=== PATIENT | female | born 1945 | race Caucasian/White ===

== ENCOUNTER → 2017-10-25 12:27 | Outpatient (CLI) | payer MEDICARE, OTHER, SELFPAY ==
--- NOTE | 2017-10-26 20:15 | DI.NM.S_ITS ---
DATE OF SERVICE: 10/25/2017 REFERRING PROVIDER: JULIA Roca PROCEDURE: Nuclear cardiac stress study. INDICATIONS: This is a 72-year-old patient with a history of pacemaker placement with evidence of recurrent nonsustained ventricular tachycardia on her pacemaker interrogations. Nuclear cardiac stress study is preformed as part of her evaluation to assess for ischemia. STRESS TEST: This patient was given a pharmacologic stress study using Lexiscan injection. Baseline EKG shows a normal sinus rhythm with a left axis deviation with no ventricular or atrial pacing. She tolerated the pharmacologic stress study without significant problems and received 25.5 mCi of technetium-99 Myoview on the stress portion of the examination. She returned 1 day later for the resting portion of the examination, receiving an additional 20.8 mCi. Prone imaging could not be performed. FINDINGS: Raw Data: Raw data images show overall good image quality. Prominent breast shadows identified. Quantitative Gated SPECT Imaging: Gated studies show a normal-size ventricle with end-diastolic volume estimated at 65 cc. Left ventricular systolic function is normal with an estimated ejection fraction of 85% with no regional wall motion abnormalities noted. Myocardial Perfusion SPECT Imaging: Myocardial perfusion imaging shows a normal distribution of radioisotopes throughout the myocardium. There are no myocardial perfusion abnormalities that would suggest ischemia or a scar. IMPRESSION: Normal nuclear cardiac stress study. Dawn Snyder - RASHAUN/kota/ts doc#: [id number]/job#: [id number] dd: 10/26/2017 16:35:00 dt: 10/26/2017 19:58:00 DICTATING MD/COPIES TO: Tristen Cardenas MD COPIES MNE: LATOYA
== END ==
PROVIDERS: PCP Internal Medicine
DX: I47.2 Ventricular tachycardia (principal); Z95.0 Presence of cardiac pacemaker
CPT/HCPCS: 78452; 93016; 93017; 93018; A9502

== ENCOUNTER → 2017-10-26 12:33 | Outpatient (CLI) | payer MEDICARE, OTHER, SELFPAY ==
--- NOTE | 2017-10-26 | DI.ECHO.S_ITS ---
[facility] +---------+ : : [address] : : : : [id number] : : : : Phone: [phone]+ Echocardiogram Report + + :Name: RENETTA RICK Study Date: 10/26/2017 Height: 64 in : :[facility] Weight: 180 lb : : Gender: Female BSA: 1.9 m2 : :: 1945 Age: 72 yrs BP: 130/84 mmHg: :Reason For Study: TACHYCARDIA : : Performed By: No Gange : + + Interpretation Summary 1. Small left ventricular cavity with upper limits of normal wall thickness and normal systolic function with an estimated EF of 60-65% 2. Upper limits of normal right ventricular size with normal systolic function. The estimated RVSP is 32 mm Hg. The estimated right atrial pressure is low. 3. Aortic valve sclerosis without stenosis or insufficiency Compared to the previous study, the estimated RVSP has increased somewhat Procedure: A two-dimensional transthoracic echocardiogram with color flow and Doppler was performed. Comparison is made with the echocardiogram of 02/04/2015. The study quality was technically good. The heart rate ranged between 83-89 bpm during the study. Left Ventricle: Left ventricular wall thickness is at the upper limits of normal. The left ventricular cavity is small. The ejection fraction is estimated to be 60-65%. No obvious focal wall motion abnormalities. Right Ventricle: There is a pacemaker lead in the right ventricle. The right ventricle is at the upper limits of normal in size. The right ventricular systolic function is normal. Atria: Both atria are normal in size. No color doppler evidence for an ASD. Mitral Valve: The mitral valve leaflets appear thickened, but open well. Sclerotic changes. There is trace mitral regurgitation. Aortic Valve: The aortic valve is trileaflet. The aortic valve opens well. There is no aortic valve stenosis. No aortic regurgitation is present. Tricuspid Valve: The tricuspid valve leaflets are thin and pliable. There is mild tricuspid regurgitation. The right ventricular systolic pressure is estimated at 32 mmHg assuming a right atrial pressure of 3 mm Hg. Pulmonic Valve: The pulmonic valve is normal in structure and function. There is a trace or physiologic amount of pulmonic regurgitation. Great Vessels: The aortic root is normal size. Proximal ascending aorta is mildly enlarged at 3.6 cm. Distal ascending aorta is normal in size at 3.2 cm. The aortic arch is normal in size. The IVC is of normal diameter and collapses greater than 50% with a sniff. This suggests a low right atrial pressure of 3 mm Hg. Pericardium/ Pleura There is no pericardial effusion. There is no pleural effusion. MMode/2D Measurements & Calculations LVIDd: 3.2 cm LVOT diam: 2.1 cm LVIDs: 1.6 cm Ao root diam: 3.1 cm FS: 50.5 % asc Aorta Diam: 3.6 cm IVSd: 1.1 cm Ao Arch Diam (Prox Trans): 2.3 cm LVPWd: 0.98 cm LV zuñiga. diameter/BSA (cm/m^2): 1.7 LV sys. diameter/BSA (cm/m^2): 0.86 LA A2 area: 22.6 cm2 RA long axis: 5.4 cm LA A4 area: 18.2 cm2 RA area: 19.2 cm2 LA length (vol): 5.8 cm RA vol: 57.9 ml LA vol: 60.0 ml RA : 31.0 ml/m2 LA vol index: 32.1 ml/m2 RVD1 (basal): 3.7 cm TAPSE: 2.4 cm Doppler Measurements & Calculations Ao V2 max: 151.3 cm/sec LVOT Max Henri: 102.4 cm/sec Ao V2 mean: 109.4 cm/sec LV V1 max P.2 mmHg Ao max P.2 mmHg LV V1 VTI: 22.0 cm Ao mean P.2 mmHg SUSIE(I,D): 2.5 cm2 Ao V2 VTI: 30.3 cm SUSIE(V,D): 2.3 cm2 sev ratio: 0.73 SUSIE indexed to BSA (cm^2/m^2): 1.3 MV E max henri: 68.7 cm/sec TR max henri: 268.3 cm/sec MV A max henri: 94.0 cm/sec TR max P.8 mmHg MV E/A: 0.73 Med Peak E' Henri: 3.5 cm/sec E/E' med: 19.8 Lat Peak E' Henri: 11.8 cm/sec E/E' lat: 5.8 E/e' average: 12.8 MV dec time: 0.23 sec Reading Physician:HARINI
== END ==
PROVIDERS: PCP Internal Medicine
DX: R00.0 Tachycardia, unspecified (principal)
CPT/HCPCS: 93306

== ENCOUNTER → 2017-12-22 10:51 | Outpatient (CLI) | payer MEDICARE, OTHER, SELFPAY ==
[2017-12-22 11:56] LABS: Add Manual Diff / Slide Review NO; Basophils Percent Auto 0.9 % (0-2); Eosinophils Percent Auto 4.2 % (2-4); Hematocrit 41.5 % (36-46); Hemoglobin 14.2 g/dL (12.0-16.0); Lymphocytes Percent Auto 26.3 % (25-40); Mean Corpuscular HGB Conc 34.2 % (30-36); Mean Corpuscular Hemoglobin 32.4 PG (26-34); Mean Corpuscular Volume 94.6 fL (80-100); Monocytes Percent Auto 13.7 % (3-14); Neutrophils Absolute Auto 1400 /uL (3000-5900); Neutrophils Percent Auto 54.9 % (50-75); Platelet Count 243 X10^3/uL (150-400); Red Blood Cell Count 4.39 X10^6/uL (4.0-5.2); White Blood Cell Count 2.6 X10^3/uL (4.5-11.0)
[2017-12-22 12:15] LABS: Alanine Aminotransferase 37 IU/L (9-52); Albumin 4.2 g/dL (3.5-5.0); Albumin Globulin Ratio 1.4 (1.0-2.8); Alkaline Phosphatase 91 U/L (38-126); Aspartate Aminotransferase 30 IU/L (14-36); BUN Creatinine Ratio 11.4 (6-22); Bilirubin Total 0.8 mg/dL (0.2-1.3); Blood Urea Nitrogen 8 mg/dL (7-17); Calcium 10.1 mg/dL (8.4-10.2); Carbon Dioxide 32 mmol/L (22-32); Chloride 104 mmol/L (98-107); Cholesterol 189 mg/dL (140-199); Estimated Glomerular Filt Rate > 60.0 mL/min (>60); Globulin 2.9 g/dL (1.7-4.1); Glucose 105 mg/dL (80-110); HDL Cholesterol 36 mg/dL (40-60); HEMOLYSIS < 15 (0-50); LDL Cholesterol Calculated 127 mg/dL (<100); Potassium 4.2 mmol/L (3.4-5.1); Sodium 141 mmol/L (137-145); Total Protein 7.1 g/dL (6.3-8.2); Triglycerides 130 mg/dL (35-150)
[2017-12-22 12:46] LABS: TSH w/ Reflex to FT4 0.02 uIU/mL (0.47-4.68)
[2017-12-22 13:14] LABS: Free T4, Direct Thyroxine 1.86 ng/dL (0.78-2.19)
== END ==
PROVIDERS: Visit Provider Nurse Practitioner Family
DX: S06.5X0D Traumatic subdural hemorrhage without loss of consciousness, subsequent encounter (principal); R41.89 Other symptoms and signs involving cognitive functions and awareness
CPT/HCPCS: 36415; 80053; 80061; 84439; 84443; 85025

== ENCOUNTER → 2018-01-17 16:06 | Outpatient (CLI) | payer MEDICARE, OTHER, SELFPAY ==
--- NOTE | 2018-01-17 16:09 | DI.RAD.S_ITS ---
PROCEDURE: XR LUMBAR SPINE 2-3V INDICATIONS: Tenderness to palpation of lumbar spine TECHNIQUE: 3 views of the lumbar spine were acquired. COMPARISON: [facility], CT, KIDNEY/ URETER/BLADDER, 10/24/2016, 12:06. [facility], CR, L-SPINE 2-3 VIEWS, 06/12/2012, 10:59. FINDINGS: Bones: 5 [id number] vertebrae are present. There is abnormal bony alignment with anterolisthesis grade 1 grade 2 of of L4 and L5. No definite acute vertebral body compression but note is made of kyphoplasty bone cement at the L1 vertebral body area, not present in 2012. This was present associated with treatment for an L1 compression fracture on CT scanning that included this area 10/24/16 Fractures. No suspicious bony lesions. Soft tissues: Overlying bowel gas pattern is normal. No suspicious soft tissue calcifications. IMPRESSION: Prior compression fracture with kyphoplasty bone cement L1. Moderately severe to severe degenerative disc disease and facet osteoarthritis over the lower half of the lumbosacral spine with associated Grade I-grade 2 anterolisthesis of L4 on L5. Dictated by: Mike Kim M.D. on 01/17/2018 at 16:52 Approved by: Mike Kim M.D. on 01/17/2018 at 16:54
--- NOTE | 2018-01-17 16:09 | DI.RAD.S_ITS ---
PROCEDURE: XR SACRUM COCCYX MIN 2V INDICATIONS: Tenderness to palpation of lumbar spine TECHNIQUE: 3 views of the sacrum and coccyx acquired. COMPARISON: None. FINDINGS: Bones: No definite acute fractures or dislocations. There is moderately severe degenerative disc disease along the visualized lower lumbosacral spine, with what appears to be kyphoplasty bone cement at the inferior aspect of L1, and a possible mild superior endplate compression fracture at the superior aspect of the L2 vertebral body immediately below, chronic by appearance. There is grade 1-2 anterolisthesis of L4 on L5, associated with moderately severe to severe degenerative disc disease and facet osteoarthritis. Similar degenerative changes without subluxation are present at L5-S1. Partial visualization of the left hip shows severe degenerative osteoarthritis with a large central subchondral cyst measuring up to 2.8 cm. No suspicious bony lesions. Soft tissues: Visualized bowel gas pattern is normal. No suspicious soft tissue densities. IMPRESSION: No definite acute disease. Prominent degenerative disc disease and facet osteoarthritis over the lower half of the lumbosacral spine is present allowing Grade I-grade 2 anterolisthesis of L4 on L5. Severe left hip joint osteoarthritis, prior dynamic hip screw noted at the right hip. Minimal arthritic changes seen at the right hip joint. Dictated by: Mike Kim M.D. on 01/17/2018 at 16:50 Approved by: Mike Kim M.D. on 01/17/2018 at 16:52
== END ==
PROVIDERS: PCP Internal Medicine; Visit Provider Physician Assistant
DX: M51.37 Other intervertebral disc degeneration, lumbosacral region (principal); M54.5 Low back pain; M43.16 Spondylolisthesis, lumbar region; M16.12 Unilateral primary osteoarthritis, left hip; M47.817 Spondylosis without myelopathy or radiculopathy, lumbosacral region
CPT/HCPCS: 72100; 72220

== ENCOUNTER 2018-01-29 11:30 | Oncology outpatient (ONC) | payer MEDICARE, OTHER, SELFPAY ==
[2018-01-08 10:20] VITALS: BP 137/85; PULSE 79; RESP 79; TEMP 36.3; O2SAT 98
--- NOTE | 2018-01-08 10:59 | P.CONONC_ITS ---
History of Present Illness - Data of Consult Consult date: 01/08/18 Requesting Physician: Carol Ann Reyes Primary Care Provider: Abelino Durand MD - Consult Narrative Reason for consult: Leukopenia Narrative: Dawn Snyder is a 72 year old female who is referred for further evaluation of leukopenia. Patient had routine blood test done on December 22. Her white count was found to be 2.6 with a hemoglobin of 14.2 hematocrit 41.5 and platelets of [id number]. Differential showed normal percentages of the white cells. Review of old CBCs shows that in 2014 showed a white count of 2.8. On other CBCs dating back as far as 2012 her white count has been normal. She has not had any anemia or thrombocytopenia. She denies any recent infections. She did have a history of some fungal infections on the skin but not recently. These resolved with topical treatment including light therapy. She has not required any antibiotics. She denies any viral symptoms. Her appetite has been good. She has not been losing any weight. She has not noted any adenopathy. No fevers chills or sweats. Strength and energy level have been stable. She notes that she has been a regular blood donor in the past. She has never required a transfusion. She denies any recent changes in her medications. Her biggest complaint today is been ?blackout spells?. These have been occurring rarely since about 1999. This seems to happen every few years. She describes burning backwards and losing consciousness. Afterwards, she feels fine generally. After her most recent episode though, she did hit the back of her head and was hospitalized. She did have a brief stay in rehab following that. She has undergone a cardiac evaluation and had a pacemaker placed. Despite that, she still has had more episodes. CC: Denzel Yeung MD Patient reports pain?: No Home Medications and Allergies Home Medications Medication Instructions Recorded Confirmed Type CHOLECALCIFEROL (VITAMIN D3) 2,000 iu PO QDAY #0 04/13/10 12/25/17 History (Vitamin D3) MULTIVITAMIN/MINERALS (Thera M 1 tab PO QDAY #0 04/13/10 12/25/17 History Plus Tablet) Vitamin E (Alpha-Tocopherol) 400 unit PO QDAY #0 04/13/10 12/25/17 History [FISH OIL] 4,000 mg PO QDAY #0 04/13/10 12/25/17 History ASCORBIC ACID (VITAMIN C) 500 mg PO QDAY #0 09/10/11 01/08/18 History cetirizine 10 mg PO Q DAY #90 tab 02/24/13 12/25/17 Rx duloxetine 60 mg capsule,delayed 60 mg PO DAILY 11/22/17 12/25/17 History release metoprolol succinate ER 25 mg 25 mg PO DAILY 11/22/17 12/25/17 History tablet,extended release 24 hr ezetimibe 10 mg tablet 10 mg PO DAILY #30 tab 12/21/17 12/25/17 Rx hydroxyzine pamoate 50 mg capsule 50 mg PO BEDTIME PRN #30 cap 12/21/17 Rx pantoprazole 40 mg tablet,delayed 40 mg PO DAILY #30 tab 12/21/17 12/25/17 Rx release clopidogrel 75 mg tablet 75 mg PO DAILY 12/25/17 12/25/17 History levothyroxine 112 mcg capsule 112 mcg PO DAILY #30 cap 12/25/17 Rx ropinirole 0.25 mg tablet See Label Instructions PO BEDTIME 12/25/17 12/25/17 History tab Allergies Allergy/AdvReac Type Severity Reaction Status Date / Time acetaminophen Allergy Intermediate LIVER/PANCREAS Verified 12/25/17 10:05 PAIN Penicillins Allergy Intermediate REDNESS Verified 12/25/17 10:05 AND SWELLING clobetasol Allergy Mild ITCHING Verified 12/25/17 10:05 adhesive Allergy Unknown Verified 12/25/17 10:05 cefuroxime Allergy Unknown Verified 12/25/17 10:05 chlorhexidine Allergy Unknown Verified 12/25/17 10:05 oxycodone Allergy Unknown Verified 12/25/17 10:05 Sulfa (Sulfonamide Allergy Unknown Verified 12/25/17 10:05 Antibiotics) hydrocodone Allergy Verified 12/25/17 10:05 hydromorphone Allergy Verified 12/25/17 10:05 procaine [From Novocain] Allergy Verified 12/25/17 10:05 lidocaine AdvReac Intermediate DIARRHEA/VO Verified 12/25/17 10:05 MITING ciprofloxacin AdvReac Mild CHILLS,FEVE Verified 12/25/17 10:05 R,DIARRHEA erythromycin base AdvReac Mild VOMITING,DI Verified 12/25/17 10:05 ARRHEA gabapentin AdvReac Mild CONFUSION, Verified 12/25/17 10:05 DELUSIONS ondansetron AdvReac Mild HALLUCINATI Verified 12/25/17 10:05 ONS promethazine AdvReac Mild AGITATION, Verified 12/25/17 10:05 CONFUSION simethicone AdvReac Mild CONFUSION Verified 12/25/17 10:05 aspirin [ASPIRIN] AdvReac Unknown Verified 12/25/17 10:05 Medical History - Medical, Surgical, Family History Medical History: Medical History (Last Reviewed 12/25/17 @ 13:37 by Carol Ann Reyes DNP, ANP, STAFF CERTIFIED NURSE MIDWIFE-C) Allergic rhinitis Onset Date: Unknown C. difficile colitis GERD (gastroesophageal reflux disease) Onset Date: Unknown Histoplasmosis Onset Date: Unknown Hypertension Onset Date: Unknown Hypothyroidism Onset Date: Unknown Osteoarthritis Onset Date: Unknown Osteoporosis Onset Date: Unknown Pacemaker Onset Date: 09/2012 Restless leg syndrome Onset Date: Unknown Actinic keratosis Onset Date: Unknown Ankle fracture Onset Date: 08/2011 Compression fracture of L1 lumbar vertebra Onset Date: 10/2012 Episode of syncope Onset Date: 09/2012 Fracture of right ulnar styloid Onset Date: 2013 Intertrochanteric fracture of right femur Onset Date: 2013 Intertrochanteric fracture of right hip Onset Date: 2013 Left radial fracture Onset Date: 03/2011 Skin cancer Onset Date: 1996 Surgical History: Surgical History (Last Reviewed 12/25/17 @ 13:37 by Carol Ann Reyes DNP, ANP, STAFF CERTIFIED NURSE MIDWIFE-C) Status cardiac pacemaker Onset Date: 09/2012 History of ankle surgery Onset Date: 08/2011 History of basal cell carcinoma (BCC) excision Onset Date: 1996 History of hip surgery Onset Date: 2013 History of knee replacement procedure of left knee Onset Date: 09/2009 History of knee replacement procedure of right knee Onset Date: 04/2010 History of kyphoplasty Onset Date: 10/2012 History of orthopedic surgery Onset Date: 03/2011 History of removal of cyst Onset Date: 2007 History of thyroid surgery Onset Date: 1990 Hx of arthroscopy of knee Onset Date: Unknown Hx of laminectomy Onset Date: 10/2008 Hx of tonsillectomy Onset Date: Unknown - Social History Smoking Status: Former smoker (quit in 1989) Alcohol Intake: current Alcohol Intake Frequency: holidays/special occasions only Review of Systems - Patient Self-Reported Symptoms SR Musculoskeletal issues: Joint pain or swelling, Muscle pain or cramps All systems PM: reviewed and no additional remarkable complaints except as stated Constitutional: weight gain, no weight loss Ears, nose, mouth, throat: head injury Gastrointestinal: other (She had been off of her antacid and developed reflux. She has since restarted.) Musculoskeletal: pain (In her left arm and elbow. She has had previous steroid injections.) Exam Vital signs: Last Vital Signs Temp 97.4 F L 01/08/18 10:20 Pulse 79 01/08/18 10:20 Resp 79 H 01/08/18 10:20 BP 137/85 H 01/08/18 10:20 Pulse Ox 98 01/08/18 10:20 - Constitutional positive no acute distress, positive obese - Routine HEENT Exam Head: Present: normocephalic, atraumatic Eye: Present: EOMI, PERRL. Absent: conjunctival icterus, scleral injection ENT: Present: mucous membranes moist, oropharynx clear, dentition normal - Routine Neck Exam Present: supple, trachea midline. Absent: lymphadenopathy, thyromegaly - Routine Chest/Breast/Axilla Exam Chest wall exam standard: Present: pacemaker. Absent: tenderness, mass - Routine Respiratory Exam Present: Clear to auscultation bilaterally. Absent: rales, wheezes - Routine Cardiovascular Exam Present: RRR, S1, S2. Absent: murmur - Routine Abdominal Exam Present: soft, normoactive bowel sounds. Absent: tenderness, organomegaly Palpation/Percussion: Absent: hepatomegaly, splenomegaly - Routine Extremities Exam Absent: cyanosis, clubbing, edema - Routine Back/Spine Exam Back/Spine: Absent: paraspinal tenderness, vertebral tenderness - Routine Skin Exam Present: intact, dry. Absent: petechiae - Routine Neurological Exam Present: alert, oriented X3 - Routine Psychiatric Exam Present: normal affect, normal thought process Results - Imaging Additional studies: Procedures Application of splint (09/10/11) Injection of anesthetic into peripheral nerve for analgesia (04/13/10) Injection or infusion of other therapeutic or prophylactic substance (12/21/13) Total knee replacement (04/13/10) Assessment and Plan (1) Leukopenia Problem details: 72-year-old woman with newly discovered leukopenia. She does not have any symptoms related to this and no recent infections. I do not think that it is in any way related to her blackout spells. There is no obvious etiology. Of her medications, pantoprazole is rarely reported to cause a low white count. She does not have any evidence of underlying liver disease or hypersplenism. The lack of of red cell or platelet abnormalities would make nutritional deficiency or underlying myelodysplasia less likely. She does not have any symptoms of recent viral infection. Her previous normal counts would make a inherited condition less likely. An autoimmune leukopenia is a possibility. Given that she is asymptomatic and her white count is not terribly low, I think just repeating his CBC in a few weeks would be prudent. If her low count persists, then it may be worthwhile pursuing more extensive diagnostic evaluation. One consider checking B12 and folate as well as anti neutrophilic antibodies. More frequent checks of CBC looking for cyclic neutropenia could also be considered. She did have recent hyperthyroidism and her dose of thyroid replacement has been diminished. I doubt that that is related to her blood counts though. If her counts significantly worsen or if she were to develop abnormalities in her red cell count or platelets, then a bone marrow biopsy might be indicated. She will return to clinic in about 3 weeks or so for follow-up with CBC prior. Current visit: Yes Status: Acute
[2018-01-29 11:53] VITALS: BP 137/70; PULSE 69; RESP 17; TEMP 36.9; O2SAT 96
--- NOTE | 2018-01-29 11:54 | ONC.PN ---
PN -Subjective Interval history: Diagnosis: Leukopenia Previous treatment: None. Interval history: The patient is a 72-year-old woman who returns today for follow-up. Since her last visit here, she has been bothered by ongoing back pain. She has been taking some morphine which has been helpful but does cause some dry mouth for her. She reports that she is scheduled for an MRI and about a week. She denies any unusual bleeding or bruising. No fevers or chills. Strength and energy level have been low but stable. Appetite has been fair. She is otherwise without complaint today. - Patient Self-Reported Symptoms SR Musculoskeletal issues: Joint pain or swelling, Muscle pain or cramps Home Medications and Allergies Home Medications Medication Instructions Recorded Confirmed Type CHOLECALCIFEROL (VITAMIN D3) 2,000 iu PO QDAY #0 04/13/10 01/17/18 History (Vitamin D3) MULTIVITAMIN/MINERALS (Thera M 1 tab PO QDAY #0 04/13/10 01/17/18 History Plus Tablet) Vitamin E (Alpha-Tocopherol) 400 unit PO QDAY #0 04/13/10 01/17/18 History [FISH OIL] 4,000 mg PO QDAY #0 04/13/10 01/17/18 History ASCORBIC ACID (VITAMIN C) 500 mg PO QDAY #0 09/10/11 01/17/18 History cetirizine 10 mg PO Q DAY #90 tab 02/24/13 01/17/18 Rx duloxetine 60 mg capsule,delayed 60 mg PO DAILY 11/22/17 01/17/18 History release metoprolol succinate ER 25 mg 25 mg PO DAILY 11/22/17 01/17/18 History tablet,extended release 24 hr hydroxyzine pamoate 50 mg capsule 50 mg PO BEDTIME PRN #30 cap 12/21/17 01/17/18 Rx clopidogrel 75 mg tablet 75 mg PO DAILY 12/25/17 01/17/18 History levothyroxine 112 mcg capsule 112 mcg PO DAILY #30 cap 12/25/17 01/17/18 Rx ropinirole 0.25 mg tablet See Label Instructions PO BEDTIME 12/25/17 01/17/18 History tab ezetimibe 10 mg tablet 10 mg PO DAILY #30 tab 01/15/18 01/17/18 Rx pantoprazole 40 mg tablet,delayed 40 mg PO DAILY #30 tab 01/18/18 Rx release Allergies Allergy/AdvReac Type Severity Reaction Status Date / Time acetaminophen Allergy Intermediate LIVER/PANCREAS Verified 01/17/18 15:43 PAIN Penicillins Allergy Intermediate REDNESS Verified 01/17/18 15:43 AND SWELLING clobetasol Allergy Mild ITCHING Verified 01/17/18 15:43 adhesive Allergy Unknown Verified 01/17/18 15:43 cefuroxime Allergy Unknown Verified 01/17/18 15:43 chlorhexidine Allergy Unknown Verified 01/17/18 15:43 oxycodone Allergy Unknown Verified 01/17/18 15:43 Sulfa (Sulfonamide Allergy Unknown Verified 01/17/18 15:43 Antibiotics) hydrocodone Allergy Verified 01/17/18 15:43 hydromorphone Allergy Verified 01/17/18 15:43 procaine [From Novocain] Allergy Verified 01/17/18 15:43 lidocaine AdvReac Intermediate DIARRHEA/VO Verified 01/17/18 15:43 MITING ciprofloxacin AdvReac Mild CHILLS,FEVE Verified 01/17/18 15:43 R,DIARRHEA erythromycin base AdvReac Mild VOMITING,DI Verified 01/17/18 15:43 ARRHEA gabapentin AdvReac Mild CONFUSION, Verified 01/17/18 15:43 DELUSIONS ondansetron AdvReac Mild HALLUCINATI Verified 01/17/18 15:43 ONS promethazine AdvReac Mild AGITATION, Verified 01/17/18 15:43 CONFUSION simethicone AdvReac Mild CONFUSION Verified 01/17/18 15:43 aspirin [ASPIRIN] AdvReac Unknown Verified 01/17/18 15:43 Exam Vital signs: Last Vital Signs Temp 97.4 F L 01/08/18 10:20 Pulse 79 01/08/18 10:20 Resp 79 H 01/08/18 10:20 BP 137/85 H 01/08/18 10:20 Pulse Ox 98 01/08/18 10:20 - Constitutional positive no acute distress, positive average body habitus Results - Labs CBC from January showed a white 4 point 4 hemoglobin 18.7 hematocrit 43.7 and platelets [id number]. - Imaging Additional studies: Procedures Application of splint (09/10/11) Injection of anesthetic into peripheral nerve for analgesia (04/13/10) Injection or infusion of other therapeutic or prophylactic substance (12/21/13) Total knee replacement (04/13/10) Assessment and Plan (1) Leukopenia Problem details: 72-year-old woman with newly discovered leukopenia. She does not have any symptoms related to this and no recent infections. I do not think that it is in any way related to her blackout spells. There is no obvious etiology. Her leukopenia seems to have resolved without any intervention. I do not think that any further evaluation at this time is likely to be helpful. Instead, I recommended that she continue to follow with her primary physician. If her cytopenias recur or worsen, we could perhaps re-evaluate. Current visit: Yes Status: Acute
== END 2018-02-11 12:52 ==
PROVIDERS: PCP Internal Medicine
DX: D72.819 Decreased white blood cell count, unspecified (principal)
CPT/HCPCS: 99204; 99213; 99214

== ENCOUNTER → 2018-01-29 11:50 | Outpatient (CLI) | payer MEDICARE, OTHER, SELFPAY ==
[2018-01-29 13:41] LABS: TSH w/ Reflex to FT4 0.05 uIU/mL (0.47-4.68)
[2018-01-29 14:06] LABS: Free T4, Direct Thyroxine 1.69 ng/dL (0.78-2.19)
== END ==
PROVIDERS: PCP Nurse Practitioner Family; Visit Provider Nurse Practitioner Family
DX: E03.9 Hypothyroidism, unspecified (principal)
CPT/HCPCS: 36415; 84439; 84443

== ENCOUNTER → 2018-02-07 14:59 | Outpatient (CLI) | payer MEDICARE, OTHER, SELFPAY | PROVIDERS: PCP Nurse Practitioner Family; Visit Provider Orthopaedic Surgery Orthopaedic Surgery of the Spine | DX: M54.5 Low back pain (principal); Z53.9 Procedure and treatment not carried out, unspecified reason ==

== ENCOUNTER → 2018-04-10 10:44 | Outpatient (CLI) | payer MEDICARE, OTHER, SELFPAY ==
[2018-04-10 12:29] LABS: Thyroid Stimulating Hormone 0.31 uIU/mL (0.47-4.68)
== END ==
PROVIDERS: PCP Family Medicine; Visit Provider Family Medicine
DX: E03.9 Hypothyroidism, unspecified (principal)
CPT/HCPCS: 36415; 84443

== ENCOUNTER 2018-04-17 00:52 | Inpatient (IN) | payer MEDICARE, OTHER, SELFPAY ==
[2018-04-17] VITALS (11 sets, daily range): BP systolic 142–188; BP diastolic 88–115; PULSE 77–103; RESP 16–20; TEMP 36.3–36.8; O2SAT 93–96; BMI 29.9
--- NOTE | 2018-04-17 00:57 | DI.CT.S_ITS ---
PROCEDURE: CT HEAD/BRAIN WO CON INDICATIONS: head injury, on plavix TECHNIQUE: Noncontrast 4.5 mm thick angled axial sections acquired from the foramen magnum to the vertex, with coronal and sagittal reformats. For radiation dose reduction, the following was used: automated exposure control, adjustment of mA and/or kV according to patient size. COMPARISON: [facility], CT, CT BRAIN WO CON, 02/03/2015, 18:37. FINDINGS: Image quality: Excellent. CSF spaces: Basal cisterns are patent. No extra-axial fluid collections. The ventricles are symmetric in size and shape. Brain: No intracranial bleeds or masses. There is moderate cerebral volume loss for age, with resultant ventricular and sulcal prominence. There are moderate periventricular and deep white matter chronic small vessel ischemic changes. There is intracranial internal carotid artery atherosclerosis. Skull and face: Calvarium and visualized facial bones appear intact, without suspicious lesions. Sinuses: Visualized sinuses and mastoids are clear. IMPRESSION: 1. No acute intracranial abnormalities. 2. Cerebral volume loss and chronic microvascular ischemic changes. No significant discrepancy with the pediatric immunologist radiology preliminary report. Dictated by: Placido Heck M.D. on 04/17/2018 at 7:41 Approved by: Placido Heck M.D. on 04/17/2018 at 7:43
--- NOTE | 2018-04-17 01:16 | DI.CT.S_ITS ---
PROCEDURE: CT CHEST W CON INDICATIONS: trauma, fall TECHNIQUE: After the administration of intravenous contrast, 5 mm thick sections acquired from the pulmonary apices to the posterior costophrenic angles. 7 mm thick coronal and sagittal MIP reformats were acquired. For radiation dose reduction, the following was used: automated exposure control, adjustment of mA and/or kV according to patient size. COMPARISON: Outside Facility, , CT THORACIC SPINE, 08/12/2014, 15:03. FINDINGS: Image quality: Excellent. Lungs and pleura: No acute consolidation. Scattered atelectasis and/or scarring. No pleural effusions or pneumothorax. Central and peripheral airways are patent and normal in caliber. Mediastinum: Heart size is normal. No pericardial effusion. No mediastinal or hilar adenopathy by size criteria. Thoracic aorta and central pulmonary arteries are normal in size. Esophagus is normal in caliber. No hiatal hernia. Bones and chest wall: No suspicious bony lesions. Diffuse osteopenia is present. There is scattered discogenic change. Chronic L1 and T9 compression fracture, status post kyphoplasty changes. There is redemonstrated bony canal narrowing at these levels, grossly unchanged since 08/12/14 T5 vertebral body compression fracture with approximately 50% height loss anteriorly. There is also slight posterior displacement of the posterior inferior corner of the vertebral body with associated mild canal narrowing. Additional mild T6 compression endplate irregularity and minimal height loss suggestive of fracture. These fractures are thought to be acute. T8 compression fracture also seen with approximately 20% height loss anteriorly. No axillary or supraclavicular adenopathy by size criteria. Thyroid gland is atrophic otherwise negative. Chronic left rib fracture on image 44 series 7. Left first and second rib fractures which appear acute. There is also acute right second rib fracture Small hiatal hernia. Hepatic steatosis. Right parapelvic cyst only partially visualized. IMPRESSION: Acute left first and second rib fractures, and acute right second rib (not mentioned in the preliminary study interpretation) fracture. No pneumothorax. No pleural effusion identified. Diffuse osteopenia with suspected acute compression fractures at T5, T6 and T8 as detailed above. Chronic T9 and L1 compression fractures Dictated by: Erasto Carcamo M.D. on 04/17/2018 at 7:47 Approved by: Erasto Carcamo M.D. on 04/17/2018 at 7:59
--- NOTE | 2018-04-17 01:24 | ED.BACK ---
HPI - Back Pain/Injury General Chief Complaint: Trauma Stated Complaint: GLF Time Seen by Provider: 04/17/18 00:56 Source: patient and EMS Mode of arrival: EMS Limitations: no limitations History of Present Illness HPI Narrative: 72-year-old nonsmoking female presents by EMS for evaluation of a ground level fall resulting in head injury and back pain. The patient fell at about 10:00 p.m. and states that she likely tripped, hitting the top of her head but suffering no real other significant injury. She does take Plavix and is therefore activated as a modified trauma. She denies any dizziness, weakness or lightheadedness contributing. She denies any extremity injury. Patient's pain is worse with motion and improves with rest. After her fall she was able to get herself back up into bed and slept for a few hours before waking up in pain and activating EMS. She denies any chest pain or shortness of breath. She denies numbness, tingling or weakness MD Complaint: back pain Onset (ago): hour(s) Duration: constant Similar Symptoms Previously: No Location: thoracic spine Severity: moderate Quality: sharp Radiation: none Relieving factors: none Exacerbating factors: movement Context: fall Related Data Home Medications Medication Instructions Recorded Confirmed CHOLECALCIFEROL (VITAMIN D3) 2,000 iu PO QDAY #0 04/13/10 04/17/18 (Vitamin D3) MULTIVITAMIN/MINERALS (Thera M 1 tab PO QDAY #0 04/13/10 04/17/18 Plus Tablet) Vitamin E (Alpha-Tocopherol) 400 unit PO QDAY #0 04/13/10 04/17/18 [FISH OIL] 4,000 mg PO QDAY #0 04/13/10 04/17/18 ASCORBIC ACID (VITAMIN C) 500 mg PO QDAY #0 09/10/11 04/17/18 duloxetine 60 mg capsule,delayed 60 mg PO DAILY 11/22/17 04/17/18 release metoprolol succinate ER 25 mg 25 mg PO DAILY 11/22/17 04/17/18 tablet,extended release 24 hr clopidogrel 75 mg tablet 75 mg PO DAILY 12/25/17 04/17/18 ropinirole 0.25 mg tablet See Label Instructions PO BEDTIME 12/25/17 04/17/18 tab alprazolam 0.5 mg PO .qhs 04/17/18 04/17/18 vit C-vit [id number] 1 cap PO DAILY 04/17/18 04/17/18 [Ocuvite] Previous Rx's Medication Instructions Recorded pantoprazole 40 mg tablet,delayed 40 mg PO DAILY #30 tab 01/18/18 release ezetimibe 10 mg tablet 10 mg PO DAILY #90 tab 03/07/18 trazodone 50 mg tablet 50 mg PO DAILY #30 tab 03/13/18 levothyroxine 88 mcg capsule 88 mcg PO DAILY #90 cap 04/12/18 Allergies Allergy/AdvReac Type Severity Reaction Status Date / Time acetaminophen Allergy Intermediate LIVER/PANCREAS Verified 04/10/18 10:19 PAIN Penicillins Allergy Intermediate REDNESS Verified 04/10/18 10:19 AND SWELLING clobetasol Allergy Mild ITCHING Verified 04/10/18 10:19 adhesive Allergy Unknown Verified 04/10/18 10:19 cefuroxime Allergy Unknown Verified 04/10/18 10:19 chlorhexidine Allergy Unknown Verified 04/10/18 10:19 oxycodone Allergy Unknown Verified 04/10/18 10:19 Sulfa (Sulfonamide Allergy Unknown Verified 04/10/18 10:19 Antibiotics) hydrocodone Allergy Verified 04/10/18 10:19 hydromorphone Allergy Verified 04/10/18 10:19 procaine [From Novocain] Allergy Verified 04/10/18 10:19 lidocaine AdvReac Intermediate DIARRHEA/VO Verified 04/10/18 10:19 MITING ciprofloxacin AdvReac Mild CHILLS,FEVE Verified 04/10/18 10:19 R,DIARRHEA erythromycin base AdvReac Mild VOMITING,DI Verified 04/10/18 10:19 ARRHEA gabapentin AdvReac Mild CONFUSION, Verified 04/10/18 10:19 DELUSIONS ondansetron AdvReac Mild HALLUCINATI Verified 04/10/18 10:19 ONS promethazine AdvReac Mild AGITATION, Verified 04/10/18 10:19 CONFUSION simethicone AdvReac Mild CONFUSION Verified 04/10/18 10:19 aspirin [ASPIRIN] AdvReac Unknown Verified 04/10/18 10:19 Review of Systems Review of Systems All systems reviewed & are unremarkable except as noted in HPI and below Constitutional Denies chills, Denies fever(s), Denies lethargy and Denies weakness Eyes Denies change in vision, Denies eye discharge, Denies irritation and Denies loss of vision ENT Ears, Nose, Mouth, and Throat: Denies change in voice, Denies neck pain and Denies sore throat Cardiovascular Denies chest pain, Denies irregular heart rhythm, Denies lightheadedness, Denies palpitations, Denies dyspnea, Denies dyspnea on exertion and Denies orthopnea Respiratory Denies cough, Denies dyspnea, Denies dyspnea on exertion and Denies wheezing Gastrointestinal Gastrointestinal: Denies abdominal pain, Denies change in bowel habits, Denies diarrhea, Denies nausea and Denies vomiting Genitourinary Denies hematuria, Denies flank pain, Denies urinary incontinence and Denies urinary urgency Musculoskeletal Reports back pain and Denies neck pain Integumentary/Breasts Denies pruritus, Denies erythema, Denies rash and Denies wounds Neurologic Denies confusion, Denies loss of vision and Denies weakness Psychiatric Denies anxiety, Denies confusion, Denies depression, Denies homicidal ideation and Denies suicidal ideation Endocrine Denies palpitations Hematologic/Lymphatic Denies easy bruising Allergic/Immunologic Denies wheezing [facility] Medical History Hypercalcemia (Acute) Leukopenia (Inactive) Allergic rhinitis (Chronic Unknown) C. difficile colitis (Chronic) GERD (gastroesophageal reflux disease) (Chronic Unknown) Histoplasmosis (Chronic Unknown) Hypertension (Chronic Unknown) Hypothyroidism (Chronic Unknown) Osteoarthritis (Chronic Unknown) Osteoporosis (Chronic Unknown) Pacemaker (Chronic 09/2012) Restless leg syndrome (Chronic Unknown) Actinic keratosis (Resolved Unknown) Ankle fracture (Resolved 08/2011) Compression fracture of L1 lumbar vertebra (Resolved 10/2012) Episode of syncope (Resolved 09/2012) Fracture of right ulnar styloid (Resolved 2013) Intertrochanteric fracture of right femur (Resolved 2013) Intertrochanteric fracture of right hip (Resolved 2013) Left radial fracture (Resolved 03/2011) Skin cancer (Resolved 1996) Surgical History Status cardiac pacemaker (Acute 09/2012) History of ankle surgery (Resolved 08/2011) History of basal cell carcinoma (BCC) excision (Resolved 1996) History of hip surgery (Resolved 2013) History of knee replacement procedure of left knee (Resolved 09/2009) History of knee replacement procedure of right knee (Resolved 04/2010) History of kyphoplasty (Resolved 10/2012) History of orthopedic surgery (Resolved 03/2011) History of removal of cyst (Resolved 2007) History of thyroid surgery (Resolved 1990) Hx of arthroscopy of knee (Resolved Unknown) Hx of laminectomy (Resolved 10/2008) Hx of tonsillectomy (Resolved Unknown) Family History Mother Leukemia Social History marital status: details: States she was within the last 4 years and was then number of children: 3 household members: family lives independently: No (with 2 grown sons) caregiver/support person: Yes (son) housing: house occupational status: unemployed current occupational exposures/hazards: No Smoking Status: Former smoker (quit in 1989) alcohol intake: current Type(s) of exercise: assisted ambulation (with seated walker) additional social history: Father and brother with diabetes Mother with leukemia Exam Narrative Exam Narrative: 72-year-old female alert and oriented x3, GCS 15 Initial Vital Signs Initial Vital Signs: Vital Signs Pulse Rate 96 H 04/17/18 00:56 Respiratory Rate 20 04/17/18 00:56 Blood Pressure 188/115 H 04/17/18 00:56 Pulse Oximetry 95 04/17/18 00:56 Const General: cooperative, well developed and in distress Nutritional Appearance: well nourished Orientation: alert, awake, oriented x3 and not confused HENNM Head: normocephalic and atraumatic Ears: external ears normal and TM's normal bilaterally Nose: external nose normal and No nasal discharge Face and sinus: sinuses nontender, face symmetric, no sinus tenderness and No dry mucous membranes Mouth: oral mucosae normal and moist mucous membranes Teeth and gingiva: dentition normal Throat: tonsils normal and uvula midline Eyes General: appearance normal, both eyes and all related structures Eyelids: eyelids normal Conjunctivae: conjunctivae normal Sclera: sclerae normal Pupils: PERRL EOM: EOM intact bilaterally Chest Chest: tenderness (To palpation across anterior chest without swelling, crepitance or ecchymosis) Resp Effort & Inspection: normal respiratory effort, able to speak in complete sentences, no respiratory distress and no use of accessory muscles Auscultation: clear to auscultation bilaterally, no rales, no rhonchi and no wheezes Cardio Rate: regular rate Rhythm: regular rhythm Heart Sounds: no click, no gallops, no murmurs and no rubs Pulses: normal peripheral pulses GI Inspection: non-distended Palpation: soft, no hepatosplenomegaly, No guarding, No pulsatile mass and No tender Auscultation: normal bowel sounds Back/Spine/Pelvis Back: back tenderness and No CVA tenderness Cervical Spine: cervical ROM normal and No pain with cervical ROM Thoracic/Lumbar Spine: thoraco-lumbar ROM limited Skin General: no rashes or lesions noted, No jaundice and No petechiae Neuro General: alert, oriented x3, gait normal and no focal motor deficits Speech: speech normal Extrem General: full ROM, no clubbing, cyanosis or edema, no pedal edema and no calf tenderness Course Orders Ordered: ED Orders 04/17/18 00:57 CT head/brain wo con Stat 04/17/18 01:11 Basic Metabolic Panel Stat Complete Blood Count AUTO DIFF Stat 04/17/18 01:16 CT chest w con Stat 04/17/18 03:30 Consult to Physical Therapy Evaluate & Treat Sodium Chloride (Normal Saline 0.9%) 250 mls @ 21 mls/hr IV Q24H HUANG HYDROMORPHONE TRANSPORTATION LEAD (Dilaudid 6 Mg/30 Ml) 6 mg in 30 mls @ 0 mls/hr IV Q8HR HUANG Naloxone HCl (Narcan) 0.2 mg IV Q2MIN PRN; Protocol PRN Reason: Opiate Reversal Discontinued Medications Morphine Sulfate (Morphine Sulfate) 5 mg IV NOW ONE Stop: 04/17/18 01:17 Last Admin: 04/17/18 01:33 Dose: 5 mg Reevaluation(s) Reevaluation #1: Patient has been administered IV pain meds and is unable to safely ambulate. Consultations Consultation #1: Orthopedics consulted regarding CT findings, mainly the T5 compression with 50-60% wedging and slight retropulsion. They recommend TLSO brace if she is able to go home Consultation #2: call to Dr. Saenz for admission Vital Signs - 8 hr 04/17/18 00:56 04/17/18 02:30 04/17/18 03:00 Temperature Pulse Rate 96 H 88 Respiratory Rate 20 16 Blood Pressure 188/115 H Blood Pressure [Left Arm] 148/101 H 145/102 H Pulse Oximetry 95 95 04/17/18 03:33 Temperature 98.3 F Pulse Rate Respiratory Rate Blood Pressure Blood Pressure [Left Arm] Pulse Oximetry MDM - Back Pain/Injury Medical Records Attestation: I reviewed the patient's medical records. Lab Data Attestation: I reviewed the patient's lab results. Result diagrams: 04/17/18 01:11 04/17/18 01:11 Lab Results 04/17/18 04/17/18 Range/Units 01:11 01:11 WBC 6.8 (4.5-11.0) X10^3/uL RBC 5.02 (4.0-5.2) X10^6/uL Hgb 15.5 (12.0-16.0) g/dL Hct 45.8 (36-46) % MCV 91.3 (80-100) fL MCH 30.8 (26-34) PG MCHC 33.8 (30-36) % RDW 15.0 H (11.6-14.8) % Plt Count 229 (150-400) X10^3/uL Neut % (Auto) 84.2 H (50-75) % Lymph % (Auto) 8.2 L (25-40) % Yell % (Auto) 6.5 (3-14) % Eos % (Auto) 0.7 L (2-4) % Baso % (Auto) 0.4 (0-2) % Neut # (Auto) 5700 (5811-8741) /uL Sodium 141 (137-145) mmol/L Potassium 3.7 (3.4-5.1) mmol/L Chloride 102 (98-107) mmol/L Carbon Dioxide 25 (22-32) mmol/L BUN 11 (7-17) mg/dL Creatinine 0.60 (0.52-1.04) mg/dL Estimated GFR > 60.0 (>60) mL/min BUN/Creatinine Ratio 18.3 (6-22) Glucose 132 H (80-110) mg/dL Calcium 10.2 (8.4-10.2) mg/dL Imaging Data CT scan - head: Radiologist's impression: NAP CT scan - chest: Radiologist's impression: Acute Fractures of posterior L first and second ribs. Acute and Old thoracic compression fractures. T5 vertebral body with anterior wedging 50-60% with slight retropulsion of posterior corner of vertebral body T6 vertebral body with minimal compression deformity T8 vertebral body with mild anterior wedging Discharge Plan Departure Patient Disposition: Admitted as Observation Clinical Impression: Closed rib fracture, Closed fracture of body of posterior thoracic vertebra Discharge Date/Time: 04/17/18 03:37 Interventions: ED Discharge Assessment Last Done: 04/17/18 03:37 Admit Date/Time: 04/17/18 03:13 Admit Provider: Krystin Saenz
[2018-04-17 01:28] LABS: Add Manual Diff / Slide Review NO; Basophils Percent Auto 0.4 % (0-2); Eosinophils Percent Auto 0.7 % (2-4); Hematocrit 45.8 % (36-46); Hemoglobin 15.5 g/dL (12.0-16.0); Lymphocytes Percent Auto 8.2 % (25-40); Mean Corpuscular HGB Conc 33.8 % (30-36); Mean Corpuscular Hemoglobin 30.8 PG (26-34); Mean Corpuscular Volume 91.3 fL (80-100); Monocytes Percent Auto 6.5 % (3-14); Neutrophils Absolute Auto 5700 /uL (3000-5900); Neutrophils Percent Auto 84.2 % (50-75); Platelet Count 229 X10^3/uL (150-400); Red Blood Cell Count 5.02 X10^6/uL (4.0-5.2); White Blood Cell Count 6.8 X10^3/uL (4.5-11.0)
[2018-04-17 01:29] LABS: BUN Creatinine Ratio 18.3 (6-22); Blood Urea Nitrogen 11 mg/dL (7-17); Calcium 10.2 mg/dL (8.4-10.2); Carbon Dioxide 25 mmol/L (22-32); Chloride 102 mmol/L (98-107); Estimated Glomerular Filt Rate > 60.0 mL/min (>60); Glucose 132 mg/dL (80-110); HEMOLYSIS 30 (0-50); Potassium 3.7 mmol/L (3.4-5.1); Sodium 141 mmol/L (137-145)
[2018-04-17] MEDS: MORPHINE 5 MG/ML INJ IV (01:33)
[2018-04-17] MEDS: HYDROMORPHONE PCA 6 MG/30 ML PCA.VIAL IV ×4 (03:50→20:27)
[2018-04-17] MEDS: SODIUM CHLORIDE 0.9% 250 ML 21 ML IV ×2 (03:50→15:50)
--- NOTE | 2018-04-17 05:08 | PC.ADMIT ---
Addendum entered by Tete Dodge R.N. 04/17/18 06:34: States pain is unchanged but had only used 0.6mg since admission and states it doesn't work; encouraged to use LEADER [employer]SEMBLER more frequently in order to get pain under better control but seems reluctant to do so. Ended up using 1mg this shift. Original Note: [email or web address] [facility] [address] Admission Note: The patient,Dawn Snyder,72 y/o, was given written information regarding hospital policies, unit procedures and contact persons. Patient's smoking status: Former smoker. Vital Signs - 8 hr 04/17/18 00:56 04/17/18 02:30 04/17/18 03:00 Temperature Pulse Rate 96 H 88 Respiratory Rate 20 16 Blood Pressure 188/115 H Blood Pressure [Left Arm] 148/101 H 145/102 H Pulse Oximetry 95 95 04/17/18 03:33 04/17/18 04:07 Temperature 98.3 F 98.3 F Pulse Rate 89 Respiratory Rate 16 Blood Pressure 144/97 H Blood Pressure [Left Arm] Pulse Oximetry 96 Patient admitted to room 227 from ER per stretcher at 0345. Transferred into bed using slider board. LEADER ASSEMBLER set up and patient instructed in use. Pharmacy called re: Hydromorphone allergy so Dr Hernandez contacted and states patient said she did not have allergy to Dilaudid so we should use and monitor for any adverse reactions. Patient is oriented but states forgetful. Breath sounds CTA with RA sat of 96%. HRR; has pacemaker. BP elevated at 144/97, but patient in pain so encouraged to use LEADER ASSEMBLER and will continue to monitor BP as was also elevated in ER. Does state she has nausea but without emesis and states she will not take antiemetics because she is allergic to most of them. BT present and abdomen is soft. Denies dysuria, frequency or urgency but states she has occasional stress incontinence. Old bruise noted on left flank. Bruising also noted on bilateral posterior UE and left lower leg. Has dry, scaly skin under both breasts and states she was recently treated for a possible fungal infection by a tactical debriefer officer but has stopped using prescription cream as she thought it had resolved. Bilateral heels are reddened so floated on pillow. Complains of9/10 mid back pain; has spinal stenosis and osteoporosis. Complains of 6/10 left shoulder pain; planning upcoming left TSA. Complains of 6/10 chest discomfort likely due to thoracic/rib fx. Encouraged to use LEADER ASSEMBLER. Was able to get up out of bed to BSC with walker and 1 assist. Oriented to bed controls and call light. Fall risk score is high and bed alarm is activated; patient informed of policy regarding fall status and verbalizes understanding.
--- NOTE | 2018-04-17 08:40 | PM.HP.1 ---
History of Present Illness Date Patient Seen: 04/17/18 Time Patient Seen: 07:50 Chief complaint: GLF Narrative: Pt is a 72yo woman with hypothyroidism, HTN, osteoporosis, pacemaker in place for hx of AV node block, and known lumbar spine disease s/p kyphoplasty and laminectomy in the past who presented with significant pain after ground level fall. The pt reports that at approximately 10pm last night she was outside checking on the weather. She returned indoors, closed the door behind her, and then fell to the ground, hitting her head on the door sill. She denies any LOC. There is a carpet located by the door, that she states she may have tripped on. She denies any chest pain, palpitations, SOB, headache, vision changes, or urinary incontinence associated with the fall. After falling, she felt significant pain in her head and mid-back. She slowly was able to rise and go to bed. In bed, it was only comfortable to lay on her right side. The pain only worsened, and eventually she called EMS to take her to the ER. In the ER, imaging was completed that showed multiple rib fractures in addition to multiple thoracic compression fractures. Ortho was consulted, who recommended conservative management with bracing and pain management. This morning, the pt reports that her pain is minimally improved. She used her SANDFILL OPERATOR SURFACE only a few times overnight. She denies any radicular symptoms, numbness/tingling in her arms or legs, or other neurological symptoms. She was able to get up to the bedside commode once overnight. Patient History Medical History Hypercalcemia (Acute) Leukopenia (Inactive) Allergic rhinitis (Chronic Unknown) C. difficile colitis (Chronic) GERD (gastroesophageal reflux disease) (Chronic Unknown) Histoplasmosis (Chronic Unknown) Hypertension (Chronic Unknown) Hypothyroidism (Chronic Unknown) Osteoarthritis (Chronic Unknown) Osteoporosis (Chronic Unknown) Pacemaker (Chronic 09/2012) Restless leg syndrome (Chronic Unknown) Actinic keratosis (Resolved Unknown) Ankle fracture (Resolved 08/2011) Compression fracture of L1 lumbar vertebra (Resolved 10/2012) Episode of syncope (Resolved 09/2012) Fracture of right ulnar styloid (Resolved 2013) Intertrochanteric fracture of right femur (Resolved 2013) Intertrochanteric fracture of right hip (Resolved 2013) Left radial fracture (Resolved 03/2011) Skin cancer (Resolved 1996) Surgical History Status cardiac pacemaker (Acute 09/2012) History of ankle surgery (Resolved 08/2011) History of basal cell carcinoma (BCC) excision (Resolved 1996) History of hip surgery (Resolved 2013) History of knee replacement procedure of left knee (Resolved 09/2009) History of knee replacement procedure of right knee (Resolved 04/2010) History of kyphoplasty (Resolved 10/2012) History of orthopedic surgery (Resolved 03/2011) History of removal of cyst (Resolved 2007) History of thyroid surgery (Resolved 1990) Hx of arthroscopy of knee (Resolved Unknown) Hx of laminectomy (Resolved 10/2008) Hx of tonsillectomy (Resolved Unknown) Family & Social History Family History Mother Leukemia Social History: household members children Prior Living Arrangements House lives independently No: with 2 grown sons caregiver/support person Yes: son Safety & Behavioral: Feels Safe in Current Yes Environment Been Physically Hurt or No Threatened By a Person Suicidal Ideation Description None Tobacco & Substance use: Tobacco type cigarettes Smoking Status Former smoker alcohol intake current alcohol intake frequency 0-2 drinks per day Substance Use Type does not use Meds Home Medications Medication Instructions Recorded Confirmed Type CHOLECALCIFEROL (VITAMIN D3) 2,000 iu PO QDAY #0 04/13/10 04/17/18 History (Vitamin D3) MULTIVITAMIN/MINERALS (Thera M 1 tab PO QDAY #0 04/13/10 04/17/18 History Plus Tablet) Vitamin E (Alpha-Tocopherol) 400 unit PO QDAY #0 04/13/10 04/17/18 History [FISH OIL] 4,000 mg PO QDAY #0 04/13/10 04/17/18 History ASCORBIC ACID (VITAMIN C) 500 mg PO QDAY #0 09/10/11 04/17/18 History duloxetine 60 mg capsule,delayed 60 mg PO DAILY 11/22/17 04/17/18 History release metoprolol succinate ER 25 mg 25 mg PO DAILY 11/22/17 04/17/18 History tablet,extended release 24 hr clopidogrel 75 mg tablet 75 mg PO DAILY 12/25/17 04/17/18 History ropinirole 0.25 mg tablet See Label Instructions PO BEDTIME 12/25/17 04/17/18 History tab pantoprazole 40 mg tablet,delayed 40 mg PO DAILY #30 tab 01/18/18 04/17/18 Rx release ezetimibe 10 mg tablet 10 mg PO DAILY #90 tab 03/07/18 04/17/18 Rx trazodone 50 mg tablet 50 mg PO DAILY #30 tab 03/13/18 04/17/18 Rx levothyroxine 88 mcg capsule 88 mcg PO DAILY #90 cap 04/12/18 04/17/18 Rx alprazolam 0.5 mg PO .qhs 04/17/18 04/17/18 History vit C-vit I-[id number]-[id number]-3 1 cap PO DAILY 04/17/18 04/17/18 History [Ocuvite] Allergies Allergy/AdvReac Type Severity Reaction Status Date / Time acetaminophen Allergy Intermediate LIVER/PANCREAS Verified 04/10/18 10:19 PAIN Penicillins Allergy Intermediate REDNESS Verified 04/10/18 10:19 AND SWELLING clobetasol Allergy Mild ITCHING Verified 04/10/18 10:19 adhesive Allergy Unknown Verified 04/10/18 10:19 cefuroxime Allergy Unknown Verified 04/10/18 10:19 chlorhexidine Allergy Unknown Verified 04/10/18 10:19 oxycodone Allergy Unknown Verified 04/10/18 10:19 Sulfa (Sulfonamide Allergy Unknown Verified 04/10/18 10:19 Antibiotics) hydrocodone Allergy Verified 04/10/18 10:19 hydromorphone Allergy Verified 04/10/18 10:19 procaine [From Novocain] Allergy Verified 04/10/18 10:19 lidocaine AdvReac Intermediate DIARRHEA/VO Verified 04/10/18 10:19 MITING ciprofloxacin AdvReac Mild CHILLS,FEVE Verified 04/10/18 10:19 R,DIARRHEA erythromycin base AdvReac Mild VOMITING,DI Verified 04/10/18 10:19 ARRHEA gabapentin AdvReac Mild CONFUSION, Verified 04/10/18 10:19 DELUSIONS ondansetron AdvReac Mild HALLUCINATI Verified 04/10/18 10:19 ONS promethazine AdvReac Mild AGITATION, Verified 04/10/18 10:19 CONFUSION simethicone AdvReac Mild CONFUSION Verified 04/10/18 10:19 aspirin [ASPIRIN] AdvReac Unknown Verified 04/10/18 10:19 Review of Systems Constitutional Constitutional: Denies chills, Denies fever(s) and Reports frequent falls ENT Ears, Nose, Mouth, and Throat: Yes neck pain Cardiovascular Cardiovascular: Denies chest pain, Denies irregular heart rhythm and Denies shortness of breath Respiratory Respiratory: Denies cough, Denies dyspnea and Denies wheezing Gastrointestinal Gastrointestinal: Denies abdominal pain, Denies change in bowel habits and Denies nausea Musculoskeletal Musculoskeletal: Reports back pain and Reports neck pain Neurologic Neurologic: Reports frequent falls Allergic/Immunologic Allergic/Immunologic: Denies wheezing Exam Vital Signs (past 8 hours): - 04/17/18 00:56 04/17/18 02:30 04/17/18 03:00 Temperature Pulse Rate 96 H 88 Respiratory Rate 20 16 Blood Pressure 188/115 H Blood Pressure [Left Arm] 148/101 H 145/102 H Pulse Oximetry 95 95 04/17/18 03:33 04/17/18 04:07 Temperature 98.3 F 98.3 F Pulse Rate 89 Respiratory Rate 16 Blood Pressure 144/97 H Blood Pressure [Left Arm] Pulse Oximetry 96 Oxygen Delivery Method Room Air Narrative Exam Narrative: Gen: NAD, laying comfortably on back flat in bed, appears stated age, moving minimally HEENT: normocephalic, atraumatic, sclera clear Neck: no LAD, FROM with minimal discomfort on flexion/extension CV: RRR, grade 2/6 systolic murmur Resp: clear to auscultation bilaterally Abd: soft, nontender, nondistended, normoactive bowel sounds Ext: no edema Back: tender to palpation mid thoracic region, no significant bruising Neuro: CN grossly intact, 5/5 strength UE and LE with some pain with movement left arm at shoulder which is baseline, sensation intact throughout Objective Imaging CT scan - head: Radiologist's impression: 1. No acute intracranial abnormalities. 2. Cerebral volume loss and chronic microvascular ischemic changes. Chest CT: Radiologist's impression: Acute left first and second rib fractures, and acute right second rib (not mentioned in the preliminary study interpretation) fracture. No pneumothorax. No pleural effusion identified. Diffuse osteopenia with suspected acute compression fractures at T5, T6 and T8 as detailed above. Chronic T9 and L1 compression fractures Labs Result Diagrams: 04/17/18 01:11 04/17/18 01:11 Labs: Laboratory Results - last 24 hr 04/17/18 04/17/18 01:11 01:11 WBC 6.8 RBC 5.02 Hgb 15.5 Hct 45.8 MCV 91.3 MCH 30.8 MCHC 33.8 RDW 15.0 H Plt Count 229 Neut % (Auto) 84.2 H Lymph % (Auto) 8.2 L [place] % (Auto) 6.5 Eos % (Auto) 0.7 L Baso % (Auto) 0.4 Neut # (Auto) 5700 Sodium 141 Potassium 3.7 Chloride 102 Carbon Dioxide 25 BUN 11 Creatinine 0.60 Estimated GFR > 60.0 BUN/Creatinine Ratio 18.3 Glucose 132 H Calcium 10.2 Assessment & Plan (1) Thoracic vertebral fracture: Current visit: Yes Status: Acute (2) Closed rib fracture: Qualifiers: Encounter type: initial encounter Fracture healing: Laterality: left Rib fracture type: multiple ribs Qualified Code(s): S22.42XA - Multiple fractures of ribs, left side, initial encounter for closed fracture Current visit: Yes Status: Acute (3) HTN (hypertension): Current visit: No Status: Chronic (4) Hypothyroidism: Current visit: No Status: Chronic (5) Pacemaker: Current visit: No Status: Chronic (6) Osteoporosis: Current visit: No Status: None Plan: Assessment/Plan Narrative: Pt is a 72yo woman with hypothyroidism, HTN, osteoporosis, pacemaker in place for hx of AV node block, and 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 No evidence of injury to the spinal cord with normal neurological exam. 1) Compression fractures: With known osteoporosis - Ortho consulted, appreciate recommendations - Will have pt work with physical therapy for mobilization - Bracing as recommended by Ortho to be fitted today - Will need f/u with Dr Alfonso as an outpatient - Continue SANDFILL OPERATOR SURFACE for now, will transition to PO medications as pain improved - Plan for repeat DEXA as an outpatient 2) Rib fractures: No evidence of pneumothorax. Respiratory status stable. - Pain management as above 3) HTN with hx of CVA and pacemaker in place: BP stable - As surgery not currently planned, will restart Plavix - Continue Metoprolol 4) Hypothyroidism: - Continue home Levothyroxine FEN: Cardiac diet DVT prophylaxis: SCDs, on Plavix Dispo: Pending adequate pain control and eval from PT. Pt would like to return home as soon as possible. Potential d/c tomorrow. Quality VTE Deep Vein Thrombosis/Pulmonary Embolism Present on Admission: No
--- NOTE | 2018-04-17 08:44 | PM.CN ---
History of Present Illness Date Patient Seen: 04/17/18 Time Patient Seen: 08:44 Chief complaint: GLF Reason for consult: Thoracic spine fractures Requesting provider: Tulio Hernandez Narrative: This all is a 72-year-old female that had a ground level fall at approximately 10:00 p.m. last night. The patient states she was coming in from checking the weather when she hit her head and fell to the ground. She then went back to bed but had increasing back pain and eventually called an aid card to take her to the hospital. She was evaluated in the emergency room and found to have acute T5 compression fracture with approximately 50% height loss as well as what appears to be acute superior endplate fracture at T6 and compression fracture at T8 with approximately 20% height loss. The patient is neurologically intact. She was also found to have what appeared to be acute 1st and 2nd rib fractures. The patient has a history of lumbar and cervical spine arthritis. Patient is actually being worked up for lumbar spine fusion with Dr. Alfonso. Patient has a history of a pacemaker and is on Plavix. Patient has a history of prior kyphoplasties and laminectomies performed in [place]. Patient was admitted to the Internal Medicine for pain control. Patient was noted to ambulate after her fall. Patient denies any neck pain. She endorses pain in the middle of her thoracic spine she denies any numbness tingling or radicular symptoms. She does state she has advanced left shoulder arthritis which she has seen Dr. Zaragoza for has chronic left shoulder pain. [facility] Medical History Hypercalcemia (Acute) Leukopenia (Inactive) Allergic rhinitis (Chronic Unknown) C. difficile colitis (Chronic) GERD (gastroesophageal reflux disease) (Chronic Unknown) Histoplasmosis (Chronic Unknown) Hypertension (Chronic Unknown) Hypothyroidism (Chronic Unknown) Osteoarthritis (Chronic Unknown) Osteoporosis (Chronic Unknown) Pacemaker (Chronic 09/2012) Restless leg syndrome (Chronic Unknown) Actinic keratosis (Resolved Unknown) Ankle fracture (Resolved 08/2011) Compression fracture of L1 lumbar vertebra (Resolved 10/2012) Episode of syncope (Resolved 09/2012) Fracture of right ulnar styloid (Resolved 2013) Intertrochanteric fracture of right femur (Resolved 2013) Intertrochanteric fracture of right hip (Resolved 2013) Left radial fracture (Resolved 03/2011) Skin cancer (Resolved 1996) Surgical History Status cardiac pacemaker (Acute 09/2012) History of ankle surgery (Resolved 08/2011) History of basal cell carcinoma (BCC) excision (Resolved 1996) History of hip surgery (Resolved 2013) History of knee replacement procedure of left knee (Resolved 09/2009) History of knee replacement procedure of right knee (Resolved 04/2010) History of kyphoplasty (Resolved 10/2012) History of orthopedic surgery (Resolved 03/2011) History of removal of cyst (Resolved 2007) History of thyroid surgery (Resolved 1990) Hx of arthroscopy of knee (Resolved Unknown) Hx of laminectomy (Resolved 10/2008) Hx of tonsillectomy (Resolved Unknown) Family History Mother Leukemia Social History marital status: details: States she was within the last 4 years and was then number of children: 3 household members: children lives independently: No (with 2 grown sons) caregiver/support person: Yes (son) housing: house occupational status: unemployed current occupational exposures/hazards: No Smoking Status: Former smoker alcohol intake: current Type(s) of exercise: assisted ambulation (with seated walker) additional social history: Father and brother with diabetes Mother with leukemia Meds Home Medications Medication Instructions Recorded Confirmed Type CHOLECALCIFEROL (VITAMIN D3) 2,000 iu PO QDAY #0 04/13/10 04/17/18 History (Vitamin D3) MULTIVITAMIN/MINERALS (Thera M 1 tab PO QDAY #0 04/13/10 04/17/18 History Plus Tablet) Vitamin E (Alpha-Tocopherol) 400 unit PO QDAY #0 04/13/10 04/17/18 History [FISH OIL] 4,000 mg PO QDAY #0 04/13/10 04/17/18 History ASCORBIC ACID (VITAMIN C) 500 mg PO QDAY #0 09/10/11 04/17/18 History duloxetine 60 mg capsule,delayed 60 mg PO DAILY 11/22/17 04/17/18 History release metoprolol succinate ER 25 mg 25 mg PO DAILY 11/22/17 04/17/18 History tablet,extended release 24 hr clopidogrel 75 mg tablet 75 mg PO DAILY 12/25/17 04/17/18 History ropinirole 0.25 mg tablet See Label Instructions PO BEDTIME 12/25/17 04/17/18 History tab pantoprazole 40 mg tablet,delayed 40 mg PO DAILY #30 tab 01/18/18 04/17/18 Rx release ezetimibe 10 mg tablet 10 mg PO DAILY #90 tab 03/07/18 04/17/18 Rx trazodone 50 mg tablet 50 mg PO DAILY #30 tab 03/13/18 04/17/18 Rx levothyroxine 88 mcg capsule 88 mcg PO DAILY #90 cap 04/12/18 04/17/18 Rx alprazolam 0.5 mg PO .qhs 04/17/18 04/17/18 History vit C-vit [id number]-om-3 1 cap PO DAILY 04/17/18 04/17/18 History [Ocuvite] Allergies Allergy/AdvReac Type Severity Reaction Status Date / Time acetaminophen Allergy Intermediate LIVER/PANCREAS Verified 04/10/18 10:19 PAIN Penicillins Allergy Intermediate REDNESS Verified 04/10/18 10:19 AND SWELLING clobetasol Allergy Mild ITCHING Verified 04/10/18 10:19 adhesive Allergy Unknown Verified 04/10/18 10:19 cefuroxime Allergy Unknown Verified 04/10/18 10:19 chlorhexidine Allergy Unknown Verified 04/10/18 10:19 oxycodone Allergy Unknown Verified 04/10/18 10:19 Sulfa (Sulfonamide Allergy Unknown Verified 04/10/18 10:19 Antibiotics) hydrocodone Allergy Verified 04/10/18 10:19 hydromorphone Allergy Verified 04/10/18 10:19 procaine [From Novocain] Allergy Verified 04/10/18 10:19 lidocaine AdvReac Intermediate DIARRHEA/VO Verified 04/10/18 10:19 MITING ciprofloxacin AdvReac Mild CHILLS,FEVE Verified 04/10/18 10:19 R,DIARRHEA erythromycin base AdvReac Mild VOMITING,DI Verified 04/10/18 10:19 ARRHEA gabapentin AdvReac Mild CONFUSION, Verified 04/10/18 10:19 DELUSIONS ondansetron AdvReac Mild HALLUCINATI Verified 04/10/18 10:19 ONS promethazine AdvReac Mild AGITATION, Verified 11/28/18 10:19 CONFUSION simethicone AdvReac Mild CONFUSION Verified 04/10/18 10:19 aspirin [ASPIRIN] AdvReac Unknown Verified 04/10/18 10:19 Review of Systems Review of Systems Patient doses a history of low back pain. She is being currently worked up for lumbar spine fusion with Dr. Alfonso pending cardiac clearance. Patient has a history of a pacemaker placement several years ago and is on Plavix. Denies headache. Denies fevers chills nausea or vomiting. Patient denies numbness or tingling bowel or bladder problems. She endorses chronic left shoulder pain. Denies any upper or lower extremity weakness. All systems reviewed & are unremarkable except as noted in HPI and below Exam Vital Signs (past 8 hours): - 04/17/18 00:56 04/17/18 02:30 04/17/18 03:00 Temperature Pulse Rate 96 H 88 Respiratory Rate 20 16 Blood Pressure 188/115 H Blood Pressure [Left Arm] 148/101 H 145/102 H Pulse Oximetry 95 95 04/17/18 03:33 04/17/18 04:07 Temperature 98.3 F 98.3 F Pulse Rate 89 Respiratory Rate 16 Blood Pressure 144/97 H Blood Pressure [Left Arm] Pulse Oximetry 96 Oxygen Delivery Method Room Air Narrative Exam Narrative: Const General: cooperative, healthy appearing and comfortable Nutritional Appearance: average body habitus Orientation: alert, awake and oriented x3 HENMT Head: normal to inspection and atraumatic Ears: hearing grossly normal bilaterally Eyes General: appearance normal, both eyes and all related structures Neck Neck: normal visual inspection Chest Chest: normal inspection of the chest Other: Changes and scar consistent with pacemaker placement Resp Effort & Inspection: normal respiratory effort Other: Breathing unlabored on room air Cardio Rate: regular rate Rhythm: regular rhythm Back/Spine/Pelvis Back: normal to inspection Other: Cervical spine: No midline or paraspinal tenderness. Patient is able to demonstrate flexion extension rotation laterally without pain. Denies radicular symptoms. 5/5 sound system installer, biceps, triceps. Patient does endorse left shoulder pain with movement which is stable for her baseline arthritis. Thoracic spine: Midline tenderness over the thoracic spine, mid levels. No ecchymosis or step-off Lumbar spine: No midline tenderness to palpation. Normal straight leg raise without back pain or radicular symptoms. Sensation grossly intact to light touch in all dermatomes. The patient demonstrates 5/5 dorsiflexion plantar flexion. Grossly normal lower extremity reflexes. Skin Other: Well-healed scars. Objective Imaging Chest CT: My impression: The CT images was spine recons demonstrate stable degenerative changes of the cervical and lumbar spine is evidence of chronic T9 and L1 compression fractures changes consistent with previous kyphoplasty. There appeared to be new and acute compression fractures of T5 involving approximately 50% height loss, superior endplate of T6 and compression fracture of T8 with approximately 20% height loss. Radiologist's impression: IMPRESSION: Acute left first and second rib fractures, and acute right second rib (not mentioned in the preliminary study interpretation) fracture. No pneumothorax. No pleural effusion identified. Diffuse osteopenia with suspected acute compression fractures at T5, T6 and T8 as detailed above. Chronic T9 and L1 compression fractures Dictated by: Erasto Carcamo M.D. on 04/17/2018 at 7:47 Approved by: Erasto Carcamo M.D. on 04/17/2018 at 7:59 Labs Result Diagrams: 04/17/18 01:11 04/17/18 01:11 Labs: Laboratory Results - last 24 hr 04/17/18 04/17/18 01:11 01:11 WBC 6.8 RBC 5.02 Hgb 15.5 Hct 45.8 MCV 91.3 MCH 30.8 MCHC 33.8 RDW 15.0 H Plt Count 229 Neut % (Auto) 84.2 H Lymph % (Auto) 8.2 L [place] % (Auto) 6.5 Eos % (Auto) 0.7 L Baso % (Auto) 0.4 Neut # (Auto) 5700 Sodium 141 Potassium 3.7 Chloride 102 Carbon Dioxide 25 BUN 11 Creatinine 0.60 Estimated GFR > 60.0 BUN/Creatinine Ratio 18.3 Glucose 132 H Calcium 10.2 Assessment & Plan (1) Thoracic vertebral fracture: Current visit: Yes Status: Acute Plan: Assessment/Plan Narrative: 1. Acute thoracic compression fracture T5, superior endplate T6, compression fracture T8: Regarding acute compression fractures recommend a supportive care with rest, pain control TLSO brace and early mobilization. The utilize calcitonin if able help with pain relief. The patient not able to mobilize in the brace and pain uncontrolled with considerable potential kyphoplasty. Patient imaging was discussed with Dr. Alfonso, who recommend trial pain control and bracing-physical therapy. Recommend follow up 10-14 days in the orthopedic clinic with Dr. Alfonso was seen the patient in the past for other issues. Time Spent With Patient Time with patient: less than 15 minutes
[2018-04-17] MEDS: LEVOTHYROXINE 88 MCG TABLET PO (12:14)
--- NOTE | 2018-04-17 12:41 | OT.IP.TRT ---
Current Diagnoses Hypothyroidism, unspecified (04/17/18) Essential (primary) hypertension (04/17/18) Age-related osteoporosis without current pathological fracture (04/17/18) Unspecified fracture of unspecified thoracic vertebra, initial encounter for closed fracture (04/17/18) Multiple fractures of ribs, left side, initial encounter for closed fracture (04/17/18) Presence of cardiac pacemaker (04/17/18) Occupational Therapy Treatment Note M3 OT- IP Subjective and Pain Start: 04/17/18 12:37 Freq: Status: Active Protocol: Document 04/17/18 12:37 [facility] (Rec: 04/17/18 12:40 [facility] [id number]) OT- Subjective Occupational Therapy Visit Type Type Administrative Note Notes Awaiting clarification of TLSO from Dr. Alfonso. Therefore to hold off on OT eval until clarification received from surgeon regarding rib fx and TLSO.
--- NOTE | 2018-04-17 13:09 | PC.NURSE ---
Addendum entered by Julia Hobbs R.N. 04/17/18 15:31: Cont CATAPULT AND ARRESTING GEAR OFFICER is helpful for pain control. Son dropped off brace from home. In room. 1PA to [facility]. Original Note: AM shift Talked with Dr Bhandari, CATAPULT AND ARRESTING GEAR OFFICER is forgotten by Pt, requested cont to CATAPULT AND ARRESTING GEAR OFFICER. Pt agreeable. Standard demand settings remain.
--- NOTE | 2018-04-17 15:17 | CM.DANOTE ---
Discharge Planning/Care Management DCP: assessment: case received, EMR reviewed and met with morning with pt at 0915. Introduced self and role. Pt was found lying in bed, very stiff and looking very uncomfortable. Being tended to by nursing staff. Pt is a 72 year old female who admitted early this mornin to care of A physician team. PCP: Dr. Phillips Consulting ortho: Dr. Karson Sofia. Pt sustained a fall outside her home on very cold night: Multiple compression fractures and rib fractures. PT and OT are ordered but are waiting for clarification on the TLSO. P: will be following as POC unfolds to assist with d/c issues and options. INPT admission status: confirmed by UR REBEL Mustafa. CM Discharge Assessment Start: 04/17/18 15:15 Freq: Status: Active Protocol: Document 04/17/18 15:16 ITV (Rec: 04/17/18 15:17 ITV [id number]) Discharge Planning Assessment Advance Directives? Yes: POLST, CPR Advance Directives on File Yes History Provided By Patient Medical Record Prior Living Arrangements House Household Members children Independent with ADL's Yes Is patient alert and oriented? Yes Whiteboard Updated in Patient Room with Yes name and ext. # of Histology Technologist Review Status In Process Next Review Type Continued Stay Review
[2018-04-17] MEDS: PANTOPRAZOLE 40 MG TABLET PO (17:01)
[2018-04-17] MEDS: METOPROLOL ER 25 MG TABLET PO (17:01)
[2018-04-17] MEDS: EZETIMIBE 10 MG TABLET PO (17:02)
[2018-04-17] MEDS: DULOXETINE 30 MG CAPSULE 60 MG PO (17:02)
[2018-04-17] MEDS: ALPRAZolam 0.25 MG TABLET 0.5 MG PO (20:22)
[2018-04-17] MEDS: ROPINIROLE 0.25 MG TABLET 2 MG PO (20:22)
[2018-04-17] MEDS: TRAZODONE 50 MG TABLET PO (20:22)
[2018-04-18] VITALS (12 sets, daily range): BP systolic 122–193; BP diastolic 82–107; PULSE 74–90; RESP 16–20; TEMP 36.6–36.9; O2SAT 93–97
[2018-04-18] MEDS: HYDRALAZINE 20 MG/ML VIAL 10 MG IV (00:25)
--- NOTE | 2018-04-18 00:36 | PC.NURSE ---
Addendum entered by Tete Dodge R.N. 04/18/18 06:06: No further emesis since earlier 200cc green liquid emesis (refusing any antiemetics related to allergy's). States pain is 7/10 this morning but continues to refuse TLSO brace when getting out of bed. Also refusing SCD's after only wearing them for 2 hours at start of shift. Original Note: Patient is alert and oriented. Breath sounds CTA with RA sat of 94%. Cool extremities related to Raynaud's disease per patient. HRR. BP elevated at 187/104 and noted to have been elevated most of evening shift with dose of Metoprolol at 1701. Dr Palacios informed of elevated BP with HR in 70-80 range; new order for Hydralazine received and medication given at this time. Denies current nausea. BT present and abdomen is soft. Denies dysuria, frequency or urgency and has been continent although reports history of stress incontinence. 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 Did reposition onto right side with pillow behind back. Heels remain very reddened but without skin breakdown; heels are being floated. Fall risk is high and patient does not remember to call for assistance; bed alarm is activated. Is able to transfer to [facility] with walker and 1 assist. Calf SCD's applied at start of shift as per MD order.
--- NOTE | 2018-04-18 01:17 | PC.NURSE ---
Addendum entered by Tete Dodge R.N. 04/18/18 01:45: Had 200cc green liquid emesis when up to bathroom. Has no antiemetics ordered and states she will not take them due to allergy's. Original Note: Patient at 0110 refused to wear the back/body brace when getting up to void at the [facility]. I just want to go to the bathroom. Alerted RN Tete.
[2018-04-18] MEDS: SODIUM CHLORIDE 0.9% 500 ML 21 ML IV (04:35)
[2018-04-18] MEDS: HYDROMORPHONE PCA 6 MG/30 ML PCA.VIAL 1 MG IV ×2 (06:03→21:01)
[2018-04-18] MEDS: LEVOTHYROXINE 88 MCG TABLET PO (06:03)
--- NOTE | 2018-04-18 08:56 | PM.PN.1 ---
Subjective Date Patient Seen: 04/18/18 Time Patient Seen: 08:30 Interval history: The patient reports that she continues to have significant mid to upper back pain. 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 We increased the continuous last evening, she did feel that this helped somewhat. The patient has been able to get up to the bedside commode. She refused to wear her back brace over night. She states that is not comfortable. The patient has not had a bowel movement since coming to the hospital. Exam Vital Signs (past 8 hours): - 04/18/18 01:45 04/18/18 05:59 Temperature 98.2 F Pulse Rate 77 87 Respiratory Rate 16 Blood Pressure 151/105 H 142/84 H Pulse Oximetry 96 Oxygen Delivery Method Room Air Narrative Exam Narrative: Gen: NAD, sitting with legs over side of bed, appears uncomfortable Neck: no LAD, FROM with minimal discomfort on flexion/extension CV: RRR, grade 2/6 systolic murmur Resp: clear to auscultation bilaterally Abd: soft, nontender, nondistended, normoactive bowel sounds Ext: no edema Back: tender to palpation upper thoracic region, no significant bruising Neuro: CN grossly intact, 5/5 strength UE and LE, sensation intact throughout Objective Labs Result Diagrams: 04/17/18 01:11 04/17/18 01:11 Assessment & Plan (1) Thoracic vertebral fracture: Current visit: Yes Status: Acute (2) Closed rib fracture: Qualifiers: Encounter type: initial encounter Fracture healing: Laterality: left Rib fracture type: multiple ribs Qualified Code(s): S22.42XA - Multiple fractures of ribs, left side, initial encounter for closed fracture Current visit: Yes Status: Acute (3) HTN (hypertension): Current visit: No Status: Chronic (4) Hypothyroidism: Current visit: No Status: Chronic (5) Pacemaker: Current visit: No Status: Chronic (6) Osteoporosis: Current visit: No Status: None Plan: Assessment/Plan Narrative: Pt is a 72yo woman with hypothyroidism, HTN, osteoporosis, pacemaker in place for hx of AV node block, and 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 No evidence of injury to the spinal cord with normal neurological exam. 1) Compression fractures: With known osteoporosis - Ortho consulted, appreciate recommendations - Will have pt work with physical therapy for mobilization - Bracing as recommended by Ortho to be fitted today, they had questions yesterday so it was not done - Will need f/u with Dr Alfonso as an outpatient - Continue HEAD INSULATION BOARD SAW OPERATOR for now - Start Toradol and Calcitonin for pain control as well today, as pain not yet adequately controlled - Start Docusate today to help with constipation from narcotics - Plan for repeat DEXA as an outpatient 2) Rib fractures: No evidence of pneumothorax. Respiratory status stable. - Pain management as above 3) HTN with hx of CVA and pacemaker in place: BP elevated overnight, did receive Hydralazine - As surgery not currently planned, will restart Plavix - Continue Metoprolol. May need increased dosing if BPs remain elevated due to pain 4) Hypothyroidism: - Continue home Levothyroxine FEN: Cardiac diet DVT prophylaxis: SCDs, on Plavix Dispo: Pending adequate pain control and eval from PT. Pt would like to return home as soon as possible. Likely 2 more midnights. Quality VTE Deep Vein Thrombosis/Pulmonary Embolism Present on Admission: No
[2018-04-18] MEDS: DOCUSATE 100 MG CAPSULE PO ×2 (09:12→20:43)
[2018-04-18] MEDS: KETOROLAC 15 MG/ML VIAL IV ×3 (09:12→20:42)
[2018-04-18] MEDS: CALCITONIN,SALMON, NASAL SPRAY 1 SPRAYS NASAL (09:12)
[2018-04-18] MEDS: PANTOPRAZOLE 40 MG TABLET PO (09:13)
[2018-04-18] MEDS: DULOXETINE 30 MG CAPSULE 60 MG PO (09:13)
[2018-04-18] MEDS: EZETIMIBE 10 MG TABLET PO (09:13)
[2018-04-18] MEDS: METOPROLOL ER 25 MG TABLET PO (09:13)
--- NOTE | 2018-04-18 09:21 | PM.PN.1 ---
Subjective Date Patient Seen: 04/18/18 Time Patient Seen: 09:21 Interval history: Hospital day 2 with admission for acute back pain. Patient has T5, T6 and T8 compression fractures. An orthopedic consult done by Dr. Sofia. Recommended patient be placed in TLSO brace for stabilization and also use calcitonin nasal spray to help with pain. Patient has remained stable. Exam Vital Signs (past 8 hours): - 04/18/18 01:45 04/18/18 05:59 Temperature 98.2 F Pulse Rate 77 87 Respiratory Rate 16 Blood Pressure 151/105 H 142/84 H Pulse Oximetry 96 Oxygen Delivery Method Room Air Narrative Exam Narrative: Patient is alert and responsive in no acute distress lying in bed. Legs. No calf pain or swelling. Pulses symmetrical. Good sensation to touch to lower legs. Patient is able to lift both legs and good strength on ankle dorsiflexion plantar flexion. Objective Labs Result Diagrams: 04/17/18 01:11 04/17/18 01:11 Assessment & Plan Plan: Assessment/Plan Narrative: Plan: Patient has T5, T6, T8 fractures. Will use TLSO brace to help with support for ambulation. Patient will be discharged pending clearance by medical. She should have follow-up at [facility] office in 10-14 days to re-evaluate her fractures and treatment. Quality VTE Deep Vein Thrombosis/Pulmonary Embolism Present on Admission: No
--- NOTE | 2018-04-18 09:24 | P.PN_ITS ---
Subjective Date Patient Seen: 04/18/18 Time Patient Seen: 09:21 Interval history: Hospital day 2 with admission for acute back pain. Patient has T5, T6 and T8 compression fractures. An orthopedic consult done by Dr. Sofia. Recommended patient be placed in TLSO brace for stabilization and also use calcitonin nasal spray to help with pain. Patient has remained stable. Exam Vital Signs (past 8 hours): - 04/18/18 01:45 04/18/18 05:59 Temperature 98.2 F Pulse Rate 77 87 Respiratory Rate 16 Blood Pressure 151/105 H 142/84 H Pulse Oximetry 96 Oxygen Delivery Method Room Air Narrative Exam Narrative: Patient is alert and responsive in no acute distress lying in bed. Legs. No calf pain or swelling. Pulses symmetrical. Good sensation to touch to lower legs. Patient is able to lift both legs and good strength on ankle dorsiflexion plantar flexion. Objective Labs Result Diagrams: 04/17/18 01:11 04/17/18 01:11 Assessment & Plan Plan: Assessment/Plan Narrative: Plan: Patient has T5, T6, T8 fractures. Will use TLSO brace to help with support for ambulation. Patient will be discharged pending clearance by medical. She should have follow-up at [facility] office in 10 -14 days to re-evaluate her fractures and treatment. Quality VTE Deep Vein Thrombosis/Pulmonary Embolism Present on Admission: No
--- NOTE | 2018-04-18 09:31 | PT.IIE ---
Current Diagnoses Hypothyroidism, unspecified (04/17/18) Essential (primary) hypertension (04/17/18) Age-related osteoporosis without current pathological fracture (04/17/18) Unspecified fracture of unspecified thoracic vertebra, initial encounter for closed fracture (04/17/18) Multiple fractures of ribs, left side, initial encounter for closed fracture (04/17/18) Presence of cardiac pacemaker (04/17/18) Surgical History (Last Reviewed 04/17/18 @ 01:27 by Tulio Hernandez DO) Status cardiac pacemaker (Acute 09/2012) History of ankle surgery (Resolved 08/2011) History of basal cell carcinoma (BCC) excision (Resolved 1996) History of hip surgery (Resolved 2013) History of knee replacement procedure of left knee (Resolved 09/2009) History of knee replacement procedure of right knee (Resolved 04/2010) History of kyphoplasty (Resolved 10/2012) History of orthopedic surgery (Resolved 03/2011) History of removal of cyst (Resolved 2007) History of thyroid surgery (Resolved 1990) Hx of arthroscopy of knee (Resolved Unknown) Hx of laminectomy (Resolved 10/2008) Hx of tonsillectomy (Resolved Unknown) Medical History (Last Reviewed 04/17/18 @ 08:47 by Ashlyn Sofia MD) Hypercalcemia (Acute) Leukopenia (Inactive) Allergic rhinitis (Chronic Unknown) C. difficile colitis (Chronic) GERD (gastroesophageal reflux disease) (Chronic Unknown) Histoplasmosis (Chronic Unknown) Hypertension (Chronic Unknown) Hypothyroidism (Chronic Unknown) Osteoarthritis (Chronic Unknown) Osteoporosis (Chronic Unknown) Pacemaker (Chronic 09/2012) Restless leg syndrome (Chronic Unknown) Actinic keratosis (Resolved Unknown) Ankle fracture (Resolved 08/2011) Compression fracture of L1 lumbar vertebra (Resolved 10/2012) Episode of syncope (Resolved 09/2012) Fracture of right ulnar styloid (Resolved 2013) Intertrochanteric fracture of right femur (Resolved 2013) Intertrochanteric fracture of right hip (Resolved 2013) Left radial fracture (Resolved 03/2011) Skin cancer (Resolved 1996) Physical Therapy Inpatient Evaluation/Re-Eval M1 PT/OT-IP Prior Functional Status Start: 04/17/18 11:44 Freq: NEEDED Status: Active Protocol: Document 04/17/18 17:00 (Rec: 04/18/18 09:31 [id number]) Medical Review Prior Functional Status Medical History Reviewed Yes Diet/Fluid Consistency Regular Mobility and Gait Independent w/o AD Activities of Daily Living and IADL's independent w/o AD Social History Household Members children Living Arrangements House Number of Floors (Floors) Two Floors Number of Stairs To Enter/Railing? No RAMEZ Home Environment Standard Height Toilet Tub/Shower Doors Home Equipment Four Wheel Walker Straight Cane Manual Wheelchair Employment Status Retired Additional Social History Comment Pt lives with her son at a 2 story home with no RAMEZ. Pt reports she primarily stays on the 1st floor. She does not need to use AD for home and community mobility. M1 PT/OT-IP Prior Functional Status Start: 04/17/18 12:37 Freq: NEEDED Status: Active Protocol: Document 04/17/18 17:00 HH (Rec: 04/18/18 09:31 [id number]) M2 PT-IP Current Condition Start: 04/17/18 11:44 Freq: NEEDED Status: Active Protocol: Document 04/17/18 17:00 HH (Rec: 04/18/18 09:31 [id number]) Physical Therapy Current Condition Current Condition Evaluation Date 04/17/18 Treatment Diagnosis Acute compession fx at T5,T6, T8; generalized muscle weakness Onset Date 04/16/18 Precautions Brace TLSO prescribed by Dr. Sofia M3 PT-IP Subjective Start: 04/17/18 11:44 Freq: NEEDED Status: Active Protocol: Document 04/17/18 17:00 HH (Rec: 04/18/18 09:31 [id number]) Subjective Physical Therapy Visit Type Type Initial Evaluation Visit Start Time 17:00 Visit Stop Time 17:50 Total Visit Minutes 40 Notes Pt is a 72yo female post GLF on 04/16/18 and admitted to ER. X-ray findings: acute compression fx at T5,T6,T8 and fx at L 1st & 2nd rib and fx at R 2nd rib. PMH includes chronic compession fx at T9 & L1 along with osteopenia. Physical Therapy Visit Comments Patient Comments Pt c/o upper back pain 8/10 during trunk movements. Patient Goals To be able to go home To be able to reach PLOF without upper back pain Therapy Pain Assessment Pain When Pain Assessed During Mobility Pain Present Pain Present Pain Reported Location Back Intensity 8 Scale Used Numeric (1 - 10) Description Acute M4 PT-IP Mobility and Gait Start: 04/17/18 11:44 Freq: NEEDED Status: Active Protocol: Document 04/17/18 17:00 (Rec: 04/18/18 09:31 [id number]) PT-Bed Mobility Assessment Rolling Type of Rolling Bilateral Level of Assist Standby Assistance Supine to Sit Supine to Sit Standby Assistance Sit to Supine Sit to Supine Standby Assistance Scooting Scooting to Edge of Bed Standby Assistance PT-Transfer Assessment Sit to and From Stand Sit to and from Stand Standby Assistance Equipment Transfer Assistive Device Gait Belt Front Wheeled Walker Orthotic/Prosthetic Devices or Brace: Yes Transfers Transfer Destination Bed Bedside Commode Transfer Ability Level of Assist Standby Assistance Comments Mobility Comments Pt used FWW to amb 10 feets to commode with SBA. Pt presented with a steady gait without signs of LOB. Gait Assessment Gait Gait Assistance Required: Standby Assistance Assistive Devices Assistive Device Front Wheeled Walker Orthotic/Prosthetic Devices or Brace: Yes Gait Deviations General Gait Pattern Within Normal Limits Decreased Stride Length Decreased Feet Clearance Factors Limiting Gait Function Factors Limiting Gait Function Decreased Activity Tolerance Decreased Strength Comments Gait Comments Pt used FWW to amb 10 feets to commode with SBA. Pt presented with a steady gait without signs of LOB. However, pt presented decreased stride length and feet clearance possibly due to prolonged bed bound. Stair Climbing Assessment Comments Stair Climbing Comments Did not attempt stair negotiation PT-Balance Assessment Sitting Balance and Reactions Static Sitting Balance Ability Normal Dynamic Sitting Balance Ability Normal Standing Balance and Reactions Static Standing Balance Ability Normal Dynamic Standing Balance Ability Good M5 PT-IP Objective Assessments Start: 04/17/18 11:44 Freq: NEEDED Status: Active Protocol: Document 04/17/18 17:00 (Rec: 04/18/18 09:31 [id number]) Orientation Orientation/Cognition Level of Alertness Alert Orientation Name Age Birthday Month Date Year Day of Week Place Situation Language Function Ability No Deficits Noted Memory Description No Deficits Noted Gross Range of Motion Upper Extremity ROM Assessment Within Functional Limits Lower Extremity ROM Assessment Within Functional Limits Strength Upper Extremity Strength Assessment Within Functional Limits Lower Extremity Strength Assessment Within Functional Limits Coordination Assessment Gross Coordination Gross Coordination WNL Sensation Assessment Sensation Gross Sensation WNL Muscle Tone Muscle Tone WNL Yes M6 PT-IP Treatment Start: 04/17/18 11:44 Freq: NEEDED Status: Active Protocol: Document 04/17/18 17:00 (Rec: 04/18/18 09:31 [id number]) Physical Therapy Treatment Exercises Exercises Gluteal Sets Quad Sets Straight Leg Raises Education Education Provided Precautions Safety Equipment Issued Equipment Type and Company TLSO Other Treatments Other Treatment Performed sit to stand and commode transfer with FWW M7 PT-IP Assessment and Plan Start: 04/17/18 11:44 Freq: NEEDED Status: Active Protocol: Document 04/17/18 17:00 (Rec: 04/18/18 09:31 [id number]) PT Summary Assessment and Plan Potential Rehabilitation Potential Good Status of Condition at Evaluation Stable Summary Impairments Pain Strength Activity Tolerance Assessment Summary Pt was in bed upon assessment. Pt is A&O x4 and was able to recall how she was injured. Pt 's gross ROM and strength are WFL. Pt reported she used bedside commode with FWW with the help of nursing staff for a few times since she was admitted to the hospital. Pt's demonstrated excessive trunk flexion in sitting position. Pt and RN Anayeli were instructed to use TLSO for OOB activity due to pending clarification for frequency from Dr. Sofia. Pt reported her back pain decrease from 8 /10 to 3-4/10 with the use TLSO during mobiltiy. Pt amb 10 feet from bed to commode and demonstrated a safe transfer with the use of FWW. Pt did c/o increased uppe back pain after getting back to bed followed by removal of her TLSO. Pt education to use call rosales for OOB activity. D/ C recommendation to home with outpatient PT for overall strengthening and postural education. Goals Bed Mobility Goal Independent Transfer Goal Independent Gait Goal Independent Cane Front Wheel Walker Gait Distance 100 feet Other Goals to perform commode transfer with AD as needed independently to properly claudia her TLSO independently Days to Meet Goals 3 Frequency of Treatment Frequency Of Treatment Twice a Day Treatment Plan Physical Therapy Treatment Plan Bed Mobility Training Transfer Training Gait Training Therapeutic Exercise Balance Retraining Discharge Planning Hot or Cold Pack Other Recommendations and Next Treatment Upright postural training Focus during amb reeducation on the use of TLSO stair training Recommendations To Nursing Amount of Assist Needed Standby Assistance Discharge Recommendations PT Discharge Recommendations Home Outpatient PT Equipment Needed for Home Before SPC Discharge
--- NOTE | 2018-04-18 11:04 | CM.DPC ---
DCP: continued: met with pt's son/Isabelle Ardont: cell [phone]. PT and OT were in process of working with pt. Eddie confirms that he does live multimedia designer with his mother and is her caregiver (as much as she will allow him to be). He is retired from work as a person who assists seniors to find an appropriate care setting. Eddie notes his awareness that his mother's needs are such that a snf rehab might be helpful but that her personality is such that she does not tolerate that setting. Hx of [facility] last year: he says they worked well with her but that she resisted much of what was offered and refused the d/c to home support care. Eddie notes: My mother's plan is to age in place in her home and there. I am there to support her in this. DME at home: 4ww canes shower chair ADA barsbathroom night lights in dim areas. He does have POA paperwork but says there is no POLST form in the home. Gave him the blank form and encouraged him to have his mother complete this with Dr. Phillips during an office visit and to keep in posted in her home. PT ramirez does recommended home with son's support and OUTPT PT pending orthopedic team orders for same and Eddie agrees that this is the best plan. Pt wishes to go home WILLIE. Ortho MAYURI Valerio saw her today and agrees pt is stable from an ortho standpoint (pt has agreed to the TLSO today and is currently wearing it as she stands at the sink to do ADLs under therapy supervision.) Dr. Phillips, a new PCP for pt, saw her today and expects she will need a couple more days before she is medically ready for d/c home. Eddie is updated re this. He will be picking his mother up. P: home with Eddie's supportive care when medically cleared for same..
--- NOTE | 2018-04-18 11:18 | OT.IP.EVAL ---
Current Diagnoses Hypothyroidism, unspecified (04/17/18) Essential (primary) hypertension (04/17/18) Age-related osteoporosis without current pathological fracture (04/17/18) Unspecified fracture of unspecified thoracic vertebra, initial encounter for closed fracture (04/17/18) Multiple fractures of ribs, left side, initial encounter for closed fracture (04/17/18) Presence of cardiac pacemaker (04/17/18) Past Medical History (Last Reviewed 04/17/18 @ 08:47 by Ashlyn Sofia MD) Hypercalcemia (Acute) Leukopenia (Inactive) Allergic rhinitis (Chronic Unknown) C. difficile colitis (Chronic) GERD (gastroesophageal reflux disease) (Chronic Unknown) Histoplasmosis (Chronic Unknown) Hypertension (Chronic Unknown) Hypothyroidism (Chronic Unknown) Osteoarthritis (Chronic Unknown) Osteoporosis (Chronic Unknown) Pacemaker (Chronic 09/2012) Restless leg syndrome (Chronic Unknown) Actinic keratosis (Resolved Unknown) Ankle fracture (Resolved 08/2011) Compression fracture of L1 lumbar vertebra (Resolved 10/2012) Episode of syncope (Resolved 09/2012) Fracture of right ulnar styloid (Resolved 2013) Intertrochanteric fracture of right femur (Resolved 2013) Intertrochanteric fracture of right hip (Resolved 2013) Left radial fracture (Resolved 03/2011) Skin cancer (Resolved 1996) Surgical History (Last Reviewed 04/17/18 @ 01:27 by Tulio Hernandez DO) Status cardiac pacemaker (Acute 09/2012) History of ankle surgery (Resolved 08/2011) History of basal cell carcinoma (BCC) excision (Resolved 1996) History of hip surgery (Resolved 2013) History of knee replacement procedure of left knee (Resolved 09/2009) History of knee replacement procedure of right knee (Resolved 04/2010) History of kyphoplasty (Resolved 10/2012) History of orthopedic surgery (Resolved 03/2011) History of removal of cyst (Resolved 2007) History of thyroid surgery (Resolved 1990) Hx of arthroscopy of knee (Resolved Unknown) Hx of laminectomy (Resolved 10/2008) Hx of tonsillectomy (Resolved Unknown) Occupational Therapy Inpatient Evaluation/Re-Eval M1 PT/OT-IP Prior Functional Status Start: 04/17/18 11:44 Freq: NEEDED Status: Active Protocol: Document 04/18/18 11:18 EDINSON (Rec: 04/18/18 13:39 EDINSON [id number]) Medical Review Prior Functional Status Medical History Reviewed Yes Diet/Fluid Consistency Regular Communication WFL with intermittent confusion noted per son Mobility and Gait Pt ambulates with 4WW w/seat Activities of Daily Living and IADL's Pt able to slowly complete basic self care tasks including eating, grooming seated on 4WW, donning shirt, toileting, and seated shower. Son usually assists with socks and shoes as pt has difficulty reaching feet. Pt has electrical and radio mechanic, sock aid but does not like to use them. Pt showers independently in shower stall with shower seat, grab bar, hand held shower hose. Pt does own laundry. Prior Functional Level (Other details) Son does meal preparation, grocery shopping, cleaning, driving. Social History Household Members children Living Arrangements House Number of Floors (Floors) Two Floors Number of Stairs To Enter/Railing? No RAMEZ, pt stays on main level of home. Son lives upstairs. Home Environment Standard Height Toilet Walk in Shower Home Equipment Four Wheel Walker Straight Cane Manual Wheelchair Shower Seat with Backrest Hand Held Shower Railroad Crane Operator Sock Aid Grab Bars In Shower Employment Status Retired M2 OT-IP Current Condition Start: 04/17/18 12:37 Freq: Status: Active Protocol: Document 04/18/18 11:18 PJKellen (Rec: 04/18/18 13:39 PJM [id number]) Occupational Therapy Current Condition Current Condition Evaluation Date 04/18/18 Treatment Diagnosis decr'd self care/mobility s/p fall w/B high rib fx's, T5, T6 , T8 compr fx's Diagnosis Onset Date 04/17/18 Post Operative Precautions Abdominal Surgery Precautions Log Roll Other Precautions TLSO when out of bed, can be put on sitting, fall risk, bed /chair alarm M3 OT- IP Subjective and Pain Start: 04/17/18 12:37 Freq: Status: Active Protocol: Document 04/18/18 11:18 EDINSON (Rec: 04/18/18 13:39 PJM [id number]) OT- Subjective Occupational Therapy Visit Type Type Initial Evaluation Visit Start Time 10:25 Visit Stop Time 11:18 Total Visit Minutes 53 Notes Pt's son here this session to provide information abotu prior level of function. Occupational Therapy Visit Comments Patient/Caregiver Goals to go home and see her cat OT Pain Assessment Pain When Pain Assessed At Rest Pain Present Pain Present Pain Reported Location Back Scale Used pt unable to rate on 10 pt scale, minimal pain behaviors noted M4 OT- IP ADL's Start: 04/17/18 12:37 Freq: Status: Active Protocol: Document 04/18/18 11:18 PJM (Rec: 04/18/18 13:39 [facility] [id number]) OT [id number] General Evaluation Self-Feeding Ability Independent OT ADL-Grooming General Evaluation Grooming Ability Standby Assistance Areas Needing Assistance Retrieving/Set-up of Grooming Items Comments OT Grooming Comments Pt reluctant to complete grooming tasks. Declines hair care or face washing. Pt needs mod verbal cues to position FWW safely in front of sink. OT ADL-Oral Care General Eval Oral Care Ability Standby Assistance Devices Oral Care Devices Toothbrush Comments Oral Care Comments Pt able to complete oral care with SBA once items within reach, but not following verbal cues to improve body mechanics even with multiple cues. OT ADL-Dressing General Eval Lower Body Dressing Ability Total Assistance Areas Needing Assistance Socks Comments OT Dressing Comments Max assist to don TLSO. P.T. educating pt's son re: it's use. Total assist to don/doff socks this session. Per son, pt unwilling to use electrical and radio mechanic and sock aid at home. Son states he can assist pt PRN with lower body dressing while in TLSO brace. Will attempt one training session here to see if to see if pt will participate with adaptive equipt. OT ADL-Toileting Comments OT Toileting Comments did not occur this session, to be assessed OT ADL-Bathing Comments OT Bathing Comments to be assessed as activity tolerance improves M5 OT- IP IADL's Start: 04/17/18 12:37 Freq: Status: Active Protocol: Document 04/18/18 11:18 PJM (Rec: 04/18/18 13:39 [facility] [id number]) OT-Instrumental Activities of Daily Living Deficits IADL Deficits Identified Deficits Home Safety Awareness Awareness of Need for Assistance at Home Decreased Awareness Ability to Problem Solve Emergency Unable to Problem Solve Situations Medication Management Medication Management Caregiver Provides Supervision Medication Management Comments son supervises medication management Money Management Money Management Caregiver Provides Supervision Money Management Comments son assists PRN Meal Preparation Meal Preparation Caregiver Provides Assist Meal Preparation Comments son assists Road Design Engineer Road Design Engineer Caregiver Provides Assist Road Design Engineer Comments son assists Driving Driving Caregiver Provides Assist Driving Comments son assists M6 OT- IP Functional Cognition Start: 04/17/18 12:37 Freq: Status: Active Protocol: Document 04/18/18 11:18 PJM (Rec: 04/18/18 13:39 PJM [id number]) Cognitive Factors Limiting Selfcare Function Cognitive Ability Level of Alertness Alert Patient Orientation Name Month Date Year Place Attention Span Ability Capable of Focused Attention Ability to Follow Commands Able to Follow One Step Commands Safety Awareness Decreased Recall of Precautions Decreased Ability to Apply Precautions Underestimates Need for Assistance Problem Solving Ability Needs Assist to Identify Solutions Executive Function Ability Unable to Integrate Past Experience With Present Action Abstract Thinking Ability Unable to Draw Logical Conclusions Unable to Be Adaptable in Thinking Cognitive Comments Cognitive Assessment Comments Pt presents with slow speed of processing and decreased insight into current medical situation. She does not always respond to verbal cues to modify tasks to improve body mechanics. Needs encouragement to participate in basic self care tasks.Conversation tangential at times OT- Vision and Hearing OT- Hearing Assessment OT- Hearing Assessment B hearing aids at home OT- Vision Assessment Visual Acuity WFL Glasses All The Time Vision Assessment Comments Pt denies any recent vision changes. Pt able to read wall clock and very small print operational test mechanic light controller with glasses. M7 OT- IP Mobility and Balance Start: 04/17/18 12:37 Freq: Status: Active Protocol: Document 04/18/18 11:18 PJM (Rec: 04/18/18 13:39 PJ [id number]) OT- Bed Mobility Assessment Rolling Type of Rolling Roll to Right Level of Assistance Moderate Assistance 1 Person Assistance Supine to Sit Supine to Sit Assist Minimal Assistance 1 Person Assistance Scooting Scooting to Edge of Bed Contact Guard Assistance 1 Person Assistance OT-Transfer Assessment Sit to and From Stand Sit to and from Stand Contact Guard Assistance Transfers Transfer Ability Contact Guard Assistance Technique Transfer Destination Chair Transfer Technique Stand Step Pivot Devices Transfer Assistive Devices Gait Belt Front Wheeled Walker OT- Gait Assessment Gait Gait Assistance Required: Contact Guard Assist 1 Person Assist Distance (Feet) 20 Assistive Devices Assistive Device Gait Belt Front Wheeled Walker Comments Gait Ability Comments to sink and back, see P.T. notes for further details OT- Balance Assessment Sitting Balance and Reactions Static Sitting Balance Ability Good Dynamic Sitting Balance Ability Fair Standing Balance and Reactions Static Standing Balance Ability Good Dynamic Standing Balance Ability Fair M8 OT- IP Objective Assessments Start: 04/17/18 12:37 Freq: Status: Active Protocol: Document 04/18/18 11:18 PJM (Rec: 04/18/18 13:39 PJM [id number]) OT Gross Range of Motion Upper Extremity Range of Motion Assessment Within Functional Limits OT Strength Upper Extremity Strength Assessment Within Functional Limits Hand Supervisor Livestock Yard Strength Hand Dominance Right OT- Coordination Assessment Comments Coordination Comments BUE WFL for basic self care tasks. OT-Muscle Tone Assessment Muscle Tone WNL Yes OT Sensation Assessment Comments Summary Comments Pt denies deficits in BUE's. Edema Edema Absent M9 OT- IP Assessment and Plan Start: 04/17/18 12:37 Freq: Status: Active Protocol: Document 04/18/18 11:18 PJM (Rec: 04/18/18 13:39 PJM [id number]) OT Summary Assessment and Plan Potential Analytic Complexity at Evaluation Low Summary OT Impairments Pain Balance Functional Cognition Functional Mobility Grooming Dressing Toileting Bathing Toilet Transfers Shower Transfers Assessment Summary Low complexity OT assessment completed with emphasis on self care skills within new TLSO brace.Son here for education this session. He has lived with pt x 5 yrs and is her ui software engineer caregiver, so he is very familiar with her care needs. Pt currently has performance deficits in all functional mobility/transfers, standing grooming, lower body dressing, bathing and toileting. Pt has all necessary adaptive equipment at home. Pt will benefit from 1-2 additional OT visits here to address the goals below. Son to bring in pt's more familiar for use here. Goals Grooming Goal Standby Assistance Dressing Goal Moderate Assistance Toileting Goal Standby Assistance Bathing Goal Minimal Assistance Toilet Transfer Goal Standby Assistance Shower Transfer Goal Contact Guard Assistance Patient/Caregiver Education Goal Demonstrate Post-Op Precautions Caregiver Independent Assisting Patient OT-Other Goals Grooming to be done seated on 4WW as per home set up. Upper body dressing to be SBA, lower body mod assist. Days to Meet Goals 3 Frequency of Treatment Frequency Of Treatment Once a Day Treatment Plan OT Treatment Plan ADL Training Functional Mobility Patient/Family Education Discharge Planning Other Treatment Recommendations and Next try electrical and radio mechanic, sock aid to see Treatment Focus if pt willing to try them, BR transfers, toileting Discharge Recommendations OT Discharge Recommendations Home with 24/7 Assist Home Equipment Needs pt has all necessary equipt at home
--- NOTE | 2018-04-18 12:13 | PT.IPTN ---
Current Diagnoses Hypothyroidism, unspecified (04/17/18) Essential (primary) hypertension (04/17/18) Age-related osteoporosis without current pathological fracture (04/17/18) Unspecified fracture of unspecified thoracic vertebra, initial encounter for closed fracture (04/17/18) Multiple fractures of ribs, left side, initial encounter for closed fracture (04/17/18) Presence of cardiac pacemaker (04/17/18) Physical Therapy Treatment Note M2 PT-IP Current Condition Start: 04/17/18 11:44 Freq: NEEDED Status: Active Protocol: Document 04/17/18 17:00 HH (Rec: 04/18/18 09:31 [id number]) Physical Therapy Current Condition Current Condition Evaluation Date 04/17/18 Treatment Diagnosis Acute compession fx at T5,T6, T8; generalized muscle weakness Onset Date 04/16/18 Precautions Brace TLSO prescribed by Dr. Sofia M3 PT-IP Subjective Start: 04/17/18 11:44 Freq: NEEDED Status: Active Protocol: Document 04/18/18 11:56 HH (Rec: 04/18/18 12:12 [id number]) Subjective Physical Therapy Visit Type Type Treatment Note Visit Start Time 11:05 Visit Stop Time 11:40 Total Visit Minutes [address] Alfonso called back this morning regarding Pt's prescription for TLSO. Dr. Alfonso requires pt to have TLSO for OOB activities. Pt was then seen in her room this morning with her son (CG) there. Instruction was given to pt and her son regarding how to claudia her TLSO. Pt's son also stated that he will bring her 4 WW for next visit. He also mentioned pt has a tendency to refuse to use her AD and back brace. Physical Therapy Visit Comments Patient Comments Pt continously c/o her upper back pain as 9/10 but did not show any discomfort through facial expression. Pt stated It's always like a 9. Pt also asked her son regarding her D /C date Therapy Pain Assessment Pain When Pain Assessed During Mobility Location Back Intensity 9 Scale Used Pt continously c/o her upper back pain as 9/10 but did not show any discomf M4 PT-IP Mobility and Gait Start: 04/17/18 11:44 Freq: NEEDED Status: Active Protocol: Document 04/18/18 11:56 HH (Rec: 04/18/18 12:12 HH [id number]) PT-Bed Mobility Assessment Rolling Type of Rolling Log Rolling Level of Assist Contact Guard Assistance Minimal Assistance Scooting Scooting to Edge of Bed Standby Assistance PT-Transfer Assessment Sit to and From Stand Sit to and from Stand Standby Assistance Equipment Transfer Assistive Device Front Wheeled Walker Orthotic/Prosthetic Devices or Brace: Yes Transfers Transfer Destination Chair Transfer Ability Level of Assist Standby Assistance Gait Assessment Gait Gait Assistance Required: Standby Assistance Distance (Feet) 150 Assistive Devices Assistive Device Front Wheeled Walker Orthotic/Prosthetic Devices or Brace: Yes Gait Deviations General Gait Pattern Decreased Stride Length Decreased Feet Clearance Factors Limiting Gait Function Factors Limiting Gait Function Decreased Activity Tolerance PT-Balance Assessment Sitting Balance and Reactions Static Sitting Balance Ability Normal Dynamic Sitting Balance Ability Good Standing Balance and Reactions Static Standing Balance Ability Normal Dynamic Standing Balance Ability Good M5 PT-IP Objective Assessments Start: 04/17/18 11:44 Freq: NEEDED Status: Active Protocol: Document 04/17/18 17:00 (Rec: 04/18/18 09:31 [id number]) Orientation Orientation/Cognition Level of Alertness Alert Orientation Name Age Birthday Month Date Year Day of Week Place Situation Language Function Ability No Deficits Noted Memory Description No Deficits Noted Gross Range of Motion Upper Extremity ROM Assessment Within Functional Limits Lower Extremity ROM Assessment Within Functional Limits Strength Upper Extremity Strength Assessment Within Functional Limits Lower Extremity Strength Assessment Within Functional Limits Coordination Assessment Gross Coordination Gross Coordination WNL Sensation Assessment Sensation Gross Sensation WNL Muscle Tone Muscle Tone WNL Yes M6 PT-IP Treatment Start: 04/17/18 11:44 Freq: NEEDED Status: Active Protocol: Document 04/18/18 11:56 (Rec: 04/18/18 12:12 [id number]) Physical Therapy Treatment Education Education Provided Precautions Safety Other Treatments Other Treatment Performed Pt and CG education on trunk flexion and rotation precautions sit to stand x 2 with SBA with FWW amb 150 feet with FWW with SBA static standing x 5 mins with SBA M7 PT-IP Assessment and Plan Start: 04/17/18 11:44 Freq: NEEDED Status: Active Protocol: Document 04/18/18 11:56 (Rec: 04/18/18 12:12 [id number]) PT Summary Assessment and Plan Potential Rehabilitation Potential Excellent Status of Condition at Evaluation Stable Summary Impairments Pain Strength Balance Bed Mobility Transfers Activity Tolerance Progress Towards Goals Progressing Toward Goals Assessment Summary Pt is progressing toward goals . Pt is able to amb 150 feet today with FWW with SBA and she was able maintain static standing for >5 mins to brush her teeth and comb her hair. Pt did not c/o fatigue after tx seesion. Recommended outpatient PT to CG and case management specialist today. Frequency of Treatment Frequency Of Treatment Twice a Day Treatment Plan Other Recommendations and Next Treatment sit to stand with SBA Focus static and dynamic balance training Pt reeducation on how to claudia her TLSO toilet transfer training Recommendations To Nursing Amount of Assist Needed 1 Person Assist Discharge Recommendations PT Discharge Recommendations Home Outpatient PT
[2018-04-18] MEDS: HYDROMORPHONE PCA 6 MG/30 ML PCA.VIAL IV (14:53)
--- NOTE | 2018-04-18 15:48 | PT.IPTN ---
Current Diagnoses Hypothyroidism, unspecified (04/17/18) Essential (primary) hypertension (04/17/18) Age-related osteoporosis without current pathological fracture (04/17/18) Unspecified fracture of unspecified thoracic vertebra, initial encounter for closed fracture (04/17/18) Multiple fractures of ribs, left side, initial encounter for closed fracture (04/17/18) Presence of cardiac pacemaker (04/17/18) Physical Therapy Treatment Note M2 PT-IP Current Condition Start: 04/17/18 11:44 Freq: NEEDED Status: Active Protocol: Document 04/17/18 17:00 (Rec: 04/18/18 09:31 [id number]) Physical Therapy Current Condition Current Condition Evaluation Date 04/17/18 Treatment Diagnosis Acute compession fx at T5,T6, T8; generalized muscle weakness Onset Date 04/16/18 Precautions Brace TLSO prescribed by Dr. Sofia M3 PT-IP Subjective Start: 04/17/18 11:44 Freq: NEEDED Status: Active Protocol: Document 04/18/18 15:26 SA (Rec: 04/18/18 15:48 SA [id number]) Subjective Physical Therapy Visit Type Type Treatment Note Visit Start Time 15:00 Visit Stop Time 15:24 Total Visit Minutes 24 Notes Pt supine and agreeable to PT. BP at start of session 145/95 . Number of LITHOGRAPHIC PLATE MAKER APPRENTICE Visits 1 Physical Therapy Visit Comments Patient Comments Pt agreeable to get OOB and don TLSO. Apeared comfortable rated upper back pain as 3/10. Therapy Pain Assessment Pain When Pain Assessed During Mobility Pain Present Pain Present Pain Reported Location Back Intensity 4 Scale Used Numeric (1 - 10) Pain Management Techniques Modification of Treatment Re-positioning Timing of Activity with Medications M4 PT-IP Mobility and Gait Start: 04/17/18 11:44 Freq: NEEDED Status: Active Protocol: Document 04/18/18 15:26 SA (Rec: 04/18/18 15:48 SA [id number]) PT-Bed Mobility Assessment Rolling Type of Rolling Log Rolling Level of Assist Contact Guard Assistance Minimal Assistance Supine to Sit Supine to Sit Standby Assistance Scooting Scooting to Edge of Bed Standby Assistance PT-Transfer Assessment Sit to and From Stand Sit to and from Stand Contact Guard Assistance Equipment Transfer Assistive Device Gait Belt Front Wheeled Walker Orthotic/Prosthetic Devices or Brace: Yes Transfers Transfer Destination Chair Transfer Ability Level of Assist Contact Guard Assistance Comments Mobility Comments Mod A to don TLSO, pt seems easily confused and a little groggy . Gait Assessment Gait Gait Assistance Required: Contact Guard Assist Distance (Feet) 125 Able to Maintain Weight Bearing Status Yes During Gait Assistive Devices Assistive Device Gait Belt Front Wheeled Walker Orthotic/Prosthetic Devices or Brace: Yes Gait Deviations General Gait Pattern Decreased Stride Length Decreased Feet Clearance Factors Limiting Gait Function Factors Limiting Gait Function Decreased Activity Tolerance Decreased Strength Poor Safety Awareness Comments Gait Comments Gait training in room/[place] with FWW and CGA for 125 feet with turning and VCs for safety and management of FWW. PT-Balance Assessment Sitting Balance and Reactions Static Sitting Balance Ability Normal Dynamic Sitting Balance Ability Good M5 PT-IP Objective Assessments Start: 04/17/18 11:44 Freq: NEEDED Status: Active Protocol: Document 04/17/18 17:00 (Rec: 04/18/18 09:31 [id number]) Orientation Orientation/Cognition Level of Alertness Alert Orientation Name Age Birthday Month Date Year Day of Week Place Situation Language Function Ability No Deficits Noted Memory Description No Deficits Noted Gross Range of Motion Upper Extremity ROM Assessment Within Functional Limits Lower Extremity ROM Assessment Within Functional Limits Strength Upper Extremity Strength Assessment Within Functional Limits Lower Extremity Strength Assessment Within Functional Limits Coordination Assessment Gross Coordination Gross Coordination WNL Sensation Assessment Sensation Gross Sensation WNL Muscle Tone Muscle Tone WNL Yes M6 PT-IP Treatment Start: 04/17/18 11:44 Freq: NEEDED Status: Active Protocol: Document 04/18/18 15:26 (Rec: 04/18/18 15:48 [id number]) Physical Therapy Treatment Exercises Exercises Ankle Pumps Gluteal Sets Seated Knee Flexion/Extension Education Education Provided Precautions Safety Other Treatments Other Treatment Performed Reviewed spinal precautions and safety wit patient, CGA not present this afternoon. M7 PT-IP Assessment and Plan Start: 04/17/18 11:44 Freq: NEEDED Status: Active Protocol: Document 04/18/18 15:26 (Rec: 04/18/18 15:48 [id number]) PT Summary Assessment and Plan Frequency of Treatment Frequency Of Treatment Twice a Day Treatment Plan Other Recommendations and Next Treatment Standing static/dynamic Focus balance training with pt at mirror to comb hair. Recommendations To Nursing Amount of Assist Needed 1 Person Assist Discharge Recommendations PT Discharge Recommendations Home with Assistance
[2018-04-18] MEDS: TRAZODONE 50 MG TABLET PO (20:43)
[2018-04-18] MEDS: ROPINIROLE 1 MG TABLET 2 MG PO (20:43)
[2018-04-18] MEDS: ALPRAZolam 0.25 MG TABLET 0.5 MG PO (20:44)
[2018-04-18] MEDS: ACETAMINOPHEN 325 MG TABLET 650 MG PO (20:59)
[2018-04-19] VITALS (15 sets, daily range): BP systolic 122–193; BP diastolic 74–114; PULSE 65–96; RESP 18–24; TEMP 36.3–37; O2SAT 94–98
--- NOTE | 2018-04-19 00:53 | PC.NURSE ---
Addendum entered by Tete Dodge R.N. 04/19/18 03:00: Medicated with scheduled Toradol; states she is not currently having any pain. Original Note: Patient is alert and oriented but CROW and does not wear hearing aids. Breath sounds CTA with RA sat of 93%. HRR. BP continues to be elevated with earlier reading of 161/95 which this RN was not made aware of so rechecked now and was 149/103; MD has ordered Hydralazine if SBP > 160 and was aware last night of elevated DBP as well; continue to monitor. Denies nausea. BT present and abdomen is soft. Getting up with walker and 1 assist to BSC to urinate; denies dysuria, frequency or urgency. Is able to turn self. Complains of continued back pain; receiving continuous infusion of Dilaudid via ORDER CHECKER PACKER PROCESSER and has demand dosing available but rarely uses. Refuses to wear TLSO brace when up. Heels remain red but less so than on admit and are blanchable; heels being floated on pillows. Refuses to wear SCD's; reminded to ankle wave. Fall risk score is high and patient is impulsive and does not remember to call for assistance so bed alarm is activated.
[2018-04-19] MEDS: KETOROLAC 15 MG/ML VIAL IV ×4 (02:57→21:08)
[2018-04-19] MEDS: HYDROMORPHONE PCA 6 MG/30 ML PCA.VIAL 1 MG IV (05:36)
[2018-04-19] MEDS: PANTOPRAZOLE 40 MG TABLET PO (05:37)
[2018-04-19] MEDS: LEVOTHYROXINE 88 MCG TABLET PO (05:37)
[2018-04-19] MEDS: SODIUM CHLORIDE 0.9% 500 ML 21 ML IV (05:40)
[2018-04-19] MEDS: DOCUSATE 100 MG CAPSULE PO ×2 (09:13→21:08)
[2018-04-19] MEDS: EZETIMIBE 10 MG TABLET PO (09:13)
[2018-04-19] MEDS: DULOXETINE 30 MG CAPSULE 60 MG PO (09:13)
[2018-04-19] MEDS: METOPROLOL ER 25 MG TABLET PO (09:14)
[2018-04-19] MEDS: BISACODYL 5 MG TABLET PO (09:14)
[2018-04-19] MEDS: CALCITONIN,SALMON, NASAL SPRAY 1 SPRAYS NASAL (09:15)
[2018-04-19] MEDS: OXYCODONE/ACETAMINOPHEN 5/325 TABLET 2 TAB PO ×3 (09:15→22:09)
--- NOTE | 2018-04-19 10:51 | PC.NURSE ---
Dawn had a bit of trouble getting up and getting going this AM. I AM NOT A MORNING PERSON. However, with coaxing she ate breakfast and was able to shower with assistance. She is off her BASIN OPERATOR. After taking 2 Percocet she rated her pain as 5/10. She has not had a BM yet but has taken bisacodyl and som. She hopes to go home later today to care of son.
--- NOTE | 2018-04-19 11:59 | PM.PN.1 ---
Subjective Date Patient Seen: 04/19/18 Time Patient Seen: 11:59 Interval history: Patient here for treatment of thoracic vertebral fractures of T5, T6, T8 and rib fractures of 1st and 2nd left and 2nd right ribs after a ground level fall. She has remained stable orthopedically. She has had TLSO brace fitted and patient states this does help her back pain. She is being followed by Dr. Phillips. Been slowly progressing with physical therapy. Exam Vital Signs (past 8 hours): - 04/19/18 06:00 04/19/18 07:40 Temperature 97.3 F L 98.1 F Pulse Rate 96 H 83 Respiratory Rate 18 20 Blood Pressure 122/74 123/78 Pulse Oximetry 94 94 Oxygen Delivery Method Room Air Narrative Exam Narrative: Alert, responsive in no acute distress when lying in bed. Chest. Decreased tenderness on palpation of upper ribs. Legs. No calf pain or swelling. Pulses symmetrical. Good sensation to touch to lower legs. Objective Labs Result Diagrams: 04/17/18 01:11 04/17/18 01:11 Assessment & Plan Plan: Assessment/Plan Narrative: Plan. Patient is orthopedically stable. Discharge pending clearance by Dr. Phillips. Patient will need follow-up appointment at [facility] Orth[facility] office in about 2 weeks to have repeat x-rays done today for thoracic fractures. Quality VTE Deep Vein Thrombosis/Pulmonary Embolism Present on Admission: No
--- NOTE | 2018-04-19 12:57 | PT.IPTN ---
Current Diagnoses Hypothyroidism, unspecified (04/17/18) Essential (primary) hypertension (04/17/18) Age-related osteoporosis without current pathological fracture (04/17/18) Unspecified fracture of unspecified thoracic vertebra, initial encounter for closed fracture (04/17/18) Multiple fractures of ribs, left side, initial encounter for closed fracture (04/17/18) Presence of cardiac pacemaker (04/17/18) Physical Therapy Treatment Note M2 PT-IP Current Condition Start: 04/17/18 11:44 Freq: NEEDED Status: Active Protocol: Document 04/19/18 12:23 (Rec: 04/19/18 12:56 [id number]) Physical Therapy Current Condition Current Condition Evaluation Date 04/17/18 Treatment Diagnosis Acute compession fx at T5,T6, T8; generalized muscle weakness Onset Date 04/16/18 Precautions Abdominal Surgery Precautions Log Roll Lifting Restrictions Gait Belt above Incisional Area Other Precautions TLSO for OBB activity, can be put on sitting, fall risk, bed /chair alarm M3 PT-IP Subjective Start: 04/17/18 11:44 Freq: NEEDED Status: Active Protocol: Document 04/19/18 12:23 (Rec: 04/19/18 12:56 [id number]) Subjective Physical Therapy Visit Type Type Treatment Note Visit Start Time 11:30 Visit Stop Time 12:10 Total Visit Minutes 40 Notes Pt agreeable to mobilize with PT. No acute distrerss. RN reports pt refused to use TLSO last night when she went to toilet. Pt's son also brought pt's 4 WW. Physical Therapy Visit Comments Patient Comments Pt reports upper back pain 7/ 10. But The back brace is uncomfortable so i didnt wear to shower and bathroom this morning and last night Patient Goals To go home with her son. Therapy Pain Assessment Pain When Pain Assessed During Mobility Pain Present Pain Present Pain Reported Location Back Intensity 7 Scale Used Numeric (1 - 10) Description Dull M4 PT-IP Mobility and Gait Start: 04/17/18 11:44 Freq: NEEDED Status: Active Protocol: Document 04/19/18 12:23 (Rec: 04/19/18 12:56 [id number]) PT-Bed Mobility Assessment Rolling Type of Rolling Log Rolling Level of Assist Standby Assistance Supine to Sit Supine to Sit Standby Assistance Bedrails Sit to Supine Sit to Supine Standby Assistance Bedrails Scooting Scooting to Edge of Bed Standby Assistance Scooting Up and Down in Bed Standby Assistance PT-Transfer Assessment Sit to and From Stand Sit to and from Stand Standby Assistance Equipment Transfer Assistive Device Gait Belt 4 Wheeled Walker Transfers Transfer Destination Chair Toilet Transfer Ability Level of Assist Standby Assistance Comments Mobility Comments Pt was able to recall precautions and log roll technique. Pt performed log roll transfer from supine to sit with bedrails SBA; Sit <> stand x 5 SBA 4 WW = 15 seconds; back to reclining chair with 4WW SBA. Pt was to able to demonstrate safe transfer to use brakes with her 4 WW. Gait Assessment Gait Gait Assistance Required: Standby Assistance Distance (Feet) 250 Able to Maintain Weight Bearing Status Yes During Gait Assistive Devices Assistive Device 4 Wheeled Walker Orthotic/Prosthetic Devices or Brace: Yes Gait Deviations General Gait Pattern Within Normal Limits Factors Limiting Gait Function Factors Limiting Gait Function Pain Poor Safety Awareness Comments Gait Comments amb 250 feets with her 4WW SBA without c/o fatigue today. Pt demonstrates improved gait speed and increase stridge length. Pt did c/o upper back when she was asked for her pain level but she didnt appear any acute distress during the whole tx session. Stair Climbing Assessment Comments Stair Climbing Comments Did not attempt. Pt reports she stays on main level at home. PT-Balance Assessment Sitting Balance and Reactions Static Sitting Balance Ability Normal Dynamic Sitting Balance Ability Normal Standing Balance and Reactions Static Standing Balance Ability Normal Dynamic Standing Balance Ability Normal Functional Assessments Functional Tests 5 Times Sit to Stand 15s M5 PT-IP Objective Assessments Start: 04/17/18 11:44 Freq: NEEDED Status: Active Protocol: Document 04/19/18 12:23 HH (Rec: 04/19/18 12:56 [id number]) Orientation Orientation/Cognition Level of Alertness Alert Gross Range of Motion Upper Extremity ROM Assessment Within Functional Limits Lower Extremity ROM Assessment Within Functional Limits Strength Upper Extremity Strength Assessment Within Functional Limits Lower Extremity Strength Assessment Within Functional Limits M6 PT-IP Treatment Start: 04/17/18 11:44 Freq: NEEDED Status: Active Protocol: Document 04/19/18 12:56 (Rec: 04/19/18 12:57 [id number]) Physical Therapy Treatment Other Treatments Other Treatment Performed sit to stand x 8 amb 250 feet M7 PT-IP Assessment and Plan Start: 04/17/18 11:44 Freq: NEEDED Status: Active Protocol: Document 04/19/18 12:23 HH (Rec: 04/19/18 12:56 HH [id number]) PT Summary Assessment and Plan Potential Rehabilitation Potential Excellent Status of Condition at Evaluation Stable Summary Impairments Pain Bed Mobility Progress Towards Goals Progressing Toward Goals Assessment Summary Pt progressed with therapy. Pt was reeducated to use TLSO for OOB activitiy due to her refusal to use TLSO last night for toileting. Pt amb safely today with SBA with normal gait speed and stride length. Pt also demonstrates safe transfer with the use of 4WW. Pt was educated to use wall for stability in order to stand to sit. Pt currently demonstrates safe to go home. However, pt did require constant verbal cues and demonstration to how to don her TLSO. Recommend D/C this weekend. Goals Other Goals Pt and CG able to understand how to don TLSO properly. Frequency of Treatment Frequency Of Treatment Twice a Day Treatment Plan Physical Therapy Treatment Plan Transfer Training Gait Training Other Recommendations and Next Treatment sit to stand Focus pt and CG education on how to TLSO properly Recommendations To Nursing Amount of Assist Needed Standby Assistance Discharge Recommendations PT Discharge Recommendations Home with Assistance Outpatient PT
--- NOTE | 2018-04-19 13:17 | PM.PN.1 ---
Subjective Date Patient Seen: 04/19/18 Time Patient Seen: 08:00 Interval history: This morning, the pt states that she is unable to rate her pain since she just woke up. She was able to sleep well overnight. She has still not had a BM since coming to the hospital. She denies any other complaints today. As per nursing, the pts pain was improved yesterday and last night. Exam Vital Signs (past 8 hours): - 04/19/18 06:00 04/19/18 07:40 Temperature 97.3 F L 98.1 F Pulse Rate 96 H 83 Respiratory Rate 18 20 Blood Pressure 122/74 123/78 Pulse Oximetry 94 94 Oxygen Delivery Method Room Air Narrative Exam Narrative: Gen: NAD, laying comfortably on back flat in bed CV: RRR, grade 2/6 systolic murmur Resp: clear to auscultation bilaterally Abd: soft, nontender, nondistended, normoactive bowel sounds Ext: no edema Neuro: CN grossly intact, 5/5 strength UE and LE, sensation intact throughout Objective Labs Result Diagrams: 04/17/18 01:11 04/17/18 01:11 Assessment & Plan (1) Thoracic vertebral fracture: Current visit: Yes Status: Acute (2) Closed rib fracture: Qualifiers: Encounter type: initial encounter Fracture healing: Laterality: left Rib fracture type: multiple ribs Qualified Code(s): S22.42XA - Multiple fractures of ribs, left side, initial encounter for closed fracture Current visit: Yes Status: Acute (3) HTN (hypertension): Current visit: No Status: Chronic (4) Hypothyroidism: Current visit: No Status: Chronic (5) Pacemaker: Current visit: No Status: Chronic (6) Osteoporosis: Current visit: No Status: None Plan: Assessment/Plan Narrative: Pt is a 72yo woman with hypothyroidism, HTN, osteoporosis, pacemaker in place for hx of AV node block, and 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 No evidence of injury to the spinal cord with normal neurological exam. 1) Compression fractures: With known osteoporosis - Ortho consulted, appreciate recommendations - Continue to work with physical therapy for mobilization - Bracing as recommended by Ortho - Will need f/u with Dr Alfonso as an outpatient - D/C [employer] today - Continue Toradol and Calcitonin for pain control - Start Percocet today at d/c of PAP[employer] CARRIER - Continue Docusate, add dulcolax and Milk of Mag today to help with constipation from narcotics - Plan for repeat DEXA as an outpatient 2) Rib fractures: No evidence of pneumothorax. Respiratory status stable. - Pain management as above 3) HTN with hx of CVA and pacemaker in place: BP more stabilized as pain control improved - As surgery not currently planned, will restart Plavix - Continue Metoprolol 4) Hypothyroidism: - Continue home Levothyroxine FEN: Cardiac diet DVT prophylaxis: SCDs, on Plavix Dispo: Plan for d/c tomorrow pending no issues overnight. Quality VTE Deep Vein Thrombosis/Pulmonary Embolism Present on Admission: No
--- NOTE | 2018-04-19 13:22 | P.PN_ITS ---
Subjective Date Patient Seen: 04/19/18 Time Patient Seen: 08:00 Interval history: This morning, the pt states that she is unable to rate her pain since she just woke up. She was able to sleep well overnight. She has still not had a BM since coming to the hospital. She denies any other complaints today. As per nursing, the pts pain was improved yesterday and last night. Exam Vital Signs (past 8 hours): - 04/19/18 06:00 04/19/18 07:40 Temperature 97.3 F L 98.1 F Pulse Rate 96 H 83 Respiratory Rate 18 20 Blood Pressure 122/74 123/78 Pulse Oximetry 94 94 Oxygen Delivery Method Room Air Narrative Exam Narrative: Gen: NAD, laying comfortably on back flat in bed CV: RRR, grade 2/6 systolic murmur Resp: clear to auscultation bilaterally Abd: soft, nontender, nondistended, normoactive bowel sounds Ext: no edema Neuro: CN grossly intact, 5/5 strength UE and LE, sensation intact throughout Objective Labs Result Diagrams: 04/17/18 01:11 04/17/18 01:11 Assessment & Plan (1) Thoracic vertebral fracture: Current visit: Yes Status: Acute (2) Closed rib fracture: Qualifiers: Encounter type: initial encounter Fracture healing: Laterality: left Rib fracture type: multiple ribs Qualified Code(s): S22.42XA - Multiple fractures of ribs, left side, initial encounter for closed fracture Current visit: Yes Status: Acute (3) HTN (hypertension): Current visit: No Status: Chronic (4) Hypothyroidism: Current visit: No Status: Chronic (5) Pacemaker: Current visit: No Status: Chronic (6) Osteoporosis: Current visit: No Status: None Plan: Assessment/Plan Narrative: Pt is a 72yo woman with hypothyroidism, HTN, osteoporosis, pacemaker in place for hx of AV node block, and 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 No evidence of injury to the spinal cord with normal neurological exam. 1) Compression fractures: With known osteoporosis - Ortho consulted, appreciate recommendations - Continue to work with physical therapy for mobilization - Bracing as recommended by Ortho - Will need f/u with Dr Alfonso as an outpatient - D/C [employer] today - Continue Toradol and Calcitonin for pain control - Start Percocet today at d/c of [employer] - Continue Docusate, add dulcolax and Milk of Mag today to help with constipation from narcotics - Plan for repeat DEXA as an outpatient 2) Rib fractures: No evidence of pneumothorax. Respiratory status stable. - Pain management as above 3) HTN with hx of CVA and pacemaker in place: BP more stabilized as pain control improved - As surgery not currently planned, will restart Plavix - Continue Metoprolol 4) Hypothyroidism: - Continue home Levothyroxine FEN: Cardiac diet DVT prophylaxis: SCDs, on Plavix Dispo: Plan for d/c tomorrow pending no issues overnight. Quality VTE Deep Vein Thrombosis/Pulmonary Embolism Present on Admission: No
--- NOTE | 2018-04-19 16:26 | OT.IP.TRT ---
Current Diagnoses Hypothyroidism, unspecified (04/17/18) Essential (primary) hypertension (04/17/18) Age-related osteoporosis without current pathological fracture (04/17/18) Unspecified fracture of unspecified thoracic vertebra, initial encounter for closed fracture (04/17/18) Multiple fractures of ribs, left side, initial encounter for closed fracture (04/17/18) Presence of cardiac pacemaker (04/17/18) Occupational Therapy Treatment Note M2 OT-IP Current Condition Start: 04/17/18 12:37 Freq: Status: Active Protocol: Document 04/18/18 11:18 PJM (Rec: 04/18/18 13:39 PJM [id number]) Occupational Therapy Current Condition Current Condition Evaluation Date 04/18/18 Treatment Diagnosis decr'd self care/mobility s/p fall w/B high rib fx's, T5, T6 , T8 compr fx's Diagnosis Onset Date 04/17/18 Post Operative Precautions Abdominal Surgery Precautions Log Roll Other Precautions TLSO when out of bed, can be put on sitting, fall risk, bed /chair alarm M3 OT- IP Subjective and Pain Start: 04/17/18 12:37 Freq: Status: Active Protocol: Document 04/19/18 16:25 [facility] (Rec: 04/19/18 16:26 [facility] [id number]) OT- Subjective Occupational Therapy Visit Type Type Patient Refusal Notes Pt states not wanting to get up at this time for therapy due to too much pain. Nursing states just gave pt pain medications and that she would check in on the pt.
[2018-04-19] MEDS: MAGNESIUM HYDROXIDE 30 ML UDC PO (19:13)
[2018-04-19] MEDS: ALPRAZolam 0.25 MG TABLET 0.5 MG PO (21:08)
[2018-04-19] MEDS: ROPINIROLE 1 MG TABLET 2 MG PO (21:08)
[2018-04-19] MEDS: TRAZODONE 50 MG TABLET PO (21:08)
--- NOTE | 2018-04-19 22:05 | PC.NURSE ---
Dr. Alfred notified of pt's high blood pressure this evening of 153/104. No new orders. Pt denies chest pain or pressure. Reporting pain 9/10 and nauseous. Medicated per emar for pain and alternative measures of distraction and repositioning provided. WCTM.
[2018-04-19] MEDS: SODIUM CHLORIDE 0.9% FLUSH 10 ML IV (22:10)
[2018-04-19] MEDS: HYDRALAZINE 20 MG/ML VIAL 10 MG IV (22:57)
[2018-04-20] VITALS (9 sets, daily range): BP systolic 132–149; BP diastolic 86–96; PULSE 89–109; RESP 16–18; TEMP 36.3–37.2; O2SAT 96–98
[2018-04-20] MEDS: NITROGLYCERIN OINT 1 INCH/GM OINT...G. 2 INCH TOP (01:07)
--- NOTE | 2018-04-20 02:30 | PC.NURSE ---
Patient doesn't use call light. All night she hasn't used the call light. When I explained to her to that she needs to use the call light, she said why? You need to listen to me. Patient yelled for staff. Came in, set the bed alarm off. Requested to be taken to the toilet not the commode. Then requested to be left alone. Explained the risks, patient acknowledged she knew the risks. Staff stayed in room within sight. Patient took twenty minutes in BR. She was getting annoyed when I tried to see if she was okay. Leave me alone to poop. When patient got back in bed with call light, she wanted tea. Bed alarm on, call light within reach, ice packs on back. Alerted RN Moraima of what had happened.
[2018-04-20] MEDS: KETOROLAC 15 MG/ML VIAL IV ×4 (03:24→20:57)
[2018-04-20] MEDS: OXYCODONE/ACETAMINOPHEN 5/325 TABLET 2 TAB PO (04:41)
[2018-04-20] MEDS: PANTOPRAZOLE 40 MG TABLET PO (06:19)
[2018-04-20] MEDS: LEVOTHYROXINE 88 MCG TABLET PO (06:19)
--- NOTE | 2018-04-20 06:41 | PC.NURSE ---
Patient was hypertensive, hydralazine given at 2300. Patient remained hypertensive, received one time order for nitro paste. Nitro placed on left chest wall. Effective for decreasing blood pressure.
[2018-04-20] MEDS: METOPROLOL ER 25 MG TABLET PO ×2 (08:49→11:41)
[2018-04-20] MEDS: EZETIMIBE 10 MG TABLET PO (08:49)
[2018-04-20] MEDS: CALCITONIN,SALMON, NASAL SPRAY 1 SPRAYS NASAL (08:49)
[2018-04-20] MEDS: SODIUM CHLORIDE 0.9% FLUSH 10 ML IV ×2 (08:50→20:58)
[2018-04-20] MEDS: DULOXETINE 30 MG CAPSULE 60 MG PO (08:50)
[2018-04-20] MEDS: DOCUSATE 100 MG CAPSULE PO ×2 (08:50→20:56)
--- NOTE | 2018-04-20 09:50 | PT.IPTN ---
Current Diagnoses Hypothyroidism, unspecified (04/17/18) Essential (primary) hypertension (04/17/18) Age-related osteoporosis without current pathological fracture (04/17/18) Unspecified fracture of unspecified thoracic vertebra, initial encounter for closed fracture (04/17/18) Multiple fractures of ribs, left side, initial encounter for closed fracture (04/17/18) Presence of cardiac pacemaker (04/17/18) Physical Therapy Treatment Note M2 PT-IP Current Condition Start: 04/17/18 11:44 Freq: NEEDED Status: Active Protocol: Document 04/19/18 12:23 HH (Rec: 04/19/18 12:56 HH [id number]) Physical Therapy Current Condition Current Condition Evaluation Date 04/17/18 Treatment Diagnosis Acute compession fx at T5,T6, T8; generalized muscle weakness Onset Date 04/16/18 Precautions Abdominal Surgery Precautions Log Roll Lifting Restrictions Gait Belt above Incisional Area Other Precautions TLSO for OBB activity, can be put on sitting, fall risk, bed /chair alarm M3 PT-IP Subjective Start: 04/17/18 11:44 Freq: NEEDED Status: Active Protocol: Document 04/20/18 09:50 RCC (Rec: 04/20/18 12:45 RCC [id number]) Subjective Physical Therapy Visit Type Type Cancellation Notes pt not willing to participate in physical therapy this morning. She is in her street clothes, hoping to d/c today. Will attempt later this date if schedule permits. Goals Other Goals Pt and CG able to understand how to don TLSO properly. Frequency of Treatment Frequency Of Treatment Twice a Day Treatment Plan Physical Therapy Treatment Plan Transfer Training Gait Training Other Recommendations and Next Treatment sit to stand Focus pt and CG education on how to TLSO properly Recommendations To Nursing Amount of Assist Needed Standby Assistance Discharge Recommendations PT Discharge Recommendations Home with Assistance Outpatient PT
--- NOTE | 2018-04-20 10:55 | PM.PN.1 ---
Subjective Date Patient Seen: 04/20/18 Time Patient Seen: 10:55 Interval history: Patient seen this morning she is fully dressed lying in bed. Apparently she told nursing staff she was ready to go home at around 05:00 o'clock this morning Son is with her who appears to think she would better staying here in the hospital. She is complaining of nausea had some emesis while brushing teeth. Had bowel movement this morning. Refused her Percocet this morning saying that she is allergic to Percocet causes her to feel horrible which is how she is feeling now. Also refuses anything with Tylenol or aspirin it because they also are allergies that cause her to feel horrible in variety of ways. She tells me this morning that she has had issues of chronic pain for a very long time and the only thing that she is able to tolerate is morphine. Even the morphine does not seem to do anything she says. Does admit that her pain is better today than it was upon admission. Difficult to get a clear history from her and her son but apparently she has had multiple falls over the last several months including his serious fall the subdural hematoma seen in [place]. Patient reports she uses her walker all the time in the house son says she does not use a walker at all in the house because they told her she did need to when she left the [place] [facility] recently etc. Clearly there is an interesting dynamic between patient and her son. Etiology for her falls is entirely unclear. Patient has a very poor historian but talks about ?running backwards ?with these falls. Not felt to be cardiac related and indeed patient has pacemaker in place. Had a neurological evaluation during her most recent stay at [facility] or [facility] (again difficult to get the exact details from patient and even from the chart). Patient has Neurology referral in place but has not yet been seen locally here, in part due to lack of availability of Neurology providers in the local area Exam Vital Signs (past 8 hours): - 04/20/18 03:00 04/20/18 04:42 04/20/18 08:30 Temperature 97.8 F Pulse Rate 109 H 109 H 101 H Respiratory Rate 16 16 Blood Pressure 132/96 H 132/96 H 149/96 H Pulse Oximetry 97 04/20/18 10:21 Temperature 99.1 F Pulse Rate 89 Respiratory Rate 20 Blood Pressure 125/46 L Pulse Oximetry 94 Oxygen Delivery Method Room Air Objective Labs Result Diagrams: 04/17/18 01:11 04/17/18 01:11 Assessment & Plan Plan: Assessment/Plan Narrative: 1. Vertebral fracture likely secondary to osteoporosis and patient's fall-subjectively somewhat improved. Continue to work with physical therapy and I will stop her Tylenol and her Percocet today and substitute short-acting morphine both on a scheduled basis and as needed basis. If this is somewhat effective without causing undue side effects then she will likely be more appropriate for discharge home tomorrow. She reluctantly agreed to stay in the hospital today. Continue with brace and therapy as per Orthopedic surgery. Follow-up appointment with Dr. Alfonso as previously scheduled 2. Rib fracture likely secondary to patient's fall and unable to determine if secondary to osteoporosis-as above will try her on the morphine 3. Hypertension-patient has been hypertensive and minimally tachycardic. I am going to up the dose of her beta-garcía as a starting point. I did place nitro paste on her last night an effort to lower blood pressure. I am not concerned about hypertension that is not in excess of 200 systolic or 110 diastolic. In the short term these are acceptable numbers. Note: Greater than 30 minutes was spent evaluating the patient on the floor, including examining the patient, discussing clinical course with clinical and nursing staff, reviewing clinical course in the computer, preparing documentation and writing orders for continued management of care, discussing status with family as appropriate, reviewing plans for the next 24 hours with both patient/family and nursing staff as appropriate. Quality VTE Deep Vein Thrombosis/Pulmonary Embolism Present on Admission: No
--- NOTE | 2018-04-20 11:01 | P.PN_ITS ---
Subjective Date Patient Seen: 04/20/18 Time Patient Seen: 10:55 Interval history: Patient seen this morning she is fully dressed lying in bed. Apparently she told nursing staff she was ready to go home at around 05:00 o' clock this morning Son is with her who appears to think she would better staying here in the hospital. She is complaining of nausea had some emesis while brushing teeth. Had bowel movement this morning. Refused her Percocet this morning saying that she is allergic to Percocet causes her to feel horrible which is how she is feeling now. Also refuses anything with Tylenol or aspirin it because they also are allergies that cause her to feel horrible in variety of ways. She tells me this morning that she has had issues of chronic pain for a very long time and the only thing that she is able to tolerate is morphine. Even the morphine does not seem to do anything she says. Does admit that her pain is better today than it was upon admission. Difficult to get a clear history from her and her son but apparently she has had multiple falls over the last several months including his serious fall the subdural hematoma seen in [place]. Patient reports she uses her walker all the time in the house son says she does not use a walker at all in the house because they told her she did need to when she left the jail recently etc. Clearly there is an interesting dynamic between patient and her son. Etiology for her falls is entirely unclear. Patient has a very poor historian but talks about ?running backwards ?with these falls. Not felt to be cardiac related and indeed patient has pacemaker in place. Had a neurological evaluation during her most recent stay at [facility] or [facility] ( again difficult to get the exact details from patient and even from the chart). Patient has Neurology referral in place but has not yet been seen locally here , in part due to lack of availability of Neurology providers in the local area Exam Vital Signs (past 8 hours): - 04/20/18 03:00 04/20/18 04:42 04/20/18 08:30 Temperature 97.8 F Pulse Rate 109 H 109 H 101 H Respiratory Rate 16 16 Blood Pressure 132/96 H 132/96 H 149/96 H Pulse Oximetry 97 04/20/18 10:21 Temperature 99.1 F Pulse Rate 89 Respiratory Rate 20 Blood Pressure 125/46 L Pulse Oximetry 94 Oxygen Delivery Method Room Air Objective Labs Result Diagrams: 04/17/18 01:11 04/17/18 01:11 Assessment & Plan Plan: Assessment/Plan Narrative: 1. Vertebral fracture likely secondary to osteoporosis and patient's fall- subjectively somewhat improved. Continue to work with physical therapy and I will stop her Tylenol and her Percocet today and substitute short-acting morphine both on a scheduled basis and as needed basis. If this is somewhat effective without causing undue side effects then she will likely be more appropriate for discharge home tomorrow. She reluctantly agreed to stay in the hospital today. Continue with brace and therapy as per Orthopedic surgery. Follow-up appointment with Dr. Alfonso as previously scheduled 2. Rib fracture likely secondary to patient's fall and unable to determine if secondary to osteoporosis-as above will try her on the morphine 3. Hypertension-patient has been hypertensive and minimally tachycardic. I am going to up the dose of her beta-garcía as a starting point. I did place nitro paste on her last night an effort to lower blood pressure. I am not concerned about hypertension that is not in excess of 200 systolic or 110 diastolic. In the short term these are acceptable numbers. Note: Greater than 30 minutes was spent evaluating the patient on the floor, including examining the patient, discussing clinical course with clinical and nursing staff, reviewing clinical course in the computer, preparing documentation and writing orders for continued management of care, discussing status with family as appropriate, reviewing plans for the next 24 hours with both patient/family and nursing staff as appropriate. Quality VTE Deep Vein Thrombosis/Pulmonary Embolism Present on Admission: No
--- NOTE | 2018-04-20 13:14 | OT.IP.TRT ---
Current Diagnoses Hypothyroidism, unspecified (04/17/18) Essential (primary) hypertension (04/17/18) Age-related osteoporosis without current pathological fracture (04/17/18) Unspecified fracture of unspecified thoracic vertebra, initial encounter for closed fracture (04/17/18) Multiple fractures of ribs, left side, initial encounter for closed fracture (04/17/18) Presence of cardiac pacemaker (04/17/18) Occupational Therapy Treatment Note M2 OT-IP Current Condition Start: 04/17/18 12:37 Freq: Status: Active Protocol: Document 04/18/18 11:18 PJM (Rec: 04/18/18 13:39 PJM [id number]) Occupational Therapy Current Condition Current Condition Evaluation Date 04/18/18 Treatment Diagnosis decr'd self care/mobility s/p fall w/B high rib fx's, T5, T6 , T8 compr fx's Diagnosis Onset Date 04/17/18 Post Operative Precautions Abdominal Surgery Precautions Log Roll Other Precautions TLSO when out of bed, can be put on sitting, fall risk, bed /chair alarm M3 OT- IP Subjective and Pain Start: 04/17/18 12:37 Freq: Status: Active Protocol: Document 04/20/18 13:13 [facility] (Rec: 04/20/18 13:14 [facility] [id number]) OT- Subjective Occupational Therapy Visit Type Type Patient Refusal Notes Attempted to see pt, pt eating lunch. When satets to come back later, pt states. No, I do not want to get up or do anything, I just want to go home.
--- NOTE | 2018-04-20 13:43 | PT.IPTN ---
Current Diagnoses Hypothyroidism, unspecified (04/17/18) Essential (primary) hypertension (04/17/18) Age-related osteoporosis without current pathological fracture (04/17/18) Unspecified fracture of unspecified thoracic vertebra, initial encounter for closed fracture (04/17/18) Multiple fractures of ribs, left side, initial encounter for closed fracture (04/17/18) Presence of cardiac pacemaker (04/17/18) Physical Therapy Treatment Note M2 PT-IP Current Condition Start: 04/17/18 11:44 Freq: NEEDED Status: Active Protocol: Document 04/20/18 13:43 [facility] (Rec: 04/20/18 13:48 [facility] [id number]) Physical Therapy Current Condition Current Condition Evaluation Date 04/17/18 Treatment Diagnosis Acute compession fx at T5,T6, T8; generalized muscle weakness Onset Date 04/16/18 Precautions Abdominal Surgery Precautions Log Roll Lifting Restrictions Gait Belt above Incisional Area Other Precautions TLSO for OBB activity, can be put on sitting, fall risk, bed /chair alarm M3 PT-IP Subjective Start: 04/17/18 11:44 Freq: NEEDED Status: Active Protocol: Document 04/20/18 13:43 [facility] (Rec: 04/20/18 13:48 [facility] [id number]) Subjective Physical Therapy Visit Type Type Treatment Note Visit Start Time 13:18 Visit Stop Time 13:43 Total Visit Minutes 25 Number of CHIP FRIER Visits 0 Physical Therapy Visit Comments Patient Comments pt wants to get up, just finished lunch. She has bilateral lower thoracic pain, does not rate. She refused the TLSO when sitting on the toilet. M4 PT-IP Mobility and Gait Start: 04/17/18 11:44 Freq: NEEDED Status: Active Protocol: Document 04/20/18 13:43 [facility] (Rec: 04/20/18 13:48 [facility] [id number]) PT-Transfer Assessment Sit to and From Stand Sit to and from Stand Standby Assistance Equipment Transfer Assistive Device 4 Wheeled Walker Transfers Transfer Destination Chair Toilet Transfer Technique Stand Step Pivot Transfer Ability Level of Assist Standby Assistance Comments Mobility Comments chair to toilet, toilet to ambulation back to chair; notified SPORTS TEACHER no bowel movement . Gait Assessment Gait Gait Assistance Required: Standby Assistance Distance (Feet) 200 Assistive Devices Assistive Device 4 Wheeled Walker Orthotic/Prosthetic Devices or Brace: Yes Gait Deviations General Gait Pattern Decreased Stride Length Decreased Feet Clearance Factors Limiting Gait Function Factors Limiting Gait Function Decreased Activity Tolerance Decreased Strength Pain Poor Balance Comments Gait Comments TLSO on during gait M5 PT-IP Objective Assessments Start: 04/17/18 11:44 Freq: NEEDED Status: Active Protocol: Document 04/19/18 12:23 [facility] (Rec: 04/19/18 12:56 [facility] [id number]) Orientation Orientation/Cognition Level of Alertness Alert Gross Range of Motion Upper Extremity ROM Assessment Within Functional Limits Lower Extremity ROM Assessment Within Functional Limits Strength Upper Extremity Strength Assessment Within Functional Limits Lower Extremity Strength Assessment Within Functional Limits M6 PT-IP Treatment Start: 04/17/18 11:44 Freq: NEEDED Status: Active Protocol: Document 04/20/18 13:43 [facility] (Rec: 04/20/18 13:48 [facility] [id number]) Physical Therapy Treatment Education Brace Education [place] Other Treatments Other Treatment Performed assisted with TLSO placement M7 PT-IP Assessment and Plan Start: 04/17/18 11:44 Freq: NEEDED Status: Active Protocol: Document 04/20/18 13:43 [facility] (Rec: 04/20/18 13:48 [facility] [id number]) PT Summary Assessment and Plan Summary Assessment Summary Pt able to ambulate 200 ft with 4WW and SBA, she has a tendency to get the 4WW too far anterior, requiring cuing for more upright positioning. Overall, pt is SBA with mobility, but does require cuing and assistance with TLSO placement and management. Expect pt to be able to d/c when medically stable. Frequency of Treatment Frequency Of Treatment Twice a Day Treatment Plan Other Recommendations and Next Treatment don/doffing TLSO, progress Focus gait and bed mobility Recommendations To Nursing Amount of Assist Needed Standby Assistance Discharge Recommendations PT Discharge Recommendations Home with 24/7 Assist Other Discharge Recommendations TLSO with all OOB activity
[2018-04-20] MEDS: MORPHINE 15 MG IR TABLET PO ×3 (14:27→20:55)
--- NOTE | 2018-04-20 15:29 | PC.NURSE ---
Pt reports improvement in pain during the afternoon. Reported 5 instead of 8 out of ten. Started on PO morphine 15 mg scheduled as a new analgesia. Wearing brace and sitting in chair reading her book. States cannot take zofran as it gives her hallucinations. Denies nausea at this time.
[2018-04-20] MEDS: ALPRAZolam 0.25 MG TABLET 0.5 MG PO (20:55)
[2018-04-20] MEDS: ROPINIROLE 1 MG TABLET 2 MG PO (20:57)
[2018-04-20] MEDS: TRAZODONE 50 MG TABLET PO (20:58)
[2018-04-21 00:24] VITALS: BP 152/89; PULSE 75; RESP 18; TEMP 36.6; O2SAT 96
[2018-04-21 01:20] VITALS: O2SAT 96
[2018-04-21] MEDS: MORPHINE 15 MG IR TABLET PO ×3 (01:29→09:18)
[2018-04-21] MEDS: KETOROLAC 15 MG/ML VIAL IV ×2 (03:00→09:16)
[2018-04-21 05:36] VITALS: BP 137/89; PULSE 80; RESP 16; TEMP 36.7; O2SAT 94
[2018-04-21] MEDS: LEVOTHYROXINE 88 MCG TABLET PO (05:37)
[2018-04-21] MEDS: PANTOPRAZOLE 40 MG TABLET PO (05:38)
[2018-04-21 08:05] VITALS: BP 142/74; PULSE 82; RESP 20; TEMP 36.3; O2SAT 94
[2018-04-21] MEDS: CALCITONIN,SALMON, NASAL SPRAY 1 SPRAYS NASAL (09:14)
[2018-04-21 09:15] VITALS: BP 142/74
[2018-04-21] MEDS: METOPROLOL ER 50 MG TABLET PO (09:15)
[2018-04-21] MEDS: EZETIMIBE 10 MG TABLET PO (09:15)
[2018-04-21] MEDS: DULOXETINE 30 MG CAPSULE 60 MG PO (09:15)
[2018-04-21] MEDS: DOCUSATE 100 MG CAPSULE PO (09:15)
[2018-04-21] MEDS: SODIUM CHLORIDE 0.9% FLUSH 10 ML IV (09:19)
[2018-04-21 10:15] VITALS: O2SAT 94
--- NOTE | 2018-04-21 10:15 | CM.DPC ---
Addendum entered by Tameka Cottrell R.N. 04/21/18 11:08: Patient has discharge orders to return home today. Original Note: DCP Cont: Patient is anxious to go home. Had wanted to leave early yesterday morning, but Dr. Alfred had seen her and recommended another day in hospital. Patient lives with her son, who is also her caregiver. Dr. Alfred has not yet seen patient today. Will be determined if patient can return home today. P: Patient is to be discharged home when stable. Tameka Cottrell RN/Jeep Mechanic
--- NOTE | 2018-04-21 11:04 | PM.DS.1 ---
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 The pt reports that at approximately 10pm last night she was outside checking on the weather. She returned indoors, closed the door behind her, and then fell to the ground, hitting her head on the door sill. She denies any LOC. There is a carpet located by the door, that she states she may have tripped on. She denies any chest pain, palpitations, SOB, headache, vision changes, or urinary incontinence associated with the fall. After falling, she felt significant pain in her head and mid-back. She slowly was able to rise and go to bed. In bed, it was only comfortable to lay on her right side. The pain only worsened, and eventually she called EMS to take her to the ER. In the ER, imaging was completed that showed multiple rib fractures in addition to multiple thoracic compression fractures. Ortho was consulted, who recommended conservative management with bracing and pain management. This morning, the pt reports that her pain is minimally improved. She used her DATA ABSTRACTOR only a few times overnight. She denies any radicular symptoms, numbness/tingling in her arms or legs, or other neurological symptoms. She was able to get up to the bedside commode once overnight. {from history and physical by Dr. Phillips on April 17, 2018} Discharge Providers Date of admission: 04/17/18 03:13 Primary care physician: Jenna Phillips MD Consults: 04/17/18 03:30 Consult to Physical Therapy Evaluate & Treat Comment: Multiple compression fractures, TLSO? Physician Instructions: Evaluate and Treat 04/17/18 04:27 Consult to Pastoral Services Routine Comment: patient request for visit 04/17/18 09:15 Consult to Occupational Therapy Evaluate & Treat Comment: Physician Instructions: Evaluate and treat Discharge provider: Preston Alfred MD Discharge Date: 04/21/18 Summary Discharge Diagnosis: 1. Vertebral compression fracture, pathologic secondary to osteoporosis and fall 2. Rib fracture secondary to trauma, unable to determine if potentially due to osteoporosis 3. Hypertension, exacerbated by pain from fractures above 3. Hypothyroidism on replacement 4. Cardiac arrhythmia status post pacemaker placement Hospital Course: Patient was admitted to the hospital for pain management. She was seen in consultation by Orthopedic surgery who did not feel there is anything unstable required immediate intervention. She will be set up as an outpatient to be seen by the spine surgeon that she already had arrangements to be seen by prior to this event Patient she did well with IV hydromorphone. Did poorly with oral oxycodone which she has tolerated poorly in the past. She was switched to oral morphine which has been better tolerated by her in the past and she did better with that. Patient's blood pressure was quite elevated at times. The dose of her metoprolol was doubled and with that and decrease in overall pain her blood pressure numbers were improved at time of discharge Status at Discharge Cognitive/behavioral status at discharge: Back to baseline Functional status at discharge: uses cane/walker Overall status at discharge: patient is progressing back to baseline Exam Vital Signs (past 8 hours): - 04/21/18 05:36 04/21/18 08:05 04/21/18 09:15 Temperature 98.1 F 97.4 F L Pulse Rate 80 82 Respiratory Rate 16 20 Blood Pressure 137/89 142/74 H 142/74 H Pulse Oximetry 94 94 04/21/18 10:15 Temperature Pulse Rate Respiratory Rate Blood Pressure Pulse Oximetry 94 Oxygen Delivery Method Room Air Oxygen Flow Rate 0 Objective Labs Result Diagrams: 04/17/18 01:11 04/17/18 01:11 Discharge Plan Discharge Plan Patient Disposition: Home Discharge Med Rec/Prescriptions Prescriptions: New calcitonin (salmon) 200 unit/actuation [place],Non-Aerosol 1 spry Intranasal DAILY Qty: 1 RF: 0 morphine 15 mg Tablet See Label Instructions .ROUTE .COMPLEX Qty: 30 RF: 0 Continue CHOLECALCIFEROL (VITAMIN D3) (Vitamin D3) 2,000 iu PO QDAY Qty: 0 RF: 0 MULTIVITAMIN/MINERALS (Thera M Plus Tablet) 1 tab PO QDAY Qty: 0 RF: 0 Vitamin E (Alpha-Tocopherol) 400 unit PO QDAY Qty: 0 RF: 0 [FISH OIL] 4,000 mg PO QDAY Qty: 0 RF: 0 ASCORBIC ACID (VITAMIN C) 500 mg PO QDAY Qty: 0 RF: 0 duloxetine 60 mg capsule,delayed release(DR/EC) 60 mg PO DAILY RF: 0 pantoprazole 40 mg tablet,delayed release (DR/EC) 40 mg PO DAILY Qty: 30 RF: 0 levothyroxine 88 mcg capsule 88 mcg PO DAILY Qty: 90 RF: 3 ezetimibe 10 mg tablet 10 mg PO DAILY Qty: 90 RF: 0 trazodone 50 mg tablet 50 mg PO DAILY Qty: 30 RF: 2 clopidogrel [Plavix] 75 mg tablet 75 mg PO DAILY RF: 0 ropinirole 0.25 mg tablet See Patient Comments PO BEDTIME RF: 0 vit C-vit L-eooptt-wau-om-3 [Ocuvite] 947-86-2-150 hk-wiql-fx-mg Capsule 1 cap PO DAILY RF: 0 Changed alprazolam 0.25 mg tablet 0.5 mg PO BEDTIME Qty: 0 RF: 0 metoprolol succinate 25 mg tablet extended release 24 hr 50 mg PO DAILY Qty: 0 RF: 0 Follow up/Referrals: Jenna Phillips MD [Primary Care Provider] - 1 Week Provider Discharge Instructions Diet: Diet as Tolerated Visit Report/Discharge Packet Instructions: Vertebral Compression Fracture, DI for Rib Fracture, How to Prevent Falls, Morphine Visit Report Forms: Stroke Signs & Symptoms Discharge Data Primary Care Provider: Jenna Phillips Attending Provider: Ashlyn Sofia Admit Date/Time: 04/17/18 03:13 Quality VTE Deep Vein Thrombosis/Pulmonary Embolism Present on Admission: No
--- NOTE | 2018-04-21 11:08 | P.DS_ITS ---
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 The pt reports that at approximately 10pm last night she was outside checking on the weather. She returned indoors, closed the door behind her, and then fell to the ground, hitting her head on the door sill. She denies any LOC. There is a carpet located by the door, that she states she may have tripped on. She denies any chest pain, palpitations, SOB, headache, vision changes, or urinary incontinence associated with the fall. After falling , she felt significant pain in her head and mid-back. She slowly was able to rise and go to bed. In bed, it was only comfortable to lay on her right side. The pain only worsened, and eventually she called EMS to take her to the ER. In the ER, imaging was completed that showed multiple rib fractures in addition to multiple thoracic compression fractures. Ortho was consulted, who recommended conservative management with bracing and pain management. This morning, the pt reports that her pain is minimally improved. She used her MANAGER USER EXPERIENCE only a few times overnight. She denies any radicular symptoms, numbness/ tingling in her arms or legs, or other neurological symptoms. She was able to get up to the bedside commode once overnight. {from history and physical by Dr. Phillips on April 17, 2018} Discharge Providers Date of admission: 04/17/18 03:13 Primary care physician: Jenna Phillips MD Consults: 04/17/18 03:30 Consult to Physical Therapy Evaluate & Treat Comment: Multiple compression fractures, TLSO? Physician Instructions: Evaluate and Treat 04/17/18 04:27 Consult to Pastoral Services Routine Comment: patient request for visit 04/17/18 09:15 Consult to Occupational Therapy Evaluate & Treat Comment: Physician Instructions: Evaluate and treat Discharge provider: Preston Alfred MD Discharge Date: 04/21/18 Summary Discharge Diagnosis: 1. Vertebral compression fracture, pathologic secondary to osteoporosis and fall 2. Rib fracture secondary to trauma, unable to determine if potentially due to osteoporosis 3. Hypertension, exacerbated by pain from fractures above 3. Hypothyroidism on replacement 4. Cardiac arrhythmia status post pacemaker placement Hospital Course: Patient was admitted to the hospital for pain management. She was seen in consultation by Orthopedic surgery who did not feel there is anything unstable required immediate intervention. She will be set up as an outpatient to be seen by the spine surgeon that she already had arrangements to be seen by prior to this event Patient she did well with IV hydromorphone. Did poorly with oral oxycodone which she has tolerated poorly in the past. She was switched to oral morphine which has been better tolerated by her in the past and she did better with that. Patient's blood pressure was quite elevated at times. The dose of her metoprolol was doubled and with that and decrease in overall pain her blood pressure numbers were improved at time of discharge Status at Discharge Cognitive/behavioral status at discharge: Back to baseline Functional status at discharge: uses cane/walker Overall status at discharge: patient is progressing back to baseline Exam Vital Signs (past 8 hours): - 04/21/18 05:36 04/21/18 08:05 04/21/18 09:15 Temperature 98.1 F 97.4 F L Pulse Rate 80 82 Respiratory Rate 16 20 Blood Pressure 137/89 142/74 H 142/74 H Pulse Oximetry 94 94 04/21/18 10:15 Temperature Pulse Rate Respiratory Rate Blood Pressure Pulse Oximetry 94 Oxygen Delivery Method Room Air Oxygen Flow Rate 0 Objective Labs Result Diagrams: 04/17/18 01:11 04/17/18 01:11 Discharge Plan Discharge Plan Patient Disposition: Home Discharge Med Rec/Prescriptions Prescriptions: New calcitonin (salmon) 200 unit/actuation [place],Non-Aerosol 1 spry Intranasal DAILY Qty: 1 RF: 0 morphine 15 mg Tablet See Label Instructions .ROUTE .COMPLEX Qty: 30 RF: 0 Continue CHOLECALCIFEROL (VITAMIN D3) (Vitamin D3) 2,000 iu PO QDAY Qty: 0 RF: 0 MULTIVITAMIN/MINERALS (Thera M Plus Tablet) 1 tab PO QDAY Qty: 0 RF: 0 Vitamin E (Alpha-Tocopherol) 400 unit PO QDAY Qty: 0 RF: 0 [FISH OIL] 4,000 mg PO QDAY Qty: 0 RF: 0 ASCORBIC ACID (VITAMIN C) 500 mg PO QDAY Qty: 0 RF: 0 duloxetine 60 mg capsule,delayed release(DR/EC) 60 mg PO DAILY RF: 0 pantoprazole 40 mg tablet,delayed release (DR/EC) 40 mg PO DAILY Qty: 30 RF: 0 levothyroxine 88 mcg capsule 88 mcg PO DAILY Qty: 90 RF: 3 ezetimibe 10 mg tablet 10 mg PO DAILY Qty: 90 RF: 0 trazodone 50 mg tablet 50 mg PO DAILY Qty: 30 RF: 2 clopidogrel [Plavix] 75 mg tablet 75 mg PO DAILY RF: 0 ropinirole 0.25 mg tablet See Patient Comments PO BEDTIME RF: 0 vit C-vit K-gagmfs-hhd-om-3 [Ocuvite] [id number] rl-iooo-eo-mg Capsule 1 cap PO DAILY RF: 0 Changed alprazolam 0.25 mg tablet 0.5 mg PO BEDTIME Qty: 0 RF: 0 metoprolol succinate 25 mg tablet extended release 24 hr 50 mg PO DAILY Qty: 0 RF: 0 Follow up/Referrals: Jenna Phillips MD [Primary Care Provider] - 1 Week Provider Discharge Instructions Diet: Diet as Tolerated Visit Report/Discharge Packet Instructions: Vertebral Compression Fracture, DI for Rib Fracture, How to Prevent Falls, Morphine Visit Report Forms: Stroke Signs & Symptoms Discharge Data Primary Care Provider: Jenna Phillips Attending Provider: Ashlyn Sofia Admit Date/Time: 04/17/18 03:13 Quality VTE Deep Vein Thrombosis/Pulmonary Embolism Present on Admission: No
--- NOTE | 2018-04-21 11:34 | PC.NURSE ---
Pt discharged by MD - given dc paperwork and script for MS. Taken by wheelchair to private vehicle at ER entrance.
== END 2018-04-21 11:33 | disposition home or self-care (01) | DRG 543 ==
LOC: ED 02:58 → AC 07:10
PROVIDERS: Admitting Provider Family Medicine; Emergency Provider Emergency Medicine; PCP Family Medicine; Visit Provider Orthopaedic Surgery Foot and Ankle Surgery
DX: M80.88XA Other osteoporosis with current pathological fracture, vertebra(e), initial encounter for fracture (principal); S22.42XA Multiple fractures of ribs, left side, initial encounter for closed fracture; W18.30XA Fall on same level, unspecified, initial encounter; Y92.009 Unspecified place in unspecified non-institutional (private) residence as the place of occurrence of the external cause; I44.30 Unspecified atrioventricular block; Z95.0 Presence of cardiac pacemaker; E03.9 Hypothyroidism, unspecified; I10 Essential (primary) hypertension; G25.81 Restless legs syndrome; K21.9 Gastro-esophageal reflux disease without esophagitis; Z87.891 Personal history of nicotine dependence; R11.2 Nausea with vomiting, unspecified; R29.6 Repeated falls; S09.90XA Unspecified injury of head, initial encounter
CPT/HCPCS: 70450; 71260; 80048; 85025; 96374; 97116; 97162; 97165; 97530; 97535; 97760; 99222; 99232; 99238; 99283; 99285; J0360; J1885; J2270; Q9967

== ENCOUNTER 2018-07-08 06:15 | Inpatient (IN) | payer MEDICARE, OTHER, SELFPAY ==
[2018-04-17 04:05] VITALS: BMI 29.9
[2018-07-01 14:00] VITALS: BMI 29.2
[2018-07-08] VITALS (26 sets, daily range): BP systolic 139–167; BP diastolic 79–106; PULSE 81–95; RESP 10–92; TEMP 36.3–37.2; O2SAT 10–100; BMI 28.8
--- NOTE | 2018-07-08 07:37 | PM.PREOP ---
Pre-operative Note Interval Note History & Physical reviewed/Exam performed by Physician: Yes Changes to H&P: No
[2018-07-08] MEDS: LACTATED RINGERS 1,000 ML 42 ML IV ×2 (07:44→11:18)
[2018-07-08] MEDS: METOPROLOL ER 50 MG TABLET PO ×2 (07:44→21:39)
[2018-07-08] MEDS: CLINDAMYCIN 600 MG/50 ML PIGGYBACK 50 MG IV (07:53)
--- NOTE | 2018-07-08 08:35 | SUR.OPER ---
Prone on spine table, head in foam head support, padded chest and pelvic supports, gel pad at knees, lower legs supported by pillows; nipples, genitalia and toes free of pressure, arms secured on foam padded arm boards at <90 degrees abduction. Tape over blanket at thigh secured to table. Gel pad between heels.
[2018-07-08] MEDS: BUPIVACAINE 0.25% (PF) VIAL 30 ML INJ (09:04)
[2018-07-08] MEDS: BUPIVACAINE LIPOSOME 266 MG/20 ML VIAL INJ (09:05)
--- NOTE | 2018-07-08 11:45 | PM.OP.1 ---
Operative Date/Time/Diagnoses Date of procedure: 07/08/18 Time of procedure: 07:45 Pre-op diagnosis: 1. L4-5, L5-S1 spondylolisthesis 2. L3-4, L4-5, L5-S1 spinal stenosis Post-op diagnosis: same Procedure & Clinicians Procedure: 1. L4-5, L5-S1 Postero-lateral and posterior interbody fusion 2. L4-5, L5-S1 interbody cage placement. 3. L4-5, L5-S1 decompressive laminectomy with bilateral facetecomies 4. L4-5, L5-S1 Posterior segmental instrumentation 5. L3-4 hemilaminectomy 6. [place] of bone marrow from iliac crest 7. Utilization of microsurgical technique and operating microscope Same procedure as scheduled: Yes Indications: Patient has been having chronic back pain and worsening lumbar radiculopathy. Patient failed multiple conservative management with worsening pain weakness and numbness in her lower extremity. Patient has been having difficulty performing activity of daily living. After discussing risks benefits of treatment options, patient elected proceed with surgery. Surgeon: Brien Alfonso Bilingual Nanny: Soheila Barber Click Yes if Unassisted: Yes Anesthesia Type: General Operative Notes Closure Type: primary Specimen(s): none sent Prosthetic devices, grafts, tissues, transplants, or devices: Globus revolve screws, Rise cages Applied: catheter Estimated Blood Loss (mL): 150 Blood products transfused: none Procedure in detail: Patient was seen in the preoperative area. Risks and benefits of the surgery was discussed with the patient. Informed consent was obtained from the patient and placed in the chart. Surgical site was marked. Patient was taken to the operative room. General anesthesia was administered. Prophylactic antibiotic was given to the patient less than 30 min before the incision was made. Patient was placed into a prone position on the Ten table. Patient's back was then prepped and draped in the sterile fashion. Time-out was performed at this time. Using AP and lateral C-arm imaging the interval between L3 and S1 was identified and marked on patient's back. A 2 inch incision 2 in from midline was made on the left side first. The fascia was incised in line with skin incision. Globus MARS retractors was placed inside the incision and docked onto the L4, L5 lamina. Using microsurgical technique and operating microscope, a L4 and L5 laminectomy and L4-5 L5-S1 facetectomy was performed using a Kerrison rongeur. More than 75% of bilateral facets were resected during the process of decompression at both L4-5 and L5-S1 level. The 2 levels were grossly unstable after decompression was completed and requiring fusion. The disc space at L4-5 L5-S1 was identified. And a total diskectomy was performed at L4-5 L5-S1 level. The endplates were decorticated using a rasp and shaver. The total diskectomy and decortication was performed at L4-5 L5-S1 level in order to to accomplish a L4-5 L5-S1 fusion. The local bone from the laminectomy and facetectomy was saved for local bone grafting. After the total diskectomy and decortication was completed, Bio4 bone graft material was combined with local bone that was harvested earlier. At this time, a separate skin is incision was made over the iliac crest. A Jamshidi needle was inserted into the iliac crest through a separate skin incision. 5 cc of bone marrow aspiration was obtained through the separate skin incision using a Jamshidi needle from the iliac crest. The bone marrow aspiration was combined with local bone and the Bio4 bone grafting material. The bone grafting material was placed into the L4-5 L5-S1 interbody space along with a expandable cage. The cage was expanded to its maximum height using the torque limiting screwdriver. At this time the MARS retractor was redirected over the L3 lamina. Using microsurgical technique and operating microscope, a L3-4 heminectomy was performed using the Kerrison rongeur. The ligamentum flavum was also resected at the side of the hemilaminectomy for further decompression of the epidural space. At this time a mirror image incision was made on the right side. The fascia was incised in line with the skin incision. Globus MARS retractor was inserted and docked onto the L4-5 L5-S1 posterolateral gutter. Using the power drill, posterior-lateral decortication was performed at L4-5 L5-S1 level until bleeding cortical bone was identified. The remaining bone grafting material was placed into the L4-5 L5-S1 posterior lateral gutter he order to accomplish posterolateral fusion at the L4-5 L5-S1 level. Using the double C-arm technique, pedicle screws were placed into the L4, L5 and S1 pedicles bilaterally. This was done by placing the Jamshidi needle into the pedicles, then placing the guidewires over the Jamshidi needle, and finally placing the cannulated screws over the guidewires bilaterally. After the pedicle screws were placed, 2 titanium rods was locked into the heads of the pedicle screws using locking caps and torque limiting screwdriver. After all the hardware was placed, and confirmed with AP and lateral C-arm imaging, the wound was then irrigated with sterile normal saline and packed with Ray-Huyen gauze for 3 min to accomplish hemostasis. After the gauze was removed the deep fascia was closed with #1 Vicryl suture. The subcutaneous layer was closed with 2-0 Vicryl. The skin was closed with skin glenny. Patient tolerated the procedure well. There were no complications. Complications: none Condition: stable Disposition: PACU Plan for aftercare: Admit to inpatient hospital
--- NOTE | 2018-07-08 11:49 | DI.RAD.S_ITS ---
PROCEDURE: XR LUMBAR SPINE 2-3V INDICATIONS: L4-5, L5-S1 TLIF FINDINGS: 2 limited intraoperative fluoroscopically stored images of the lumbosacral spine were obtained for intraoperative hardware localization purposes. These images are not meant for diagnostic purposes. Intraoperative findings related to a lumbosacral fusion are present. IMPRESSION: Intraoperative images obtained during the patient's lumbosacral fusion procedure. Dictated by: Jorge Bravo M.D. on 07/08/2018 at 11:40 Approved by: Jorge Bravo M.D. on 07/08/2018 at 11:48
--- NOTE | 2018-07-08 11:52 | SUR.PHASEI ---
Very sleepy on arrival. Fentanyl 100mcg rec'd towards end of the case. Is kalia[ponsive but quickly back to somnolent state.
--- NOTE | 2018-07-08 11:54 | P.OP_ITS ---
Operative Date/Time/Diagnoses Date of procedure: 07/08/18 Time of procedure: 07:45 Pre-op diagnosis: 1. L4-5, L5-S1 spondylolisthesis 2. L3-4, L4-5, L5-S1 spinal stenosis Post-op diagnosis: same Procedure & Clinicians Procedure: 1. L4-5, L5-S1 Postero-lateral and posterior interbody fusion 2. L4-5, L5-S1 interbody cage placement. 3. L4-5, L5-S1 decompressive laminectomy with bilateral facetecomies 4. L4-5, L5-S1 Posterior segmental instrumentation 5. L3-4 hemilaminectomy 6. [place] of bone marrow from iliac crest 7. Utilization of microsurgical technique and operating microscope Same procedure as scheduled: Yes Indications: Patient has been having chronic back pain and worsening lumbar radiculopathy. Patient failed multiple conservative management with worsening pain weakness and numbness in her lower extremity. Patient has been having difficulty performing activity of daily living. After discussing risks benefits of treatment options, patient elected proceed with surgery. Surgeon: Brien Alfonso College Professor: Soheila Barber Click Yes if Unassisted: Yes Anesthesia Type: General Operative Notes Closure Type: primary Specimen(s): none sent Prosthetic devices, grafts, tissues, transplants, or devices: Globus revolve screws, Rise cages Applied: catheter Estimated Blood Loss (mL): 150 Blood products transfused: none Procedure in detail: Patient was seen in the preoperative area. Risks and minh efits of the surgery was discussed with the patient. Informed consent was obtained from the patient and placed in the chart. Surgical site was marked. Patient was taken to the operative room. General anesthesia was administered. Prophylactic antibiotic was given to the patient less than 30 min before the incision was made. Patient was placed into a prone position on the Ten table. Patient's back was then prepped and draped in the sterile fashion. Time- out was performed at this time. Using AP and lateral C-arm imaging the interval between L3 and S1 was identified and marked on patient's back. A 2 inch incision 2 in from midline was made on the left side first. The fascia was incised in line with skin incision. Globus MARS retractors was placed inside the incision and docked onto the L4, L5 lamina. Using microsurgical technique and operating microscope, a L4 and L5 laminectomy and L4-5 L5-S1 facetectomy was performed using a Kerrison rongeur. More than 75% of bilateral facets were resected during the process of decompression at both L4-5 and L5-S1 level. The 2 levels were grossly unstable after decompression was completed and requiring fusion. The disc space at L4-5 L5-S1 was identified. And a total diskectomy was performed at L4-5 L5-S1 level. The endplates were decorticated using a rasp and shaver. The total diskectomy and decortication was performed at L4-5 L5-S1 level in order to to accomplish a L4-5 L5-S1 fusion. The local bone from the laminectomy and facetectomy was saved for local bone grafting. After the total diskectomy and decortication was completed, Bio4 bone graft material was combined with local bone that was harvested earlier. At this time, a separate skin is incision was made over the iliac crest. A Jamshidi needle was inserted into the iliac crest through a separate skin incision. 5 cc of bone marrow aspiration was obtained through the separate skin incision using a Jamshidi needle from the iliac crest. The bone marrow aspiration was combined with local bone and the Bio4 bone grafting material. The bone grafting material was placed into the L4-5 L5-S1 interbody space along with a expandable cage. The cage was expanded to its maximum height using the torque limiting screwdriver. At this time the MARS retractor was redirected over the L3 lamina. Using microsurgical technique and operating microscope, a L3-4 heminectomy was p erformed using the Kerrison rongeur. The ligamentum flavum was also resected at the side of the hemilaminectomy for further decompression of the epidural space. At this time a mirror image incision was made on the right side. The fascia was incised in line with the skin incision. Globus MARS retractor was inserted and docked onto the L4-5 L5-S1 posterolateral gutter. Using the power drill, poste rior-lateral decortication was performed at L4-5 L5-S1 level until bleeding cortical bone was identified. The remaining bone grafting material was placed into the L4-5 L5-S1 posterior lateral gutter he order to accomplish posterolateral fusion at the L4-5 L5-S1 level. Using the double C-arm technique, pedicle screws were placed into the L4, L5 and S1 pedicles bilaterally. This was done by placing the Jamshidi needle into the pedicles, then placing the guidewires over the Jamshidi needle, and finally placing the cannulated screws over the guidewires bilaterally. After the pedicle screws were placed, 2 titanium rods was locked into the heads of the pedicle screws using locking caps and torque limiting screwdriver. After all the hardware was placed, and confirmed with AP and lateral C-arm i maging, the wound was then irrigated with sterile normal saline and packed with Ray-Huyen gauze for 3 min to accomplish hemostasis. After the gauze was removed the deep fascia was closed with #1 Vicryl suture. The subcutaneous layer was closed with 2-0 Vicryl. The skin was closed with skin glenny. Patient tolerated the procedure well. There were no complications. Complications: none Condition: stable Disposition: PACU Plan for aftercare: Admit to inpatient hospital
--- NOTE | 2018-07-08 11:56 | SUR.PHASEI ---
Quite restless now without appropriate response to command/question.
[2018-07-08] MEDS: LORazepam 2 MG/ML SYRINGE 0.25 MG IV (12:07)
[2018-07-08] MEDS: MORPHINE 10 MG/ML INJ 2 MG IV (12:13)
--- NOTE | 2018-07-08 13:22 | SUR.PHASEI ---
Prolonged PACU stay due to making sure patient was stable on transfer to . Patient did c/o pain when awake (see VS note of 1253) however body language not indicative of that level of pain. Concern due to need for supplemental oxygen and giving more opiod, so opiod minimized to 2mg [place] in the light of Fentanyl given on leaving OR. Lorazepam was given to deal with possible spasm etiology of pain as well as emotional dissonance. Most often patient was somnolent and when awakened did not quantify pain when asked. [place] that simple mask the best treatment of oxygen needs with consistent sats >96%. With cannula sats to lower 90's. Acute Care RNs however balking at taking patient on face mask with RR 10-12 so nasal cannula restarted. Transferred with elevated blood pressure with AC balking at that too, however they are toild there is no significant difference with preop pressures and BP was stable throughout PACU stay. Last opiod prior to discharge was one hour. Extra time then in PACU to ensure stability of patient heading to acute care. PACU discharge criteria was met.
[2018-07-08] MEDS: OXYCODONE IR 5 MG TABLET PO ×2 (14:58→21:38)
--- NOTE | 2018-07-08 15:51 | PC.NURSE ---
Arrival Pt arrived from PACU, arrouses easily however falls asleep in the middle of sentances. BP elevated on arrival, [employer] states has been elevated since arrival. Notifed nurse charge rn and he spoke with anesthesiologist. order obtained to put pt on tele and order for labetolol PRN if SBP>175. Did not medicate pt as BP did not meet parameters at 154/106 on arrival to the floor. Admission completed. Pt requested pain meds which were provided to pt.
[2018-07-08] MEDS: SODIUM CHLORIDE 0.9% 1,000 ML 100 ML IV (17:40)
[2018-07-08] MEDS: CLINDAMYCIN 900 MG/50 ML PIGGYBACK 50 MG IV (17:41)
[2018-07-08] MEDS: hydrOXYzine pamoate 25 MG CAPSULE PO (17:41)
[2018-07-08] MEDS: TRAZODONE 50 MG TABLET PO (21:39)
[2018-07-08] MEDS: ALPRAZolam 0.5 MG TABLET PO (21:39)
[2018-07-08] MEDS: SENNOSIDES 8.6 MG TABLET 17.2 MG PO (21:39)
[2018-07-08] MEDS: ROPINIROLE 1 MG TABLET 2 MG PO (21:40)
[2018-07-08] MEDS: DOCUSATE 100 MG CAPSULE PO (21:40)
[2018-07-08] MEDS: EZETIMIBE 10 MG TABLET PO (21:40)
--- NOTE | 2018-07-08 22:44 | PC.NURSE ---
1500- assumed care of pt. Pt arouses but then falls back to sleep. repositioned. beckman patent and draining. Pt has continuous pulse ox on, does take it off as she states she doesn't need it anymore. on 2L nc. saturation around 98% while awake 94% when sleeping. turned down to 1L. pt tolerating. bed alarm on. side rails upx3 will continue to monitor pt for safety.
[2018-07-09] VITALS (9 sets, daily range): BP systolic 133–149; BP diastolic 75–95; PULSE 84–96; RESP 16–20; TEMP 36.2–37.2; O2SAT 91–96
[2018-07-09] MEDS: CLINDAMYCIN 900 MG/50 ML PIGGYBACK 50 MG IV (00:26)
[2018-07-09] MEDS: OXYCODONE IR 5 MG TABLET PO ×2 (02:11→05:53)
--- NOTE | 2018-07-09 04:37 | PC.NURSE ---
Noc Note: at the start of the night the patient was impulsive and taking off O2, not following direction in regards to mobility and proper turning, pt was restless but answered all orientation questions appropriately. Pt was given PRN oxycodone for pain x2 and is currently sleeping. O2 93-95% on RA.
[2018-07-09] MEDS: LEVOTHYROXINE 88 MCG TABLET PO (05:53)
[2018-07-09 06:33] LABS: Hematocrit 34.9 % (36-46); Hemoglobin 11.8 g/dL (12.0-16.0)
--- NOTE | 2018-07-09 09:15 | P.PN_ITS ---
Subjective Date Patient Seen: 07/09/18 Time Patient Seen: 09:12 Interval history: Hospital day 2, postop day 1 following L4-5, L5-S1 TLIF, posterior instrumentation by Dr. Alfonso. Patient remained stable postoperatively. She did have to have her dressing changed during the night because of drainage. S Abel catheter in place. She has not been out of bed yet. No PT yet. Taking oxycodone for pain. Exam Vital Signs (past 8 hours): - 07/09/18 06:39 07/09/18 07:45 Temperature 98.6 F 98.4 F Pulse Rate 90 88 Respiratory Rate 20 16 Blood Pressure 139/95 H 147/86 H Pulse Oximetry 95 95 Oxygen Delivery Method Nasal Cannula Oxygen Flow Rate 2 Narrative Exam Narrative: Alert, responsive no acute distress sitting in bed having breakfast. Legs. No calf pain or swelling. Pulses symmetrical. Good sen sation to touch. Good strength on foot dorsiflexion plantar flexion Objective Labs Result Diagrams: 07/09/18 05:39 Labs: Laboratory Results - last 24 hr 07/09/18 05:39 Hgb 11.8 L Hct 34.9 L Assessment & Plan Post-op Postoperative Procedures Operation Date: 07/08/18 07:45 Actual Procedures Side Surgeon p L3-4 Left HemiLami, L4-5,L5-S1 TLIF w/Post Instru Brien Alfonso MD Plan: Patient will work with physical therapy. Anticipate DC Abel catheter when she is more active. Patient has son at home. Anticipate discharge home the next 1-2 days if stable. Quality VTE Deep Vein Thrombosis/Pulmonary Embolism Present on Admission: No
[2018-07-09] MEDS: DOCUSATE 100 MG CAPSULE PO ×2 (10:25→20:14)
[2018-07-09] MEDS: DULOXETINE 30 MG CAPSULE 60 MG PO (10:28)
[2018-07-09] MEDS: PANTOPRAZOLE 40 MG TABLET PO (10:28)
[2018-07-09] MEDS: SODIUM CHLORIDE 0.9% FLUSH 10 ML IV ×2 (10:40→20:17)
--- NOTE | 2018-07-09 11:03 | PT.IIE ---
Current Diagnoses Spondylolisthesis, lumbar region (07/08/18) Other spondylosis with radiculopathy, lumbar region (07/08/18) Spinal stenosis, lumbar region without neurogenic claudication (07/08/18) Surgery Performed Operation Date: 07/08/18 07:45 Actual Procedures p L3-4 Left HemiLami, L4-5,L5-S1 TLIF w/Post Instru - Brien Alfonso MD Surgical History (Last Reviewed 04/17/18 @ 01:27 by Tulio Hernandez DO) Status cardiac pacemaker (Acute 09/2012) History of ankle surgery (Resolved 08/2011) History of basal cell carcinoma (BCC) excision (Resolved 1996) History of hip surgery (Resolved 2013) History of knee replacement procedure of left knee (Resolved 09/2009) History of knee replacement procedure of right knee (Resolved 04/2010) History of kyphoplasty (Resolved 10/2012) History of orthopedic surgery (Resolved 03/2011) History of removal of cyst (Resolved 2007) History of thyroid surgery (Resolved 1990) Hx of arthroscopy of knee (Resolved Unknown) Hx of laminectomy (Resolved 10/2008) Hx of tonsillectomy (Resolved Unknown) Medical History (Last Updated 07/01/18 @ 14:53 by Casie Conley RN) Hypercalcemia (Acute) Leukopenia (Inactive) Dementia (Acute) Allergic rhinitis (Chronic Unknown) C. difficile colitis (Chronic) GERD (gastroesophageal reflux disease) (Chronic Unknown) Histoplasmosis (Chronic Unknown) Hypertension (Chronic Unknown) Hypothyroidism (Chronic Unknown) Osteoarthritis (Chronic Unknown) Osteoporosis (Chronic Unknown) Pacemaker (Chronic 09/2012) Restless leg syndrome (Chronic Unknown) Actinic keratosis (Resolved Unknown) Ankle fracture (Resolved 08/2011) Compression fracture of L1 lumbar vertebra (Resolved 10/2012) Episode of syncope (Resolved 09/2012) Fracture of right ulnar styloid (Resolved 2013) Intertrochanteric fracture of right femur (Resolved 2013) Intertrochanteric fracture of right hip (Resolved 2013) Left radial fracture (Resolved 03/2011) Skin cancer (Resolved 1996) Physical Therapy Inpatient Evaluation/Re-Eval M1 PT/OT-IP Prior Functional Status Start: 07/09/18 08:30 Freq: NEEDED Status: Active Protocol: Document 07/09/18 11:03 DLM (Rec: 07/09/18 11:28 DLM [id number]) Medical Review Prior Functional Status Medical History Reviewed Yes Communication WNL Mobility and Gait Ambulated without a device before fall in [facility] Activities of Daily Living and IADL's Independent with ADL's, assistance with homemaking all before [facility] fall. Since her [facility] fall she has been needing more assistance Prior Functional Level (Other details) unclear what her functional level was directly before surgery, pt unable to tell me and her Son is not in the room , hx of falls, chart indicates her back pain was limiting her activity before this surgery Social History Household Members children Living Arrangements House Number of Floors (Floors) Two Floors Number of Stairs To Enter/Railing? 0 Home Equipment Four Wheel Walker Straight Cane Manual Wheelchair Additional Social History Comment Lives with Adult Son who helps care for her, she mostly stays on first floor of house M2 PT-IP Current Condition Start: 07/09/18 08:30 Freq: NEEDED Status: Active Protocol: Document 07/09/18 11:03 DLM (Rec: 07/09/18 11:28 DLM [email or web address]) Physical Therapy Current Condition Current Condition Evaluation Date 07/09/18 Treatment Diagnosis impaired gait and mobility s/p lumbar surgery Onset Date 07/08/18 Precautions Lumbar Precautions Log Roll No Twisting Limit Bending Lifting Restriction of 10 lbs Gait Belt above Incisional Area M3 PT-IP Subjective Start: 07/09/18 08:30 Freq: NEEDED Status: Active Protocol: Document 07/09/18 11:03 DLM (Rec: 07/09/18 11:28 DLM [email or web address]) Subjective Physical Therapy Visit Type Type Initial Evaluation Visit Start Time 10:30 Visit Stop Time 11:03 Total Visit Minutes 33 Number of OCCUPATIONAL HEALTH AND SAFETY ADVISER Visits 0 Physical Therapy Visit Comments Patient Comments she c/o pain during mobility Patient Goals she is unable to state at this time Therapy Pain Assessment Pain When Pain Assessed During Mobility Pain Present Pain Present Pain Reported FLACC Pain Scale Face Occasional grimace/frown Legs Uneasy, restless, tense Activity Squirming,shifting Cry Moans/whimpers/complains Consolability Difficult to console FLACC Total 6 Location Back Intensity 6 Scale Used FLACC Description Tender With Movement Pain Behaviors Facial Grimacing Guarding Restlessness Wincing Pain Management Techniques Re-positioning M4 PT-IP Mobility and Gait Start: 07/09/18 08:30 Freq: NEEDED Status: Active Protocol: Document 07/09/18 11:03 DLM (Rec: 07/09/18 11:28 DLM [email or web address]) PT-Bed Mobility Assessment Rolling Type of Rolling Log Rolling Level of Assist Maximal Assistance 1 Person Assistance Supine to Sit Supine to Sit Moderate Assistance Maximum Assistance Sit to Supine Sit to Supine Maximum Assistance Scooting Scooting to Edge of Bed Minimal Assistance PT-Transfer Assessment Sit to and From Stand Sit to and from Stand Moderate Assistance Equipment Transfer Assistive Device Gait Belt Front Wheeled Walker Comments Mobility Comments pt unable to transfer this visit, stood edge of bed with fWW and min assist x 4 attemps , she attempted to take step but reported it is too painful , c/o in back and LE's bilaterally Gait Assessment Comments Gait Comments unable to ambulate this visit PT-Balance Assessment Sitting Balance and Reactions Static Sitting Balance Ability Good Dynamic Sitting Balance Ability Fair M5 PT-IP Objective Assessments Start: 07/09/18 08:30 Freq: NEEDED Status: Active Protocol: Document 07/09/18 11:03 DLM (Rec: 07/09/18 11:28 DLM [email or web address]) Orientation Orientation/Cognition Level of Alertness Lethargic Orientation Name Safety Awareness Decreased Safety Awareness Comments she only responds to some questions, closes her eyes often but not sleeping Gross Range of Motion Upper Extremity ROM Assessment Left Impaired Impairments pain reported in bilateral shoulders, left shoulder elevation to 100 degrees Lower Extremity ROM Assessment Within Functional Limits Strength Upper Extremity Strength Assessment Bilaterally Impaired Lower Extremity Strength Assessment Bilaterally Impaired Comments Strength Comments generalized weakness throughout, moving all extremities functionally, she does not participate in MMT this visit Coordination Assessment Gross Coordination Gross Coordination WNL Sensation Assessment Comments Sensation Comments she did not answer sensation questions, only describes pain in her thighs when up Muscle Tone Muscle Tone WNL Yes M6 PT-IP Treatment Start: 07/09/18 08:30 Freq: NEEDED Status: Active Protocol: Document 07/09/18 11:03 DLM (Rec: 07/09/18 11:28 DLM [email or web address]) Physical Therapy Treatment Exercises Exercises Ankle Pumps Education Education Provided Precautions Safety M7 PT-IP Assessment and Plan Start: 07/09/18 08:30 Freq: NEEDED Status: Active Protocol: Document 07/09/18 11:03 DLM (Rec: 07/09/18 11:28 DLM [email or web address]) PT Summary Assessment and Plan Potential Rehabilitation Potential Good Status of Condition at Evaluation Unstable Summary Impairments Pain ROM Strength Balance Bed Mobility Transfers Gait Activity Tolerance Assessment Summary Dawn is lethargic today. She wakes up to stimulation but closes her eyes often. She actively participates in therapy but reports pain as her barrier to mobility. She stood at edge of bed with the fWW but was not able to transfer nor ambulate. She needs assistance to maintain her spine precautions. She returned to bed after treatment. Her family is not present during this visit and I am not clear on how much help they can provide at home. She may benefit from SNF rehab before returning home to improve her mobility and return to gait. Will continue to assess over the next couple of visits. Goals Bed Mobility Goal Minimal Assistance Transfer Goal Contact Guard Assistance Minimal Assistance Front Wheeled Walker Gait Goal Contact Guard Assistance Minimal Assistance Front Wheel Walker Gait Distance 60 feet Days to Meet Goals 3 Frequency of Treatment Frequency Of Treatment Twice a Day Treatment Plan Physical Therapy Treatment Plan Bed Mobility Training Transfer Training Gait Training Therapeutic Exercise Post Op Education Discharge Planning Hot or Cold Pack Recommendations To Nursing Amount of Assist Needed 2 Person Assist Discharge Recommendations PT Discharge Recommendations Home with 04/12 Assist SNF Rehab Other Discharge Recommendations continue to assess for discharge planning, discuss with Son how much assist he can provide at home
--- NOTE | 2018-07-09 13:28 | PC.NURSE ---
Addendum entered by Uma Comer R.N. 07/09/18 14:20: Up in chair, assisted there by PT and OT. They reported she was more alert than she had been when they worked with her earlier. Denies needing pain meds at this time. Resting quietly with eyes closed, respirations regular and unlabored. Light in reach, chair alarm on. Original Note: Shift summary: Sleeping most of the day, but awakens to voice/touch. Mentation is a bit fuzzy still- patient's son reports she typically has difficulty getting over anesthesia. Reports back pain 5/10 but has declined pain meds up to this point. Stood with PT at bedside a few times, has not ambulated yet. Dressing to mid low back C/D/I. CMS+, denies paresthesias. Tolerating PO's without N/V. IV saline locked at the end of rn shift mgr. Assisting with bed mobility as needed. Light in reach, alarm on.
--- NOTE | 2018-07-09 13:47 | CM.DANOTE ---
DCP: Case received, EMR reviewed and met with patient. Majority of information regarding patient obtained by P.T. notes, have not been able to get in contact with son, Eddie, as of yet. DCP template completed with information currently available. Patient is a 73 year old female who admitted early this morning to the care of the surgical team. PCP: Dr. Phillips. Payer: confirmed: Medicare/[employer]. Patient came to hospital for surgical procedure. Had L3-4 lateral and posterior interbody fusion. Have been attempting to speak to patient most of the day, and was sleeping. Attempted to get in touch with son in [place], [place], but no answer. Was told that patient lives with son. Did speak to patient, she noted some confusion, hesitant to answer questions, but did confirm that her son lives with her and helps her at home. His name is Eddie Lamas. Phone number is: [phone]. Have attempted to reach him, but line has been busy. Patient did stated that she uses a walker at home. Noted in physical therapy note that patient has had a history of falls in the past. Will continue to verify baseline help that patient receives at home when able to get in touch with son. Unclear at this time if patient can go home with son and assist, or if she may need some residential. Will continue to collaborate with physical therapy team. P: DCP to continue to follow closely, and will continue to attempt to reach son. Tameka Cottrell RN/Advertising Clerk
--- NOTE | 2018-07-09 13:58 | PT.IPTN ---
Current Diagnoses Spondylolisthesis, lumbar region (07/08/18) Other spondylosis with radiculopathy, lumbar region (07/08/18) Spinal stenosis, lumbar region without neurogenic claudication (07/08/18) Surgery Performed Operation Date: 07/08/18 07:45 Actual Procedures p L3-4 Left HemiLami, L4-5,L5-S1 TLIF w/Post Ángel - Brien Alfonso MD Physical Therapy Treatment Note M2 PT-IP Current Condition Start: 07/09/18 08:30 Freq: NEEDED Status: Active Protocol: Document 07/09/18 13:58 DLM (Rec: 07/09/18 14:25 DL [id number]) Physical Therapy Current Condition Current Condition Evaluation Date 07/09/18 Treatment Diagnosis impaired gait and mobility s/p lumbar surgery Onset Date 07/08/18 Precautions Lumbar Precautions Log Roll No Twisting Limit Bending Lifting Restriction of 10 lbs Gait Belt above Incisional Area M3 PT-IP Subjective Start: 07/09/18 08:30 Freq: NEEDED Status: Active Protocol: Document 07/09/18 13:58 DLM (Rec: 07/09/18 14:25 DLM [id number]) Subjective Physical Therapy Visit Type Type Treatment Note Visit Start Time 12:30 Visit Stop Time 13:58 Total Visit Minutes 28 Notes co-treated with OT for patient safety and pain management Number of CHIEF HUMAN RESOURCES OFFICER Visits 0 Physical Therapy Visit Comments Patient Comments she reports she is hungry Therapy Pain Assessment Pain When Pain Assessed During Mobility Pain Present Pain Present Pain Reported FLACC Pain Scale Face Occasional grimace/frown Legs Normal position; relaxed Activity Squirming,shifting Cry No cry (awake or asleep) Consolability Reassurable with touch FLACC Total 3 Location Back Intensity 3 Scale Used FLACC Description Aching With Movement Pain Behaviors Facial Grimacing Pain Management Techniques Re-positioning M4 PT-IP Mobility and Gait Start: 07/09/18 08:30 Freq: NEEDED Status: Active Protocol: Document 07/09/18 13:58 DLM (Rec: 07/09/18 14:25 DLM [id number]) PT-Bed Mobility Assessment Rolling Type of Rolling Log Rolling Level of Assist Maximal Assistance 1 Person Assistance Supine to Sit Supine to Sit Moderate Assistance Maximum Assistance Scooting Scooting to Edge of Bed Minimal Assistance PT-Transfer Assessment Sit to and From Stand Sit to and from Stand Moderate Assistance Equipment Transfer Assistive Device Gait Belt Front Wheeled Walker Transfers Transfer Destination Chair Transfer Ability Level of Assist Moderate Assistance 2 Person Assistance Comments Mobility Comments pt able weight bear on her LE' s for functional steps, she needs a lot of assist managing the FWW, she is slow to follow verbal instructions, pt left up in recliner with chair alarm on, she c/o pain in left thigh area when moving Gait Assessment Comments Gait Comments pt is unable to rate her pain using the 0-10 score, she tried but unable to give a number PT-Balance Assessment Sitting Balance and Reactions Static Sitting Balance Ability Good Dynamic Sitting Balance Ability Fair Standing Balance and Reactions Static Standing Balance Ability Fair Dynamic Standing Balance Ability Fair Device Used FWW M5 PT-IP Objective Assessments Start: 07/09/18 08:30 Freq: NEEDED Status: Active Protocol: Document 07/09/18 13:58 DLM (Rec: 07/09/18 14:25 DLM [id number]) Orientation Orientation/Cognition Level of Alertness Alert Orientation Name Safety Awareness Decreased Safety Awareness Comments slow mental processing, difficulty finding words to answer questions M6 PT-IP Treatment Start: 07/09/18 08:30 Freq: NEEDED Status: Active Protocol: Document 07/09/18 13:58 DLM (Rec: 07/09/18 14:25 DLM [id number]) Physical Therapy Treatment Education Education Provided Precautions Safety M7 PT-IP Assessment and Plan Start: 07/09/18 08:30 Freq: NEEDED Status: Active Protocol: Document 07/09/18 13:58 DLM (Rec: 07/09/18 14:25 DLM [id number]) PT Summary Assessment and Plan Summary Impairments Pain ROM Strength Balance Bed Mobility Transfers Gait Activity Tolerance Progress Towards Goals Slow Progress due to Pain Slow Progress due to Activity Tolerance Assessment Summary Dawn is more alert this afternoon but her mental processing is still slow and she has difficulty answering basic questions. She was willing to get up to the chair this visit. She needed two person assist and fWW for transfer bed to recliner. Pt left sitting up in recliner with nursing aware and call light close. No family present this visit. Frequency of Treatment Frequency Of Treatment Twice a Day Treatment Plan Physical Therapy Treatment Plan Bed Mobility Training Transfer Training Gait Training Therapeutic Exercise Post Op Education Discharge Planning Hot or Cold Pack Recommendations To Nursing Amount of Assist Needed 2 Person Assist Discharge Recommendations PT Discharge Recommendations Home with 24/7 Assist SNF Rehab Other Discharge Recommendations continue to assess for discharge planning, discuss with Son how much assist he can provide at home
--- NOTE | 2018-07-09 15:12 | OT.IP.EVAL ---
Current Diagnoses Spondylolisthesis, lumbar region (07/08/18) Other spondylosis with radiculopathy, lumbar region (07/08/18) Spinal stenosis, lumbar region without neurogenic claudication (07/08/18) Surgery Performed Operation Date: 07/08/18 07:45 Actual Procedures p L3-4 Left HemiLami, L4-5,L5-S1 TLIF w/Post Instru - Brien Alfonso MD Past Medical History (Last Updated 07/01/18 @ 14:53 by Casie Conley RN) Hypercalcemia (Acute) Leukopenia (Inactive) Dementia (Acute) Allergic rhinitis (Chronic Unknown) C. difficile colitis (Chronic) GERD (gastroesophageal reflux disease) (Chronic Unknown) Histoplasmosis (Chronic Unknown) Hypertension (Chronic Unknown) Hypothyroidism (Chronic Unknown) Osteoarthritis (Chronic Unknown) Osteoporosis (Chronic Unknown) Pacemaker (Chronic 09/2012) Restless leg syndrome (Chronic Unknown) Actinic keratosis (Resolved Unknown) Ankle fracture (Resolved 08/2011) Compression fracture of L1 lumbar vertebra (Resolved 10/2012) Episode of syncope (Resolved 09/2012) Fracture of right ulnar styloid (Resolved 2013) Intertrochanteric fracture of right femur (Resolved 2013) Intertrochanteric fracture of right hip (Resolved 2013) Left radial fracture (Resolved 03/2011) Skin cancer (Resolved 1996) Surgical History (Last Reviewed 04/17/18 @ 01:27 by Tulio Hernandez DO) Status cardiac pacemaker (Acute 09/2012) History of ankle surgery (Resolved 08/2011) History of basal cell carcinoma (BCC) excision (Resolved 1996) History of hip surgery (Resolved 2013) History of knee replacement procedure of left knee (Resolved 09/2009) History of knee replacement procedure of right knee (Resolved 04/2010) History of kyphoplasty (Resolved 10/2012) History of orthopedic surgery (Resolved 03/2011) History of removal of cyst (Resolved 2007) History of thyroid surgery (Resolved 1990) Hx of arthroscopy of knee (Resolved Unknown) Hx of laminectomy (Resolved 10/2008) Hx of tonsillectomy (Resolved Unknown) Occupational Therapy Inpatient Evaluation/Re-Eval M1 PT/OT-IP Prior Functional Status Start: 07/09/18 08:30 Freq: NEEDED Status: Active Protocol: Document 07/09/18 13:58 DLM (Rec: 07/09/18 14:25 DLM [id number]) Medical Review Prior Functional Status Medical History Reviewed Yes Communication WNL Mobility and Gait ambulating with 4WW in the house before this surgery Activities of Daily Living and IADL's Son assists with IADL's, not clear how much help she needs for ADL's Prior Functional Level (Other details) unclear what her functional level was directly before surgery, pt unable to tell me and her Son is not in the room , hx of falls, chart indicates her back pain was limiting her activity before this surgery Social History Household Members children Living Arrangements House M1 PT/OT-IP Prior Functional Status Start: 07/09/18 14:46 Freq: NEEDED Status: Active Protocol: Document 07/09/18 14:47 [facility] (Rec: 07/09/18 15:10 [facility] [id number]) Medical Review Prior Functional Status Medical History Reviewed Yes Communication WNL Mobility and Gait ambulating with 4WW in the house before this surgery Activities of Daily Living and IADL's Son assists with IADL's, not clear how much help she needs for ADL's. Pt at this time very groggy but states able to do all her ADl's, to verify information with her son. Prior Functional Level (Other details) unclear what her functional level was directly before surgery, pt unable to tell me and her Son is not in the room , hx of falls, chart indicates her back pain was limiting her activity before this surgery Social History Household Members children Living Arrangements House Number of Floors (Floors) Two Floors Number of Stairs To Enter/Railing? 0 Home Equipment Four Wheel Walker Straight Cane Manual Wheelchair Hand Held Shower Machine Tracer Sock Aid Additional Social History Comment Lives with Adult Son who helps care for her, she mostly stays on first floor of house Pt states has a shower chair. M2 OT-IP Current Condition Start: 07/09/18 14:46 Freq: Status: Active Protocol: Document 07/09/18 14:47 [facility] (Rec: 07/09/18 15:10 [facility] [id number]) Occupational Therapy Current Condition Current Condition Evaluation Date 07/09/18 Treatment Diagnosis Spinal stenosis Diagnosis Onset Date 07/08/18 Post Operative Precautions Lumbar Precautions Log Roll No Twisting Limit Bending Lifting Restriction of 10 lbs Gait Belt above Incisional Area M3 OT- IP Subjective and Pain Start: 07/09/18 14:46 Freq: Status: Active Protocol: Document 07/09/18 14:47 [facility] (Rec: 07/09/18 15:10 [facility] [id number]) OT- Subjective Occupational Therapy Visit Type Type Re-Evaluation Visit Start Time 14:47 Visit Stop Time 15:07 Total Visit Minutes 20 Occupational Therapy Visit Comments Patient Comments Pt agreeable to get up. Pt still a bit groggy and slow to respond to questions asked. Pt states has pain but unable to state what number even after looking at the pain scale. Pt also having word finding difficulties. OT Pain Assessment Pain When Pain Assessed During Mobility Pain Present Pain Present Pain Reported M4 OT- IP ADL's Start: 07/09/18 14:46 Freq: Status: Active Protocol: Document 07/09/18 14:47 [facility] (Rec: 07/09/18 15:10 [facility] [id number]) OT ADL-Dressing General Eval Lower Body Dressing Ability Maximum Assistance Areas Needing Assistance Socks Comments OT Dressing Comments Pt states has gear roller and sock aid, but does not use the sock aid at home. OT ADL-Toileting Comments OT Toileting Comments Pt has catheter in. M6 OT- IP Functional Cognition Start: 07/09/18 14:46 Freq: Status: Active Protocol: Document 07/09/18 14:47 [facility] (Rec: 07/09/18 15:10 [facility] [id number]) Cognitive Factors Limiting Selfcare Function Cognitive Ability Level of Alertness Alert Confusional State Patient Orientation Name Attention Span Ability Capable of Focused Attention Unable to Focus Unable to Sustain Attention Ability to Follow Commands Able to Follow One Step Commands with Increased Time Able to Follow One Step Commands with Repetition Memory Description Short Term Impaired Working Impaired Safety Awareness Decreased Recall of Precautions Decreased Ability to Apply Precautions Problem Solving Ability Unable to Identify Errors Needs Assist to Identify Solutions Cognitive Comments Cognitive Assessment Comments Pt very slow to respond to questions and needing concrete and tactile cue to follow for transfer. M7 OT- IP Mobility and Balance Start: 07/09/18 14:46 Freq: Status: Active Protocol: Document 07/09/18 14:47 [facility] (Rec: 07/09/18 15:10 [facility] [id number]) OT- Bed Mobility Assessment Rolling Type of Rolling Roll to Right Level of Assistance Maximum Assistance 1 Person Assistance Supine to Sit Supine to Sit Assist Maximum Assistance 1 Person Assistance OT-Transfer Assessment Sit to and From Stand Sit to and from Stand Moderate Assistance 2 Person Assistance Transfers Transfer Ability Moderate Assistance Maximum Assistance 2 Person Assistance Technique Transfer Destination Chair Transfer Technique Stand Step Pivot Devices Transfer Assistive Devices Gait Belt Front Wheeled Walker Comments Mobility Comments Pt needing two person assist as unsteady on her feet and needing MAX vc for safety, assist to manage/guide FWW, assist for balance , and to help ease down to recliner when sitting. Call light given and chair alarm placed on pt. OT- Balance Assessment Sitting Balance and Reactions Static Sitting Balance Ability Fair Standing Balance and Reactions Static Standing Balance Ability Poor M8 OT- IP Objective Assessments Start: 07/09/18 14:46 Freq: Status: Active Protocol: Document 07/09/18 14:47 [facility] (Rec: 07/09/18 15:10 [facility] [id number]) OT Gross Range of Motion Upper Extremity Range of Motion ROM Impairments Grosspy WFL for ADl needs. OT Strength Comments Strength Comments [id number]/5 M9 OT- IP Assessment and Plan Start: 07/09/18 14:46 Freq: Status: Active Protocol: Document 07/09/18 14:47 [facility] (Rec: 07/09/18 15:10 [facility] [id number]) OT Summary Assessment and Plan Potential Rehabilitation Potential Good Analytic Complexity at Evaluation Low Summary OT Impairments Pain Strength Balance Functional Cognition Functional Mobility Grooming Dressing Toileting Bathing Toilet Transfers Shower Transfers Progress Towards Goals Slow Progress due to Pain Slow Progress due to Activity Tolerance Slow Progress due to Cognition Assessment Summary Pw low complexity and main barrier is decreased ability to follow directions, needing two person assist for functional mobility and Adl needs. Pending caregiver training and progress pt may benefit from skilled rehab versus home with son and HH. Pt currently far from baseline as per pt stating able to do all ADl's for herself. Goals Grooming Goal Standby Assistance Dressing Goal Minimal Assistance Toileting Goal Minimal Assistance Bathing Goal Moderate Assistance Toilet Transfer Goal Contact Guard Assistance Shower Transfer Goal Minimal Assistance Patient/Caregiver Education Goal Demonstrate Post-Op Precautions Caregiver Independent Assisting Patient Days to Meet Goals 5 Frequency of Treatment Frequency Of Treatment Once a Day Treatment Plan OT Treatment Plan ADL Training Functional Cognition Training Functional Mobility Patient/Family Education Discharge Planning Other Treatment Recommendations and [place] [facility] [place] Treatment Focus with FWW, MODA for toileting needs. Practice LB dressing with AED. Discharge Recommendations OT Discharge Recommendations SNF Rehab Other Discharge Recommendations Pending progress and pt's son to provide enough assist at home. SNF versus home with son 04/12 and HH.
[2018-07-09] MEDS: EZETIMIBE 10 MG TABLET PO (20:13)
[2018-07-09] MEDS: SENNOSIDES 8.6 MG TABLET 17.2 MG PO (20:16)
[2018-07-09] MEDS: METOPROLOL ER 50 MG TABLET PO (20:16)
[2018-07-09] MEDS: ROPINIROLE 1 MG TABLET 2 MG PO (20:16)
[2018-07-09] MEDS: TRAZODONE 50 MG TABLET PO (20:17)
[2018-07-09] MEDS: ALPRAZolam 0.25 MG TABLET 0.5 MG PO (20:20)
[2018-07-10] VITALS (9 sets, daily range): BP systolic 132–154; BP diastolic 79–101; PULSE 82–108; RESP 16–20; TEMP 36.3–37.4; O2SAT 92–95
--- NOTE | 2018-07-10 04:38 | PC.NURSE ---
Patient is confused, agitated, and guarded. No complaints of pain. Abel patent draining clear bekah urine. B/L Foot SCDs on throughout night. Tele BBB.
[2018-07-10] MEDS: LEVOTHYROXINE 88 MCG TABLET PO (05:41)
--- NOTE | 2018-07-10 09:05 | PM.PNPO.1 ---
Subjective Date Patient Seen: 07/10/18 Time Patient Seen: 09:06 Interval history: Hospital day 3, postop day 2 following L4-5, L5-S1 TLIF, cage and posterior screw fixation. Patient is progressing slow with the activity and physical therapy. PT is recommending SNF versus home health and son at home. Patient complains of continued pain to her back and legs. Using oxycodone. Exam Vital Signs (past 8 hours): - 07/10/18 05:26 07/10/18 08:24 Temperature 98.3 F 99.0 F Pulse Rate 82 84 Respiratory Rate 17 18 Blood Pressure 152/79 H Pulse Oximetry 94 95 Oxygen Delivery Method Room Air Oxygen Flow Rate 0 Narrative Exam Narrative: Patient in bed and responsive but it appears somewhat lethargic and slow speech. Legs. No calf pain or swelling. Pulses symmetrical. Good strength on foot dorsiflexion plantar flexion. Objective Labs Result Diagrams: 07/09/18 05:39 Assessment & Plan Post-op Postoperative Procedures Operation Date: 07/08/18 07:45 Actual Procedures Side Surgeon p L3-4 Left HemiLami, L4-5,L5-S1 TLIF w/Post Instru Brien Alfonso MD Plan: Will observe patient activity today with PT. She may need few days SNF before going home versus home health. Will re-evaluate tomorrow. Quality VTE Deep Vein Thrombosis/Pulmonary Embolism Present on Admission: No
--- NOTE | 2018-07-10 10:57 | PC.NURSE ---
Pt has refused repositioning and her morning meds. Her son has informed the nursing staff that she does not wake until 10am or 11am and takes days to clear general anesthesia.
--- NOTE | 2018-07-10 12:57 | PT.IPTN ---
Current Diagnoses Spondylolisthesis, lumbar region (07/08/18) Other spondylosis with radiculopathy, lumbar region (07/08/18) Spinal stenosis, lumbar region without neurogenic claudication (07/08/18) Surgery Performed Operation Date: 07/08/18 07:45 Actual Procedures p L3-4 Left HemiLami, L4-5,L5-S1 TLIF w/Post Ángel - Brien Alfonso MD Physical Therapy Treatment Note M2 PT-IP Current Condition Start: 07/09/18 08:30 Freq: NEEDED Status: Active Protocol: Document 07/09/18 13:58 DLM (Rec: 07/09/18 14:25 DLM [id number]) Physical Therapy Current Condition Current Condition Evaluation Date 07/09/18 Treatment Diagnosis impaired gait and mobility s/p lumbar surgery Onset Date 07/08/18 Precautions Lumbar Precautions Log Roll No Twisting Limit Bending Lifting Restriction of 10 lbs Gait Belt above Incisional Area M3 PT-IP Subjective Start: 07/09/18 08:30 Freq: NEEDED Status: Active Protocol: Document 07/10/18 12:50 SA (Rec: 07/10/18 12:57 SA [id number]) Subjective Physical Therapy Visit Type Type Treatment Note Visit Start Time 12:15 Visit Stop Time 12:40 Total Visit Minutes 25 Notes As per NSG, pt refused getting OOB all morning. Number of CHILDCARE AIDE Visits 1 Physical Therapy Visit Comments Patient Comments Pt reports her back and L hip are pain ful, unable to quantify pain. Therapy Pain Assessment Pain When Pain Assessed During Mobility Pain Present Pain Present Pain Reported Location Back Intensity 3 Scale Used FLACC Pain Behaviors Facial Grimacing Holding Area Wincing Pain Management Techniques Re-positioning M4 PT-IP Mobility and Gait Start: 07/09/18 08:30 Freq: NEEDED Status: Active Protocol: Document 07/10/18 12:50 SA (Rec: 07/10/18 12:57 SA [id number]) PT-Bed Mobility Assessment Rolling Type of Rolling Log Rolling Roll to Left Level of Assist Moderate Assistance 1 Person Assistance Supine to Sit Supine to Sit Maximum Assistance 1 Person Assistance Scooting Scooting to Edge of Bed Moderate Assistance Scooting Up and Down in Bed Moderate Assistance PT-Transfer Assessment Sit to and From Stand Sit to and from Stand Minimal Assistance Equipment Transfer Assistive Device Gait Belt Front Wheeled Walker Orthotic/Prosthetic Devices or Brace: No Transfers Transfer Destination Chair Transfer Technique Stand Step Pivot Transfer Ability Level of Assist Moderate Assistance 1 Person Assistance Comments Mobility Comments Pt with slow processing and difficulty following cues. Needs increased time with mobility and clear, concise cues. Gait Assessment Comments Gait Comments Will attempt this afternoon, Pt unable to this AM. PT-Balance Assessment Sitting Balance and Reactions Static Sitting Balance Ability Good Dynamic Sitting Balance Ability Fair Standing Balance and Reactions Static Standing Balance Ability Fair Dynamic Standing Balance Ability Fair Device Used FWW M5 PT-IP Objective Assessments Start: 07/09/18 08:30 Freq: NEEDED Status: Active Protocol: Document 07/09/18 13:58 DLM (Rec: 07/09/18 14:25 DLM [id number]) Orientation Orientation/Cognition Level of Alertness Alert Orientation Name Safety Awareness Decreased Safety Awareness Comments slow mental processing, difficulty finding words to answer questions M6 PT-IP Treatment Start: 07/09/18 08:30 Freq: NEEDED Status: Active Protocol: Document 07/10/18 12:50 SA (Rec: 07/10/18 12:57 SA [id number]) Physical Therapy Treatment Exercises Exercises Ankle Pumps Gluteal Sets Education Education Provided Precautions Safety M7 PT-IP Assessment and Plan Start: 07/09/18 08:30 Freq: NEEDED Status: Active Protocol: Document 07/10/18 12:50 SA (Rec: 07/10/18 12:57 SA [id number]) PT Summary Assessment and Plan Summary Impairments Pain ROM Strength Balance Bed Mobility Transfers Gait Activity Tolerance Progress Towards Goals Slow Progress due to Pain Slow Progress due to Activity Tolerance Assessment Summary Pt confused and with difficulty answering questions appropriately. Min-Mod A for most mobilities with increased time to process. No motivated to move and participate in PT . Frequency of Treatment Frequency Of Treatment Twice a Day Treatment Plan Physical Therapy Treatment Plan Bed Mobility Training Transfer Training Gait Training Therapeutic Exercise Post Op Education Discharge Planning Hot or Cold Pack Recommendations To Nursing Amount of Assist Needed 2 Person Assist Discharge Recommendations PT Discharge Recommendations SNF Rehab Other Discharge Recommendations Probable d/c to SNF if cognition does not improve.
[2018-07-10] MEDS: MULTIVITAMIN 1 TABLET 1 TAB PO (13:11)
[2018-07-10] MEDS: VIT C/E/ZN/COPPR/LUTEIN/ZEAXAN CAPSULE 1 CAP PO (13:12)
[2018-07-10] MEDS: DOCUSATE 100 MG CAPSULE PO ×2 (13:12→21:02)
[2018-07-10] MEDS: FISH OIL 1,000 MG CAPSULE 1000 MG PO (13:12)
[2018-07-10] MEDS: ASCORBIC ACID 500 MG TABLET 1000 MG PO (13:12)
[2018-07-10] MEDS: CHOLECALCIFEROL (VITAMIN D3) 400 UNIT TABLET PO (13:13)
[2018-07-10] MEDS: OXYCODONE IR 5 MG TABLET PO (13:13)
[2018-07-10] MEDS: PANTOPRAZOLE 40 MG TABLET PO (13:13)
[2018-07-10] MEDS: DULOXETINE 30 MG CAPSULE 60 MG PO (13:13)
[2018-07-10] MEDS: SODIUM CHLORIDE 0.9% FLUSH 10 ML IV ×2 (13:21→21:03)
--- NOTE | 2018-07-10 13:23 | PC.NURSE ---
Patient awake: pt finally awake, neuro reassessed, patient is alert and oriented, appropriate. Pt agreed to take morning meds. Patient up in chair having lunch. Chair alarm on, call light within reach.
--- NOTE | 2018-07-10 14:35 | PT.IPTN ---
Current Diagnoses Spondylolisthesis, lumbar region (07/08/18) Other spondylosis with radiculopathy, lumbar region (07/08/18) Spinal stenosis, lumbar region without neurogenic claudication (07/08/18) Surgery Performed Operation Date: 07/08/18 07:45 Actual Procedures p L3-4 Left HemiLami, L4-5,L5-S1 TLIF w/Post Ángel Alfonso MD Physical Therapy Treatment Note M2 PT-IP Current Condition Start: 07/09/18 08:30 Freq: NEEDED Status: Active Protocol: Document 07/09/18 13:58 DLM (Rec: 07/09/18 14:25 DLM [id number]) Physical Therapy Current Condition Current Condition Evaluation Date 07/09/18 Treatment Diagnosis impaired gait and mobility s/p lumbar surgery Onset Date 07/08/18 Precautions Lumbar Precautions Log Roll No Twisting Limit Bending Lifting Restriction of 10 lbs Gait Belt above Incisional Area M3 PT-IP Subjective Start: 07/09/18 08:30 Freq: NEEDED Status: Active Protocol: Document 07/10/18 14:35 GGD (Rec: 07/10/18 17:01 GGD [email or web address]) Subjective Physical Therapy Visit Type Type Treatment Note Visit Start Time 14:10 Visit Stop Time 14:35 Total Visit Minutes 25 Number of RADIOLOGIC TECHNICIAN Visits 2 Physical Therapy Visit Comments Patient Comments Pt states she want's to walk. She states that her her back hurts, but doesn't know why. Therapy Pain Assessment Pain When Pain Assessed During Mobility Pain Present Pain Present Pain Reported Location Back Scale Used unable to rate pain. M4 PT-IP Mobility and Gait Start: 07/09/18 08:30 Freq: NEEDED Status: Active Protocol: Document 07/10/18 14:35 GGD (Rec: 07/10/18 17:01 GGD [email or web address]) PT-Bed Mobility Assessment Sit to Supine Sit to Supine Maximum Assistance 1 Person Assistance Scooting Scooting to Edge of Bed Minimal Assistance PT-Transfer Assessment Sit to and From Stand Sit to and from Stand Contact Guard Assistance Use of Upper Extremities Equipment Transfer Assistive Device Gait Belt Front Wheeled Walker Orthotic/Prosthetic Devices or Brace: No Transfers Transfer Destination Bed Transfer Ability Level of Assist Moderate Assistance Gait Assessment Gait Gait Assistance Required: Moderate Assistance 1 Person Assist Distance (Feet) 20 Able to Maintain Weight Bearing Status Yes During Gait Assistive Devices Assistive Device Front Wheeled Walker Orthotic/Prosthetic Devices or Brace: No Gait Deviations General Gait Pattern Antalgic Decreased Stride Length Decreased Feet Clearance Flexed Trunk Factors Limiting Gait Function Factors Limiting Gait Function Decreased Strength Difficulty Following Directions Pain Poor Balance Poor Safety Awareness Comments Gait Comments Pt need mod A for FWW management and safety. Min A for balance and left LE buckling with gait. M5 PT-IP Objective Assessments Start: 07/09/18 08:30 Freq: NEEDED Status: Active Protocol: Document 07/09/18 13:58 DLM (Rec: 07/09/18 14:25 DLM [id number]) Orientation Orientation/Cognition Level of Alertness Alert Orientation Name Safety Awareness Decreased Safety Awareness Comments slow mental processing, difficulty finding words to answer questions M6 PT-IP Treatment Start: 07/09/18 08:30 Freq: NEEDED Status: Active Protocol: Document 07/10/18 14:35 GGD (Rec: 07/10/18 17:01 GGD [email or web address]) Physical Therapy Treatment Education Education Provided Precautions Safety M7 PT-IP Assessment and Plan Start: 07/09/18 08:30 Freq: NEEDED Status: Active Protocol: Document 07/10/18 14:35 GGD (Rec: 07/10/18 17:01 GGD [email or web address]) PT Summary Assessment and Plan Summary Assessment Summary Pt improved with sit to stand from chair. She was able to ambulate with FWW but need mod A for safety, FWW management and balance. She did have L LE buckling with gait. She unable to follow commands and has poor safety awareness. She was max a for bed mobility. She would benefit from SNF rehab to improve functional mobility. Frequency of Treatment Frequency Of Treatment Twice a Day Treatment Plan Physical Therapy Treatment Plan Bed Mobility Training Transfer Training Gait Training Therapeutic Exercise Post Op Education Discharge Planning Hot or Cold Pack Recommendations To Nursing Amount of Assist Needed 2 Person Assist Discharge Recommendations PT Discharge Recommendations SNF Rehab Other Discharge Recommendations Probable d/c to SNF if congnition does not improve.
--- NOTE | 2018-07-10 17:44 | OT.IP.TRT ---
Current Diagnoses Spondylolisthesis, lumbar region (07/08/18) Other spondylosis with radiculopathy, lumbar region (07/08/18) Spinal stenosis, lumbar region without neurogenic claudication (07/08/18) Surgery Performed Operation Date: 07/08/18 07:45 Actual Procedures p L3-4 Left HemiLami, L4-5,L5-S1 TLIF w/Post Instru - Brien Alfonso MD Occupational Therapy Treatment Note M2 OT-IP Current Condition Start: 07/09/18 14:46 Freq: Status: Active Protocol: Document 07/09/18 14:47 [facility] (Rec: 07/09/18 15:10 [facility] [id number]) Occupational Therapy Current Condition Current Condition Evaluation Date 07/09/18 Treatment Diagnosis Spinal stenosis Diagnosis Onset Date 07/08/18 Post Operative Precautions Lumbar Precautions Log Roll No Twisting Limit Bending Lifting Restriction of 10 lbs Gait Belt above Incisional Area M3 OT- IP Subjective and Pain Start: 07/09/18 14:46 Freq: Status: Active Protocol: Document 07/10/18 17:00 CCC (Rec: 07/10/18 17:44 [facility] [email or web address]) OT- Subjective Occupational Therapy Visit Type Type Patient Unavailable Notes Pt asleep therefore to check on pt tomorrow for OT.
[2018-07-10] MEDS: TRAZODONE 50 MG TABLET PO (21:02)
[2018-07-10] MEDS: ROPINIROLE 1 MG TABLET 2 MG PO (21:02)
[2018-07-10] MEDS: SENNOSIDES 8.6 MG TABLET 17.2 MG PO (21:02)
[2018-07-10] MEDS: EZETIMIBE 10 MG TABLET PO (21:02)
[2018-07-10] MEDS: ALPRAZolam 0.25 MG TABLET 0.5 MG PO (21:06)
[2018-07-10] MEDS: METOPROLOL ER 50 MG TABLET PO (21:23)
[2018-07-11 01:05] VITALS: BP 150/98; PULSE 65; RESP 15; TEMP 37; O2SAT 92
[2018-07-11 05:00] VITALS: BP 143/90; PULSE 78; RESP 16; TEMP 36.6; O2SAT 95
--- NOTE | 2018-07-11 05:32 | PC.NURSE ---
Physical Security Specialist: Pt is confused at times. Pt has a flat affect, agitated at times, can be uncooperative. Pt likes to try to twist the yellow tubing part of her beckman around her fingers. Beckman is patent, draining clear bekah urine. Patient is a 2 person FWW with gait belt assist to commode; Patient did not appear stable. No complaints of pain/nausea. SCDs bilateral on throughout night. Tele is BBB.
[2018-07-11] MEDS: LEVOTHYROXINE 88 MCG TABLET PO (06:12)
[2018-07-11 07:45] VITALS: BP 143/84; PULSE 84; RESP 20; TEMP 36.8; O2SAT 91
[2018-07-11] MEDS: DOCUSATE 100 MG CAPSULE PO (09:01)
[2018-07-11] MEDS: ASCORBIC ACID 500 MG TABLET 1000 MG PO (09:01)
[2018-07-11] MEDS: CHOLECALCIFEROL (VITAMIN D3) 400 UNIT TABLET PO (09:01)
[2018-07-11] MEDS: DULOXETINE 30 MG CAPSULE 60 MG PO (09:01)
[2018-07-11] MEDS: FISH OIL 1,000 MG CAPSULE 1000 MG PO (09:02)
[2018-07-11] MEDS: PANTOPRAZOLE 40 MG TABLET PO (09:02)
[2018-07-11] MEDS: VIT C/E/ZN/COPPR/LUTEIN/ZEAXAN CAPSULE 1 CAP PO (09:02)
[2018-07-11] MEDS: MULTIVITAMIN 1 TABLET 1 TAB PO (09:02)
[2018-07-11] MEDS: ACETAMINOPHEN 325 MG TABLET 650 MG PO (09:03)
[2018-07-11] MEDS: OXYCODONE IR 5 MG TABLET PO (09:03)
[2018-07-11] MEDS: hydrOXYzine pamoate 25 MG CAPSULE PO (09:04)
[2018-07-11] MEDS: SODIUM CHLORIDE 0.9% FLUSH 10 ML IV (09:10)
--- NOTE | 2018-07-11 09:37 | PM.PNPO.1 ---
Subjective Date Patient Seen: 07/11/18 Time Patient Seen: 07:37 Interval history: Patient postop day 3. Status post L4-S1 TLIF with Dr. Alfonso. She has been very slow to mobilize. She still has Abel catheter in place. Her pain has been well controlled when she is not moving. She has not yet worked with Physical therapy this morning. Exam Vital Signs (past 8 hours): - 07/11/18 05:00 07/11/18 07:45 Temperature 97.8 F 98.2 F Pulse Rate 78 84 Respiratory Rate 16 20 Blood Pressure 143/90 H 143/84 H Pulse Oximetry 95 91 Fraction of Inspired Oxygen 21 Oxygen Delivery Method Room Air Oxygen Flow Rate 0 Narrative Exam Narrative: Patient lying in bed in no acute distress. She is alert and oriented x3. Dressing on back is CDI. Calves are soft, compressible, nontender bilaterally. Sensation intact light touch throughout bilateral extremities. She is able to actively dorsiflex plantar flex. Objective Labs Result Diagrams: 07/09/18 05:39 Assessment & Plan Post-op (1) S/P lumbar fusion: Postoperative Procedures Operation Date: 07/08/18 07:45 Actual Procedures Side Surgeon p L3-4 Left HemiLami, L4-5,L5-S1 TLIF w/Post Instru Brien Alfonso MD Patient will most likely need a [facility] facility as she states she can barely move, and her recovery has been slow. We will DC the Abel today. She will mobilize physical therapy today. Care management is going to work on trying to place the patient to a fdc today. If patient is able to mobilize safely with PT there is a chance she could go home with home health services. Discharge either today or tomorrow once [facility]entiary facility placement has been made. Quality VTE Deep Vein Thrombosis/Pulmonary Embolism Present on Admission: No
--- NOTE | 2018-07-11 09:42 | P.PN_ITS ---
Subjective Date Patient Seen: 07/11/18 Time Patient Seen: 07:37 Interval history: Patient postop day 3. Status post L4-S1 TLIF with Dr. Alfonso. She has been very slow to mobilize. She still has Abel catheter in place. Her pain has been well controlled when she is not moving. She has not yet worked with Physical therapy this morning. Exam Vital Signs (past 8 hours): - 07/11/18 05:00 07/11/18 07:45 Temperature 97.8 F 98.2 F Pulse Rate 78 84 Respiratory Rate 16 20 Blood Pressure 143/90 H 143/84 H Pulse Oximetry 95 91 Fraction of Inspired Oxygen 21 Oxygen Delivery Method Room Air Oxygen Flow Rate 0 Narrative Exam Narrative: Patient lying in bed in no acute distress. She is alert and oriented x3. Dressing on back is CDI. Calves are soft, compressible, nontender bilaterally. Sensation intact light touch throughout bilateral extremities. She is able to actively dorsiflex plantar flex. Objective Labs Result Diagrams: 07/09/18 05:39 Assessment & Plan Post-op (1) S/P lumbar fusion: Postoperative Procedures Operation Date: 07/08/18 07:45 Actual Procedures Side Surgeon p L3-4 Left HemiLami, L4-5,L5-S1 TLIF w/Post Instru Brien Alfonso MD Patient will most likely need a nursing home facility as she states she can barely move, and her recovery has been slow. We will DC the Abel today. She will mobilize physical therapy today. Care management is going to work on trying to place the patient to a [facility] today. If patient is able to mobilize safely with PT there is a chance she could go home with home health services. Discharge either today or tomorrow once nursing home facility pl acement has been made. Quality VTE Deep Vein Thrombosis/Pulmonary Embolism Present on Admission: No
--- NOTE | 2018-07-11 10:12 | PC.NURSE ---
Day shift: Colten removed by student RN at 1000 per MD orders. OT made aware that Pt wants to shower today. VAULT CLERK aware of this too. HFR. Call light in reach. Bed alarm is on.
--- NOTE | 2018-07-11 10:35 | PT.IPTN ---
Current Diagnoses Spondylolisthesis, lumbar region (07/08/18) Other spondylosis with radiculopathy, lumbar region (07/08/18) Spinal stenosis, lumbar region without neurogenic claudication (07/08/18) Arthrodesis status (07/08/18) Surgery Performed Operation Date: 07/08/18 07:45 Actual Procedures p L3-4 Left HemiLami, L4-5,L5-S1 TLIF w/Post Sharleneu - Brien Alfonso MD Physical Therapy Treatment Note M2 PT-IP Current Condition Start: 07/09/18 08:30 Freq: NEEDED Status: Active Protocol: Document 07/09/18 13:58 DLM (Rec: 07/09/18 14:25 DLM [id number]) Physical Therapy Current Condition Current Condition Evaluation Date 07/09/18 Treatment Diagnosis impaired gait and mobility s/p lumbar surgery Onset Date 07/08/18 Precautions Lumbar Precautions Log Roll No Twisting Limit Bending Lifting Restriction of 10 lbs Gait Belt above Incisional Area M3 PT-IP Subjective Start: 07/09/18 08:30 Freq: NEEDED Status: Active Protocol: Document 07/11/18 10:35 GGD (Rec: 07/11/18 12:48 GGD [id number]) Subjective Physical Therapy Visit Type Type Treatment Note Visit Start Time 10:15 Visit Stop Time 10:35 Total Visit Minutes 20 Number of DRAFT ROLLER PICKER Visits 3 Physical Therapy Visit Comments Patient Comments Pt want's to take a shower. Therapy Pain Assessment Pain When Pain Assessed During Mobility Pain Present Pain Present Pain Reported M4 PT-IP Mobility and Gait Start: 07/09/18 08:30 Freq: NEEDED Status: Active Protocol: Document 07/11/18 10:35 GGD (Rec: 07/11/18 12:48 GGD [id number]) PT-Bed Mobility Assessment Rolling Type of Rolling Roll to Left Level of Assist Minimal Assistance 1 Person Assistance Supine to Sit Supine to Sit Moderate Assistance 1 Person Assistance Bedrails Scooting Scooting to Edge of Bed Contact Guard Assistance PT-Transfer Assessment Sit to and From Stand Sit to and from Stand Contact Guard Assistance Use of Upper Extremities Equipment Transfer Assistive Device Gait Belt Front Wheeled Walker Orthotic/Prosthetic Devices or Brace: No Transfers Transfer Destination Bedside Commode Transfer Ability Level of Assist Moderate Assistance Gait Assessment Gait Gait Assistance Required: Minimum Assistance Moderate Assistance 1 Person Assist Distance (Feet) 15 Able to Maintain Weight Bearing Status Yes During Gait Assistive Devices Assistive Device Front Wheeled Walker Orthotic/Prosthetic Devices or Brace: No Gait Deviations General Gait Pattern Antalgic Decreased Stride Length Decreased Feet Clearance Flexed Trunk Factors Limiting Gait Function Factors Limiting Gait Function Decreased Strength Difficulty Following Directions Pain Poor Balance Poor Safety Awareness Comments Gait Comments Pt need min A for FWW management and safety. Min A for balance with stepping into shower. Pt in shower with OT. M5 PT-IP Objective Assessments Start: 07/09/18 08:30 Freq: NEEDED Status: Active Protocol: Document 07/09/18 13:58 DLM (Rec: 07/09/18 14:25 DLM [id number]) Orientation Orientation/Cognition Level of Alertness Alert Orientation Name Safety Awareness Decreased Safety Awareness Comments slow mental processing, difficulty finding words to answer questions M6 PT-IP Treatment Start: 07/09/18 08:30 Freq: NEEDED Status: Active Protocol: Document 07/10/18 14:35 GGD (Rec: 07/10/18 17:01 GGD [id number]) Physical Therapy Treatment Education Education Provided Precautions Safety M7 PT-IP Assessment and Plan Start: 07/09/18 08:30 Freq: NEEDED Status: Active Protocol: Document 07/11/18 10:35 GGD (Rec: 07/11/18 12:48 GGD [id number]) PT Summary Assessment and Plan Summary Assessment Summary Pt improving slowly. She need min to mod a with mobility and cues. She would benefit from SNF rehab. Frequency of Treatment Frequency Of Treatment Twice a Day Treatment Plan Physical Therapy Treatment Plan Bed Mobility Training Transfer Training Gait Training Therapeutic Exercise Post Op Education Discharge Planning Hot or Cold Pack Recommendations To Nursing Amount of Assist Needed 2 Person Assist Discharge Recommendations PT Discharge Recommendations SNF Rehab
--- NOTE | 2018-07-11 11:07 | PC.NURSE ---
Day shift: Pt had shower. Dressing mildly wet. Changed today. Applied 2 Coversite. MAYURI Bill made aware of dressing changed and telephone order given to d/c tele.
--- NOTE | 2018-07-11 11:25 | OT.IP.TRT ---
Current Diagnoses Spondylolisthesis, lumbar region (07/08/18) Other spondylosis with radiculopathy, lumbar region (07/08/18) Spinal stenosis, lumbar region without neurogenic claudication (07/08/18) Arthrodesis status (07/08/18) Surgery Performed Operation Date: 07/08/18 07:45 Actual Procedures p L3-4 Left HemiLami, L4-5,L5-S1 TLIF w/Post Instru - Brien Alfonso MD Occupational Therapy Treatment Note M2 OT-IP Current Condition Start: 07/09/18 14:46 Freq: Status: Active Protocol: Document 07/09/18 14:47 [facility] (Rec: 07/09/18 15:10 [facility] [id number]) Occupational Therapy Current Condition Current Condition Evaluation Date 07/09/18 Treatment Diagnosis Spinal stenosis Diagnosis Onset Date 07/08/18 Post Operative Precautions Lumbar Precautions Log Roll No Twisting Limit Bending Lifting Restriction of 10 lbs Gait Belt above Incisional Area M3 OT- IP Subjective and Pain Start: 07/09/18 14:46 Freq: Status: Active Protocol: Document 07/11/18 11:08 [facility] (Rec: 07/11/18 11:25 [facility] [id number]) OT- Subjective Occupational Therapy Visit Type Type Treatment Note Visit Start Time 10:20 Visit Stop Time 11:00 Total Visit Minutes 40 Occupational Therapy Visit Comments Patient Comments Pt wanting to shower. OT Pain Assessment Pain When Pain Assessed During Mobility Pain Present Pain Present Pain Reported Location Back Intensity 3 Scale Used Numeric (1 - 10) M4 OT- IP ADL's Start: 07/09/18 14:46 Freq: Status: Active Protocol: Document 07/11/18 11:08 [facility] (Rec: 07/11/18 11:25 [facility] [id number]) OT ADL-Dressing General Eval Lower Body Dressing Ability Maximum Assistance Areas Needing Assistance Retrieving/Set-up of Clothing Socks Comments OT Dressing Comments At this time pt maxa for socks and initially trying to bend over to doff socks. OT ADL-Bathing Bathing Type Bathing Type Shower General Evaluation Bathing Ability Moderate Assistance Areas Needing Assistance Retrieving/Setting Up Items Wash/Dry Back Wash/Dry Perineal Area Wash/Dry Lower Extremities Devices Bathing Equipment Hand Held Shower Sprayer Shower Chair with Arms Grab Bars Comments OT Bathing Comments Pt able to shower and did not have long handled sponge and needed assist for LE, in addition wanted assist to dry her backside. VC for pt not to twist or bend too much. M6 OT- IP Functional Cognition Start: 07/09/18 14:46 Freq: Status: Active Protocol: Document 07/11/18 11:08 [facility] (Rec: 07/11/18 11:25 [facility] [id number]) Cognitive Factors Limiting Selfcare Function Cognitive Ability Level of Alertness Alert Confusional State Patient Orientation Name Attention Span Ability Capable of Focused Attention Capable of Sustained Attention Ability to Follow Commands Able to Follow One Step Commands Memory Description Short Term Impaired Working Impaired Safety Awareness Decreased Recall of Precautions Decreased Ability to Apply Precautions Underestimates Need for Assistance Problem Solving Ability Needs Assist to Identify Solutions Cognitive Comments Cognitive Assessment Comments Pt doing better to follow directions and sequence through task of showering , mainly needing cues to continue as pt at times tends to perserverate and pt forgot that therapist already assisted to wash her lower part of legs and feet and trying to wash them again. M7 OT- IP Mobility and Balance Start: 07/09/18 14:46 Freq: Status: Active Protocol: Document 07/11/18 11:08 [facility] (Rec: 07/11/18 11:25 [facility] [id number]) OT-Transfer Assessment Sit to and From Stand Sit to and from Stand Moderate Assistance Maximum Assistance 1 Person Assistance Use of Upper Extremities Transfers Transfer Ability Moderate Assistance 1 Person Assistance Technique Transfer Destination Bed Shower Stall Devices Transfer Assistive Devices Gait Belt Front Wheeled Walker Comments Mobility Comments Pt one person assist with FWW with MODA for balance, steadying/guide FWW, and to stay close to the FWW. OT- Balance Assessment Sitting Balance and Reactions Static Sitting Balance Ability Good Dynamic Sitting Balance Ability Good Standing Balance and Reactions Static Standing Balance Ability Fair M8 OT- IP Objective Assessments Start: 07/09/18 14:46 Freq: Status: Active Protocol: Document 07/09/18 14:47 [facility] (Rec: 07/09/18 15:10 [facility] [id number]) OT Gross Range of Motion Upper Extremity Range of Motion ROM Impairments Grosspy WFL for ADl needs. OT Strength Comments Strength Comments BUE4-/5 M9 OT- IP Assessment and Plan Start: 07/09/18 14:46 Freq: Status: Active Protocol: Document 07/11/18 11:08 [facility] (Rec: 07/11/18 11:25 [facility] [id number]) OT Summary Assessment and Plan Potential Rehabilitation Potential Good Analytic Complexity at Evaluation Low Summary OT Impairments Pain Strength Balance Functional Cognition Functional Mobility Dressing Toileting Bathing Toilet Transfers Shower Transfers Progress Towards Goals Progressing Toward Goals Slow Progress due to Cognition Assessment Summary Pt now needing one person assist for all needs of ADL's and functional mobility however still unsteady on her feet, decreased safety awareness, and at this time would be best to go to skilled rehab prior to going home. Goals Grooming Goal Standby Assistance Dressing Goal Minimal Assistance Toileting Goal Standby Assistance Bathing Goal Standby Assistance Toilet Transfer Goal Standby Assistance Shower Transfer Goal Contact Guard Assistance Patient/Caregiver Education Goal Demonstrate Post-Op Precautions Caregiver Independent Assisting Patient Days to Meet Goals 7 Frequency of Treatment Frequency Of Treatment Once a Day Treatment Plan OT Treatment Plan ADL Training Functional Cognition Training Functional Mobility Patient/Family Education Discharge Planning Other Treatment Recommendations and Next Practice LB dressing with AED. Treatment Focus Discharge Recommendations OT Discharge Recommendations SNF Rehab
[2018-07-11 11:34] VITALS: BP 110/64; PULSE 90; RESP 16; TEMP 36.3; O2SAT 93
--- NOTE | 2018-07-11 11:39 | CM.DPC ---
Addendum entered by Fallon Abarca LPN 07/11/18 14:13: PIO # 2 was discussed again with pt and her POA son Eddie. Both confirmed the desire for a d/c today with no desire to appeal the d/c today. Document updated and given to AA for scanning. Original Note: Addendum entered by Fallon Abarca LPN 07/11/18 12:32: All is completed now for the d/c to [facility]. Van will be here shortly. Original Note: DCP: continued: Ortho [facility] Osborne was here early this morning and reported to REBEL Pond that pt was stable for d/c to the snf setting but that so far she had not agreed to this. She was going to go back into surgery but stated she would check back in later. Met then with pt after EMR review. Introduced self and role and discussed the orthopedic and therapy recommendation for snf rehab before a return home where she lives with her POA son Eddie Debolt: he updates his cell phone: [phone]. Pt stated she understood and did agree. SNF choice list: discussed: Pt stated across the [address] at that [facility] would be good ([facility]).. Initial referral given to [place] who planned to review but had no open beds expected until tomorrow. Eddie arrived shortly after this and discussed above. He reported that his mother had been at [facility] about a year ago and it did not go very well. It was mostly my mother's impatience. Discussed list again with both: decision: [facility]/admissions nurse was contacted, reviewed case with her team and just called back with acceptance. She has set up transport for 1245 and says this is the only time available. She also must admit pt today as admission limit for tomorrow is met. Discussed with REBEL Pond who agrees with plan. He has contacted MAYURI Osborne by phone and she will be her shortly to complete the d/c orders. Will do PASRR now and follow in coordination of the d/c. Pt is updated. Will call son now with details and he will meet his mother at the facility.
--- NOTE | 2018-07-11 11:56 | PC.NURSE ---
Day shift: Pt refused Zarfo med today at approx 1130. Explained to her that it was important but she still refused.
--- NOTE | 2018-07-11 12:44 | PC.NURSE ---
Day shift: Pt left unit at approx 1250 via transport to [facility] in [place]. Pt did not want any pain meds. Transport ppl have Pt's paperwork. Pt has all personal belongings. Pt's Son is aware of Pt leaving here today and will meet at the SNF.
--- NOTE | 2018-07-15 12:41 | PM.DS.1 ---
History of Present Illness Date Patient Seen: 07/15/18 Time Patient Seen: 12:41 Chief complaint: Lumbar Surgery Narrative: Patient has been having chronic back pain and worsening lumbar radiculopathy. Patient failed multiple conservative management with worsening pain weakness and numbness in her lower extremity. Patient has been having difficulty performing activity of daily living. After discussing risks benefits of treatment options, patient elected proceed with surgery. Discharge Providers Date of admission: 07/08/18 06:15 Discharge Date: 07/15/18 Primary care physician: Jenna Phillips MD Consults: 07/08/18 13:24 Consult to Occupational Therapy Evaluate & Treat Comment: Physician Instructions: Evaluate and treat Consult to Physical Therapy Evaluate & Treat Comment: Physician Instructions: Evaluate and Treat Discharge provider: Maggie Bill PA-C Summary Discharge Diagnosis: s/p lumbar fusion Hospital Course: Dawn was admitted for L4-S1 TLIF with Dr. Alfonso. She was slow to mobilize with PT and determined she would benefit from SNF for continued recovery after surgery. On day of discharge, she was eating and voiding without difficulty or assistance. Her pain was well controlled. Calves were soft, compressible, and nontender bilaterally. Status at Discharge Functional status at discharge: uses cane/walker Exam Vital Signs (past 8 hours): Fraction of Inspired Oxygen 21 Oxygen Delivery Method Room Air Oxygen Flow Rate 0 Narrative Exam Narrative: Patient lying in bed in NAD. She is alert and oriented X3. Dressing on back changed to coversite dressing. Calves are soft, compressible, and nontender bilaterally. Sensation intact to light touch throughout BLEs. She is able to actively dorsiflex and plantarflex. Pain well controlled. States in only hurts when she is moving. No complaints of nausea or vomiting. Objective Labs Result Diagrams: 07/09/18 05:39 Discharge Plan Discharge Plan Patient Disposition: SNF Transfer to: [facility] Under care of provider: Facility MD Transportation: Facility vehicle Consult as needed: Dental, Hearing, Mental health, Podiatry and Vision I certify the [facility] care is medically necessary on a continuing basis for any conditions for which he/ she received care during this hospitalization.: Yes The receiving facility has agreed to accept transfer and provide medical treatment.: Yes Discharge Med Rec/Prescriptions Prescriptions: New acetaminophen 325 mg Tablet 650 mg PO Q6HR PRN (Reason: Pain, Mild (1-3)) Qty: 60 RF: 0 alprazolam 0.25 mg Tablet 0.5 mg PO BEDTIME Qty: 14 RF: 0 oxycodone 5 mg capsule 5 mg PO Q4-6H PRN (Reason: pain) Qty: 60 RF: 0 Continued multivitamin Capsule 1 cap PO DAILY Qty: 0 RF: 0 cholecalciferol (vitamin D3) [Vitamin D3] 400 unit Capsule 400 unit PO DAILY Qty: 0 RF: 0 omega 6-apu-zyf-fish oil [Fish Oil] 1,000 mg (120 mg-180 mg) Capsule 1 tab PO DAILY Qty: 0 RF: 0 ascorbic acid (vitamin C) [Vitamin C] 1,000 mg Tablet Extended Release 1,000 mg PO DAILY Qty: 0 RF: 0 duloxetine 60 mg capsule,delayed release(DR/EC) 60 mg PO DAILY RF: 0 clopidogrel [Plavix] 75 mg tablet 75 mg PO DAILY Qty: 90 RF: 0 pantoprazole 40 mg tablet,delayed release (DR/EC) 40 mg PO DAILY Qty: 90 RF: 0 Ocuvite [id number] mm-dozi-zo-mg Capsule 1 cap PO DAILY RF: 0 Tirosint 88 mcg Capsule 88 mcg PO DAILY RF: 0 trazodone 50 mg tablet 50 mg PO BEDTIME RF: 0 metoprolol succinate 25 mg tablet extended release 24 hr 50 mg PO BEDTIME RF: 0 ropinirole 1 mg Tablet 2 mg PO BEDTIME RF: 0 ezetimibe 10 mg tablet 10 mg PO BEDTIME RF: 0 alprazolam 0.5 mg tablet 0.5 mg PO BEDTIME RF: 0 Discontinued morphine 15 mg tablet See Rx Instructions .ROUTE .COMPLEX PRN (Reason: Pain (Scale Score 1-3)) RF: 0 Follow up/Referrals: Brien Alfonso MD [Physician] - (10-14 days) Jenna Phillips MD [Primary Care Provider] - Discharge Health Status Multidrug resistant organism: No MDRO Provider Discharge Instructions Diet: Diet as Tolerated Liquid consistency: Normal/Thin Food texture: Regular Activity: No excessive bending, lifting, or twisting. Cold/Heat Therapy: as needed Skin/Wound/Dressing Care Report to your healthcare provider any signs of infection, such as:: chills, fever and increased pain Special Rehabilitation Services Reason for rehabilitation: Post-operative therapy Rehab type: Physical therapy and Occupational therapy Visit Report/Discharge Packet Instructions: DI for Transforaminal Lumbar Interbody Fusion Stand Alone Forms: Surgery Discharge Discharge Data Primary Care Provider: Jenna Phillips Attending Provider: Brien Alfonso Admit Date/Time: 07/08/18 06:15 Discharges patient from system. Discharge Date/Time: 07/11/18 12:46 Quality VTE Deep Vein Thrombosis/Pulmonary Embolism Present on Admission: No
== END 2018-07-11 12:46 | DRG 455 ==
PROVIDERS: Admitting Provider Orthopaedic Surgery Orthopaedic Surgery of the Spine; PCP Family Medicine; Visit Provider Orthopaedic Surgery Orthopaedic Surgery of the Spine
PROC: 0SG00AJ Fusion of Lumbar Vertebral Joint with Interbody Fusion Device, Posterior Approach, Anterior Column, Open Approach (ICD-10-PCS; principal; 2018-07-08 07:45)
DX: M43.16 Spondylolisthesis, lumbar region (principal); M48.062 Spinal stenosis, lumbar region with neurogenic claudication; M47.26 Other spondylosis with radiculopathy, lumbar region; Z95.0 Presence of cardiac pacemaker; G25.81 Restless legs syndrome; M06.9 Rheumatoid arthritis, unspecified; E03.9 Hypothyroidism, unspecified; I10 Essential (primary) hypertension; K21.9 Gastro-esophageal reflux disease without esophagitis; E78.5 Hyperlipidemia, unspecified; I49.9 Cardiac arrhythmia, unspecified
CPT/HCPCS: 36415; 72100; 76000; 85014; 85018; 94760; 97116; 97163; 97165; 97530; 97535; C1776; A9270; C9290; J0330; J1100; J2060; J2270; J2704; J3010

== ENCOUNTER → 2018-08-30 12:37 | Outpatient (CLI) | payer MEDICARE, OTHER, SELFPAY ==
[2018-07-08 14:18] VITALS: BMI 28.8
[2018-08-30 13:51] LABS: Thyroid Stimulating Hormone 2.33 uIU/mL (0.47-4.68)
== END ==
PROVIDERS: PCP Family Medicine; Visit Provider Family Medicine
DX: E03.9 Hypothyroidism, unspecified (principal)
CPT/HCPCS: 36415; 84443

== ENCOUNTER → 2018-09-09 16:14 | Outpatient (CLI) | payer MEDICARE, OTHER, SELFPAY ==
[2018-07-08 14:18] VITALS: BMI 28.8
[2018-09-09 17:09] LABS: Add Manual Diff / Slide Review NO; Basophils Absolute Auto 0 /uL (0-100); Eosinophils Absolute Auto 200 /uL (0-450); Eosinophils Percent Auto 4.9 % (2-4); Hematocrit 37.6 % (36-46); Hemoglobin 12.1 g/dL (12.0-16.0); Lymphocytes Absolute Auto 800 /uL (1100-4500); Lymphocytes Percent Auto 27.1 % (25-40); Mean Corpuscular HGB Conc 32.2 % (30-36); Mean Corpuscular Volume 89.9 fL (80-100); Monocytes Absolute Auto 400 /uL (0-900); Monocytes Percent Auto 13.7 % (3-14); Neutrophils Absolute Auto 1600 /uL (1500-7000); Neutrophils Percent Auto 53.3 % (50-75); Platelet Count 243 X10^3/uL (150-400); Red Blood Cell Count 4.18 X10^6/uL (4.0-5.2); White Blood Cell Count 3.1 X10^3/uL (4.5-11.0)
[2018-09-09 17:48] LABS: INR 1.2 (0.9-1.3); Prothrombin Time 13.5 SECONDS (10.1-12.7)
[2018-09-09 17:51] LABS: PTT Partial Thromboplastin Tim 28 SECONDS (26.4-36.2)
== END ==
PROVIDERS: PCP Family Medicine; Visit Provider Family Medicine
DX: R04.0 Epistaxis (principal)
CPT/HCPCS: 36415; 85025; 85610; 85730

== ENCOUNTER → 2018-11-18 10:52 | Outpatient (CLI) | payer MEDICARE, OTHER, SELFPAY ==
[2018-07-08 14:18] VITALS: BMI 28.8
--- NOTE | 2018-11-18 | DI.CT.S_ITS ---
PROCEDURE: CT UE LT WO CON INDICATIONS: primary osteoarthritis left shoulder TECHNIQUE: Noncontrast 1-1.5 mm thick sections acquired from the with coronal and sagittal reformatting. COMPARISON: [facility] [place], CR, XR SHOULDER 2+ VIEWS LEFT, 03/12/2018, 14:31. FINDINGS: Image quality: Excellent. Bones: But there is severe degenerative osteoarthritis at the glenohumeral joint where there is near eyrm-jc-inhl articulation along the inferior third of the joint. Acute or chronic trauma is not seen. There is a rounded calcific radiodensity measuring 6 x 7 mm in maximal dimension, consistent with intra-articular loose body best seen centered on series 4 image 59. Soft tissues: No soft tissue trauma is seen, no synovial protrusion is suspected. IMPRESSION: Moderately severe to severe degenerative osteoarthritic change is present at the glenohumeral joint but only a mild degree of such degeneration can be found at the acromioclavicular joint. No recent trauma suspected. Small 6 x 7 mm intra-articular loose body is the likely cause for the small calcific structure below the glenohumeral articulation. Dictated by: Mike Kim M.D. on 11/18/2018 at 12:04 Approved by: Mike Kim M.D. on 11/18/2018 at 12:08
== END ==
PROVIDERS: PCP Family Medicine; Visit Provider Orthopaedic Surgery
DX: M19.012 Primary osteoarthritis, left shoulder (principal); M24.012 Loose body in left shoulder
CPT/HCPCS: 73200

== ENCOUNTER → 2018-12-25 11:17 | Outpatient (CLI) | payer MEDICARE, OTHER, SELFPAY ==
[2018-07-08 14:18] VITALS: BMI 28.8
[2018-12-25 12:10] LABS: Hematocrit 39.4 % (36-46); Hemoglobin 12.5 g/dL (12.0-16.0); Mean Corpuscular HGB Conc 31.8 % (30-36); Mean Corpuscular Volume 85.1 fL (80-100); Platelet Count 274 X10^3/uL (150-400); Red Blood Cell Count 4.63 X10^6/uL (4.0-5.2); Red Cell Distribution Width 17.5 % (11.6-14.8); White Blood Cell Count 2.9 X10^3/uL (4.5-11.0)
[2018-12-25 12:11] LABS: Hemoglobin A1C% w Est Avg Glu 5.4 % (4.0-6.0)
[2018-12-25 12:20] LABS: Blood Urea Nitrogen 16 mg/dL (7-17); Estimated Glomerular Filt Rate > 60.0 mL/min (>60); HEMOLYSIS < 15 (0-50); Potassium 4.1 mmol/L (3.4-5.1)
[2018-12-25 12:25] LABS: Transferrin 371 mg/dL (206-381)
[2018-12-25 13:49] LABS: BUN Creatinine Ratio 26.7 (6-22); Calcium 10.5 mg/dL (8.4-10.2); Carbon Dioxide 24 mmol/L (22-32); Chloride 105 mmol/L (98-107); Glucose 104 mg/dL (80-110); Sodium 140 mmol/L (137-145)
== END ==
PROVIDERS: PCP Family Medicine; Visit Provider Physician Assistant Surgical
DX: E61.1 Iron deficiency (principal); N39.0 Urinary tract infection, site not specified; R73.9 Hyperglycemia, unspecified; Z01.818 Encounter for other preprocedural examination
CPT/HCPCS: 36415; 80048; 83036; 84466; 85027; 87086

== ENCOUNTER 2018-12-31 06:16 | Inpatient (IN) | payer MEDICARE, OTHER, SELFPAY ==
[2018-07-08 14:18] VITALS: BMI 28.8
[2018-12-27 10:23] VITALS: BMI 30.5
[2018-12-31] VITALS (17 sets, daily range): BP systolic 98–138; BP diastolic 43–96; PULSE 64–98; RESP 13–19; TEMP 36.2–36.8; O2SAT 91–98; BMI 28.7
--- NOTE | 2018-12-31 06:00 | DI.RAD.S_ITS ---
PROCEDURE: XR SHOULDER LT MIN 2V INDICATIONS: post op films TECHNIQUE: 2 views of the shoulder were acquired. COMPARISON: None. FINDINGS: Expected postoperative alignment of left shoulder arthroplasty. Postsurgical drain and soft tissue changes. IMPRESSION: Expected postoperative alignment Dictated by: Erasto Carcamo M.D. on 12/31/2018 at 13:29 Approved by: Erasto Carcamo M.D. on 12/31/2018 at 13:40
[2018-12-31] MEDS: LACTATED RINGERS 1,000 ML 42 ML IV (06:55)
--- NOTE | 2018-12-31 07:41 | PM.PREOP ---
Pre-operative Note Interval Note History & Physical reviewed/Exam performed by Physician: Yes Changes to H&P: Yes H&P completed within 30 days and has changed as indicated here:: Patient had pessary inserted since last seen in office.
[2018-12-31] MEDS: MIDAZOLAM 2 MG/2 ML VIAL IV (07:50)
[2018-12-31] MEDS: CLINDAMYCIN 600 MG/50 ML PIGGYBACK 50 MG IV (08:08)
--- NOTE | 2018-12-31 08:46 | SUR.OPER ---
Beach chair with Schlein shoulder positioner. Lower body on padded OR bed. Head in foam padded head cradle, secured with straps. Non-operative arm secured <90 degrees abduction. Pillow under knees. Safety belt at thigh. Cloth tape over blanket over lower legs and hips.
[2018-12-31] MEDS: BUPIVACAINE 0.5% W/ EPI (PF) VIAL 30 ML INJ (08:54)
[2018-12-31] MEDS: TRANEXAMIC ACID 1,000 MG VIAL 1000 MG IV (08:55)
[2018-12-31] MEDS: THROMBIN (RECOMBINANT) 5,000 UNIT VIAL 5000 UNIT TOP (09:20)
--- NOTE | 2018-12-31 10:15 | PM.OP.1 ---
Operative Date/Time/Diagnoses Date of procedure: 12/31/18 Time of procedure: 10:00 Pre-op diagnosis: Left shoulder osteoarthritis Post-op diagnosis: same Procedure & Clinicians Procedure: Left total shoulder replacement Same procedure as scheduled: Yes Indications: The patient has had progressively worsening left shoulder pain with radiographic changes consistent with arthritis. Non-operative management has failed and the patient has requested total shoulder replacement. The risks, benefits and alternatives to surgery were discussed with the patient prior to proceeding. Risks discussed included, but were not limited to, failure to relieve pain, stiffness, infection, nerve damage, deep venous thrombosis, pulmonary embolism, stroke, coma, heart attack, permanent paralysis and , as well as the potential need for eventual revision of the prosthetic. Surgeon: Nii Zaragoza Contract Implementation Analyst: Rosette Braswell Click Yes if Unassisted: No Anesthesia Type: General, Peripheral nerve block and Local Operative Notes Findings: Severe osteoarthritis with loose body and large osteophytes. Closure Type: primary Specimen(s): none sent Prosthetic devices, grafts, tissues, transplants, or devices: The prosthetics used in this procedure were manufactured by the [employer] and included an Altivate short stem total shoulder system with a 14 mm diameter stem, an 18 x 46 mm humeral head with an offset and a neutral neck and a 46 mm pegged all polyethylene E plus glenoid. Applied: drain(s) and implant(s) Estimated Blood Loss (mL): 100 Blood products transfused: none Tourniquet time (min): 0 Procedure in detail: The patient was seen in the pre-operative area, where the patient identified the left shoulder as the operative site and this was marked with my initials. The patient received pre-operative antibiotics, underwent an interscalene block, and was taken to the operating room and placed on the operative table in the supine position. After satisfactory anesthesia, a full ?time out? was performed. The patient was repositioned in the ?beach chair? position using a dedicated positioner. All pressure points were well padded, and the knees were slightly bent to prevent tension on the sciatic nerves. The left arm was prepared from the fingers to the base of the neck with Betadine in the usual fashion and draped through sterile drapes. An approximately 15 cm incision was created, starting at the clavicle above the coracoid process and extended towards the deltoid insertion. The deltopectoral interval was used to access the shoulder. The cephalic vein was taken medially. A self retaining retractor was placed. The upper centimeter of the pectoralis major tendon was released. The ?three sisters? were identified and cauterized. The axillary nerve was palpated and protected throughout the case. The biceps was released from its groove and tenodesed over the top of the pectoralis major tendon. The subscapularis was released from the lesser tuberosity with a subscapularis peel and tagged for later repair. The shoulder was dislocated and a cutting guide was used for the proximal humeral osteotomy in 30 degrees of retroversion. A starter Reamer was used followed by the cylindrical reamers. This continued in larger sizes in till cortical bite was achieved. Sequential broaching was then performed until a line to line fit with the Reamer occurred. A proximal humeral protector was then placed. We then removed the self-retaining retractor and placed retractors to access the glenoid. The subscapularis was released with a ?360 degree release? with care being taken to protect the axillary nerve with the inferior portion of this procedure. The remnant of labrum and biceps stump were removed. The appropriate size reamer was chosen with the glenoid sizer, and the guide pin placed. The glenoid was appropriately reamed. The guide for the peripheral holes was used and the center hole enlarged. The trial glenoid was placed with good stability. We then cemented the final implant into place after irrigating the peg holes and drying them with thrombin-soaked Gelfoam. We returned our attention to the humerus, a trial humeral head was applied and a trial reduction performed. Stability was checked with 50% posterior translation with spontaneous reduction, 45? external rotation at the side with the subscapularis held in the repaired position and 70? of internal rotation in the ?scarecrow position?. This was felt to be satisfactory and the appropriate implants were opened. Five holes were drilled along the humeral osteotomy and #2 TiCron sutures placed for eventual subscapularis repair. The humeral prosthetic was impacted into the humerus. The humeral head was applied when the stem was still slightly proud and impacted to both seat the head and fully seat the stem. The joint was relocated one final time. The joint was irrigated and the subscapularis repaired to the previously placed sutures using Jose-Reginald sutures. The top of the subscapularis was closed to the leading edge of the supraspinatus with a figure of 8 #2 TiCron to close the rotator interval. A deep drain was placed and brought out supero-laterally. The deltopectoral interval was closed with interrupted 0 Vicryl. The subcutaneous layer was closed with 3-0 Vicryl, and the skin with a running 3-0 V-Lock suture and SteriStrips. An Aquacel Ag dressing was applied, the patient?s arm was placed in a sling, and the patient was taken to recovery having tolerated the procedure well. Complications: none Condition: stable Disposition: PACU Plan for aftercare: The patient will be maintained on a standard total shoulder replacement protocol with passive range of motion limited to 90 degrees forward flexion, 0 degrees external rotation at the side, 0 degrees abduction and internal rotation to the body. The patient will receive her Plavix and sequential compression devices for DVT prophylaxis. The patient will be discharged home when safe for the home environment, likely tomorrow.
--- NOTE | 2018-12-31 10:56 | SUR.PHASEI ---
I hear voices but I don't know what anyone is saying.
--- NOTE | 2018-12-31 11:00 | SUR.PHASEI ---
Pt following commands. Shakes her head no when asked if she is doing ok. Unable to describe problem. Denied pain or nausea. Did not remember being in the hospital or having surgery. Attempted to reorient.
--- NOTE | 2018-12-31 11:11 | SUR.PHASEI ---
Report to Meena
--- NOTE | 2018-12-31 11:11 | SUR.PHASEI ---
Pt oriented to place and situation
--- NOTE | 2018-12-31 11:12 | SUR.PHASEI ---
Pt stated both my legs feel numb. +pp x2, lu feet pink, warm. Slight weakness to LLE
--- NOTE | 2018-12-31 11:17 | P.PCN_ITS ---
Procedures Date/Time Date of procedure: 12/31/18 Time of procedure: 08:00 Nerve Block Time out performed: Yes Local anesthetic used: other (12mL 0.5opivacaine, 5mL 2* idocaine) Location of anesthetic used: interscalene Amount of anesthesia used (mL): 20 Nerve blocks: brachial plexus (interscalene) Procedure successful: Yes Patient tolerated procedure: well Complications: none Additional comments: Brachial plexus nerve block for post operative pain management. Risks and benefits discussed, including bleeding, infection, intravascular injection, nerve damage, block failure. Standard ASA monitors, NC O2. Pt supine. Chloroprep site preparation, sterile technique. Brachial plexus identified with US guidance, traced from supraclavicular to interscalene. 1mL 2% lidocaine skin wheal. 22g x 50mm Pajunk advanced with in-plane US guidance to brachial plexus. Negative aspiration. LA injected with intermittent negative aspiration. Good LA spread noted on US. No pain, no paraesthesia. Pt tolerated procedure well. Vital signs stable.
--- NOTE | 2018-12-31 11:29 | SUR.PHASEI ---
Pt transferred to the floor with her belongings bag, cane and glasses/case. Report to Meena. Van cdi. HV patent. 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 Sling in place. IV saline locked. Lt foot weakness and dull sensation. Pt reported this is normal.
[2018-12-31] MEDS: LACTATED RINGERS 1,000 ML 125 ML IV ×2 (12:15→20:39)
--- NOTE | 2018-12-31 12:54 | PC.NURSE ---
Day Shift- Report rec'd from REBEL Elizalde in PACU at 1106. Pt arrived to unit room 204 at 1125. Pt drowsy upon arrival, Awakens easily with verbal stimulation. Oriented X3, disoriented to date and time. Oriented to call ight. OOB with 2PA using gait belt to BSC, pt tolerated fair. Voided QS. Left shoulder aquacel dressing CDI, hemovac in place to posterior top of shoulder. Hemovac container compressed. Left shoulder sling in place., CMS+, numbness to left thumb. Radial pulse moderate upon palpation. LLE numb, pt states this is her normal, unable to state why her LLE is numb at this time. High fall risk precautions in place, bed alarm on. Pt states her last fall was in May 2018.
--- NOTE | 2018-12-31 14:42 | PT.IIE ---
Current Diagnoses Primary osteoarthritis, right shoulder (12/31/18) Surgery Performed Operation Date: 12/31/18 07:45 Actual Procedures p Total Shoulder Arthroplasty(Left) - Nii Zaragoza MD Surgical History (Last Updated 12/27/18 @ 10:46 by Casie Conley RN) S/P lumbar fusion (Acute 07/08/18) Status cardiac pacemaker (Acute 09/2012) History of ankle surgery (Resolved 08/2011) History of basal cell carcinoma (BCC) excision (Resolved 1996) History of hip surgery (Resolved 2013) History of knee replacement procedure of left knee (Resolved 09/2009) History of knee replacement procedure of right knee (Resolved 04/2010) History of kyphoplasty (Resolved 10/2012) History of orthopedic surgery (Resolved 03/2011) History of removal of cyst (Resolved 2007) History of thyroid surgery (Resolved 1990) Hx of arthroscopy of knee (Resolved Unknown) Hx of laminectomy (Resolved 10/2008) Hx of tonsillectomy (Resolved Unknown) Medical History (Last Updated 07/01/18 @ 14:53 by Casie Conley RN) Hypercalcemia (Acute) Leukopenia (Inactive) Dementia (Acute) Allergic rhinitis (Chronic Unknown) C. difficile colitis (Chronic) GERD (gastroesophageal reflux disease) (Chronic Unknown) Histoplasmosis (Chronic Unknown) Hypertension (Chronic Unknown) Hypothyroidism (Chronic Unknown) Osteoarthritis (Chronic Unknown) Osteoporosis (Chronic Unknown) Pacemaker (Chronic 09/2012) Restless leg syndrome (Chronic Unknown) Actinic keratosis (Resolved Unknown) Ankle fracture (Resolved 08/2011) Compression fracture of L1 lumbar vertebra (Resolved 10/2012) Episode of syncope (Resolved 09/2012) Fracture of right ulnar styloid (Resolved 2013) Intertrochanteric fracture of right femur (Resolved 2013) Intertrochanteric fracture of right hip (Resolved 2013) Left radial fracture (Resolved 03/2011) Skin cancer (Resolved 1996) Physical Therapy Inpatient Evaluation/Re-Eval M1 PT/OT-IP Prior Functional Status Start: 12/31/18 11:55 Freq: NEEDED Status: Active Protocol: Document 12/31/18 14:42 AB (Rec: 12/31/18 18:04 AB [id number]) Medical Review Prior Functional Status Medical History Reviewed Yes Communication pt able to make needs known but seems to have some confusion Mobility and Gait pt stated that she is modified independent with all mobilities and ambulation using a 4WW Social History Household Members children Living Arrangements House Number of Floors (Floors) One Floor Number of Stairs To Enter/Railing? no steps to enter Home Environment High Toilet Walk in Shower Home Equipment Shower Seat with Backrest Hand Held Shower Grab Bars Near Toilet Grab Bars In Shower Employment Status Retired Additional Social History Comment pt stated that she just had a back surgery last Jun of this year and has been seeing a PT. stated that she had HHPT. pt stated that her homehealth PT advised her to use a 4WW for ambulation and to continue using a 4WW after shoulder replacement sx. Stated that she has been practicing ambulation using a 4WW one handed. M2 PT-IP Current Condition Start: 12/31/18 11:55 Freq: NEEDED Status: Active Protocol: Document 12/31/18 14:42 AB (Rec: 12/31/18 18:04 AB [id number]) Physical Therapy Current Condition Current Condition Evaluation Date 12/31/18 Treatment Diagnosis s/p L TSA; difficulty in walking Onset Date 12/31/18 Precautions Shoulder Precautions Sling PROM Internal Rotation to Body No External Rotation No Abduction Forward Flexion to 90 degrees Pendulums Weight Bearing Status Weight Bearing Status Non-Weight Bearing Allowed Weight Bearing Amount (enter % LUE NWB or #) (%) M3 PT-IP Subjective Start: 12/31/18 11:55 Freq: NEEDED Status: Active Protocol: Document 12/31/18 14:42 AB (Rec: 12/31/18 18:04 AB [id number]) Subjective Physical Therapy Visit Type Type Initial Evaluation Visit Start Time 14:42 Visit Stop Time 15:38 Total Visit Minutes 56 Number of CLINICAL COORDINATOR Visits 0 Physical Therapy Visit Comments Patient Comments pt agreeable to do PT Therapy Pain Assessment Pain When Pain Assessed At Rest Pain Present Pain Present Pain Reported Location Left Shoulder Intensity 7 Scale Used Numeric (1 - 10) Pain Management Techniques Apply Cold Timing of Activity with Medications M4 PT-IP Mobility and Gait Start: 12/31/18 11:55 Freq: NEEDED Status: Active Protocol: Document 12/31/18 14:42 AB (Rec: 12/31/18 18:04 AB [id number]) PT-Bed Mobility Assessment Supine to Sit Supine to Sit Standby Assistance Bedrails Sit to Supine Sit to Supine Standby Assistance Bedrails PT-Transfer Assessment Sit to and From Stand Sit to and from Stand Minimal Assistance 1 Person Assistance Use of Upper Extremities Equipment Transfer Assistive Device Gait Belt Straight Cane 4 Wheeled Walker Orthotic/Prosthetic Devices or Brace: Yes Transfers Transfer Destination Bedside Commode Transfer Technique pt ambulated using SPC/4WW Transfer Ability Level of Assist Minimal Assistance Moderate Assistance Comments Mobility Comments completed ambulation using SPC ~ 10 ft mod A and cues. pt required assistance with brief management. pt completed sit to stand from the bedside commode min A and ambulated holding on to 4WW on one side and brakes on the L side min A and cues ~ 10 ft. pt prefers to use the 4WW and has practiced this prior to surgery. pt was able to control 4WW without any LOB. Gait Assessment Gait Gait Assistance Required: Minimum Assistance Moderate Assistance Distance (Feet) 10 Assistive Devices Assistive Device Gait Belt Straight Cane 4 Wheeled Walker Orthotic/Prosthetic Devices or Brace: No Gait Deviations General Gait Pattern Decreased Stride Length Decreased Feet Clearance Step-to Gait Factors Limiting Gait Function Factors Limiting Gait Function Decreased Activity Tolerance Decreased Sensation Decreased Strength Limited Range of Motion Pain Poor Safety Awareness Comments Gait Comments please refer to mobility section for details PT-Balance Assessment Sitting Balance and Reactions Static Sitting Balance Ability Good Dynamic Sitting Balance Ability Good Standing Balance and Reactions Static Standing Balance Ability Fair Dynamic Standing Balance Ability Poor Device Used SPC; 4WW M5 PT-IP Objective Assessments Start: 12/31/18 11:55 Freq: NEEDED Status: Active Protocol: Document 12/31/18 14:42 AB (Rec: 12/31/18 18:04 AB [id number]) Orientation Orientation/Cognition Level of Alertness Alert Orientation Name Age Birthday Month Date Year Day of Week Place Situation Language Function Ability Hard of Hearing Safety Awareness Decreased Safety Awareness Memory Description Short Term Impaired Gross Range of Motion Upper Extremity ROM Assessment Left Impaired Lower Extremity ROM Assessment Within Functional Limits Strength Lower Extremity Strength Assessment Within Functional Limits Coordination Assessment Gross Coordination Gross Coordination WNL Sensation Assessment Sensation Gross Sensation Right LE Impaired Left LE Impaired Light Touch Impaired Proprioception (Position) Impaired Muscle Tone Muscle Tone WNL Yes M6 PT-IP Treatment Start: 12/31/18 11:55 Freq: NEEDED Status: Active Protocol: Document 12/31/18 14:42 AB (Rec: 12/31/18 18:04 AB [id number]) Physical Therapy Treatment Exercises Exercises Elbow Flexion/Extension Wrist ROM Hand ROM Education Education Provided Precautions Weight Bearing Status Post-Op Packet Safety Other Treatments Other Treatment Performed educated on sling management, elbow/hand exercises. pt still does not have full motor control of LUE. deferred pendulum exercises until pt has move motor control on LUE. M7 PT-IP Assessment and Plan Start: 12/31/18 11:55 Freq: NEEDED Status: Active Protocol: Document 12/31/18 14:42 AB (Rec: 12/31/18 18:04 AB [id number]) PT Summary Assessment and Plan Potential Rehabilitation Potential Good Status of Condition at Evaluation Evolving Summary Impairments Pain ROM Strength Balance Coordination Sensation Tone Cognition Bed Mobility Transfers Gait Activity Tolerance Assessment Summary pt requiring min A with mobility. will conduct caregiver training tomorrow ~ 9 am. pt's son will be assisting pt at home. d/c plan depending on caregiver training. Goals Bed Mobility Goal Standby Assistance Transfer Goal Standby Assistance Four Wheeled Walker Gait Goal Standby Assistance Four Wheel Walker Gait Distance 100 Days to Meet Goals 5 Frequency of Treatment Frequency Of Treatment Twice a Day Treatment Plan Physical Therapy Treatment Plan Bed Mobility Training Transfer Training Gait Training Therapeutic Exercise Balance Retraining Post Op Education Discharge Planning Hot or Cold Pack Neuromuscular Re-ed Coordination Retraining Manual Therapy Other Recommendations and Next Treatment caregiver training, pendulum Focus exercises Recommendations To Nursing Amount of Assist Needed 1 Person Assist Discharge Recommendations PT Discharge Recommendations Home with Assistance Home Health
[2018-12-31] MEDS: MORPHINE 4 MG/ML INJ 1.5 MG IV ×2 (17:05→22:22)
[2018-12-31] MEDS: EZETIMIBE 10 MG TABLET PO (20:19)
[2018-12-31] MEDS: METOPROLOL ER 25 MG TABLET 50 MG PO (20:19)
[2018-12-31] MEDS: DOCUSATE 100 MG CAPSULE PO (20:19)
[2018-12-31] MEDS: TRAZODONE 50 MG TABLET PO (20:20)
[2018-12-31] MEDS: ROPINIROLE 4 MG TABLET PO (20:20)
[2018-12-31] MEDS: MORPHINE ER 15 MG TABLET PO (20:31)
[2018-12-31] MEDS: ALPRAZolam 0.25 MG TABLET 1 MG PO (20:38)
--- NOTE | 2018-12-31 21:35 | PC.NURSE ---
Shift summary- 1699-pt c/o low back pain, and can't get comfortable, repositioned and admin morphine 1.5mg IV, which was effective, pt able to rest. 2029 c/o pain L shoulder and low back, 8/10, medicated with MS Contin 15mg PO, which after an hour reported pain 7/10 and requested morphine 1.5mg IV, given @ 2140, effective. BSC to void, 1PA FWW, left shoulder aquacell CDI, arm in sling, HV to L shoulder, 100mL out, ice pack and pillow under for comfort. R hand LR @ 125. Pt tachy @ HR 91-98 this shift. Call light in reach and bed alarm on.
[2019-01-01] MEDS: MORPHINE 4 MG/ML INJ 1.5 MG IV ×2 (00:17→04:15)
[2019-01-01 04:05] VITALS: BP 143/119; PULSE 92; RESP 20; TEMP 37.4; O2SAT 93
--- NOTE | 2019-01-01 04:30 | PC.NURSE ---
Vomited 50 cc of emesis after using the BSC. Offered anti-emetic but she declined. Ice pack to Lt. shoulder & medicated with 1.5 mg of Morphine IVP. Will cont. POC & monitor.
[2019-01-01] MEDS: LEVOTHYROXINE 88 MCG TABLET PO (05:31)
[2019-01-01] MEDS: LACTATED RINGERS 1,000 ML 125 ML IV (05:31)
[2019-01-01 05:45] VITALS: BP 135/75
[2019-01-01 07:05] LABS: Hematocrit 31.9 % (36-46); Hemoglobin 10.5 g/dL (12.0-16.0)
--- NOTE | 2019-01-01 07:52 | PM.DS.1 ---
History of Present Illness Date Patient Seen: 01/01/19 Time Patient Seen: 07:52 Chief complaint: [id number] Narrative: The history and physical are contained in the chart previously completed note. Please refer to that note for this information. Discharge Providers Date of admission: 12/31/18 06:16 Discharge Date: 01/01/19 Primary care physician: Jenna Phillips MD Consults: 12/31/18 11:41 Consult to Discharge Planning Routine Comment: Consult to Physical Therapy Evaluate & Treat Comment: Physician Instructions: Evaluate and Treat Consult to Respiratory Therapy Evaluate & Treat Comment: Physician Instructions: Evaluate and treat Discharge provider: Nii Zaragoza MD Summary Discharge Diagnosis: 1. Left shoulder osteoarthritis 2. Post hemorrhagic anemia Hospital Course: The patient was admitted to the hospital and taken directly to the operating room on December 31, 2018. She underwent a left total shoulder replacement without complication. She was reasonably comfortable on postoperative day 1 and at the time of this dictation it is felt she will likely be able to be discharged under the care of her son. Status at Discharge Cognitive/behavioral status at discharge: oriented Functional status at discharge: uses cane/walker Overall status at discharge: patient is progressing back to baseline Time Spent with Patient Less than 30 minutes Exam Vital Signs (past 8 hours): - 01/01/19 04:05 01/01/19 05:45 Temperature 99.4 F Pulse Rate 92 H Respiratory Rate 20 Blood Pressure 143/119 H 135/75 Pulse Oximetry 93 Oxygen Delivery Method Room Air Oxygen Flow Rate 0 Narrative Exam Narrative: Left shoulder wound is dressed with no drainage on the bandage. Light touch is intact in the radial, ulnar, median, muscular cutaneous and axillary nerve distributions. She can extend her thumb, abduct her thumb, abduct her fingers and fire her biceps and deltoid. Objective Labs Result Diagrams: 01/01/19 06:45 Labs: Laboratory Results - last 24 hr 01/01/19 06:45 Hgb 10.5 L Hct 31.9 L Discharge Plan Discharge Plan Patient Disposition: Home Discharge Med Rec/Prescriptions Prescriptions: New oxycodone 5 mg Tablet 5 mg PO Q3HR PRN (Reason: Pain, Moderate (4-6)) Qty: 30 RF: 0 Continued multivitamin Capsule 1 cap PO DAILY Qty: 0 RF: 0 cholecalciferol (vitamin D3) [Vitamin D3] 400 unit Capsule 400 unit PO DAILY Qty: 0 RF: 0 omega [id number]-mbt-fish oil [Fish Oil] 1,000 mg (120 mg-180 mg) Capsule 1 tab PO DAILY Qty: 0 RF: 0 ascorbic acid (vitamin C) [Vitamin C] 1,000 mg Tablet Extended Release 1,000 mg PO DAILY Qty: 0 RF: 0 morphine 15 mg tablet extended release 12hr 15 mg PO ONCE PRN (Reason: back pain) Qty: 9 RF: 0 Tirosint 88 mcg capsule 88 mcg PO DAILY Qty: 90 RF: 3 duloxetine 60 mg capsule,delayed release(DR/EC) 60 mg PO DAILY Qty: 90 RF: 1 clopidogrel [Plavix] 75 mg tablet 75 mg PO DAILY Qty: 90 RF: 2 pantoprazole 40 mg tablet,delayed release (DR/EC) 40 mg PO DAILY Qty: 90 RF: 2 trazodone 50 mg tablet 50 mg PO BEDTIME Qty: 90 RF: 2 alprazolam 1 mg tablet 1 mg PO BEDTIME PRN (Reason: sleep) Qty: 30 RF: 0 ropinirole [Requip] 4 mg tablet 4 mg PO BEDTIME RF: 0 ezetimibe [Zetia] 10 mg tablet 10 mg PO BEDTIME RF: 0 Ocuvite [id number]-mg Capsule 1 cap PO DAILY RF: 0 metoprolol succinate 25 mg tablet extended release 24 hr 50 mg PO BEDTIME RF: 0 Follow up/Referrals: Jenna Phillips MD [Primary Care Provider] - Nii Zaragoza MD [Physician] - 2 Weeks Provider Discharge Instructions Diet: Diet as Tolerated and Regular Activity: You may use your left arm in front of your body below shoulder level. Keep it in a sling except for hygiene, eating or reading or similar activities. Cold/Heat Therapy: Apply ice to the left shoulder for 15 minutes every hour as needed for pain control. Skin/Wound/Dressing Care Report to your healthcare provider any signs of infection, such as:: chills, fever, night sweats, increased pain, unusual drainage and unusual redness Dressing: Leave the dressing intact until postoperative follow-up. You may shower with the dressing in place. If the central strip of the dressing becomes saturated with either water or blood please call the office. Visit Report/Discharge Packet Instructions: DI for Shoulder Replacement Stand Alone Forms: Surgery Discharge Discharge Data Primary Care Provider: Jenna Phillips Attending Provider: Nii Zaragoza Admit Date/Time: 12/31/18 06:16 Quality VTE Deep Vein Thrombosis/Pulmonary Embolism Present on Admission: No
--- NOTE | 2019-01-01 07:55 | P.DS_ITS ---
History of Present Illness Date Patient Seen: 01/01/19 Time Patient Seen: 07:52 Chief complaint: [id number] Narrative: The history and physical are contained in the chart previously completed note. Please refer to that note for this information. Discharge Providers Date of admission: 12/31/18 06:16 Discharge Date: 01/01/19 Primary care physician: Jenna Phillips MD Consults: 12/31/18 11:41 Consult to Discharge Planning Routine Comment: Consult to Physical Therapy Evaluate & Treat Comment: Physician Instructions: Evaluate and Treat Consult to Respiratory Therapy Evaluate & Treat Comment: Physician Instructions: Evaluate and treat Discharge provider: Nii Zaragoza MD Summary Discharge Diagnosis: 1. Left shoulder osteoarthritis 2. Post hemorrhagic anemia Hospital Course: The patient was admitted to the hospital and taken directly to the operating room on December 31, 2018. She underwent a left total shoulder replacement without complication. She was reasonably comfortable on postoper ative day 1 and at the time of this dictation it is felt she will likely be able to be discharged under the care of her son. Status at Discharge Cognitive/behavioral status at discharge: oriented Functional status at discharge: uses cane/walker Overall status at discharge: patient is progressing back to baseline Time Spent with Patient Less than 30 minutes Exam Vital Signs (past 8 hours): - 01/01/19 04:05 01/01/19 05:45 Temperature 99.4 F Pulse Rate 92 H Respiratory Rate 20 Blood Pressure 143/119 H 135/75 Pulse Oximetry 93 Oxygen Delivery Method Room Air Oxygen Flow Rate 0 Narrative Exam Narrative: Left shoulder wound is dressed with no drainage on the bandage. Light touch is intact in the radial, ulnar, median, muscular cutaneous and axillary nerve distributions. She can extend her thumb, abduct her thumb, abduct her fingers and fire her biceps and deltoid. Objective Labs Result Diagrams: 01/01/19 06:45 Labs: Laboratory Results - last 24 hr 01/01/19 06:45 Hgb 10.5 L Hct 31.9 L Discharge Plan Discharge Plan Patient Disposition: Home Discharge Med Rec/Prescriptions Prescriptions: New oxycodone 5 mg Tablet 5 mg PO Q3HR PRN (Reason: Pain, Moderate (4-6)) Qty: 30 RF: 0 Continued multivitamin Capsule 1 cap PO DAILY Qty: 0 RF: 0 cholecalciferol (vitamin D3) [Vitamin D3] 400 unit Capsule 400 unit PO DAILY Qty: 0 RF: 0 omega [id number]-[id number]-fish oil [Fish Oil] 1,000 mg (120 mg-180 mg) Capsule 1 tab PO DAILY Qty: 0 RF: 0 ascorbic acid (vitamin C) [Vitamin C] 1,000 mg Tablet Extended Release 1,000 mg PO DAILY Qty: 0 RF: 0 morphine 15 mg tablet extended release 12hr 15 mg PO ONCE PRN (Reason: back pain) Qty: 9 RF: 0 Tirosint 88 mcg capsule 88 mcg PO DAILY Qty: 90 RF: 3 duloxetine 60 mg capsule,delayed release(DR/EC) 60 mg PO DAILY Qty: 90 RF: 1 clopidogrel [Plavix] 75 mg tablet 75 mg PO DAILY Qty: 90 RF: 2 pantoprazole 40 mg tablet,delayed release (DR/EC) 40 mg PO DAILY Qty: 90 RF: 2 trazodone 50 mg tablet 50 mg PO BEDTIME Qty: 90 RF: 2 alprazolam 1 mg tablet 1 mg PO BEDTIME PRN (Reason: sleep) Qty: 30 RF: 0 ropinirole [Requip] 4 mg tablet 4 mg PO BEDTIME RF: 0 ezetimibe [Zetia] 10 mg tablet 10 mg PO BEDTIME RF: 0 Ocuvite [id number]-mg Capsule 1 cap PO DAILY RF: 0 metoprolol succinate 25 mg tablet extended release 24 hr 50 mg PO BEDTIME RF: 0 Follow up/Referrals: Jenna Phillips MD [Primary Care Provider] - Nii Zaragoza MD [Physician] - 2 Weeks Provider Discharge Instructions Diet: Diet as Tolerated and Regular Activity: You may use your left arm in front of your body below shoulder level. Keep it in a sling except for hygiene, eating or reading or similar activities. Cold/Heat Therapy: Apply ice to the left shoulder for 15 minutes every hour as n eeded for pain control. Skin/Wound/Dressing Care Report to your healthcare provider any signs of infection, such as:: chills, fever, night sweats, increased pain, unusual drainage and unusual redness Dressing: Leave the dressing intact until postoperative follow-up. You may shower with the dressing in place. If the central strip of the dressing becomes saturated with either water or blood please call the office. Visit Report/Discharge Packet Instructions: DI for Shoulder Replacement Stand Alone Forms: Surgery Discharge Discharge Data Primary Care Provider: Jenna Phillips Attending Provider: Nii Zaragoza Admit Date/Time: 12/31/18 06:16 Quality VTE Deep Vein Thrombosis/Pulmonary Embolism Present on Admission: No
[2019-01-01 08:10] VITALS: BP 133/95; PULSE 87; RESP 18; TEMP 37.1; O2SAT 92
[2019-01-01] MEDS: POLYETHYLENE GLYCOL 3350 17 GM POWD.PACK PO (10:03)
[2019-01-01] MEDS: DULOXETINE 30 MG CAPSULE 60 MG PO (10:03)
[2019-01-01] MEDS: DOCUSATE 100 MG CAPSULE PO (10:04)
[2019-01-01] MEDS: PANTOPRAZOLE 40 MG TABLET PO (10:04)
[2019-01-01] MEDS: CLOPIDOGREL 75 MG TABLET PO (10:04)
--- NOTE | 2019-01-01 10:21 | PT.IPTN ---
Current Diagnoses Primary osteoarthritis, right shoulder (12/31/18) Surgery Performed Operation Date: 12/31/18 07:45 Actual Procedures p Total Shoulder Arthroplasty(Left) - Nii Zaragoza MD Physical Therapy Treatment Note M2 PT-IP Current Condition Start: 12/31/18 11:55 Freq: NEEDED Status: Active Protocol: Document 12/31/18 14:42 AB (Rec: 12/31/18 18:04 AB [id number]) Physical Therapy Current Condition Current Condition Evaluation Date 12/31/18 Treatment Diagnosis s/p L TSA; difficulty in walking Onset Date 12/31/18 Precautions Shoulder Precautions Sling PROM Internal Rotation to Body No External Rotation No Abduction Forward Flexion to 90 degrees Pendulums Weight Bearing Status Weight Bearing Status Non-Weight Bearing Allowed Weight Bearing Amount (enter % LUE NWB or #) (%) M3 PT-IP Subjective Start: 12/31/18 11:55 Freq: NEEDED Status: Active Protocol: Document 01/01/19 10:21 AB (Rec: 01/01/19 12:19 AB [email or web address]) Subjective Physical Therapy Visit Type Visit Start Time 10:21 Visit Stop Time 10:53 Total Visit Minutes 32 Number of CRUSHER AND BINDER OPERATOR Visits 0 Physical Therapy Visit Comments Patient Comments pt stated that she is tired. son was not present initially but arrived after a few minutes Therapy Pain Assessment Pain When Pain Assessed At Rest Pain Present Pain Present Pain Reported Location Left Shoulder Intensity 5 Scale Used Numeric (1 - 10) Pain Management Techniques Re-positioning Timing of Activity with Medications M4 PT-IP Mobility and Gait Start: 12/31/18 11:55 Freq: NEEDED Status: Active Protocol: Document 01/01/19 10:21 AB (Rec: 01/01/19 12:19 AB [email or web address]) PT-Bed Mobility Assessment Supine to Sit Supine to Sit Moderate Assistance Maximum Assistance 1 Person Assistance Sit to Supine Sit to Supine Minimal Assistance Moderate Assistance Scooting Scooting Up and Down in Bed Minimal Assistance PT-Transfer Assessment Sit to and From Stand Sit to and from Stand Contact Guard Assistance Equipment Transfer Assistive Device Gait Belt 4 Wheeled Walker Orthotic/Prosthetic Devices or Brace: Yes Comments Mobility Comments caregiver training conducted. pt completed supine to sit and son assisted pt providing mod to max A and cues. educated pt's son regarding sling management. elbow/hand exercises, shoulder precautions . son initially require cues to put sling on but was able to claudia safely on 2nd attempt. pt ambulated using 4WW with son assisting. educated son on how to assist pt. pt prefers to use a 4WW for ambulation instead of a SPC. educated on safety. pt's son stated that he is with pt 04/12 and has assisted pt for 4 months and will assist pt this time as well. instructed pt' s son on how to assist pt with use of 4WW for mobility and was able to complete safely. pt requested to go back to bed and completed bed mobility sit to supine with pt's son assisting her. positioned pt in bed. call light and table placed within reach. Gait Assessment Gait Gait Assistance Required: Minimum Assistance Distance (Feet) 75 Able to Maintain Weight Bearing Status Yes During Gait Assistive Devices Assistive Device Gait Belt 4 Wheeled Walker Gait Deviations General Gait Pattern Antalgic Decreased Stride Length Decreased Feet Clearance Factors Limiting Gait Function Factors Limiting Gait Function Decreased Activity Tolerance Decreased Strength Difficulty Following Directions Incoordination Limited Range of Motion Pain Poor Balance Poor Safety Awareness Comments Gait Comments pt prefers to use a 4WW for ambulation. informed pt and son regarding unsteadiness with 4WW and son stated that he will be able to assist pt 04/12. educated son on how to assist pt and was able to safely assist pt. M5 PT-IP Objective Assessments Start: 12/31/18 11:55 Freq: NEEDED Status: Active Protocol: Document 12/31/18 14:42 AB (Rec: 12/31/18 18:04 AB [id number]) Orientation Orientation/Cognition Level of Alertness Alert Orientation Name Age Birthday Month Date Year Day of Week Place Situation Language Function Ability Hard of Hearing Safety Awareness Decreased Safety Awareness Memory Description Short Term Impaired Gross Range of Motion Upper Extremity ROM Assessment Left Impaired Lower Extremity ROM Assessment Within Functional Limits Strength Lower Extremity Strength Assessment Within Functional Limits Coordination Assessment Gross Coordination Gross Coordination WNL Sensation Assessment Sensation Gross Sensation Right LE Impaired Left LE Impaired Light Touch Impaired Proprioception (Position) Impaired Muscle Tone Muscle Tone WNL Yes M6 PT-IP Treatment Start: 12/31/18 11:55 Freq: NEEDED Status: Active Protocol: Document 01/01/19 10:21 AB (Rec: 01/01/19 12:19 AB [email or web address]) Physical Therapy Treatment Exercises Exercises Elbow Flexion/Extension Wrist ROM Hand ROM Education Education Provided Precautions Weight Bearing Status Safety Brace Education Donning Yang Patient Caregiver M7 PT-IP Assessment and Plan Start: 12/31/18 11:55 Freq: NEEDED Status: Active Protocol: Document 01/01/19 10:21 AB (Rec: 01/01/19 12:19 AB [email or web address]) PT Summary Assessment and Plan Potential Rehabilitation Potential Fair Summary Impairments Pain ROM Strength Balance Coordination Sensation Tone Cognition Bed Mobility Transfers Gait Activity Tolerance Progress Towards Goals Slow Progress due to Activity Tolerance Assessment Summary caregiver training conducted and pt's son was able to assist pt safely. pt plans to go home today and may go home when medically stable. Goals Bed Mobility Goal Standby Assistance Transfer Goal Standby Assistance Four Wheeled Walker Gait Goal Standby Assistance Four Wheel Walker Gait Distance 100 Days to Meet Goals 5 Frequency of Treatment Frequency Of Treatment Twice a Day Treatment Plan Physical Therapy Treatment Plan Bed Mobility Training Transfer Training Gait Training Therapeutic Exercise Balance Retraining Post Op Education Discharge Planning Hot or Cold Pack Neuromuscular Re-ed Coordination Retraining Manual Therapy Other Recommendations and Next Treatment caregiver training, pendulum Focus exercises Recommendations To Nursing Amount of Assist Needed 1 Person Assist Discharge Recommendations PT Discharge Recommendations Home with Assistance Home Health
--- NOTE | 2019-01-01 10:29 | CM.DANOTE ---
DCP: Case received, EMR reviewed and met with patient. Introduced self and role. Was able to speak to patient and obtain some baseline history and living situation. DCP template completed with information currently available. Patient is a 73 year old female who admitted yesterday morning to the care of the orthopedic team. PCP: Dr. Phillips. Payer: confirmed: Medicare/[employer]. Patient came to the hospital for a surgical procedure. She had a left total shoulder replacement. Patient has history of left shoulder arthritis. She has her son, Eddie, staying with her. She mentioned her son will be helping her when she goes home. She resides in [place], and lives alone. She will be working with P.T. today, and they will be doing caregiver training with son today. P: Patient has discharge orders today. Son will be coming for caregiver training. Tameka Cottrell RN/[employer] Consultant
--- NOTE | 2019-01-01 11:34 | OT.IP.EVAL ---
Current Diagnoses Primary osteoarthritis, right shoulder (12/31/18) Surgery Performed Operation Date: 12/31/18 07:45 Actual Procedures p Total Shoulder Arthroplasty(Left) - Nii Zaragoza MD Past Medical History (Last Updated 07/01/18 @ 14:53 by Casie Conley, RN) Hypercalcemia (Acute) Leukopenia (Inactive) Dementia (Acute) Allergic rhinitis (Chronic Unknown) C. difficile colitis (Chronic) GERD (gastroesophageal reflux disease) (Chronic Unknown) Histoplasmosis (Chronic Unknown) Hypertension (Chronic Unknown) Hypothyroidism (Chronic Unknown) Osteoarthritis (Chronic Unknown) Osteoporosis (Chronic Unknown) Pacemaker (Chronic 09/2012) Restless leg syndrome (Chronic Unknown) Actinic keratosis (Resolved Unknown) Ankle fracture (Resolved 08/2011) Compression fracture of L1 lumbar vertebra (Resolved 10/2012) Episode of syncope (Resolved 09/2012) Fracture of right ulnar styloid (Resolved 2013) Intertrochanteric fracture of right femur (Resolved 2013) Intertrochanteric fracture of right hip (Resolved 2013) Left radial fracture (Resolved 03/2011) Skin cancer (Resolved 1996) Surgical History (Last Updated 12/27/18 @ 10:46 by Casie Conley RN) S/P lumbar fusion (Acute 07/08/18) Status cardiac pacemaker (Acute 09/2012) History of ankle surgery (Resolved 08/2011) History of basal cell carcinoma (BCC) excision (Resolved 1996) History of hip surgery (Resolved 2013) History of knee replacement procedure of left knee (Resolved 09/2009) History of knee replacement procedure of right knee (Resolved 04/2010) History of kyphoplasty (Resolved 10/2012) History of orthopedic surgery (Resolved 03/2011) History of removal of cyst (Resolved 2007) History of thyroid surgery (Resolved 1990) Hx of arthroscopy of knee (Resolved Unknown) Hx of laminectomy (Resolved 10/2008) Hx of tonsillectomy (Resolved ) Occupational Therapy Inpatient Evaluation/Re-Eval M1 PT/OT-IP Prior Functional Status Start: 12/31/18 11:55 Freq: NEEDED Status: Active Protocol: Document 01/01/19 11:34 EDINSON (Rec: 01/01/19 17:22 EDINSON [id number]) Medical Review Prior Functional Status Medical History Reviewed Yes Diet/Fluid Consistency Regular Communication Pt able to make needs known. Mobility and Gait Pt states that she is modified independent with ambulation using a 4WW. Her son lives with her and provides close supervision due to memory deficits. Activities of Daily Living and IADL's Per son, pt was SBA to independent with basic self care, except he sometimes assists with socks and shoes. Son does all IADLS, driving and he and his brother provide 24 hr supervision for pt. Prior Functional Level (Other details) Son states he will hire bath aid to assist pt with bathing after this surgery. Social History Household Members children Living Arrangements House Number of Floors (Floors) One Floor Number of Stairs To Enter/Railing? No stairs to enter Home Environment High Toilet Walk in Shower Home Equipment Four Wheel Walker Shower Seat with Backrest Hand Held Shower Grab Bars Near Toilet Grab Bars In Shower Employment Status Retired Additional Social History Comment Pt's son has lived with pt for 5 years to assist her due to memory deficits. M2 OT-IP Current Condition Start: 01/01/19 16:59 Freq: Status: Active Protocol: Document 01/01/19 11:34 PJKellen (Rec: 01/01/19 17:22 PJ [id number]) Occupational Therapy Current Condition Current Condition Evaluation Date 01/01/19 Treatment Diagnosis decreased self care and mobility s/p L TSA Diagnosis Onset Date 12/31/18 Post Operative Precautions Shoulder Precautions Sling Internal Rotation to Body No External Rotation No Abduction Forward Flexion to 90 degrees Pendulums Weight Bearing Status Weight Bearing Status Non-Weight Bearing Allowed Weight Bearing Amount (enter % LUE or #) (%) M3 OT- IP Subjective and Pain Start: 01/01/19 16:59 Freq: Status: Active Protocol: Document 01/01/19 11:34 PJKellen (Rec: 01/01/19 17:22 PJ [id number]) OT- Subjective Occupational Therapy Visit Type Type Initial Evaluation Visit Start Time 10:59 Visit Stop Time 11:34 Total Visit Minutes 35 Notes Son here for education this session. Occupational Therapy Visit Comments Patient Comments Now what are we doing? Patient/Caregiver Goals none verbalized this session OT Pain Assessment Pain When Pain Assessed After Treatment Pain Present Pain Present Pain Reported Location Left Shoulder Intensity 6 Scale Used Numeric (1 - 10) Description Aching Acute Pain Behaviors Facial Grimacing Management Techniques Distraction Re-positioning Timing of Activity with Medications M4 OT- IP ADL's Start: 01/01/19 16:59 Freq: Status: Active Protocol: Document 01/01/19 11:34 PJM (Rec: 01/01/19 17:22 PJM [id number]) OT LFI-Wylo-Hpyybml General Evaluation Self-Feeding Ability Standby Assistance Areas Needing Assistance Cutting Food Opening Containers Comments OT Self-Feeding Comments pt needs set up due to unilateral function; she is R dominant OT ADL-Grooming General Evaluation Grooming Ability Standby Assistance Areas Needing Assistance Retrieving/Set-up of Grooming Items Face Washing OT ADL-Oral Care General Eval Oral Care Ability Standby Assistance Areas of Assistance Retrieving/Set-Up of Items Comments Oral Care Comments pt/son educated that she can use L hand to stabilize lt objects within sling OT ADL-Dressing General Eval Upper Body Dressing Ability Maximum Assistance Lower Body Dressing Ability Maximum Assistance Areas Needing Assistance Button-Up Shirt/Blouse Pants/Shorts Socks Shoes Comments OT Dressing Comments Provided education to pt/son re: L shoulder precautions, sequence and technique for upper and lower body dressing including donning/doffing sling. Son able to assist pt appropriately with all dressing tasks including sling . OT ADL-Toileting Comments OT Toileting Comments did not occur this session; son can assist with clothing management and balance PRN, pt does terri care with R hand. OT ADL-Bathing Comments OT Bathing Comments provided education re: precautions and technique; son plans to hire bath aide M5 OT- IP IADL's Start: 01/01/19 16:59 Freq: Status: Active Protocol: Document 01/01/19 11:34 PJKellen (Rec: 01/01/19 17:22 PJ [id number]) OT-Instrumental Activities of Daily Living Deficits IADL Deficits Identified Deficits Home Safety Awareness Awareness of Need for Assistance at Home Decreased Awareness Ability to Problem Solve Emergency Unable to Problem Solve Situations Home Safety Comments son does all IADLS at home Medication Management Medication Management Caregiver Administers Money Management Money Management Caregiver Provides Assistance Meal Preparation Meal Preparation Caregiver Provides Assist Fence Repairman Fence Repairman Caregiver Provides Assist Driving Driving Caregiver Provides Assist M6 OT- IP Functional Cognition Start: 01/01/19 16:59 Freq: Status: Active Protocol: Document 01/01/19 11:34 PJKellen (Rec: 01/01/19 17:22 PJM [id number]) Cognitive Factors Limiting Selfcare Function Cognitive Ability Patient Orientation Name Place Attention Span Ability Capable of Focused Attention Unable to Sustain Attention Ability to Follow Commands Able to Follow One Step Commands Memory Description Immediate Impaired Short Term Impaired Safety Awareness Decreased Recall of Precautions Decreased Ability to Apply Precautions Underestimates Need for Assistance Problem Solving Ability Unable to Identify Errors Needs Assist to Identify Solutions Executive Function Ability Unable to Organize Plans Unable to Remember Details Cognitive Comments Cognitive Assessment Comments Pt has hx of dementia and will need close supervision during all waking hours to ensure adherence to L shoulder precautions. Son verbalizes understanding. OT- Vision and Hearing OT- Hearing Assessment OT- Hearing Assessment Hearing Impaired OT- Vision Assessment Visual Acuity WFL Vision Assessment Comments Pt appears SHOALWATER and asks therapist to repeat some information. M7 OT- IP Mobility and Balance Start: 01/01/19 16:59 Freq: Status: Active Protocol: Document 01/01/19 11:34 PJKellen (Rec: 01/01/19 17:22 [facility] [email or web address]) OT- Bed Mobility Assessment Rolling Type of Rolling Roll to Right Level of Assistance Standby Assistance Supine to Sit Supine to Sit Assist Contact Guard Assistance Scooting Scooting to Edge of Bed Standby Assistance OT-Transfer Assessment Sit to and From Stand Sit to and from Stand Contact Guard Assistance Transfers Transfer Ability Minimal Assistance Technique Transfer Destination Chair Transfer Technique Stand Step Pivot Devices Transfer Assistive Devices Gait Belt 4 Wheeled Walker Comments Mobility Comments pt needs min assist to steer 4WW with LUE sling in palce, son to assist PRN at home; pt unsteady on turns OT- Gait Assessment Gait Gait Assistance Required: Minimum Assistance Distance (Feet) 15 Assistive Devices Assistive Device Gait Belt 4 Wheeled Walker Comments Gait Ability Comments needs assist to steer 4WW OT- Balance Assessment Sitting Balance and Reactions Static Sitting Balance Ability Good Dynamic Sitting Balance Ability Fair Standing Balance and Reactions Static Standing Balance Ability Good Dynamic Standing Balance Ability Fair M8 OT- IP Objective Assessments Start: 01/01/19 16:59 Freq: Status: Active Protocol: Document 01/01/19 11:34 PJKellen (Rec: 01/01/19 17:22 PJ [id number]) OT Gross Range of Motion Upper Extremity Range of Motion Assessment Left Impaired ROM Impairments Provided education and written instructions re: L shoulder pendulums and distal AROM exercises for elbow, forearm, wrist and fingers when sling off for dressing/bathing. Son verbalizes understanding and pt demonstrates exercises correctly with mod verbal cues and CGA. RUE WFL throughout OT Strength Upper Extremity Strength Assessment Left Impaired Shoulder NT Elbow at least 3/5 Forearm at least 3/5 Wrist at least 3/5 Hand 3+/5 Hand Complex Human Resources Manager Strength Hand Dominance Right OT- Coordination Assessment Comments Coordination Comments L UE in sling, L hand appears WFL for use within sling OT-Muscle Tone Assessment Muscle Tone WNL Yes OT Sensation Assessment Comments Summary Comments Pt detects lt touch in LUE/ hand, RUE WNL Edema Edema Present Edema Comments min edema in L fingers, provided education re: edema control M9 OT- IP Assessment and Plan Start: 01/01/19 16:59 Freq: Status: Active Protocol: Document 01/01/19 11:34 PJM (Rec: 01/01/19 17:22 PJM [id number]) OT Summary Assessment and Plan Potential Rehabilitation Potential Good Analytic Complexity at Evaluation Low Summary OT Impairments Pain Range of Motion Strength Balance Coordination Functional Cognition Functional Mobility Self-Feeding Grooming Dressing Toileting Bathing Toilet Transfers Shower Transfers Progress Towards Goals Safe For Discharge Assessment Summary Low complexity OT assessment completed on this 73 yr old pt with hx of dementia s/p L TSA . Pt currently requires significant assistance with all self care and functional mobility as described above. Her son lives with her and he and his brother can provide close supervision during all waking hours as needed for safety during her recovery. He will hire bath aide. Son verbalizes and demonstrates understanding of all education today. No further acute care OT services needed. Frequency of Treatment Frequency Of Treatment Discharge Discharge Recommendations OT Discharge Recommendations Home with 24/ Assist
--- NOTE | 2019-01-01 13:44 | PC.NURSE ---
Discharge: Son here for teaching, saw PT/OT and received their final instructions. Pt feels ready to d/c home. Is sl disoriented to events and time but does know she is here in the hospital and had surgery. Reviewed d/c instructions w/pt and son. Rx given. Seen by Dr. Zaragoza this am and received his final instructions. Hemovac d/c intact. IV out. Wound care instructions given to son and patient. Pt d/c home via auto w/son.
--- NOTE | 2019-01-03 15:55 | CM.SWNOTE ---
Patient left a message on care management line that she wanted assistance with obtaining HH, PT and SYNTHETIC SOIL BLOCKS PULPER. She had been discharged on 01/01 with a plan for son to provide all caregiving, and no Home Health needed. Pt has a hx of severe dementia. SERVICE PLANNER attempted several times to call son and relay that she was calling here asking for assistance, however the line was busy each time, with no voicemail option. Dr. Urena was ortho surgeon.
== END 2019-01-01 12:15 | disposition home or self-care (01) | DRG 483 ==
PROVIDERS: Admitting Provider Orthopaedic Surgery; PCP Family Medicine; Visit Provider Orthopaedic Surgery
PROC: 0RRK0JZ Replacement of Left Shoulder Joint with Synthetic Substitute, Open Approach (ICD-10-PCS; CPT 23472; principal; 2018-12-31 07:45)
DX: M19.012 Primary osteoarthritis, left shoulder (principal); I45.2 Bifascicular block; M06.9 Rheumatoid arthritis, unspecified; E03.9 Hypothyroidism, unspecified; I10 Essential (primary) hypertension; E78.5 Hyperlipidemia, unspecified; R00.2 Palpitations; Z95.0 Presence of cardiac pacemaker; Z86.73 Personal history of transient ischemic attack (TIA), and cerebral infarction without residual deficits; Z87.891 Personal history of nicotine dependence
CPT/HCPCS: 36415; 64450; 73030; 85014; 85018; 97162; 97165; 97530; 97535; C1776; J1100; J2250; J2270; J2405; J2704; J3010

== ENCOUNTER 2019-01-04 11:46 | Emergency (ER) | payer MEDICARE, OTHER, SELFPAY ==
[2018-12-31 12:11] VITALS: BMI 28.7
--- NOTE | 2019-01-04 12:07 | DI.RAD.S_ITS ---
PROCEDURE: XR SHOULDER LT MIN 2V INDICATIONS: fall TECHNIQUE: 2 views of the shoulder were acquired. COMPARISON: [facility], CR, XR SHOULDER LT MIN 2V, 12/31/2018, 10:34. FINDINGS: Bones: Postoperative changes are present related to previous total left shoulder arthroplasty. No periprosthetic fractures are evident. No prostatic lucencies are evident. Prominent degenerative changes of the imaged spine are present. Areas of vertebroplasty change are present. Soft tissues: No suspicious soft tissue calcifications. With a cardiac pacer is present. There is aortic atherosclerosis. There may be atelectasis at the left lung base. IMPRESSION: No acute fracture of the left shoulder is evident: Status post left shoulder arthroplasty. Dictated by: Jorge Bravo M.D. on 01/04/2019 at 11:33 Approved by: Jorge Bravo M.D. on 01/04/2019 at 11:36
[2019-01-04 12:08] VITALS: BP 113/70; PULSE 89; RESP 13; TEMP 37.3; O2SAT 95
--- NOTE | 2019-01-04 12:49 | ED.UPPEXIN ---
HPI - Extremity Injury (Upper) General Chief Complaint: Extremity Injury, Upper Stated Complaint: fell on left shoulder surgey on it this past tu Time Seen by Provider: 01/04/19 12:12 Source: patient Mode of arrival: wheelchair Limitations: no limitations History of Present Illness HPI narrative: Patient is a 73-year-old female who presents with left shoulder pain. She is postop left shoulder arthroplasty 4. She says last evening she sort of crumpled and bumped her shoulder she had increased pain. She has felt weak since his surgery no fever or chills. She has no numbness or tingling in her hand. MD complaint: injury to: left and shoulder Related Data Home Medications Medication Instructions Recorded Confirmed cholecalciferol (vitamin D3) 400 unit PO DAILY #0 04/13/10 12/31/18 [Vitamin D3] multivitamin 1 cap PO DAILY #0 04/13/10 12/31/18 omega 3-pjs-nwg-fish oil [Fish Oil] 1 tab PO DAILY #0 04/13/10 12/31/18 ascorbic acid (vitamin C) [Vitamin 1,000 mg PO DAILY #0 09/10/11 12/31/18 C] Ocuvite 1 cap PO DAILY 04/17/18 12/31/18 metoprolol succinate 50 mg PO BEDTIME 07/01/18 12/31/18 ezetimibe [Zetia] 10 mg PO BEDTIME 12/31/18 12/31/18 ropinirole [Requip] 4 mg PO BEDTIME 12/31/18 12/31/18 Previous Rx's Medication Instructions Recorded morphine ER 15 mg tablet,oral ONLY 15 mg PO ONCE PRN #9 tab 08/14/18 (not feeding tubes) levothyroxine 88 mcg capsule 88 mcg PO DAILY #90 cap 09/20/18 duloxetine 60 mg capsule,delayed 60 mg PO DAILY #90 cap 12/16/18 release clopidogrel 75 mg tablet 75 mg PO DAILY #90 tab 12/20/18 pantoprazole 40 mg tablet,delayed 40 mg PO DAILY #90 tab 12/20/18 release trazodone 50 mg tablet 50 mg PO BEDTIME #90 tab 12/20/18 alprazolam 1 mg tablet 1 mg PO BEDTIME PRN #30 tab 12/31/18 oxycodone 5 mg PO Q3HR PRN #30 tab 01/01/19 Allergies Allergy/AdvReac Type Severity Reaction Status Date / Time adhesive Allergy Severe Redness, Verified 12/25/18 10:51 rash chlorhexidine Allergy Severe Redness, Verified 12/25/18 10:51 itching procaine [From Novocain] Allergy Severe Swelling, Verified 12/25/18 10:51 itching, pain acetaminophen Allergy Intermediate LIVER/PANCREAS Verified 12/25/18 10:51 PAIN Penicillins Allergy Intermediate REDNESS Verified 12/25/18 10:51 AND SWELLING clobetasol Allergy Mild ITCHING Verified 12/25/18 10:51 aspirin [ASPIRIN] Allergy Unknown I get Verified 12/25/18 10:51 pancreatitis hydromorphone Allergy Pt does Verified 12/25/18 10:51 not recall reaction hydrocodone AdvReac Severe It will Verified 12/25/18 10:51 give me pancreatitis oxycodone AdvReac Severe Confusion Verified 12/25/18 10:51 lidocaine AdvReac Intermediate DIARRHEA/VO Verified 12/25/18 10:51 MITING ciprofloxacin AdvReac Mild CHILLS,FEVE Verified 12/25/18 10:51 R,DIARRHEA erythromycin base AdvReac Mild VOMITING,DI Verified 12/25/18 10:51 ARRHEA gabapentin AdvReac Mild CONFUSION, Verified 12/25/18 10:51 DELUSIONS ondansetron AdvReac Mild HALLUCINATI Verified 12/25/18 10:51 ONS promethazine AdvReac Mild AGITATION, Verified 12/25/18 10:51 CONFUSION simethicone AdvReac Mild CONFUSION Verified 12/25/18 10:51 cefuroxime AdvReac Unknown Vomiting Verified 12/25/18 10:51 diarrhea Sulfa (Sulfonamide AdvReac Unknown Pt does Verified 12/25/18 10:51 Antibiotics) not recall reaction Review of Systems Review of Systems GENERAL: Denies chills,fever HEENT: Denies throat pain RESPIRATORY: Denies dyspnea, cough, wheezing CARDIOVASCULAR: Denies chest pain, palpitations GASTROINTESTINAL: Denies nausea, vomiting MUSCULOSKELETAL: See HPI SKIN: No rash, no laceration, no pruritus NEUROLOGIC: Denies weakness, dizziness, headache, numbness 8 point review of systems is negative except for those stated above and HPI PFSH Medical History Hypercalcemia (Acute) Leukopenia (Inactive) Dementia (Acute) Allergic rhinitis (Chronic Unknown) C. difficile colitis (Chronic) GERD (gastroesophageal reflux disease) (Chronic Unknown) Histoplasmosis (Chronic Unknown) Hypertension (Chronic Unknown) Hypothyroidism (Chronic Unknown) Osteoarthritis (Chronic Unknown) Osteoporosis (Chronic Unknown) Pacemaker (Chronic 09/2012) Restless leg syndrome (Chronic Unknown) Actinic keratosis (Resolved Unknown) Ankle fracture (Resolved 08/2011) Compression fracture of L1 lumbar vertebra (Resolved 10/2012) Episode of syncope (Resolved 09/2012) Fracture of right ulnar styloid (Resolved 2013) Intertrochanteric fracture of right femur (Resolved 2013) Intertrochanteric fracture of right hip (Resolved 2013) Left radial fracture (Resolved 03/2011) Skin cancer (Resolved 1996) Surgical History S/P lumbar fusion (Acute 07/08/18) Status cardiac pacemaker (Acute 09/2012) History of ankle surgery (Resolved 08/2011) History of basal cell carcinoma (BCC) excision (Resolved 1996) History of hip surgery (Resolved 2013) History of knee replacement procedure of left knee (Resolved 09/2009) History of knee replacement procedure of right knee (Resolved 04/2010) History of kyphoplasty (Resolved 10/2012) History of orthopedic surgery (Resolved 03/2011) History of removal of cyst (Resolved 2007) History of thyroid surgery (Resolved 1990) Hx of arthroscopy of knee (Resolved Unknown) Hx of laminectomy (Resolved 10/2008) Hx of tonsillectomy (Resolved Unknown) Family History Mother Leukemia Social History marital status: details: States she was within the last 4 years and was then number of children: 3 household members: children lives independently: No (with 2 grown sons) caregiver/support person: Yes (son) housing: house occupational status: unemployed current occupational exposures/hazards: No Smoking Status: Former smoker alcohol intake: current Type(s) of exercise: assisted ambulation (with seated walker) additional social history: Father and brother with diabetes Mother with leukemia Family History Mother Leukemia Social History marital status: details: States she was within the last 4 years and was then number of children: 3 household members: children lives independently: No (with 2 grown sons) caregiver/support person: Yes (son) housing: house occupational status: unemployed current occupational exposures/hazards: No Smoking Status: Former smoker alcohol intake: current Type(s) of exercise: assisted ambulation (with seated walker) additional social history: Father and brother with diabetes Mother with leukemia Exam Initial Vital Signs Initial Vital Signs: Vital Signs Temperature 99.2 F 01/04/19 12:08 Pulse Rate 89 01/04/19 12:08 Respiratory Rate 13 01/04/19 12:08 Blood Pressure 113/70 01/04/19 12:08 Pulse Oximetry 95 01/04/19 12:08 GENERAL: Well-appearing, well-nourished and in no acute distress. HEENT: Head atraumatic,EOMI, pupils reactive, face symmetric, moist mucous membranes CARDIOVASCULAR: Regular rate and rhythm without murmurs, rubs or gallops. RESPIRATORY: Breath sounds equal bilaterally, no wheezes rales or rhonchi. ABDOMEN: Soft, nontender. Normoactive bowel sounds all 4 quadrants. No guarding or rebound. EXTREMITIES: Normal range of motion, no clubbing or edema. Neurovascularly intact Left shoulder dressing in attack no erythema around the incision sites. 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 Cranial nerves II through XII grossly intact. SKIN: Warm, dry, no laceration, no petechiae, no rashes or lesions. Course Orders Ordered: ED Orders 01/04/19 12:07 XR shoulder LT min 2V Stat Vital Signs - 8 hr 01/04/19 12:08 Temperature 99.2 F Pulse Rate 89 Respiratory Rate 13 Blood Pressure 113/70 Pulse Oximetry 95 MDM - Extremity Injury (Upper) Imaging Data Left shoulder: Radiologist's impression: PROCEDURE: XR SHOULDER LT MIN 2V INDICATIONS: fall TECHNIQUE: 2 views of the shoulder were acquired. COMPARISON: [facility], JOSE ELIAS, XR SHOULDER LT MIN 2V, 12/31/2018, 10:34. FINDINGS: Bones: Postoperative changes are present related to previous total left shoulder arthroplasty. No periprosthetic fractures are evident. No prostatic lucencies are evident. Prominent degenerative changes of the imaged spine are present. Areas of vertebroplasty change are present. Soft tissues: No suspicious soft tissue calcifications. With a cardiac pacer is present. There is aortic atherosclerosis. There may be atelectasis at the left lung base. IMPRESSION: No acute fracture of the left shoulder is evident: Status post left shoulder arthroplasty. Dictated by: Jorge Bravo M.D. on 01/04/2019 at 11:33 Discharge Plan Departure Patient Disposition: Home Clinical Impression: Acute pain of left shoulder Discharge Date/Time: 01/04/19 13:01 Interventions: ED Discharge Assessment Last Done: 01/04/19 13:01 Instructions: DI for Postoperative Pain Activity Restrictions/Additional Instructions: *You have been diagnosed with left shoulder pain *What to do: X-ray is negative today *Continue to take medications as directed *Follow up with your primary care provider in 2-3 days follow up with Orthopedics as previously scheduled *Return to ER if you should have redness, fever more than 100.4, hand weakness numbness tingling increased pain or any new, worsening or concerning symptoms Prescriptions: No Action multivitamin Capsule 1 cap PO DAILY Qty: 0 RF: 0 cholecalciferol (vitamin D3) [Vitamin D3] 400 unit Capsule 400 unit PO DAILY Qty: 0 RF: 0 omega 6-zua-fyz-fish oil [Fish Oil] 1,000 mg (120 mg-180 mg) Capsule 1 tab PO DAILY Qty: 0 RF: 0 ascorbic acid (vitamin C) [Vitamin C] 1,000 mg Tablet Extended Release 1,000 mg PO DAILY Qty: 0 RF: 0 morphine 15 mg tablet extended release 12hr 15 mg PO ONCE PRN (Reason: back pain) Qty: 9 RF: 0 Tirosint 88 mcg capsule 88 mcg PO DAILY Qty: 90 RF: 3 duloxetine 60 mg capsule,delayed release(DR/EC) 60 mg PO DAILY Qty: 90 RF: 1 clopidogrel [Plavix] 75 mg tablet 75 mg PO DAILY Qty: 90 RF: 2 pantoprazole 40 mg tablet,delayed release (DR/EC) 40 mg PO DAILY Qty: 90 RF: 2 trazodone 50 mg tablet 50 mg PO BEDTIME Qty: 90 RF: 2 alprazolam 1 mg tablet 1 mg PO BEDTIME PRN (Reason: sleep) Qty: 30 RF: 0 ropinirole [Requip] 4 mg tablet 4 mg PO BEDTIME RF: 0 ezetimibe [Zetia] 10 mg tablet 10 mg PO BEDTIME RF: 0 oxycodone 5 mg Tablet 5 mg PO Q3HR PRN (Reason: Pain, Moderate (4-6)) Qty: 30 RF: 0 Ocuvite [id number] di-muqm-[id number]-mg Capsule 1 cap PO DAILY RF: 0 metoprolol succinate 25 mg tablet extended release 24 hr 50 mg PO BEDTIME RF: 0 Referrals: Jenna Phillips MD [Primary Care Provider] -
== END 2019-01-04 13:01 | disposition home or self-care (01) ==
PROVIDERS: Emergency Provider Emergency Medicine; PCP Family Medicine
DX: M25.512 Pain in left shoulder (principal)
CPT/HCPCS: 73030; 99282; 99283

== ENCOUNTER 2019-03-21 06:23 | Day surgery (SDC) | payer MEDICARE, OTHER, SELFPAY ==
[2018-12-31 12:11] VITALS: BMI 28.7
[2019-03-17 12:27] VITALS: BMI 30.5
[2019-03-21 07:10] VITALS: BP 160/95; PULSE 73; RESP 15; TEMP 36.3; O2SAT 99; BMI 28.0
--- NOTE | 2019-03-21 07:25 | PM.PREOP ---
Pre-operative Note Interval Note History & Physical reviewed/Exam performed by Physician: Yes Changes to H&P: No H&P completed within 30 days and has changed as indicated here:: see outpt 03/19 note
--- NOTE | 2019-03-21 07:29 | SUR.OPER ---
Lithotomy on padded OR bed, head on pillow, arms secured on padded arm boards at <90 degrees abduction. Legs secured in padded yellow fins stirrups.
[2019-03-21] MEDS: LACTATED RINGERS 1,000 ML 100 ML IV (07:38)
[2019-03-21] MEDS: CLINDAMYCIN 900 MG/50 ML PIGGYBACK 50 MG IV (07:54)
[2019-03-21] MEDS: BUPIVACAINE 0.5% W/ EPI (PF) VIAL 30 ML INJ (08:06)
--- NOTE | 2019-03-21 09:04 | P.OP_ITS ---
Operative Date/Time/Diagnoses Date of procedure: 03/21/19 Time of procedure: 09:05 Pre-op diagnosis: Symptomatic cystocele Post-op diagnosis: same Procedure & Clinicians Procedure: Colpocleisis Same procedure as scheduled: Yes Indications: Patient with symptomatic cystocele Surgeon: Juliane Walters Click Yes if Unassisted: Yes Anesthesia Type: General Operative Notes Findings: Cystocele, rectocele and enterocele Closure Type: primary Specimen(s): none sent Estimated Blood Loss (mL): 25 Blood products transfused: none Procedure in detail: - Patient was brought to the operating room where she was in a supine position in [facility] and underwent a light general anesthetic. She was prepped and draped in the usual sterile fashion. Patient was not catheterized if she urinated prior to the procedure. 900 mg of clindamycin were in prior to beginning of the case. Warming was in place. Pulsatile stockings were in place. Area on anterior and posterior wall of the prolapse were marked with a marking pen and injected with half percent Marcaine with epinephrine. The skin was incised with a scalpel and undermined with and removed removed with Metzenbaum scissors. Bleeding was controlled with the Bovie. 2-0 Vicryl suture was used in an interrupted fashion to close anterior to posterior on the right side. The anterior posterior vaginal tissue was closed deep in the vagina followed by the left side. The vaginal tissue was then closed anteriorly. Counts of instruments and sponges were correct. Patient went to recovery room in good condition. Complications: none Post-operative Condition: stable Disposition: same day surgery Plan for aftercare: Home when awake and stable
[2019-03-21 09:05] VITALS: BP 143/86; PULSE 65; RESP 12; TEMP 36.7; O2SAT 95
[2019-03-21 09:10] VITALS: BP 140/88; PULSE 65; RESP 10; O2SAT 92
[2019-03-21 09:20] VITALS: BP 116/89; PULSE 64; RESP 12; TEMP 36.7; O2SAT 93
== END 2019-03-21 09:42 | disposition home or self-care (01) ==
PROVIDERS: PCP Family Medicine; Visit Provider Specialist
PROC: (CPT 57120; principal; 2019-03-21 07:45)
DX: N81.10 Cystocele, unspecified (principal); N81.6 Rectocele; M54.5 Low back pain
CPT/HCPCS: 57120; J2704; J3010

== ENCOUNTER → 2019-04-07 10:03 | Outpatient (CLI) | payer MEDICARE, OTHER, SELFPAY ==
[2019-03-24 10:53] VITALS: BMI 28.7
--- NOTE | 2019-04-07 | DI.CT.S_ITS ---
PROCEDURE: CT HEAD/BRAIN WO CON INDICATIONS: headaches TECHNIQUE: Noncontrast 4.5 mm thick angled axial sections acquired from the foramen magnum to the vertex, with coronal and sagittal reformats. For radiation dose reduction, the following was used: automated exposure control, adjustment of mA and/or kV according to patient size. COMPARISON: [facility], CT, CT HEAD/BRAIN WO CON, 04/17/2018, 0:54. FINDINGS: Image quality: Excellent. CSF spaces: Basal cisterns are patent. No extra-axial fluid collections. The ventricles are symmetric in size and shape. Brain: No intracranial bleeds or masses. There is cerebral volume loss for age, with resultant ventricular and sulcal prominence. There are periventricular and deep white matter chronic small vessel ischemic changes. There is intracranial internal carotid artery atherosclerosis. Skull and face: Calvarium and visualized facial bones appear intact, without suspicious lesions. Sinuses: Visualized sinuses and mastoids are clear. IMPRESSION: Normal for age, source of current headache symptoms is not seen. Dictated by: Mike Kim M.D. on 04/07/2019 at 10:42 Approved by: Mike Kim M.D. on 04/07/2019 at 10:43
== END ==
PROVIDERS: PCP Family Medicine; Visit Provider Internal Medicine
DX: R51 Headache (principal)
CPT/HCPCS: 70450

== ENCOUNTER → 2019-04-16 13:05 | Outpatient (CLI) | payer MEDICARE, OTHER, SELFPAY ==
[2019-03-24 10:53] VITALS: BMI 28.7
[2019-04-16 13:34] LABS: Add Manual Diff / Slide Review NO; Basophils Absolute Auto 0 /uL (0-100); Basophils Percent Auto 0.8 % (0-2); Eosinophils Absolute Auto 200 /uL (0-450); Hematocrit 32.5 % (36-46); Hemoglobin 10.5 g/dL (12.0-16.0); Lymphocytes Absolute Auto 800 /uL (1100-4500); Lymphocytes Percent Auto 26.5 % (25-40); Mean Corpuscular HGB Conc 32.2 % (30-36); Mean Corpuscular Hemoglobin 26.3 PG (26-34); Mean Corpuscular Volume 81.7 fL (80-100); Monocytes Absolute Auto 400 /uL (0-900); Neutrophils Absolute Auto 1700 /uL (1500-7000); Neutrophils Percent Auto 51.7 % (50-75); Platelet Count 246 X10^3/uL (150-400); Red Blood Cell Count 3.98 X10^6/uL (4.0-5.2); Red Cell Distribution Width 19.3 % (11.6-14.8); White Blood Cell Count 3.2 X10^3/uL (4.5-11.0)
[2019-04-16 14:17] LABS: Thyroid Stimulating Hormone 1.13 uIU/mL (0.47-4.68)
== END ==
PROVIDERS: PCP Family Medicine; Visit Provider Family Medicine
DX: R61 Generalized hyperhidrosis (principal)
CPT/HCPCS: 36415; 84443; 85025

== ENCOUNTER → 2019-07-04 13:41 | Outpatient (CLI) | payer MEDICARE, OTHER, SELFPAY ==
[2019-03-24 10:53] VITALS: BMI 28.7
--- NOTE | 2019-07-04 | DI.MG.S_ITS ---
BILATERAL DIGITAL SCREENING MAMMOGRAM 3D/2D WITH CAD: 07/04/2019 CLINICAL: Routine screening. Comparison is made to exams dated: 02/13/2017 mammogram, 02/07/2016 mammogram, and 02/03/2015 mammogram - [facility]. The tissue of both breasts is heterogeneously dense. This may lower the sensitivity of mammography. Current study was also evaluated with a Computer Aided Detection (CAD) system. No significant masses, calcifications, or other findings are seen in either breast. There has been no significant interval change. IMPRESSION: NEGATIVE There is no mammographic evidence of malignancy. A 1 year screening mammogram is recommended. This exam was interpreted at Station ID: [id number]. NOTE: For mammograms, a report in lay terms will be sent to the patient. Approximately 15% of breast malignancies will not be visualized mammographically. In the management of a palpable breast mass, a negative mammogram must not discourage biopsy of a clinically suspicious lesion. Electronically Signed By: John campos/lily:07/04/2019 16:29:22 copy to: SHANICE HARE letter sent: Normal Exam ACR BI-RADS Category 1: Negative 3341F
== END ==
PROVIDERS: PCP Family Medicine; Referring Provider Family Medicine; Visit Provider Family Medicine
DX: Z12.31 Encounter for screening mammogram for malignant neoplasm of breast (principal)
CPT/HCPCS: 77063; 77067

== ENCOUNTER → 2019-10-16 11:58 | Outpatient (CLI) | payer MEDICARE, OTHER, SELFPAY ==
[2019-03-24 10:53] VITALS: BMI 28.7
--- NOTE | 2019-10-16 12:00 | DI.US.S_ITS ---
PROCEDURE: US CAROTID DOPPLER BI INDICATIONS: VISION CHANGES TECHNIQUE: Color and pulse Doppler interrogation was performed of both carotid systems, with image documentation and velocity measurements. COMPARISON: [facility], US, CAROTID ARTERY DOPPLER BILAT, 02/04/2015, 8:36. FINDINGS: Stenosis calculations are based on SRU (Society of Radiologists in Ultrasound) criteria. Right side: Brachial blood pressure: 134/85 mm Hg. Common carotid artery peak systolic velocity: 73 cm/sec. Internal carotid artery peak systolic velocity: 36 cm/sec. Internal carotid artery end diastolic velocity: 14 cm/sec. External carotid artery peak systolic velocity: 47 cm/sec. ICA/CCA peak systolic ratio: 0.5. Jimenes scale imaging description: Minimal scattered plaque. Percent internal carotid artery stenosis: Less than 50%. Vertebral artery: Flow direction is antegrade. Left side: Brachial blood pressure: 130/89 mm Hg. Common carotid artery peak systolic velocity: 81 cm/sec. Internal carotid artery peak systolic velocity: 44 cm/sec. Internal carotid artery end diastolic velocity: 17 cm/sec. External carotid artery peak systolic velocity: 35 cm/sec. ICA/CCA peak systolic ratio: 0.5. Jimenes scale imaging description: Minimal scattered plaque. Percent internal carotid artery stenosis: Less than 50%. Vertebral artery: Flow direction is antegrade. IMPRESSION: Stable less than 50% bilateral internal carotid artery stenosis. Dictated by: Markus Junior [facility] Interpreted: Xavier Blanco MD on 10/16/2019 at 13:12 Approved by: Xavier Blanco M.D. on 10/16/2019 at 15:45
== END ==
PROVIDERS: PCP Family Medicine; Referring Provider Family Medicine; Visit Provider Family Medicine
DX: I65.23 Occlusion and stenosis of bilateral carotid arteries (principal); H53.9 Unspecified visual disturbance; Z86.69 Personal history of other diseases of the nervous system and sense organs
CPT/HCPCS: 93880

== ENCOUNTER → 2019-11-24 11:56 | Outpatient (CLI) | payer MEDICARE, OTHER, SELFPAY ==
[2019-03-24 10:53] VITALS: BMI 28.7
--- NOTE | 2019-11-24 | DI.CT.S_ITS ---
PROCEDURE: CT LUMBAR SPINE WO CON INDICATIONS: Spinal stenosis, lumbar region without neurogenic claudication. TECHNIQUE: Noncontrast 3 mm thick sections acquired from the T12 level to the sacrum. Sagittal and coronal reformats were constructed. For radiation dose reduction, the following was used: automated exposure control. COMPARISON: [facility], CT, CT CHEST W CON, 04/17/2018, 0:54. [facility] [place], CR, XR LUMBAR SPINE 2 OR 3 VIEWS, 07/03/2019, 14:50. [facility] [place], CR, XR LUMBAR SPINE 2 OR 3 VIEWS, 12/25/2018, 13:17. [facility], MR, MR LUMBAR SPINE WITHOUT CONTRAST, 02/27/2018, 12:31. FINDINGS: Image quality: Excellent. Bones: Postsurgical changes compatible with L4-S1 TLIF. Orthopedic hardware is intact. No lucencies identified the bone-hardware interface. Postprocedural changes compatible with L1 percutaneous vertebroplasty. There is mild L4-L5 anterolisthesis. There is trace L3-L4 retrolisthesis. Chronic L1 compression fracture No acute vertebral body compression fractures. No suspicious lytic or blastic bony lesions. Central spinal caliber is of normal overall caliber. No pars defects. T12-L1: Disc height is normal. Vacuum disc phenomenon. Moderate, diffuse disc bulge. Mildly retropulsed fragment associated with the L1 compression deformity. Moderate ligamentum flavum hypertrophy. Mild bilateral facet hypertrophy. Moderate narrowing of the central canal. Mild right and moderate left neural foraminal narrowing. No definite neural compression. L1-L2: Loss of disc height. Vacuum disc phenomenon. Mild, diffuse disc bulge. Mild bilateral facet hypertrophy. Mild ligamentum flavum hypertrophy. Mild narrowing of the central canal. Mild right and severe left neural foraminal narrowing with compression of the exiting left L1 nerve root. L2-L3: Loss of disc height. Vacuum disc phenomenon. Posterior endplate osteophytosis. Mild to moderate bilateral facet hypertrophy. Moderate ligamentum flavum hypertrophy. Moderate narrowing of the central canal. Mild right and moderate left neural foraminal narrowing. No definite neural compression. L3-L4: Loss of disc height. Vacuum disc phenomenon. Mild to moderate bilateral facet hypertrophy. Moderate ligamentum flavum hypertrophy. Moderate to severe narrowing of the central canal. Moderate bilateral neural foraminal narrowing. No definite neural compression. L4-L5: Status post fusion. Moderate right and mild left facet hypertrophy. Mild narrowing of the central canal. Moderate right and mild left neural foraminal narrowing. No definite neural compression. L5-S1: Status post fusion. Mild bilateral facet hypertrophy. No central stenosis. Moderate right and mild left neural foraminal narrowing. No definite neural compression. Soft tissues: No retroperitoneal masses or hematomas. Visualized aorta is normal in caliber. Scattered atherosclerotic calcifications involving the visualized abdominal and pelvic cardiac pacer leads noted in the visualized heart. vasculature. IMPRESSION: 1. Status post L4-S1 TLIF. 2. Status post L1 vertebroplasty. 3. Multilevel degenerative disc disease. 4. Multilevel facet arthropathy. 5. Moderate to severe L3-4 central canal narrowing. 6. Severe left L1-L2 neural foraminal narrowing with compression of the exiting left L1 nerve root. Dictated by: Lisseth Downs MD, PhD on 11/24/2019 at 17:08 Approved by: Lisseth Downs MD, PhD on 11/24/2019 at 17:28
== END ==
PROVIDERS: PCP Family Medicine; Referring Provider Orthopaedic Surgery Orthopaedic Surgery of the Spine; Visit Provider Orthopaedic Surgery Orthopaedic Surgery of the Spine
DX: M48.061 Spinal stenosis, lumbar region without neurogenic claudication (principal); M48.07 Spinal stenosis, lumbosacral region; M51.36 Other intervertebral disc degeneration, lumbar region; M47.816 Spondylosis without myelopathy or radiculopathy, lumbar region; M47.817 Spondylosis without myelopathy or radiculopathy, lumbosacral region; Z98.1 Arthrodesis status
CPT/HCPCS: 72131

== ENCOUNTER → 2020-07-08 11:17 | Outpatient (CLI) | payer MEDICARE, OTHER, SELFPAY ==
[2019-03-24 10:53] VITALS: BMI 28.7
--- NOTE | 2020-07-08 | DI.MG.S_ITS ---
BILATERAL DIGITAL SCREENING MAMMOGRAM 3D/2D WITH CAD: 07/08/2020 Comparison is made to exams dated: 07/04/2019 mammogram, 02/13/2017 mammogram, and 02/07/2016 mammogram - [facility]. There are scattered fibroglandular elements in both breasts. Current study was also evaluated with a Computer Aided Detection (CAD) system. No significant masses, calcifications, or other findings are seen in either breast. There has been no significant interval change. IMPRESSION: NEGATIVE There is no mammographic evidence of malignancy. A 1 year screening mammogram is recommended. This exam was interpreted at Station ID: [id number]. NOTE: For mammograms, a report in lay terms will be sent to the patient. Approximately 15% of breast malignancies will not be visualized mammographically. In the management of a palpable breast mass, a negative mammogram must not discourage biopsy of a clinically suspicious lesion. Electronically Signed By: Jose Alfredo sam/lily:07/09/2020 12:16:32 copy to: SHANICE HARE letter sent: Normal Exam ACR BI-RADS Category 1: Negative 3341F
== END ==
PROVIDERS: PCP Family Medicine; Referring Provider Family Medicine; Visit Provider Family Medicine
DX: Z12.31 Encounter for screening mammogram for malignant neoplasm of breast (principal)
CPT/HCPCS: 77063; 77067

== ENCOUNTER → 2021-08-08 15:01 | Outpatient (CLI) | payer MEDICARE, OTHER, SELFPAY ==
[2019-03-24 10:53] VITALS: BMI 28.7
--- NOTE | 2021-08-08 15:02 | DI.MG.S_ITS ---
BILATERAL DIGITAL SCREENING MAMMOGRAM 3D/2D WITH CAD: 08/08/2021 CLINICAL: Routine screening. Comparison is made to exams dated: 07/08/2020 mammogram, 07/04/2019 mammogram, and 02/13/2017 mammogram - [facility]. There are scattered fibroglandular elements in both breasts. Current study was also evaluated with a Computer Aided Detection (CAD) system. No significant masses, calcifications, or other findings are seen in either breast. There has been no significant interval change. IMPRESSION: NEGATIVE There is no mammographic evidence of malignancy. A 1 year screening mammogram is recommended. This exam was interpreted at Station ID: [id number]. NOTE: For mammograms, a report in lay terms will be sent to the patient. Approximately 15% of breast malignancies will not be visualized mammographically. In the management of a palpable breast mass, a negative mammogram must not discourage biopsy of a clinically suspicious lesion. Electronically Signed By: Titi Alvarenga M.D., jr/lily:08/08/2021 15:22:58 copy to: SHANICE HARE letter sent: Normal Exam ACR BI-RADS Category 1: Negative [id number]
== END ==
PROVIDERS: PCP Family Medicine; Referring Provider Family Medicine; Visit Provider Family Medicine
DX: Z12.31 Encounter for screening mammogram for malignant neoplasm of breast (principal)
CPT/HCPCS: 77063; 77067

== ENCOUNTER 2021-10-06 18:56 | Emergency (ER) | payer MEDICARE, OTHER, SELFPAY ==
[2019-03-24 10:53] VITALS: BMI 28.7
[2021-10-06 19:15] VITALS: BP 145/90; PULSE 72; RESP 14; TEMP 36.5; O2SAT 99; BMI 24.7
--- NOTE | 2021-10-06 20:43 | DI.RAD.S_ITS ---
Althea ROCEDURE: XR LUMBAR SPINE 2-3V INDICATIONS: lumbar pain after fall TECHNIQUE: 3 views of the lumbar spine were acquired. COMPARISON: [facility], CR, XR THORACOLUMBAR SPINE 2 VIEWS, 04/26/2018, 11:40. [facility], CR, XR LUMBAR SPINE 2-3V, 07/08/2018, 8:21. FINDINGS: Bones: 5 kvl-maa-cxtirmy vertebrae are present. There is an S-shaped scoliosis of the thoracolumbar spine with a levoscoliosis of the thoracic spine and dextroscoliosis of the lumbar spine redemonstrated. Findings appear slightly increased compared to the prior study. There is mild retrolisthesis at L1-L2, L2-L3, and L3-L4. Postsurgical changes redemonstrated status post posterior fixation and fusion at L4 through S1 with intervertebral spacers at L4-5 and L5-S1. There is a moderate compression fracture of the L1 vertebral body redemonstrated with associated bone cement. Mild superior endplate compression deformity of the L2 vertebral body, severe compression fracture of the T10 vertebral body, and moderate compression fracture of the T9 vertebral body as well as mild anterior wedging of the T12 vertebral body appear similar to the prior study. No definite acute compression fracture identified although evaluation is limited by osteopenia. Soft tissues: Overlying bowel gas pattern is normal. No suspicious soft tissue calcifications. IMPRESSION: 1. No definite acute fracture identified with evaluation limited by osteopenia. 2. Multiple compression fractures of the visualized thoracolumbar spine appear similar to the prior studies. 3. Postsurgical changes of the lower lumbar spine as described. No definite evidence of hardware failure. 4. S-shaped scoliosis of the thoracolumbar spine redemonstrated Dictated by: Ramsey Avery M.D. on 10/06/2021 at 22:37 Approved by: Ramsey Avery M.D. on 10/06/2021 at 22:45
--- NOTE | 2021-10-06 20:43 | ED.FALL ---
HPI - Fall General Chief Complaint: Fall Stated Complaint: pain all over s/p fall on sunday Time Seen by Provider: 10/06/21 20:10 Source: patient Mode of arrival: Ambulatory History of Present Illness HPI Narrative: Patient is a 76-year-old female who 4 days ago fell while she was trying to enter her house from her garage. She is unsure exactly how she fell but she did not hit her head. There is no loss of consciousness. She was able to get up afterwards. Baseline she does use either a cane or a walker. She does have some pain in her lower back since the event. Has been ambulatory since the event. Does have some bruising on her right shoulder. Patient not on anticoagulation. Related Data Home Medications Medication Instructions Recorded Confirmed cholecalciferol (vitamin D3) 10 400 unit PO DAILY #0 04/13/10 06/16/21 mcg (400 unit) capsule (Vitamin D3) multivitamin 1 cap PO DAILY #0 04/13/10 06/16/21 omega 8-bdn-zro-fish oil 1,000 mg 1 tab PO DAILY #0 04/13/10 06/16/21 (120 mg-180 mg) capsule (Fish Oil) ascorbic acid (vitamin C) 1,000 mg 1,000 mg PO DAILY #0 09/10/11 06/16/21 tablet,extended release (Vitamin C ER) vit C 150 mg-vit E 30 unit-lutein 1 cap PO DAILY 04/17/18 06/16/21 5 xu-tvoelqgg-lzuat 3 150 mg capsule (Ocuvite) Previous Rx's Medication Instructions Recorded morphine 15 mg tablet,extended 15 mg PO Q12H PRN #20 tab 03/21/19 release clopidogrel 75 mg tablet (Plavix) 75 mg PO DAILY #90 tab 06/11/20 duloxetine 60 mg capsule,delayed See Rx Instructions .ROUTE 01/14/21 release .COMPLEX #90 cap metoprolol succinate 100 mg See Rx Instructions .ROUTE 02/28/21 tablet,extended release 24 hr .COMPLEX #90 tab ezetimibe 10 mg tablet See Rx Instructions .ROUTE 03/04/21 .COMPLEX #90 tab trazodone 150 mg tablet 150 mg PO BEDTIME #90 tab 03/16/21 levothyroxine 88 mcg capsule 88 mcg PO DAILY #90 cap 05/16/21 (Tirosint) pantoprazole 40 mg tablet,delayed See Rx Instructions .ROUTE 07/11/21 release .COMPLEX #90 tab Allergies Allergy/AdvReac Type Severity Reaction Status Date / Time adhesive Allergy Severe Redness, Verified 06/16/21 14:22 rash chlorhexidine Allergy Severe Redness, Verified 06/16/21 14:22 itching procaine [From Novocain] Allergy Severe Swelling, Verified 06/16/21 14:22 itching, pain acetaminophen Allergy Intermediate LIVER/PANCREAS Verified 06/16/21 14:22 PAIN Penicillins Allergy Intermediate REDNESS Verified 06/16/21 14:22 AND SWELLING clobetasol Allergy Mild ITCHING Verified 06/16/21 14:22 aspirin [ASPIRIN] Allergy Unknown I get Verified 06/16/21 14:22 pancreatitis hydromorphone Allergy Pt does Verified 06/16/21 14:22 not recall reaction hydrocodone AdvReac Severe It will Verified 06/16/21 14:22 give me pancreatitis oxycodone AdvReac Severe Confusion Verified 06/16/21 14:22 lidocaine AdvReac Intermediate DIARRHEA/VO Verified 06/16/21 14:22 MITING ciprofloxacin AdvReac Mild CHILLS,FEVE Verified 06/16/21 14:22 R,DIARRHEA erythromycin base AdvReac Mild VOMITING,DI Verified 06/16/21 14:22 ARRHEA gabapentin AdvReac Mild CONFUSION, Verified 06/16/21 14:22 DELUSIONS ondansetron AdvReac Mild HALLUCINATI Verified 06/16/21 14:22 ONS promethazine AdvReac Mild AGITATION, Verified 06/16/21 14:22 CONFUSION simethicone AdvReac Mild CONFUSION Verified 06/16/21 14:22 cefuroxime AdvReac Unknown Vomiting Verified 06/16/21 14:22 diarrhea Sulfa (Sulfonamide AdvReac Unknown Pt does Verified 06/16/21 14:22 Antibiotics) not recall reaction Review of Systems Cardiovascular Cardiovascular: Reports system reviewed and no additional complaints, except as documented Respiratory Respiratory: Reports system reviewed and no additional complaints, except as documented Musculoskeletal Musculoskeletal: Reports system reviewed and no additional complaints, except as documented and Reports as per HPI Integumentary/Breasts Skin/Breast: Reports system reviewed and no additional complaints, except as documented and Reports as per HPI Neurologic Neurologic: Reports system reviewed and no additional complaints, except as documented Hematologic/Lymphatic On Anticoagulants: No Patient History Medical History Actinic keratosis (Unknown) Allergic rhinitis (Unknown) Ankle fracture (08/2011) C. difficile colitis Compression fracture of L1 lumbar vertebra (10/2012) Cystocele Dementia Episode of syncope (09/2012) Fracture of right ulnar styloid (2013) GERD (gastroesophageal reflux disease) (Unknown) Histoplasmosis (Unknown) Hypercalcemia Hypertension (Unknown) Hypothyroidism (Unknown) Intertrochanteric fracture of right femur (2013) Intertrochanteric fracture of right hip (2013) Left radial fracture (03/2011) Leukopenia Osteoarthritis (Unknown) Osteoporosis (Unknown) Pacemaker (09/2012) Restless leg syndrome (Unknown) Skin cancer (1996) Surgical History History of ankle surgery (08/2011) History of arthroplasty of left shoulder (~12/2018) History of basal cell carcinoma (BCC) excision (1996) History of hip surgery (2013) History of knee replacement procedure of left knee (09/2009) History of knee replacement procedure of right knee (04/2010) History of kyphoplasty (10/2012) History of orthopedic surgery (03/2011) History of removal of cyst (2007) History of thyroid surgery (1990) Hx of arthroscopy of knee (Unknown) Hx of laminectomy (10/2008) Hx of tonsillectomy (Unknown) S/P lumbar fusion (07/08/18) Status cardiac pacemaker (09/2012) Family History Mother Leukemia Social History marital status: details: States she was within the last 4 years and was then number of children: 3 household members: children lives independently: No (with 2 grown sons) caregiver/support person: Yes (son) housing: house occupational status: unemployed current occupational exposures/hazards: No Smoking Status: Former smoker alcohol intake: current Type(s) of exercise: assisted ambulation additional social history: Father and brother with diabetes Mother with leukemia Smoking Status: Former smoker alcohol intake frequency: a few times a week Substance Use Type: does not use Exam Initial Vital Signs Initial Vital Signs: Vital Signs Temperature 97.7 F 10/06/21 19:15 Pulse Rate 72 10/06/21 19:15 Respiratory Rate 14 10/06/21 19:15 Blood Pressure 145/90 H 10/06/21 19:15 Pulse Oximetry 99 10/06/21 19:15 HENTN Head: normal to inspection and normocephalic Resp Effort & Inspection: normal respiratory effort Cardio Rate: regular rate GI Inspection: normal to inspection Back/Spine/Pelvis Thoracic/Lumbar Spine: No thoracic spinal tenderness and lumbar spinal tenderness Skin Other: Patient does have superficial bruising along the lateral aspect of the right upper arm and along the lateral aspect of the right elbow. Neuro General: patient alert and patient awake Extrem Other: Full range of motion of bilateral wrists elbows and shoulders. Pelvis is stable. Is ambulatory. Knees ankles unremarkable. Course Orders Ordered: ED Orders 10/06/21 20:43 XR lumbar spine 2-3V Stat Vital Signs Vital signs: Vital Signs - 8 hr 10/06/21 19:15 Temperature 97.7 F Pulse Rate 72 Respiratory Rate 14 Blood Pressure 145/90 H Pulse Oximetry 99 MDM - Fall Imaging Data spine x-rays: Radiologist's Impression: [address] [address] XRay Report Signed Patient: Dawn Snyder MR#: [id number] : 1945 Acct:[id number] Age/Sex: 76 / F Date of Service: 10/06/21 Loc: ED Accession Number: [id number] ?? Procedure: XR lumbar spine 2-3V Ordering Provider: Bernardo Miles D.O. ROCEDURE:? XR LUMBAR SPINE 2-3V ? INDICATIONS:? lumbar pain after fall ? TECHNIQUE:? 3 views of the lumbar spine were acquired.? ? COMPARISON:? [facility] [place], CR, XR THORACOLUMBAR SPINE 2 VIEWS, 04/26/2018, 11:40.? [facility], JOSE ELIAS, XR LUMBAR SPINE 2-3V, 07/08/2018, 8:21. ? FINDINGS:? ? Bones:? 5 ajd-yrn-xngewkp vertebrae are present.? There is an S-shaped scoliosis of the thoracolumbar spine with a levoscoliosis of the thoracic spine and dextroscoliosis of the lumbar spine redemonstrated.? Findings appear slightly increased compared to the prior study.? There is mild retrolisthesis at L1-L2, L2-L3, and L3-L4.? Postsurgical changes redemonstrated status post posterior fixation and fusion at L4 through S1 with intervertebral spacers at L4-5 and L5-S1.? There is a moderate compression fracture of the L1 vertebral body redemonstrated with associated bone cement.? Mild superior endplate compression deformity of the L2 vertebral body, severe compression fracture of the T10 vertebral body, and moderate compression fracture of the T9 vertebral body as well as mild anterior wedging of the T12 vertebral body appear similar to the prior study.? No definite acute compression fracture identified although evaluation is limited by osteopenia. ? Soft tissues:? Overlying bowel gas pattern is normal.? No suspicious soft tissue calcifications.? ? ? IMPRESSION:? ? 1. No definite acute fracture identified with evaluation limited by osteopenia. ? 2. Multiple compression fractures of the visualized thoracolumbar spine appear similar to the prior studies. ? 3. Postsurgical changes of the lower lumbar spine as described.? No definite evidence of hardware failure.? ? 4. S-shaped scoliosis of the thoracolumbar spine redemonstrated ? Dictated by: Ramsey Avery M.D. on 10/06/2021 at 22:37 ? ? Approved by: Ramsey Avery M.D. on 10/06/2021 at 22:45?? [facility] Narrative Medical decision making narrative: Patient has been ambulatory since the event. She does have contusions to her right upper arm and right elbow however she has full range of motion of these areas and minimal discomfort to palpation. X-rays of her lumbar spine do not show any acute fractures. There was somewhat of a delay in getting the x-ray results read by Radiology secondary to more urgent studies needing to be evaluated. Patient decided to leave against medical advice prior to receiving the results of the x-ray. Discharge Plan Departure Patient Disposition: Left Against Medical Advice Clinical Impression: Patient left before treatment completed, Contusion of arm, right, Low back pain Prescriptions: No Action clopidogrel [Plavix] 75 mg tablet 75 mg PO DAILY Qty: 90 3RF trazodone 150 mg tablet 150 mg PO BEDTIME Qty: 90 3RF multivitamin Capsule 1 cap PO DAILY Qty: 0 0RF cholecalciferol (vitamin D3) [Vitamin D3] 400 unit Capsule 400 unit PO DAILY Qty: 0 0RF Rx Instructions: unknown dose omega 8-hgf-bhi-fish oil [Fish Oil] 1,000 mg (120 mg-180 mg) Capsule 1 tab PO DAILY Qty: 0 0RF ascorbic acid (vitamin C) [Vitamin C] 1,000 mg Tablet Extended Release 1,000 mg PO DAILY Qty: 0 0RF duloxetine 60 mg capsule,delayed release(DR/EC) See Rx Instructions .ROUTE .COMPLEX Qty: 90 2RF Hold Instructions: Home Medication placed on hold at Doctor's office Dose Instruction: TAKE 1 CAPSULE DAILY Rx Instructions: TAKE 1 CAPSULE DAILY metoprolol succinate 100 mg tablet extended release 24 hr See Rx Instructions .ROUTE .COMPLEX Qty: 90 3RF Dose Instruction: TAKE 1 TABLET DAILY Rx Instructions: TAKE 1 TABLET DAILY ezetimibe 10 mg tablet See Rx Instructions .ROUTE .COMPLEX Qty: 90 3RF Dose Instruction: TAKE 1 TABLET AT BEDTIME Rx Instructions: TAKE 1 TABLET AT BEDTIME Tirosint 88 mcg capsule 88 mcg PO DAILY Qty: 90 3RF pantoprazole 40 mg tablet,delayed release (DR/EC) See Rx Instructions .ROUTE .COMPLEX Qty: 90 2RF Dose Instruction: TAKE 1 TABLET DAILY Rx Instructions: TAKE 1 TABLET DAILY Ocuvite [id number] vq-hatp-tb-mg Capsule 1 cap PO DAILY 0RF morphine 15 mg tablet extended release 15 mg PO Q12H PRN (Reason: pain) Qty: 20 0RF Referrals: Jenna Phillips MD [Primary Care Provider] - Stand Alone Forms: Against Medical Advice
== END 2021-10-06 23:15 | disposition left against medical advice (07) ==
PROVIDERS: Emergency Provider Emergency Medicine; PCP Family Medicine
DX: S40.021A Contusion of right upper arm, initial encounter (principal); W19.XXXA Unspecified fall, initial encounter
CPT/HCPCS: 72100; 99281; 99283

== ENCOUNTER → 2022-04-26 14:54 | Outpatient (CLI) | payer MEDICARE, OTHER, SELFPAY ==
[2019-03-24 10:53] VITALS: BMI 28.7
[2022-04-26 15:52] LABS: Calcium 10.3 mg/dL (8.4-10.2)
== END ==
PROVIDERS: Physician Assistant; PCP Family Medicine; Referring Provider Family Medicine; Visit Provider Family Medicine
DX: E83.52 Hypercalcemia (principal)
CPT/HCPCS: 36415; 82310

== ENCOUNTER → 2022-08-09 12:48 | Outpatient (CLI) | payer MEDICARE, OTHER, SELFPAY ==
[2019-03-24 10:53] VITALS: BMI 28.7
--- NOTE | 2022-08-09 | DI.MG.S_ITS ---
BILATERAL DIGITAL SCREENING MAMMOGRAM 3D/2D WITH CAD: 08/09/2022 CLINICAL: Routine screening. Comparison is made to exams dated: 08/08/2021 mammogram, 07/08/2020 mammogram, and 07/04/2019 mammogram - [facility]. Both breasts are heterogeneously dense, which may obscure small masses (category c / 51-75% glandular tissue). Current study was also evaluated with a Computer Aided Detection (CAD) system. No significant masses, calcifications, or other findings are seen in either breast. There has been no significant interval change. IMPRESSION: NEGATIVE There is no mammographic evidence of malignancy. A 1 year screening mammogram is recommended. Based on the Tyrer Cuzick model (a risk assessment model) the patient's lifetime risk is 3.2% and her 10 year risk is 0.0%. According to the ACR, ACS, and NCCN guidelines, an annual breast MRI exam along with mammogram is recommended if the patient's lifetime risk is 20% or greater. This exam was interpreted at Station ID: [id number]. NOTE: For mammograms, a report in lay terms will be sent to the patient. Approximately 15% of breast malignancies will not be visualized mammographically. In the management of a palpable breast mass, a negative mammogram must not discourage biopsy of a clinically suspicious lesion. Electronically Signed By: Ritchie lacey/lily:08/09/2022 13:32:20 copy to: SHANICE HARE letter sent: Normal Exam ACR BI-RADS Category 1: Negative [id number]
== END ==
PROVIDERS: PCP Family Medicine; Referring Provider Family Medicine; Visit Provider Family Medicine
DX: Z12.31 Encounter for screening mammogram for malignant neoplasm of breast (principal)
CPT/HCPCS: 77063; 77067

== ENCOUNTER → 2022-10-10 12:53 | Outpatient (CLI) | payer MEDICARE, OTHER, SELFPAY ==
[2019-03-24 10:53] VITALS: BMI 28.7
--- NOTE | 2022-10-10 12:57 | DI.RAD.S_ITS ---
Bone Density Report Name: RENETTA RICK Age: 77 Sex: Female Ethnicity: White Date of : 1945 Indication: postmenopausal; screening for osteoporosis; Referring Provider: ETHAN QUAN Study: Bone densitometry was performed. Exam Date: October 10, 2022 Accession number: [id number] Bone Density: Region BMD T-score Z-score Classification Total Forearm (Left) 0.419 -3.0 -0.2 Osteoporosis 1/3 Forearm (Left) 0.508 -3.1 -0.2 Osteoporosis UD Forearm (Left) 0.315 -2.2 -0.1 Osteopenia World Health Organization criteria for BMD impression classify patients as: Normal (T-score at or above -1.0), Osteopenia (T-score between -1.0 and -2.5), or Osteoporosis (T-score at or below -2.5). Impression: The patient has osteoporosis, based on the Left Third Radius T-score. Discussion: INCREASED RISK OF FRACTURE. BONE DENSITY IS UNDESIRABLY LOW AT ONE OR MORE SKELETAL SITES, CONSISTENT WITH POSTMENOPAUSAL OSTEOPOROSIS. This patient's lowest T-score meets the World Health Organization's (WHO) criteria for osteoporosis at one or more sites (T-score -2.5 or below). In untreated patients, the risk of osteoporotic fracture increases approximately two-fold for each 1.0 SD decrease in T-score. Low bone density is not the only risk factor for fracture; also consider factors such as patient's age, frailty or poor health, risk of falling, risk of injury, previous osteoporotic fracture, family history of osteoporosis, cigarette smoking, low body weight, etc. Not everyone with low bone mineral density has osteoporosis; osteomalacia and other metabolic bone disorders should also be considered. Patients who have osteoporosis should be evaluated for specific diseases and conditions (secondary causes) that may cause or contribute to bone loss. The [place] [employer] Endocrinologists (AACE) and National Osteoporosis Foundation (NOF) recommend pharmacologic intervention for all postmenopausal women whose T-score is in this range. The patient should follow a healthful lifestyle (good nutrition with adequate calcium and vitamin D, and appropriate weight-bearing exercise). Follow-Up: Consider a repeat BMD and Vertebral Fracture Assessment (VFA) exam in 2 years or sooner if medically necessary, to reassess this patient's status. Reported by: PAU WYMAN M.D. on 10/10/2022 1:33:00 PM.
[2022-10-10 14:51] LABS: Alanine Aminotransferase 16 IU/L (<35); Albumin 4.4 g/dL (3.5-5.0); Albumin Globulin Ratio 1.6 (1.0-2.8); Alkaline Phosphatase 71 U/L (38-126); Aspartate Aminotransferase 25 IU/L (14-36); BUN Creatinine Ratio 17.6 (6-22); Bilirubin Total 0.6 mg/dL (0.2-1.3); Blood Urea Nitrogen 12 mg/dL (7-17); Calcium 10.3 mg/dL (8.4-10.2); Carbon Dioxide 31 mmol/L (22-32); Chloride 103 mmol/L (98-107); Estimated Glomerular Filt Rate > 60 mL/min (>60); Globulin 2.8 g/dL (1.7-4.1); Glucose 84 mg/dL (80-110); HEMOLYSIS < 15 (0-50); Potassium 4.3 mmol/L (3.4-5.1); Sodium 139 mmol/L (137-145); Total Protein 7.2 g/dL (6.3-8.2)
[2022-10-10 15:06] LABS: Vitamin D 25 Hydroxy (D3) 73.9 ng/mL (30.0-100.0)
[2022-10-11 13:10] LABS: Ionized Calcium 5.4 mg/dL (4.5-5.6)
[2022-10-12 15:40] LABS: Calcium 10.4 mg/dL (8.7-10.3); Parathyroid Hormone, Intact 68 pg/mL (15-65)
== END ==
PROVIDERS: Physician Assistant; PCP Family Medicine; Referring Provider Family Medicine; Visit Provider Family Medicine
DX: M81.0 Age-related osteoporosis without current pathological fracture (principal); M47.816 Spondylosis without myelopathy or radiculopathy, lumbar region; E03.9 Hypothyroidism, unspecified; E83.52 Hypercalcemia; M85.832 Other specified disorders of bone density and structure, left forearm
CPT/HCPCS: 36415; 77080; 80053; 82306; 82310; 82330; 83970

== ENCOUNTER 2022-12-09 17:51 | Emergency (ER) | payer MEDICARE, OTHER, SELFPAY ==
[2019-03-24 10:53] VITALS: BMI 28.7
[2022-12-09 17:54] VITALS: BP 144/85; PULSE 60; RESP 18; TEMP 36.8; O2SAT 96; BMI 23.9
[2022-12-09 18:39] LABS: Add Manual Diff / Slide Review NO; Basophils Absolute Auto 0 /uL (0-100); Basophils Percent Auto 0.4 % (0-2); Eosinophils Absolute Auto 100 /uL (0-450); Eosinophils Percent Auto 1.3 % (2-4); Hematocrit 39.3 % (36-46); Hemoglobin 13.6 g/dL (12.0-16.0); Lymphocytes Absolute Auto 600 /uL (1100-4500); Lymphocytes Percent Auto 10.5 % (25-40); Mean Corpuscular HGB Conc 34.5 % (30-36); Mean Corpuscular Hemoglobin 32.3 PG (26-34); Mean Corpuscular Volume 93.6 fL (80-100); Monocytes Absolute Auto 1100 /uL (0-900); Monocytes Percent Auto 20.8 % (3-14); Neutrophils Absolute Auto 3700 /uL (1500-7000); Platelet Count 227 X10^3/uL (150-400); White Blood Cell Count 5.5 X10^3/uL (4.5-11.0)
[2022-12-09 18:43] LABS: INR 1.3 (0.9-1.3); Prothrombin Time 14.4 SECONDS (10.1-12.7)
[2022-12-09 18:47] LABS: Alanine Aminotransferase 16 IU/L (<35); Albumin 4.3 g/dL (3.5-5.0); Albumin Globulin Ratio 1.2 (1.0-2.8); Alkaline Phosphatase 75 U/L (38-126); Aspartate Aminotransferase 24 IU/L (14-36); Bilirubin Total 1.1 mg/dL (0.2-1.3); Blood Urea Nitrogen 16 mg/dL (7-17); Calcium 10.2 mg/dL (8.4-10.2); Carbon Dioxide 27 mmol/L (22-32); Chloride 101 mmol/L (98-107); Estimated Glomerular Filt Rate 49 mL/min (>60); Globulin 3.5 g/dL (1.7-4.1); Glucose 121 mg/dL (80-110); HEMOLYSIS < 15 (0-50); Lipase 135 U/L (23-300); Potassium 3.7 mmol/L (3.4-5.1); Sodium 136 mmol/L (137-145); Total Protein 7.8 g/dL (6.3-8.2)
[2022-12-09] MEDS: SODIUM CHLORIDE 0.9% 1,000 ML 1000 ML IV (19:24)
--- NOTE | 2022-12-09 19:47 | DI.CT.S_ITS ---
PROCEDURE: CT KIDNEY URETER BLADDER (KUB) INDICATIONS: flank pain, n/v elevated creatinine TECHNIQUE: Axial sections were acquired from the lung bases to the pubic symphysis. Coronal and sagittal reformats were performed. For radiation dose reduction, the following was used: automated exposure control, adjustment of mA and/or kV according to patient size. COMPARISON: [facility], CT, KIDNEY/ URETER/BLADDER, 10/24/2016, 12:06. FINDINGS: Image quality: Portions of the lower pelvis are suboptimally evaluated secondary to metallic streak artifact from bilateral hip fusion hardware. Lung bases: Unremarkable. Heart: No significant findings. URINARY: Right Kidney: There is markedly severe hydronephrosis with significantly enlarged extrarenal pelvis. There is immediate decrease in size the ureter to normal caliber distal to the renal pelvis. Curvilinear calcification is noted at the dependent portion of the renal pelvis. Right Ureter: Markedly enlarged extrarenal pelvis with normalization of the ureter distally. Left Kidney: Nonobstructing 4 mm superior pole calcification. Left Ureter: No hydroureter. Bladder: Bladder is incompletely distended. ABDOMEN: Liver: Unremarkable. Gallbladder: No visualized stones. Biliary ducts: Unremarkable. Pancreas: Unremarkable. Spleen: Calcifications are present possibly relating to prior granulomatous exposure. Adrenal Glands: Unremarkable. Stomach and Bowel: Stomach, small bowel loops, and colon are nonobstructive. Colonic diverticula are present without associated inflammatory change. Peritoneum: No abnormal intraperitoneal fluid. No free air. Ventral Wall: No hernia. Abdominal Nodes: No enlarged retroperitoneal or mesenteric lymph nodes. Vessels: Aorta and inferior vena cava are normal in size. PELVIS: Pelvic Organs: Unremarkable. Pelvic Nodes: Unremarkable. Miscellaneous: No inguinal hernias are seen. Bones: L4 through S1 fusion. Old-appearing vertebral fractures with presumed kyphoplasty cement. IMPRESSION: Markedly severe right hydronephrosis and severely dilated right extrarenal pelvis with abrupt transition to normalized ureteral size. Finding appears most consistent with the ureteropelvic obstruction. While a thin curvilinear calcification is noted along the dependent portion pelvis, no visualized stone or mass is clearly identified as source of obstruction. Dictated by: Ivanna Durant M.D. on 12/09/2022 at 20:16 Approved by: Ivanna Durant M.D. on 12/09/2022 at 20:21
[2022-12-09 20:12] VITALS: PULSE 60; O2SAT 98
[2022-12-09 20:17] VITALS: BP 148/83; PULSE 60; O2SAT 97
--- NOTE | 2022-12-09 20:31 | ED_ITS ---
HPI - Female Genitourinary General Chief complaint: Urogenital-Female Stated complaint: Back pain, Frequent urination Time Seen by Provider: 12/09/22 19:46 Source: patient Mode of arrival: Ambulatory Limitations: no limitations History of Present Illness HPI Narrative: This is a 77-year-old female with history of coronary artery disease, hypertension, dyslipidemia, osteoarthritis, hypothyroidism who presents with complaint of flank pain for the last several weeks intermittently she states little wax and wane sometimes totally resolved often for several hours sometimes entirely through the night. It will wrap around to the front. She states no syncope. No fevers or chills. She will occasionally have some nausea she vomited several times a couple weeks ago but none today or recently. No issues with bowel movements, no diarrhea constipation. No black or bloody stools. No dysuria urgency or frequency today. She notes she had some rust-colored urine a week ago. She has not had prior episodes in the past. Patient has had multiple orthopedic surgeries on her knees, shoulder, pacemaker, back surgery. She states no intra-abdominal surgeries. She states multiple allergies to medications. Denies tobacco, alcohol 3 times a week, no illicit. Her primary care is Dr. Sarina Phillips. Related Data Home Medications Medication Instructions Recorded Confirmed cholecalciferol (vitamin D3) 10 400 unit PO DAILY ##0 04/13/10 11/13/22 mcg (400 unit) capsule (Vitamin D3) Previous Rx's Medication Instructions Recorded metoprolol succinate 100 mg See Rx Instructions .Route 02/08/22 tablet,extended release 24 hr .COMPLEX #90 tabs ezetimibe 10 mg tablet See Rx Instructions .Route 02/13/22 .COMPLEX #90 tabs trazodone 150 mg tablet 150 mg PO BEDTIME #90 tabs 02/13/22 levothyroxine 88 mcg capsule 88 mcg PO DAILY #90 caps 06/20/22 (Tirosint) pantoprazole 40 mg tablet,delayed See Rx Instructions .Route 06/20/22 release .COMPLEX #90 tabs Disabled Parking Permit #1 ea 07/27/22 clopidogrel 75 mg tablet (Plavix) 75 mg PO DAILY #90 tabs 09/25/22 metoprolol succinate 50 mg 50 mg PO ONCE #90 tabs 09/29/22 tablet,extended release 24 hr losartan 100 mg tablet 100 mg PO DAILY #90 tabs 12/06/22 Allergies Allergy/AdvReac Type Severity Reaction Status Date / Time adhesive Allergy Severe Redness, Verified 12/09/22 17:54 rash chlorhexidine Allergy Severe Redness, Verified 12/09/22 17:54 itching procaine [From Novocain] Allergy Severe Swelling, Verified 12/09/22 17:54 itching, pain acetaminophen Allergy Intermediate LIVER/PANCREAS Verified 12/09/22 17:54 PAIN Penicillins Allergy Intermediate REDNESS Verified 12/09/22 17:54 AND SWELLING clobetasol Allergy Mild ITCHING Verified 12/09/22 17:54 aspirin [ASPIRIN] Allergy Unknown I get Verified 12/09/22 17:54 pancreatitis hydromorphone Allergy Pt does Verified 12/09/22 17:54 not recall reaction hydrocodone AdvReac Severe It will Verified 12/09/22 17:54 give me pancreatitis oxycodone AdvReac Severe Confusion Verified 12/09/22 17:54 lidocaine AdvReac Intermediate DIARRHEA/VO Verified 12/09/22 17:54 MITING ciprofloxacin AdvReac Mild CHILLS,FEVE Verified 12/09/22 17:54 R,DIARRHEA erythromycin base AdvReac Mild VOMITING,DI Verified 12/09/22 17:54 ARRHEA gabapentin AdvReac Mild CONFUSION, Verified 12/09/22 17:54 DELUSIONS ondansetron AdvReac Mild HALLUCINATI Verified 12/09/22 17:54 ONS promethazine AdvReac Mild AGITATION, Verified 12/09/22 17:54 CONFUSION simethicone AdvReac Mild CONFUSION Verified 12/09/22 17:54 cefuroxime AdvReac Unknown Vomiting Verified 12/09/22 17:54 diarrhea Sulfa (Sulfonamide AdvReac Unknown Pt does Verified 12/09/22 17:54 Antibiotics) not recall reaction Review of Systems Review of Systems ROS Unobtainable: All systems reviewed & are unremarkable except as noted in HPI and below Patient History Medical History Actinic keratosis (Unknown) Allergic rhinitis (Unknown) Ankle fracture (08/2011) C. difficile colitis Compression fracture of L1 lumbar vertebra (10/2012) CVA (cerebral vascular accident) Cystocele Dementia Episode of syncope (09/2012) Fracture of right ulnar styloid (2013) GERD (gastroesophageal reflux disease) (Unknown) Histoplasmosis (Unknown) Hypercalcemia Hypertension (Unknown) Hypothyroidism (Unknown) Intertrochanteric fracture of right femur (2013) Intertrochanteric fracture of right hip (2013) Left radial fracture (03/2011) Leukopenia Osteoarthritis (Unknown) Osteoporosis (Unknown) Pacemaker (09/2012) Restless leg syndrome (Unknown) Skin cancer (1996) Subdural hematoma, post-traumatic Surgical History History of ankle surgery (08/2011) History of arthroplasty of left shoulder (~12/2018) History of basal cell carcinoma (BCC) excision (1996) History of hip surgery (2013) History of knee replacement procedure of left knee (09/2009) History of knee replacement procedure of right knee (04/2010) History of kyphoplasty (10/2012) History of orthopedic surgery (03/2011) History of removal of cyst (2007) History of thyroid surgery (1990) Hx of arthroscopy of knee (Unknown) Hx of laminectomy (10/2008) Hx of tonsillectomy (Unknown) S/P lumbar fusion (07/08/18) Status cardiac pacemaker (09/2012) Family History Mother Leukemia alcohol intake frequency: a few times a week Substance Use Type: does not use Exam Narrative Exam Narrative: GENERAL: Alert and oriented x three, well-appearing elderly female in mild distress. HEENT: Head normocephalic, atraumatic, EOMI, pupils reactive, face symmetric, moist mucous membranes NECK: Supple, full range of motion CARDIOVASCULAR: Regular rate and rhythm without murmurs, rubs or gallops. RESPIRATORY: Breath sounds equal bilaterally, no wheezes rales or rhonchi. ABDOMEN: Soft, mild discomfort on palpation generalized abdomen. Nondistended. Normoactive bowel sounds all 4 quadrants. No guarding or rebound, rigidity, no mass : No CVA tenderness EXTREMITIES: Normal range of motion, no clubbing or edema. Neurovascularly intact NEUROLOGICAL: Cranial nerves II through XII grossly intact. Moving all extremities SKIN: Warm, dry, no petechiae, no rashes or lesions. Initial Vital Signs Initial Vital Signs: Vital Signs Temperature 98.2 F 12/09/22 17:54 Pulse Rate 60 12/09/22 17:54 Respiratory Rate 18 12/09/22 17:54 Blood Pressure 144/85 H 12/09/22 17:54 Pulse Oximetry 96 12/09/22 17:54 Oxygen Delivery Method Room Air 12/09/22 17:54 Course Orders Ordered: ED Orders 12/09/22 18:02 EKG-12 Lead Stat 12/09/22 18:27 Complete Blood Count AUTO DIFF Stat Comprehensive Metabolic Panel Stat Lipase Stat Prothrombin Time INR Stat 12/09/22 19:47 CT kidney ureter bladder (KUB) Stat 12/09/22 20:20 Urine Microscopic Stat Discontinued Medications Sodium Chloride (Normal Saline 0.9%) 1,000 mls @ 1,000 mls/hr IV BOLUS ONE Stop: 12/09/22 19:01 Last Infusion: 12/09/22 20:26 Dose: 0 mls/hr Documented By: Admin: 12/09/22 19:24 Dose: 1,000 mls/hr Documented By: MARIBEL Ondansetron HCl (Ondansetron 4 Mg Odt) 4 mg SL NOW PRN PRN Reason: Nausea And Vomiting Ondansetron HCl (Ondansetron 4 Mg/2 Ml Inj) 4 mg IV NOW PRN PRN Reason: Nausea And Vomiting Vital Signs Vital signs: Vital Signs - 8 hr 12/09/22 17:54 12/09/22 20:12 12/09/22 20:17 Temperature 98.2 F Pulse Rate 60 60 60 Respiratory Rate 18 Blood Pressure 144/85 H Pulse Oximetry 96 98 97 Oxygen Delivery Method Room Air 12/09/22 20:17 12/09/22 21:59 Temperature Pulse Rate 60 Respiratory Rate 18 Blood Pressure 148/83 H 171/84 H Pulse Oximetry 97 Oxygen Delivery Method Room Air MDM - Female Genitourinary Lab Data 12/09/22 18:27 12/09/22 18:27 Labs: Lab Results 12/09/22 12/09/22 12/09/22 Range/Units 18:27 18:27 18:27 WBC 5.5 (4.5-11.0) X10^3/uL RBC 4.20 (4.0-5.2) X10^6/uL Hgb 13.6 (12.0-16.0) g/dL Hct 39.3 (36-46) % MCV 93.6 (80-100) fL MCH 32.3 (26-34) PG MCHC 34.5 (30-36) % RDW 14.0 (11.6-14.8) % Plt Count 227 (150-400) X10^3/uL Neut % (Auto) 67.0 (50-75) % Lymph % (Auto) 10.5 L (25-40) % Butts % (Auto) 20.8 H (3-14) % Eos % (Auto) 1.3 L (2-4) % Baso % (Auto) 0.4 (0-2) % Neut # (Auto) 3700 (6157-4304) /uL Lymph # (Auto) 600 L (2435-2914) /uL Butts # (Auto) 1100 H (0-900) /uL Eos # (Auto) 100 (0-450) /uL Baso # (Auto) 0 (0-100) /uL PT 14.4 H (10.1-12.7) SECONDS INR 1.3 (0.9-1.3) Sodium 136 L (137-145) mmol/L Potassium 3.7 (3.4-5.1) mmol/L Chloride 101 (98-107) mmol/L Carbon Dioxide 27 (22-32) mmol/L BUN 16 (7-17) mg/dL Creatinine 1.14 H (0.52-1.04) mg/dL Estimated GFR 49 L (>60) mL/min BUN/Creatinine Ratio 14.0 (6-22) Glucose 121 H (80-110) mg/dL Calcium 10.2 (8.4-10.2) mg/dL Total Bilirubin 1.1 (0.2-1.3) mg/dL AST 24 (14-36) IU/L ALT 16 (<35) IU/L Alkaline Phosphatase 75 (38-126) U/L Total Protein 7.8 (6.3-8.2) g/dL Albumin 4.3 (3.5-5.0) g/dL Globulin 3.5 (1.7-4.1) g/dL Albumin/Globulin Ratio 1.2 (1.0-2.8) Lipase 135 (23-300) U/L Urine RBC (0-5/HPF) Urine WBC (0-5/HPF) Ur Squamous Epith Cells (0-5/HPF) Ur Renal Epithelial Cell (0-1/HPF) Urine Bacteria (None) Ur Culture Indicated? 12/09/22 Range/Units 20:20 WBC (4.5-11.0) X10^3/uL RBC (4.0-5.2) X10^6/uL Hgb (12.0-16.0) g/dL Hct (36-46) % MCV (80-100) fL MCH (26-34) PG MCHC (30-36) % RDW (11.6-14.8) % Plt Count (150-400) X10^3/uL Neut % (Auto) (50-75) % Lymph % (Auto) (25-40) % Butts % (Auto) (3-14) % Eos % (Auto) (2-4) % Baso % (Auto) (0-2) % Neut # (Auto) (2951-6869) /uL Lymph # (Auto) (5095-9365) /uL Butts # (Auto) (0-900) /uL Eos # (Auto) (0-450) /uL Baso # (Auto) (0-100) /uL PT (10.1-12.7) SECONDS INR (0.9-1.3) Sodium (137-145) mmol/L Potassium (3.4-5.1) mmol/L Chloride (98-107) mmol/L Carbon Dioxide (22-32) mmol/L BUN (7-17) mg/dL Creatinine (0.52-1.04) mg/dL Estimated GFR (>60) mL/min BUN/Creatinine Ratio (6-22) Glucose (80-110) mg/dL Calcium (8.4-10.2) mg/dL Total Bilirubin (0.2-1.3) mg/dL AST (14-36) IU/L ALT (<35) IU/L Alkaline Phosphatase (38-126) U/L Total Protein (6.3-8.2) g/dL Albumin (3.5-5.0) g/dL Globulin (1.7-4.1) g/dL Albumin/Globulin Ratio (1.0-2.8) Lipase (23-300) U/L Urine RBC None seen (0-5/HPF) Urine WBC 1-5/hpf (0-5/HPF) Ur Squamous Epith Cells None seen (0-5/HPF) Ur Renal Epithelial Cell 0-1/hpf (0-1/HPF) Urine Bacteria None seen (None) Ur Culture Indicated? Cult not indicated Urine Dip Bedside Urine Glucose Negative Bedside Urine Bilirubin + 1 Bedside Urine Ketone - Negative Urine Specific [place] 1.015 Bedside Urine Occult Blood - Negative Bedside Urine pH 6.0 Bedside Urine Protein +/- 15 Bedside Urine Urobilinogen - Negative Bedside Urine Nitrite - Negative Bedside Urine Leukocytes +/- [address] scan - abdomen/pelvis: Radiologist's Impression: Allergy/Adv: adhesive, chlorhexidine, procaine, acetaminophen, Penicillins, clobetasol, aspirin, hydromorphone, hydrocodone, oxycodone, lidocaine, ciprofloxacin, erythromycin base, gabapentin, ondansetron, promethazine, simethicone, cefuroxime, Sulfa (Sulfonamide Antibiotics) (More??) Close Abdomen/Pelvis CT (Signed) Ivanna Durant - 12/09/22 Bone Densitometry (Signed) Placido Heck - 10/10/22 Mammogram Screening (Signed) Ritchie De Leon - 08/09/22 Lumbar Spine X-Ray (Signed) Ramsey Avery - 10/06/21 DI Result CC 09/16/21 Mammogram Screening (Signed) Titi Alvarenga - 08/08/21 DI Result CC 01/25/21 DI Result CC 01/23/21 DI Result CC 01/22/21 Mammogram Screening (Signed) Jose Alfredo Moreland - 07/08/[address] (Signed) Lisseth Downs - 11/24/19 Carotid Doppler Study (Signed) Xavier Blanco - 10/16/19 Mammogram Screening (Signed) John Monk - 07/04/19 DI Result CC 05/05/[address] (Signed) Mike Kim - 04/07/19 Shoulder X-Ray (Signed) Jorge Bravo - 01/04/19 Shoulder X-Ray (Signed) Erasto Carcamo - 12/31/[address] (Signed) Mike Kim - 11/18/18 Lumbar Spine X-Ray (Signed) Jorge Bravo - 07/08/18 Telemetry Strips 07/08/18 Outside Stress Test 05/10/18 Outside EKG 04/29/18 Outside EKG 04/29/[address] (Signed) Erasot Carcamo - 04/17/[address] (Signed) Maria RIdalia - 04/17/18 Sacrum and Coccyx X-Ray (Signed) JulioMike - 01/17/18 Lumbar Spine X-Ray (Signed) Mike Kim - 01/17/18 Outside DI 12/26/17 Radiology Report (Cancelled) Tristen Cardenas - 10/26/17 Echocardiogram Ultrasound (Signed) Keya Ridley - 10/26/17 Myocardial Perfusion Scan Nuc Med (Signed) Tristen Cardenas - 10/25/17 Outside EKG 08/18/16 Launch?[place] [address] CT Scan Report Signed Patient: Dawn Snyder MR#: [id number] : 1945 Acct:[id number] Age/Sex: 77 / F Date of Service: 12/09/22 Loc: ED Accession Number: [id number] ?? Procedure: CT kidney ureter bladder (KUB) Ordering Provider: Ashely Ayers D.O. PROCEDURE:? CT KIDNEY URETER BLADDER (KUB) ? INDICATIONS:? flank pain, n/v elevated creatinine ? TECHNIQUE:? Axial sections were acquired from the lung bases to the pubic symphysis.? Coronal and sagittal reformats were performed.? For radiation dose reduction, the following was used: ?automated exposure control, adjustment of mA and/or kV according to patient size.? ? COMPARISON:? [facility], CT, KIDNEY/ URETER/BLADDER, 10/24/2016, 12:06. ? FINDINGS:? Image quality: Portions of the lower pelvis are suboptimally evaluated secondary to metallic streak artifact from bilateral hip fusion hardware. ? Lung bases:? Unremarkable.? ? Heart:? No significant findings. ? URINARY: Right Kidney:? There is markedly severe hydronephrosis with significantly enlarged extrarenal pelvis.? There is immediate decrease in size the ureter to normal caliber distal to the renal pelvis.? Curvilinear calcification is noted at the dependent portion of the renal pelvis.? Right Ureter:? Markedly enlarged extrarenal pelvis with normalization of the ureter distally.? ? Left Kidney:? Nonobstructing 4 mm superior pole calcification.? Left Ureter:? No hydroureter.? ? Bladder:? Bladder is incompletely distended. ? ABDOMEN: Liver:? Unremarkable.? ? Gallbladder:? No visualized stones.? ? Biliary ducts:? Unremarkable.? ? Pancreas:? Unremarkable.? ? Spleen:? Calcifications are present possibly relating to prior granulomatous exposure. Adrenal Glands:? Unremarkable.? ? ? Stomach and Bowel:? Stomach, small bowel loops, and colon are nonobstructive.? Colonic diverticula are present without associated inflammatory change. Peritoneum:? No abnormal intraperitoneal fluid.? No free air.? ? Ventral Wall: ? No hernia.? Abdominal Nodes:? No enlarged retroperitoneal or mesenteric lymph nodes.? Vessels:? Aorta and inferior vena cava are normal in size.? ? PELVIS: Pelvic Organs:? Unremarkable.? ? Pelvic Nodes: Unremarkable. Miscellaneous: No inguinal hernias are seen. ? ? ? Bones:? L4 through S1 fusion.? Old-appearing vertebral fractures with presumed kyphoplasty cement. ? IMPRESSION:? ? Markedly severe right hydronephrosis and severely dilated right extrarenal pelvis with abrupt transition to normalized ureteral size.? Finding appears most consistent with the ureteropelvic obstruction.? While a thin curvilinear calcification is noted along the dependent portion pelvis, no visualized stone or mass is clearly identified as source of obstruction. ? Dictated by: Ivanna Durant M.D. on 12/09/2022 at 20:16 ? ? Approved by: Ivanna Durant M.D. on 12/09/2022 at 20:21?? ECG Data Attestation: I personally reviewed and interpreted this ECG as follows: Interpretation: Atrial paced rhythm, right bundle, left anterior fascicular block. Rate of 60, WA 220, QRS of 140 QTC of 454. MDM Narrative Medical decision making narrative: This is a 77-year-old female with intermittent flank pain for several weeks occasional rust colored urine. She would some nausea vomiting couple weeks ago suspected possible kidney stone or intermittent kidney stones. She states pain is 4/10 currently she defers anything for pain and has been ambulating to the bathroom without issue. CBC shows no acute changes normal white count, hemoglobin 13 platelets 227, creatinine is 1.14 was 0.68 in July of 2022, normal electrolytes, BUN 16. LFTs are negative, urine is negative. Patient CT abdomen pelvis which shows marked severe right hydro and severely dilated right extrarenal pelvis with the abrupt transition to normalize ureteral size most consistent with ureteropelvic obstruction there is a thin curvilinear calcification noted along the dependent portion of the pelvis no visualized stone or mass is clearly identified as a source. Discussed findings with patient she would like to return home. Discussed need for short term follow-up with Urology, repeat of renal function as well as evaluation of her hydro as this can significantly worsen and cause kidney failure over time. Her pain is well-controlled no signs of infection. Spoke with urology, Dr. Arguelles for [facility]: He recommends short-term follow-up outpatient. He does not recommend any Flomax at this time. Asked that patient call the office Sunday morning. Discussed all findings with patient and family, gave him local Urology as well as [facility] which is on-call today. Discussed recommendations from urology and need for close follow-up and strict return precautions. Discharge Plan Departure Patient Disposition: Home Clinical Impression: Hydronephrosis with ureteropelvic junction obstruction, Elevated serum creatinine Instructions: DI for Hydronephrosis-Adult Activity Restrictions/Additional Instructions: Please follow-up with Urology, call for an appointment on Sunday. There does appear to be a blockage on the right side causing some swelling of your kidney, this could be a kidney stone but there is not 1 clearly seen on your imaging today. Your renal function has decreased from your past labs so this needs to be rechecked on Sunday or Sunday. You can take Tylenol up to a 1000 mg every 6 hours as needed for pain. Please return for new or worsening abdominal back or flank pain, fevers, vomiting, difficulty with urination, passing out, black or bloody stools or other new or concerning changes. Prescriptions: No Action cholecalciferol (vitamin D3) [Vitamin D3] 400 unit Capsule 400 unit PO DAILY Qty: 0 Rx Instructions: unknown dose metoprolol succinate 100 mg tablet extended release 24 hr See Rx Instructions .ROUTE .COMPLEX Qty: 90 3RF Dose Instruction: TAKE 1 TABLET DAILY Rx Instructions: TAKE 1 TABLET DAILY ezetimibe 10 mg tablet See Rx Instructions .ROUTE .COMPLEX Qty: 90 3RF Dose Instruction: TAKE 1 TABLET AT BEDTIME Rx Instructions: TAKE 1 TABLET AT BEDTIME trazodone 150 mg tablet 150 mg PO BEDTIME Qty: 90 3RF pantoprazole 40 mg tablet,delayed release (DR/EC) See Rx Instructions .ROUTE .COMPLEX Qty: 90 2RF Dose Instruction: TAKE 1 TABLET DAILY Rx Instructions: TAKE 1 TABLET DAILY Tirosint 88 mcg capsule 88 mcg PO DAILY Qty: 90 3RF (DME) Disabled Parking Permit 0 ea .ROUTE .MEDSUPPLY Qty: 1 0RF Rx Instructions: This pt qualifies for disabled parking priviledges clopidogrel [Plavix] 75 mg tablet 75 mg PO DAILY Qty: 90 2RF metoprolol succinate 50 mg tablet extended release 24 hr 50 mg PO ONCE Qty: 90 1RF Rx Instructions: the patient is to be taking a total of 150mg daily losartan 100 mg tablet 100 mg PO DAILY Qty: 90 1RF Referrals: Jenna Phillips MD [Primary Care Provider] - Augustin Arguelles MD [Non-Staff] - Eddie Hahn MD [Physician] - Stand Alone Forms: Patient Portal/API
[2022-12-09 21:01] LABS: Bacteria Urine None Seen; Culture Indicated Urine Cult Not Indicated; RBC Urine None Seen (0-5/HPF); Renal Epithelial Cells Urine 0-1/HPF (0-1/HPF); Squamous Epithelial Cell Urine None Seen (0-5/HPF); WBC Urine 1-5/HPF (0-5/HPF)
[2022-12-09 21:59] VITALS: BP 171/84; PULSE 60; RESP 18; O2SAT 97
== END 2022-12-09 22:00 | disposition home or self-care (01) ==
PROVIDERS: Emergency Medicine; Emergency Provider Emergency Medicine; PCP Family Medicine
DX: Q62.11 Congenital occlusion of ureteropelvic junction (principal); R79.89 Other specified abnormal findings of blood chemistry; R11.2 Nausea with vomiting, unspecified; R10.9 Unspecified abdominal pain
CPT/HCPCS: 36415; 74176; 80053; 81003; 81015; 83690; 85025; 85610; 93005; 96360; 99284

== ENCOUNTER → 2022-12-18 15:26 | Outpatient (CLI) | payer MEDICARE, OTHER, SELFPAY ==
[2019-03-24 10:53] VITALS: BMI 28.7
--- NOTE | 2022-12-18 15:27 | DI.ECHO.S_ITS ---
[facility]---------+ [facility] +---------+ : : [address] : : : : [id number] : : : : Phone: [phone] Echocardiogram Report + + :Name: RENETTA RICK Study Date: 12/18/2022 Height: 64 in : :[facility] ReadingLocation: Weight: 144 lb : : Gender: Female BSA: 1.7 m2 : :: 1945 Age: 77 yrs BP: 189/104 mmHg: :Reason For Study: Uncontrolled Hypertension : :Ordering Physician: KADEEM, : :ETHAN Performed By: Chiquita Fraga : :Referring: ETHAN QUAN : + + Interpretation Summary Moderate concentric left ventricular hypertrophy with ejection fraction 55- 60%. Normal right ventricle size with mild to moderately reduced right ventricular systolic function. There is a pacemaker lead in the right ventricle. Mild aortic valve sclerosis. Mild aortic regurgitation. Mild mitral annular calcification. Comparison is made with the echocardiogram of 10/26/2017, LV wall thickness has increased, and RV function has worsen. Procedure: A two-dimensional transthoracic echocardiogram with color flow and Doppler was performed. The study quality was technically adequate. Comparison is made with the echocardiogram of 10/26/2017. The patient was in normal sinus rhythm during the exam. Left Ventricle: The left ventricular cavity is small. There is moderate concentric left ventricular hypertrophy. The ejection fraction is estimated to be 55-60%. Septal motion is consistent with conduction abnormality. There are no other obvious focal wall motion abnormalities. Diastolic parameters suggest a relaxation abnormality of the left ventricle, consistent with probable normal filling pressures. Right Ventricle: The right ventricle is normal size. There is a pacemaker lead in the right ventricle. Right ventricular systolic function is mild to moderately reduced. Atria: The left atrial size is normal. Right atrial size is normal. There is no Doppler evidence for an interatrial shunt. Mitral Valve: The mitral valve leaflets are moderately calcified. There is mild mitral annular calcification. There is no mitral valve stenosis. There is trace mitral regurgitation. Aortic Valve: The aortic valve is trileaflet. The aortic valve opens well. There is mild aortic valve sclerosis. There is no aortic valve stenosis. There is mild aortic regurgitation. Tricuspid Valve: Tricuspid leaflets are thickened. There is no tricuspid stenosis. There is trace tricuspid regurgitation. The right ventricular systolic pressure is estimated to be at least 20 mmHg based on an estimated right atrial pressure of 3 mm Hg. Pulmonic Valve: The pulmonic valve leaflets are thin and pliable; valve motion is normal. There is no pulmonic valvular stenosis. There is trace pulmonic regurgitation. Great Vessels: The aortic root is normal size. The ascending aorta is at the upper limits of normal in size. The pulmonary artery is normal size. The IVC is of normal diameter and collapses greater than 50% with a sniff. This suggests a low right atrial pressure of 3 mm Hg. Pericardium/ Pleura There is no pericardial effusion. There is no pleural effusion. MMode/2D Measurements & Calculations LVIDd: 2.9 cm LVOT diam: 1.6 cm LVIDs: 1.9 cm Ao root diam: 2.9 cm FS: 34.5 % asc Aorta Diam: 3.6 cm IVSd: 1.3 cm LVPWd: 1.4 cm LV zuñiga. diameter/BSA (cm/m^2): 1.7 LV sys. diameter/BSA (cm/m^2): 1.1 LA A2 area: 15.8 cm2 RA long axis: 4.2 cm LA A4 area: 16.0 cm2 RA area: 10.2 cm2 LA length (vol): 5.4 cm RA vol: 21.1 ml LA vol: 40.1 ml RA : 12.4 ml/m2 LA vol index: 23.6 ml/m2 RVD1 (basal): 3.5 cm LVLs ap4: 5.1 cm LVLd ap2: 6.4 cm TAPSE_phl: 1.5 cm LVLs ap2: 5.5 cm Doppler Measurements & Calculations Ao V2 max: 99.8 cm/sec LVOT Max Henri: 87.5 cm/sec Ao V2 mean: 74.9 cm/sec LV V1 max P.1 mmHg Ao max P.0 mmHg LV V1 VTI: 18.8 cm Ao mean P.0 mmHg SUSIE(I,D): 1.8 cm2 Ao V2 VTI: 20.7 cm SUSIE(V,D): 1.8 cm2 sev ratio: 0.91 SUSIE indexed to BSA (cm^2/m^2): 1.1 MV E max henri: 43.3 cm/sec TR max henri: 204.3 cm/sec MV A max henri: 85.7 cm/sec TR max P.9 mmHg MV E/A: 0.51 PA V2 max: 51.2 cm/sec Lat Peak E' Henri: 7.9 cm/sec PA V2 mean: 36.3 cm/sec E/E' lat: 5.5 PA mean P.0 mmHg MV dec time: 0.35 sec PA pr(Accel): 31.3 mmHg MVA(VTI): 1.2 cm2 MV V2 mean: 60.6 cm/sec SV(LVOT): 37.8 ml MV mean P.7 mmHg MV V2 VTI: 30.7 cm AV VR_phl: 0.88 MV P1/2t-pr_phl: 103.0 msec SUSIE(VTI)/BSA_phl: 1.1 Electronically signed by: Ro Johnson on Reading Physician:12/19/2022 12:53 AM
== END ==
PROVIDERS: PCP Family Medicine; Referring Provider Family Medicine; Visit Provider Family Medicine
DX: I10 Essential (primary) hypertension (principal); I34.81 Nonrheumatic mitral (valve) annulus calcification; I35.8 Other nonrheumatic aortic valve disorders
CPT/HCPCS: 93306